=== PATIENT | female | born 1950 | race Caucasian/White ===

== ENCOUNTER 2018-02-11 18:29 | Inpatient (IN) ==
[2018-02-11] MEDS ORDERED: Naloxone 0.4 MG/ML INJ IVP PRN (21:30)
[2018-02-11] MEDS ORDERED: Lacri-Lube 3.5 GM TUBE BOTH EYES PRN (21:31)
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
[2018-02-11 21:54] LABS: ABG Base Excess 7 mEq/L (-2 to 3); ABG HCO3 37 mEq/L (21-27); ABG Oxygen Saturation 91 % (95-98); ABG PCO2 82 mmHg (35-45); ABG PH 7.27 pH Units (7.32-7.45); ABG PO2 74 mmHg (85-104); ABG TCO2 40 mEq/L (20-26); Blood Gas Modality VC; Blood Gas PEEP 5 cm H2O; Blood Gas Respiration Rate 12; Blood Gas VT 550 cc
[2018-02-11] MEDS ORDERED: Furosemide 40 MG/4 ML VIAL IVP ONE (22:08)
[2018-02-11] MEDS: FentaNYL (PF) 1,000 MCG in 0.9 % Sodium Chloride 80 ML IVC SCH (22:30)
[2018-02-12] MEDS: *HR* Heparin 5,000 UNIT/ML VIAL SQ SCH ×3 (00:45→18:03)
[2018-02-12] MEDS: Lacri-Lube 3.5 GM TUBE BOTH EYES SCH ×6 (00:46→21:29)
[2018-02-12] MEDS: Nystatin POWDER 30 GM BOTTLE TP SCH ×4 (00:46→21:28)
[2018-02-12] MEDS: FentaNYL (PF) 1,000 MCG in 0.9 % Sodium Chloride 80 ML IVC SCH ×3 (04:12→18:03)
[2018-02-12 04:25] LABS: Basophils % 0.2 %; Eosinophils # 0.1 K/mcL (0.0-0.6); Eosinophils % 1.6 %; Hematocrit 36.9 % (35.3-44.9); Hemoglobin 10.9 g/dL (11.5-15.4); Immature Granulocytes % 0.4 % (0-4); Lymphocytes # 0.6 K/mcL (0.6-4.6); Lymphocytes % 11.1 %; Mean Corpuscular HGB Conc 29.5 g/dL (31.6-35.5); Mean Corpuscular Hemoglobin 26.2 pg (28.0-33.3); Mean Corpuscular Volume 88.7 fL (83.0-100.0); Mean Platelet Volume 11.1 fL (9.4-12.4); Monocytes # 0.3 K/mcL (0.0-1.3); Monocytes % 4.6 %; Neutrophils # 4.5 K/mcL (1.6-8.9); Platelet Count 154 K/mcL (140-400); Red Blood Count 4.16 M/mcL (3.82-4.97); Red Cell Distribution Width 17.9 % (11.5-14.5); Segmented Neutrophils % 82.1 %
[2018-02-12 04:46] LABS: BUN/Creatinine Ratio 22 (6-26); Blood Urea Nitrogen 20 mg/dL (8-23); Calcium 7.1 mg/dL (8.6-10.3); Carbon Dioxide 33 mEq/L (23-29); Chloride 103 mEq/L (98-107); Glucose 75 mg/dL (70-105); Osmolality,Calculated 291 (280-300); Potassium 3.3 mEq/L (3.5-5.1); Sodium 140 mEq/L (136-145); eGFR For African Americans > 60 (> 60); eGFR For Non-African Americans > 60 (> 60)
[2018-02-12 05:25] LABS: ABG Base Excess 11 mEq/L (-2 to 3); ABG HCO3 38 mEq/L (21-27); ABG Oxygen Saturation 93 % (95-98); ABG PCO2 57 mmHg (35-45); ABG PH 7.43 pH Units (7.32-7.45); ABG PO2 66 mmHg (85-104); ABG TCO2 39 mEq/L (20-26); Blood Gas Modality VC; Blood Gas PEEP 5 cm H2O; Blood Gas VT 450 cc
[2018-02-12] MEDS: Famotidine 20 MG/2 ML VIAL IVP SCH ×2 (06:34→18:03)
[2018-02-12] MEDS: Chlorhexidine Rinse 15 ML MOUTHWASH MM SCH ×2 (07:56→21:26)
[2018-02-12] MEDS ORDERED: Perflutren Lipid Microsphere 1.3 ML in 0.9 % Sodium Chloride 8.7 ML IVP ONE (08:03)
--- NOTE | 2018-02-12 08:17 | Pulmonology Consult Note ---
<Garret Mcmahan - Last Filed: 02/12/18 11:30> Date of Encounter: 02/12/18 Time of Encounter: 08:00 Assessment and Plan (1) Acute on chronic respiratory failure Current Visit: No Status: Acute Chest x-ray shows interstitial and alveolar edema secondary to heart failure. Echocardiogram ordered and shows an EF of 60% with grossly dilated right ventricle. Patient currently on mechanical ventilation. ABGs show respiratory acidosis with anabolic compensation which seems to be improving. Her respiratory failure is most likely multifactorial relating to her cardiogenic and COPD status. Pneumonia unlikely but cannot be ruled out. Patient was started on Levaquin currently day 2. Was put on Versed for sedation later switched to Precedex however patient would wake and become agitated. - Continue Levaquin. - Continue mechanical ventilation. - Switched from Precedex to propofol. - Consult to nutrition put in. Ordered low-dose sliding scale insulin when patient starts feeding. Chest X-Ray 02/12/18 04:00 IMPRESSION: Appropriate endotracheal tube positioning. Interval placement of esophagogastric tube, distal tip outside the field of view. Persistent interstitial and alveolar edema likely reflecting heart failure. Fluctuating retrocardiac atelectasis. D/ / Fermin Hooper / Fermin Hooper Interpreting Provider: Fermin Hooper Qualifiers: Respiratory failure complication: hypoxia and hypercapnia Qualified Code(s) : J96.21 - Acute and chronic respiratory failure with hypoxia; J96.22 - Acute and chronic respiratory failure with hypercapnia (2) Acute on chronic diastolic CHF (congestive heart failure) Current Visit: Yes Status: Acute Echo shows an EF of 60% with grossly dilated right ventricle. Patient displays fluid overload on exam. Current fluid balance of -1150 with a rate of 0.4 mL/ kg per hour of urine output. - Continue fluid restriction. - Lasix when necessary. Echocardiogram 02/12/18 00:00 Impressions: Technically sub-optimal due to body habitus. LVEF 60%. Normal LV chamber size, wall thickness and function. Mild left ventricular diastolic dysfunction. Right ventricle was not well visualized. Grossly, it appeared dilated with near normal function. No evidence of pulmonary hypertension. RVSP was not well obtained and possibly underestimated. No obvious significant valvular dysfunction. Left Ventricular Wall Motion: Rest Echo Findings All wall segments showed normal motion. Findings: Study Quality * Technically sub-optimal due to body habitus. ECG Findings * Normal sinus rhythm. Left Ventricle * LVEF 60%. * Grossly normal LV chamber size, wall thickness and function. * Mild left ventricular diastolic dysfunction. Right Ventricle * Right ventricle was not well visualized. Grossly, it appeared dilated with near normal function. Left Atrium * Left atrium is not well visualized. Right Atrium * Right atrium is not well visualized. Aortic Valve * Aortic valve not well visualized. * No aortic regurgitation. * No aortic stenosis. Mitral Valve * Normal mitral valve structure and function. * No mitral regurgitation. * No mitral stenosis. Tricuspid Valve * Normal tricuspid valve structure and function. * Trace tricuspid regurgitation. * No evidence of pulmonary hypertension. RVSP was not well obtained and possibly underestimated. Pulmonic Valve * Pulmonic valve is not well visualized. * No pulmonic regurgitation. Aorta * Normally sized aortic root. Pericardium * The pericardium appears normal. Pulmonary Artery * Normal visualized portions of the main pulmonary artery. IVC * The IVC is dilated. (3) Pneumonia Current Visit: No Status: Acute Chest x-ray is more consistent with pulmonary edema secondary to congestive heart failure, although pneumonia cannot be ruled out. Patient on day 2 of Levaquin. White blood cell count within normal limits. Patient has been afebrile. Lactic acid of 0.9. - Continue Levaquin. - Sputum cultures pending. Qualifiers: Pneumonia type: due to unspecified organism Laterality: right Lung location: upper lobe of lung Qualified Code(s): J18.1 - Lobar pneumonia, unspecified organism (4) CKD (chronic kidney disease) stage 3, GFR 30-59 ml/min Current Visit: No Status: Chronic Creatinine currently at 0.91. - Holding IV fluids at this time due to CHF - Trend daily. (5) Cellulitis Current Visit: No Status: Acute Patient displays erythema of lower extremities. There are slightly warm to touch. No signs of active bleeding, pus, or drainage. Given state of fluid overload seems more likely that patient has venous stasis. Patient was given a dose of vancomycin when admitted. - Ordered venous Doppler of lower extremities bilaterally to rule out blood clot. - CT of lower extremities ordered to assess extent cellulitis and rule out possible osteomyelitis. - We will hold on vancomycin for now until results of Doppler and CT come back. - Wound care on board. Qualifiers: Site of cellulitis: trunk Site of cellulitis of trunk: chest wall Qualified Code(s): L03.313 - Cellulitis of chest wall (6) Venous stasis dermatitis of both lower extremities Current Visit: Yes Status: Acute Possible venous stasis of lower extremities bilaterally given state of fluid overload. - Follow up with venous ultrasound results. (7) Candidiasis Current Visit: Yes Status: Acute [place] Breast and umbilicus. On nystatin day #1. - Continue nystatin. (8) DVT prophylaxis Current Visit: Yes Status: Acute Heparin 5000 units subcutaneously twice a day History of Present Illness Consult date: 02/12/18 Requesting physician: Mukesh Castillo Reason for consult: dyspnea Chief complaint: SOB/AMS History of present illness: Patient is a 67-year-old female with a past medical history of CHF, COPD, hypertension, and seizures that presented to [facility] ED for acute respiratory failure and altered mental status on 02/11/18. Based on the nursing notes from [facility] patient developed shortness of breath and was placed on BiPAP as a result. She was given Levaquin and Vanco for possible pneumonia on her chest x-ray. She was then subsequently intubated which was noted to be difficult requiring 4 attempts. Past Med Surg Social Fam HX - Past Medical History Medical history: CHF, COPD, hyperlipidemia, hypertension, seizures Psychiatric history: depression - Past Surgical History Additional surgical history: trach. surgeries from [facility] [place]. bilat foot surgery - Social History Smoking Status: Current every day smoker Smokeless Tobacco Status: No Alcohol use: none Drug use: none - Family History Mother History Unknown: Yes Father History Unknown: Yes Medications and Allergies Atorvastatin [Lipitor] 10 mg PO HS #30 tablet 08/13/16 [Rx] Furosemide [Lasix] 40 mg PO DAILY #30 tablet 08/13/16 [Rx] Buspirone HCl [Buspar] 7.5 mg PO BID 02/11/18 [History] Omeprazole 40 mg PO QAM 02/11/18 [History] amLODIPine [Norvasc] 10 mg PO DAILY 02/11/18 [History] Albuterol Sulfate [Albuterol Inhaler] 2 puff IH Q4HR 02/12/18 [History] Budesonide/Formoterol 160/4.5 [Symbicort 160/4.5] 2 puff IH BIDR 02/12/18 [ History] Duloxetine HCl [Cymbalta] 60 mg PO BID 02/12/18 [History] Gabapentin [Neurontin] 800 mg PO TID 02/12/18 [History] Temazepam [Restoril] 30 mg PO Q48H PRN 02/12/18 [History] Valsartan [Diovan] 40 mg PO DAILY 02/12/18 [History] levETIRAcetam [Levetiracetam] 1,000 mg PO BID 02/12/18 [History] 3 Allergy/AdvReac Type Severity Reaction Status Date / Time acetaminophen Allergy Hives Verified 07/28/15 14:58 [From Darvocet-N] Iodinated Contrast- Oral and Allergy Difficulty Verified 07/28/15 14:58 IV Dye Breathing [Iodinated Contrast Media - IV Dye] propoxyphene Allergy Hives Verified 07/28/15 14:58 [From Darvocet-N] ROS unobtainable: due to endotracheal tube, due to mental status All Systems: The remainder of the systems were reviewed and are negative Physical Examination Vital Signs: Vital Signs, Last 4 Hours Temp Pulse Resp BP Pulse Ox 02/12/18 08:00 75 14 105/67 94 02/12/18 07:36 14 112/60 96 02/12/18 07:00 75 14 105/67 94 02/12/18 06:00 72 14 114/58 94 02/12/18 05:24 98.1 F 02/12/18 05:11 14 118/65 95 02/12/18 05:00 70 14 118/65 92 General appearance: no acute distress, other (Sedated and intubated) Eyes: nonicteric ENT: oropharynx moist Neck: supple Auscultation: bilateral: rhonchi Cardiovascular: regular rate and rhythm Gastrointestinal: hypoactive bowel sounds, non-distended Integumentary: erythema (Under left breast and bilaterally in lower extremities. Erythema of umbilicus. ) Extremities: no cyanosis, no edema (+2 bilateral pedal pitting edema), no clubbing, pulses normal (1 x 2 cm skin lesion noted in the left lower extremity that is dry with no signs of bleeding, pus, or drainage. Erythema noted in lower extremities bilaterally) Musculoskeletal: no deformities unable to assess due to mental status (Also due to patient being intubated) Ventilator Settings Ventilator Settings: Ventilator Settings, Last 8 Hours Ventilator Tidal Volume 450 Setting Ventilator Tidal Volume 450 Setting Ventilator Tidal Volume 450 Setting Ventilator Tidal Volume 450 Setting Ventilator Tidal Volume 450 Setting Ventilator Tidal Volume 450 Setting Ventilator Tidal Volume 450 Setting Ventilator Tidal Volume 450 Setting Ventilator Tidal Volume 450 Setting Ventilator Tidal Volume 450 Setting Ventilator Tidal Volume 450 Setting Ventilator Tidal Volume 450 Setting Ventilator Tidal Volume 450 Setting Ventilator Respiratory Rate 14 Setting Ventilator Respiratory Rate 14 Setting Ventilator Respiratory Rate 14 Setting Ventilator Respiratory Rate 14 Setting Ventilator Respiratory Rate 14 Setting Ventilator Respiratory Rate 14 Setting Ventilator Respiratory Rate 14 Setting Ventilator Respiratory Rate 14 Setting Ventilator Respiratory Rate 14 Setting Ventilator Respiratory Rate 14 Setting Ventilator Respiratory Rate 14 Setting Ventilator Respiratory Rate 14 Setting Ventilator Respiratory Rate 14 Setting Actual Respiratory Rate 14 Actual Respiratory Rate 14 Actual Respiratory Rate 14 Actual Respiratory Rate 14 Actual Respiratory Rate 14 Actual Respiratory Rate 14 Actual Respiratory Rate 14 Actual Respiratory Rate 14 Actual Respiratory Rate 14 Actual Respiratory Rate 14 Actual Respiratory Rate 14 Actual Respiratory Rate 14 Positive End Expiratory 5 Pressure Positive End Expiratory 5 Pressure Positive End Expiratory 5 Pressure Positive End Expiratory 5 Pressure Positive End Expiratory 5 Pressure Positive End Expiratory 5 Pressure Positive End Expiratory 5 Pressure Positive End Expiratory 5 Pressure Positive End Expiratory 5 Pressure Positive End Expiratory 5 Pressure Positive End Expiratory 5 Pressure Positive End Expiratory 5 Pressure Positive End Expiratory 5 Pressure Peak Inspiratory Airway 55 Pressure Peak Inspiratory Airway 52 Pressure Peak Inspiratory Airway 52 Pressure Peak Inspiratory Airway 35 Pressure Peak Inspiratory Airway 44 Pressure Peak Inspiratory Airway 35 Pressure Peak Inspiratory Airway 35 Pressure Peak Inspiratory Airway 40 Pressure Peak Inspiratory Airway 40 Pressure Peak Inspiratory Airway 49 Pressure Peak Inspiratory Airway 41 Pressure Peak Inspiratory Airway 49 Pressure Results - Laboratory Findings CBC and BMP: 02/12/18 04:00 02/12/18 04:10 ABG ABG pH 7.43 pH Units (7.32-7.45) 02/12/18 05:21 ABG pCO2 57 mmHg (35-45) H 02/12/18 05:21 ABG pO2 66 mmHg (85-104) L 02/12/18 05:21 ABG O2 Saturation 93 % (95-98) L 02/12/18 05:21 Abnormal lab findings: Abnormal lab results Hgb 10.9 g/dL (11.5-15.4) L 02/12/18 04:00 MCH 26.2 pg (28.0-33.3) L 02/12/18 04:00 MCHC 29.5 g/dL (31.6-35.5) L 02/12/18 04:00 RDW 17.9 % (11.5-14.5) H 02/12/18 04:00 ABG pCO2 57 mmHg (35-45) H 02/12/18 05:21 ABG pO2 66 mmHg (85-104) L 02/12/18 05:21 ABG HCO3 38 mEq/L (21-27) H 02/12/18 05:21 ABG Total CO2 39 mEq/L (20-26) H 02/12/18 05:21 ABG O2 Saturation 93 % (95-98) L 02/12/18 05:21 ABG Base Excess 11 mEq/L (-2 to 3) H 02/12/18 05:21 Potassium 3.3 mEq/L (3.5-5.1) L 02/12/18 04:10 Carbon Dioxide 33 mEq/L (23-29) H 02/12/18 04:10 Calcium 7.1 mg/dL (8.6-10.3) L 02/12/18 04:10 B-Natriuretic Peptide 513 pg/mL (Less than 100) H 02/11/18 21:31 - Clinical Findings Intake & Output: Intake & Output 02/11/18 02/12/18 02/12/18 23:59 07:59 15:59 Intake Total 300 / 300 Output Total 100 / 100 1350 / 1350 Balance -100 / -100 -1050 / -1050 Weight 149.3 kg 148.4 kg Consult Discharge Plan - Plan Referrals: Brad Minor MD [Primary Care Provider] - <Joelle Melton - Last Filed: 02/12/18 17:18> Date of Encounter: 02/12/18 All Systems: The remainder of the systems were reviewed and are negative Physical Examination Vital Signs: Vital Signs, Last 4 Hours Temp Pulse Resp BP Pulse Ox 02/12/18 17:05 14 94/51 90 02/12/18 17:00 63 14 107/71 99 02/12/18 16:00 60 14 81/55 90 02/12/18 15:55 98.6 F 02/12/18 15:18 14 99/55 92 02/12/18 14:53 60 14 95/55 92 02/12/18 14:52 60 14 95/55 92 02/12/18 14:00 60 14 92/50 92 Ventilator Settings Ventilator Settings: Ventilator Settings, Last 8 Hours Ventilator Tidal Volume 450 Setting Ventilator Tidal Volume 450 Setting Ventilator Tidal Volume 450 Setting Ventilator Tidal Volume 450 Setting Ventilator Tidal Volume 450 Setting Ventilator Tidal Volume 450 Setting Ventilator Tidal Volume 450 Setting Ventilator Tidal Volume 450 Setting Ventilator Tidal Volume 450 Setting Ventilator Tidal Volume 450 Setting Ventilator Tidal Volume 450 Setting Ventilator Tidal Volume 450 Setting Ventilator Tidal Volume 450 Setting Ventilator Respiratory Rate 14 Setting Ventilator Respiratory Rate 14 Setting Ventilator Respiratory Rate 14 Setting Ventilator Respiratory Rate 14 Setting Ventilator Respiratory Rate 14 Setting Ventilator Respiratory Rate 14 Setting Ventilator Respiratory Rate 14 Setting Ventilator Respiratory Rate 14 Setting Ventilator Respiratory Rate 14 Setting Ventilator Respiratory Rate 14 Setting Ventilator Respiratory Rate 14 Setting Ventilator Respiratory Rate 14 Setting Ventilator Respiratory Rate 14 Setting Actual Respiratory Rate 14 Actual Respiratory Rate 14 Actual Respiratory Rate 14 Actual Respiratory Rate 14 Actual Respiratory Rate 14 Actual Respiratory Rate 14 Actual Respiratory Rate 14 Actual Respiratory Rate 14 Actual Respiratory Rate 14 Actual Respiratory Rate 14 Actual Respiratory Rate 14 Actual Respiratory Rate 14 Actual Respiratory Rate 14 Positive End Expiratory 5 Pressure Positive End Expiratory 5 Pressure Positive End Expiratory 5 Pressure Positive End Expiratory 5 Pressure Positive End Expiratory 5 Pressure Positive End Expiratory 5 Pressure Positive End Expiratory 5 Pressure Positive End Expiratory 5 Pressure Positive End Expiratory 5 Pressure Positive End Expiratory 5 Pressure Positive End Expiratory 5 Pressure Positive End Expiratory 5 Pressure Positive End Expiratory 5 Pressure Peak Inspiratory Airway 55 Pressure Peak Inspiratory Airway 29 Pressure Peak Inspiratory Airway 41 Pressure Peak Inspiratory Airway 40 Pressure Peak Inspiratory Airway 41 Pressure Peak Inspiratory Airway 42 Pressure Peak Inspiratory Airway 39 Pressure Peak Inspiratory Airway 39 Pressure Peak Inspiratory Airway 41 Pressure Peak Inspiratory Airway 44 Pressure Peak Inspiratory Airway 39 Pressure Peak Inspiratory Airway 40 Pressure Peak Inspiratory Airway 52 Pressure Results - Laboratory Findings CBC and BMP: 02/12/18 04:00 02/12/18 04:10 ABG ABG pH 7.43 pH Units (7.32-7.45) 02/12/18 05:21 ABG pCO2 57 mmHg (35-45) H 02/12/18 05:21 ABG pO2 66 mmHg (85-104) L 02/12/18 05:21 ABG O2 Saturation 93 % (95-98) L 02/12/18 05:21 Abnormal lab findings: Abnormal lab results Hgb 10.9 g/dL (11.5-15.4) L 02/12/18 04:00 MCH 26.2 pg (28.0-33.3) L 02/12/18 04:00 MCHC 29.5 g/dL (31.6-35.5) L 02/12/18 04:00 RDW 17.9 % (11.5-14.5) H 02/12/18 04:00 ABG pCO2 57 mmHg (35-45) H 02/12/18 05:21 ABG pO2 66 mmHg (85-104) L 02/12/18 05:21 ABG HCO3 38 mEq/L (21-27) H 02/12/18 05:21 ABG Total CO2 39 mEq/L (20-26) H 02/12/18 05:21 ABG O2 Saturation 93 % (95-98) L 02/12/18 05:21 ABG Base Excess 11 mEq/L (-2 to 3) H 02/12/18 05:21 Potassium 3.3 mEq/L (3.5-5.1) L 02/12/18 04:10 Carbon Dioxide 33 mEq/L (23-29) H 02/12/18 04:10 Calcium 7.1 mg/dL (8.6-10.3) L 02/12/18 04:10 B-Natriuretic Peptide 513 pg/mL (Less than 100) H 02/11/18 21:31 - Microbiology Findings Microbiology Findings: Microbiology, Last 48 Hours 02/12/18 10:58 Sputum Culture - Preliminary Sputum - Clinical Findings Intake & Output: Intake & Output 02/12/18 02/12/18 02/12/18 07:59 15:59 23:59 Intake Total 300 / 300 658 / 658 60 / 60 Output Total 1350 / 1350 200 / 200 Balance -1050 / -1050 458 / 458 60 / 60 Weight 148.4 kg - Attending Attestation I examined this patient and my medical decision-making was reviewed with the Resident Physician. I agree with the documented findings, disposition and treatment plan as described except to the extent set forth below. Patient seen and examined. Labs, radiology, chart personally reviewed. 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 Pulmonary: Acceptable oxygenation and ventilation on current vent setting and patient was difficult intubation and also she has evidence of previous tracheostomy which is not clear to me at this time for what reason however I suspect obstructive sleep apnea/obesity hypoventilation syndrome and once patient has her workup completed then we will plan for spontaneous breathing trial. Cardiovascular: stable GI: Nutrition per dietary and GI prophylaxis per routine Heme: DVT prophylaxis per routine ID: Continue antibiotics and plan to de-escalation. Lower extremity images to rule out any osteomyelitis. Renal; urine out put and renal funtion reviewed Endorcine: blood glucose is monitored Lines: all lines checked and no evidence of infections Skin: skin care to prevent pressure ulcers per nursing routine care
[2018-02-12] MEDS: Levofloxacin 750 MG/150 ML 750 MG/150 ML BAG IVPB SCH (09:24)
[2018-02-12] MEDS: Dexmedetomidine HCl 400 MCG/100 ML MLS IVC SCH ×2 (09:27→21:29)
[2018-02-12] MEDS ORDERED: D5% in Water 1,000 ML IVC PRN (10:49)
[2018-02-12] MEDS ORDERED: Dextrose Gel 15 GM/37.5 ML TUBE PO PRN ×2 (10:49)
[2018-02-12] MEDS: Insulin LISPRO 300 UNITS/3 ML VIAL SQ SCH ×3 (12:02→20:34)
[2018-02-12] MEDS: *HR* Dextrose 50 % in Water (Syg) 50 ML SYRINGE IVP PRN ×2 (15:35→19:34)
[2018-02-12] MEDS: Leptospermum Honey Gel 44 ML TUBE TP SCH (20:30)
[2018-02-13] MEDS: FentaNYL (PF) 1,000 MCG in 0.9 % Sodium Chloride 80 ML IVC SCH (00:03)
[2018-02-13] MEDS: Lacri-Lube 3.5 GM TUBE BOTH EYES SCH ×4 (00:05→11:14)
[2018-02-13] MEDS: Insulin LISPRO 300 UNITS/3 ML VIAL SQ SCH ×5 (00:05→23:41)
[2018-02-13 04:07] LABS: Basophils % 0.3 %; Eosinophils # 0.2 K/mcL (0.0-0.6); Eosinophils % 2.5 %; Hemoglobin 10.9 g/dL (11.5-15.4); Immature Granulocytes % 0.5 % (0-4); Immature Platelets 5.9 % (1.1-6.1); Lymphocytes # 0.9 K/mcL (0.6-4.6); Mean Corpuscular HGB Conc 30.3 g/dL (31.6-35.5); Mean Corpuscular Hemoglobin 26.5 pg (28.0-33.3); Mean Corpuscular Volume 87.6 fL (83.0-100.0); Mean Platelet Volume 11.9 fL (9.4-12.4); Monocytes # 0.4 K/mcL (0.0-1.3); Monocytes % 6.1 %; Neutrophils # 4.5 K/mcL (1.6-8.9); Platelet Count 141 K/mcL (140-400); Red Blood Count 4.11 M/mcL (3.82-4.97); Red Cell Distribution Width 18.2 % (11.5-14.5); Segmented Neutrophils % 75.6 %
[2018-02-13] MEDS: Famotidine 20 MG/2 ML VIAL IVP SCH (04:17)
[2018-02-13] MEDS: *HR* Heparin 5,000 UNIT/ML VIAL SQ SCH ×2 (04:17→18:51)
[2018-02-13 04:31] LABS: Potassium 4.8 mEq/L (3.5-5.1)
[2018-02-13 04:35] LABS: ABG Base Excess 9 mEq/L (-2 to 3); ABG HCO3 37 mEq/L (21-27); ABG Oxygen Saturation 91 % (95-98); ABG PCO2 63 mmHg (35-45); ABG PH 7.37 pH Units (7.32-7.45); ABG PO2 65 mmHg (85-104); ABG TCO2 39 mEq/L (20-26); Blood Gas Modality ASSIST CONTROL; Blood Gas PEEP 5 cm H2O; Blood Gas VT 450 cc
[2018-02-13] MEDS: Chlorhexidine Rinse 15 ML MOUTHWASH MM SCH (07:48)
[2018-02-13] MEDS ORDERED: Piperacillin/Tazobactam 3.375 GM in 0.9 % Sodium Chloride Mini Bag 100 ML IVPB SCH ×5 (08:00→19:00)
--- NOTE | 2018-02-13 08:11 | Pulmonology Progress Note ---
<GeronimoKarissasarah M - Last Filed: 02/13/18 08:48> Date of Encounter: 02/13/18 Objective PUL Vital signs: Last Vital Signs Temp 98.7 F 02/13/18 07:59 Pulse 92 02/13/18 08:00 Resp 13 02/13/18 08:00 BP 137/86 02/13/18 08:00 Pulse Ox 93 02/13/18 08:00 Ventilator Settings Ventilator Settings: Ventilator Settings, Last 8 Hours Ventilator Tidal Volume 450 Setting Ventilator Tidal Volume 450 Setting Ventilator Tidal Volume 450 Setting Ventilator Tidal Volume 450 Setting Ventilator Tidal Volume 450 Setting Ventilator Tidal Volume 450 Setting Ventilator Tidal Volume 450 Setting Ventilator Tidal Volume 450 Setting Ventilator Tidal Volume 450 Setting Ventilator Tidal Volume 450 Setting Ventilator Respiratory Rate 14 Setting Ventilator Respiratory Rate 14 Setting Ventilator Respiratory Rate 12 Setting Ventilator Respiratory Rate 14 Setting Ventilator Respiratory Rate 14 Setting Ventilator Respiratory Rate 14 Setting Ventilator Respiratory Rate 14 Setting Ventilator Respiratory Rate 14 Setting Ventilator Respiratory Rate 14 Setting Ventilator Respiratory Rate 14 Setting Actual Respiratory Rate 14 Actual Respiratory Rate 14 Actual Respiratory Rate 14 Actual Respiratory Rate 15 Actual Respiratory Rate 14 Actual Respiratory Rate 15 Actual Respiratory Rate 14 Actual Respiratory Rate 14 Actual Respiratory Rate 14 Positive End Expiratory 5 Pressure Positive End Expiratory 5 Pressure Positive End Expiratory 5 Pressure Positive End Expiratory 5 Pressure Positive End Expiratory 5 Pressure Positive End Expiratory 5 Pressure Positive End Expiratory 5 Pressure Positive End Expiratory 5 Pressure Positive End Expiratory 5 Pressure Positive End Expiratory 5 Pressure Peak Inspiratory Airway 47 Pressure Peak Inspiratory Airway 44 Pressure Peak Inspiratory Airway 37 Pressure Peak Inspiratory Airway 43 Pressure Peak Inspiratory Airway 28 Pressure Peak Inspiratory Airway 50 Pressure Peak Inspiratory Airway 43 Pressure Peak Inspiratory Airway 33 Pressure Peak Inspiratory Airway 45 Pressure Results - Laboratory Findings CBC and BMP: 02/13/18 03:52 02/13/18 03:52 ABG ABG pH 7.37 pH Units (7.32-7.45) 02/13/18 04:30 ABG pCO2 63 mmHg (35-45) H 02/13/18 04:30 ABG pO2 65 mmHg (85-104) L 02/13/18 04:30 ABG O2 Saturation 91 % (95-98) L 02/13/18 04:30 Abnormal lab findings: Abnormal lab results Hgb 10.9 g/dL (11.5-15.4) L 02/13/18 03:52 MCH 26.5 pg (28.0-33.3) L 02/13/18 03:52 MCHC 30.3 g/dL (31.6-35.5) L 02/13/18 03:52 RDW 18.2 % (11.5-14.5) H 02/13/18 03:52 ABG pCO2 63 mmHg (35-45) H 02/13/18 04:30 ABG pO2 65 mmHg (85-104) L 02/13/18 04:30 ABG HCO3 37 mEq/L (21-27) H 02/13/18 04:30 ABG Total CO2 39 mEq/L (20-26) H 02/13/18 04:30 ABG O2 Saturation 91 % (95-98) L 02/13/18 04:30 ABG Base Excess 9 mEq/L (-2 to 3) H 02/13/18 04:30 Sodium 135 mEq/L (136-145) L 02/13/18 03:52 Carbon Dioxide 31 mEq/L (23-29) H 02/13/18 03:52 Est GFR ( Amer) 55 (> 60) L 02/13/18 03:52 Est GFR (Non-Af Amer) 45 (> 60) L 02/13/18 03:52 Calcium 8.0 mg/dL (8.6-10.3) L 02/13/18 03:52 B-Natriuretic Peptide 513 pg/mL (Less than 100) H 02/11/18 21:31 - Microbiology Findings Microbiology Findings: Microbiology, Last 48 Hours 02/12/18 10:58 Sputum Culture - Preliminary Sputum - Clinical Findings Intake & Output: Intake & Output 02/12/18 02/13/18 02/13/18 23:59 07:59 15:59 Intake Total 415 / 415 748.8 / 748.8 89.2 / 89.2 Output Total 100 / 100 225 / 225 Balance 315 / 315 523.8 / 523.8 89.2 / 89.2 Weight 150.5 kg Consult Discharge Plan - Plan Referrals: Bard Minor MD [Primary Care Provider] - - Attending Attestation I examined this patient and my medical decision-making was reviewed with the Resident Physician. I agree with the documented findings, disposition and treatment plan as described except to the extent set forth below. Patient seen and examined. Labs, radiology, chart personally reviewed. 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 CT is concerning for cellulitis and gram-negative on the culture. They suspect she will need long- term antibiotics and infectious disease consultation. Renal; urine out put and renal funtion reviewed Endorcine: blood glucose is monitored Lines: all lines checked and no evidence of infections Skin: skin care to prevent pressure ulcers per nursing routine care If patient remains stable we will consider transferred to the floor. <Garret Mcmahan - Last Filed: 02/13/18 09:08> Date of Encounter: 02/13/18 Time of Encounter: 08:00 Assessment and Plan (1) Acute on chronic respiratory failure Current Visit: No Status: Acute Patient was extubated today. She is currently at 92% oxygen saturation 40% FiO2 on BiPAP. Chest x-ray today shows small reticulonodular infiltrates that appear to be improved on the right side. Qualifiers: Respiratory failure complication: hypoxia and hypercapnia Qualified Code(s) : J96.21 - Acute and chronic respiratory failure with hypoxia; J96.22 - Acute and chronic respiratory failure with hypercapnia (2) Acute on chronic diastolic CHF (congestive heart failure) Current Visit: Yes Status: Acute Echo shows an EF of 60% with grossly dilated right ventricle. Patient displays fluid overload on exam. Current fluid balance of -277 mL with 0.5 mL/kg/h urine production. 148 kg yesterday and 150 kg today. - Continue fluid restriction. - Lasix when necessary. (3) Pneumonia Current Visit: No Status: Acute Patient on day 3 of Levaquin. White blood cell count within normal limits. Patient has been afebrile. Chest x-ray shows improvement on right side. Preliminaries for sputum cultures are negative. - Continue Levaquin. Qualifiers: Pneumonia type: due to unspecified organism Laterality: right Lung location: upper lobe of lung Qualified Code(s): J18.1 - Lobar pneumonia, unspecified organism (4) CKD (chronic kidney disease) stage 3, GFR 30-59 ml/min Current Visit: No Status: Chronic Creatinine increased from 0.91-1.19 today. - Holding IV fluids at this time due to CHF - Trend daily. (5) Cellulitis Current Visit: No Status: Acute Bilateral lower extremity CT shows evidence of cellulitis. Wound culture of right foot from 02/11/18 shows gram-negative allen. Patient currently on Levaquin. - Continue Levaquin. - Consult infectious disease placed. Lower Extremity CT 02/12/18 07:59 IMPRESSION: 1. Diffuse subcutaneous edema and skin thickening of the bilateral lower extremities. Correlate clinically for cellulitis. Edema is slightly more pronounced within the visualized distal soft tissues of the upper right leg. No organized drainable fluid collection identified to suggest abscess. No subcutaneous gas evident. 2. No acute fracture identified. 3. Severe osteopenia. 4. Postsurgical changes of left ankle arthrodesis and right talus ORIF. 5. Tricompartmental osteoarthritis of the bilateral knees with moderate left and small right knee effusions. D/ / Vince Whitley MD / Vince Whitley MD Interpreting Provider: Vince Whitley MD Qualifiers: Site of cellulitis: trunk Site of cellulitis of trunk: chest wall Qualified Code(s): L03.313 - Cellulitis of chest wall (6) Candidiasis Current Visit: Yes Status: Acute (7) Venous stasis dermatitis of both lower extremities Current Visit: Yes Status: Acute - Results of Doppler from bilateral lower extremities still pending. (8) DVT prophylaxis Current Visit: Yes Status: Acute Heparin 5000 units subcutaneously twice a day Subjective Principal diagnosis: Acute on chronic resp failure Interval history: Patient was extubated today. She admits to moderate difficulty breathing. She denies any chest pain. Denies any dizziness or LACEY. Denies any abdominal pain, nausea, or vomiting. She admits to minor pain in both her legs. She admits to a subjective fever with chills. Objective PUL Vital signs: Last Vital Signs Temp 98.7 F 02/13/18 07:59 Pulse 92 02/13/18 07:30 Resp 17 02/13/18 07:28 BP 153/90 02/13/18 07:00 Pulse Ox 95 02/13/18 07:28 General appearance: no acute distress, other (A&Ox1) Eyes: nonicteric ENT: oropharynx moist Neck: supple Effort: normal Auscultation: bilateral: clear Percussion: bilateral: not dull Tactile fremitus: bilateral: normal Cardiovascular: regular rate and rhythm Gastrointestinal: hypoactive bowel sounds, soft, non-tender, non-distended Integumentary: erythema (B/L lower extremities, umbilicus, under L/R breast ), cellulitis (B/L LE, R hand 1x2 cm lesion with erythema but with no active bleeding, pus or drainage.) Extremities: no cyanosis, no clubbing, pulses normal, no ischemia or petechiae, edema (+2 B/L pedal pitting edema) Musculoskeletal: no deformities other (A&Ox1) mood appropriate, affect normal Ventilator Settings Ventilator Settings: Ventilator Settings, Last 8 Hours Ventilator Tidal Volume 450 Setting Ventilator Tidal Volume 450 Setting Ventilator Tidal Volume 450 Setting Ventilator Tidal Volume 450 Setting Ventilator Tidal Volume 450 Setting Ventilator Tidal Volume 450 Setting Ventilator Tidal Volume 450 Setting Ventilator Tidal Volume 450 Setting Ventilator Tidal Volume 450 Setting Ventilator Tidal Volume 450 Setting Ventilator Respiratory Rate 14 Setting Ventilator Respiratory Rate 14 Setting Ventilator Respiratory Rate 12 Setting Ventilator Respiratory Rate 14 Setting Ventilator Respiratory Rate 14 Setting Ventilator Respiratory Rate 14 Setting Ventilator Respiratory Rate 14 Setting Ventilator Respiratory Rate 14 Setting Ventilator Respiratory Rate 14 Setting Ventilator Respiratory Rate 14 Setting Actual Respiratory Rate 14 Actual Respiratory Rate 14 Actual Respiratory Rate 14 Actual Respiratory Rate 15 Actual Respiratory Rate 14 Actual Respiratory Rate 15 Actual Respiratory Rate 14 Actual Respiratory Rate 14 Actual Respiratory Rate 14 Positive End Expiratory 5 Pressure Positive End Expiratory 5 Pressure Positive End Expiratory 5 Pressure Positive End Expiratory 5 Pressure Positive End Expiratory 5 Pressure Positive End Expiratory 5 Pressure Positive End Expiratory 5 Pressure Positive End Expiratory 5 Pressure Positive End Expiratory 5 Pressure Positive End Expiratory 5 Pressure Peak Inspiratory Airway 47 Pressure Peak Inspiratory Airway 44 Pressure Peak Inspiratory Airway 37 Pressure Peak Inspiratory Airway 43 Pressure Peak Inspiratory Airway 28 Pressure Peak Inspiratory Airway 50 Pressure Peak Inspiratory Airway 43 Pressure Peak Inspiratory Airway 33 Pressure Peak Inspiratory Airway 45 Pressure Results - Laboratory Findings CBC and BMP: 02/13/18 03:52 02/13/18 03:52 ABG ABG pH 7.37 pH Units (7.32-7.45) 02/13/18 04:30 ABG pCO2 63 mmHg (35-45) H 02/13/18 04:30 ABG pO2 65 mmHg (85-104) L 02/13/18 04:30 ABG O2 Saturation 91 % (95-98) L 02/13/18 04:30 Abnormal lab findings: Abnormal lab results Hgb 10.9 g/dL (11.5-15.4) L 02/13/18 03:52 MCH 26.5 pg (28.0-33.3) L 02/13/18 03:52 MCHC 30.3 g/dL (31.6-35.5) L 02/13/18 03:52 RDW 18.2 % (11.5-14.5) H 02/13/18 03:52 ABG pCO2 63 mmHg (35-45) H 02/13/18 04:30 ABG pO2 65 mmHg (85-104) L 02/13/18 04:30 ABG HCO3 37 mEq/L (21-27) H 02/13/18 04:30 ABG Total CO2 39 mEq/L (20-26) H 02/13/18 04:30 ABG O2 Saturation 91 % (95-98) L 02/13/18 04:30 ABG Base Excess 9 mEq/L (-2 to 3) H 02/13/18 04:30 Sodium 135 mEq/L (136-145) L 02/13/18 03:52 Carbon Dioxide 31 mEq/L (23-29) H 02/13/18 03:52 Est GFR ( Amer) 55 (> 60) L 02/13/18 03:52 Est GFR (Non-Af Amer) 45 (> 60) L 02/13/18 03:52 Calcium 8.0 mg/dL (8.6-10.3) L 02/13/18 03:52 B-Natriuretic Peptide 513 pg/mL (Less than 100) H 02/11/18 21:31 - Microbiology Findings Microbiology Findings: Microbiology, Last 48 Hours 02/12/18 10:58 Sputum Culture - Preliminary Sputum - Clinical Findings Intake & Output: Intake & Output 02/12/18 02/13/18 02/13/18 23:59 07:59 15:59 Intake Total 415 / 415 748.8 / 748.8 Output Total 100 / 100 225 / 225 Balance 315 / 315 523.8 / 523.8 Weight 150.5 kg
[2018-02-13] MEDS: Levofloxacin 750 MG/150 ML 750 MG/150 ML BAG IVPB SCH (08:27)
[2018-02-13] MEDS: Leptospermum Honey Gel 44 ML TUBE TP SCH (08:31)
[2018-02-13] MEDS: Nystatin POWDER 30 GM BOTTLE TP SCH ×2 (08:32→20:46)
[2018-02-13] MEDS ORDERED: levETIRAcetam 250 MG TABLET PO SCH ×3 (10:00→22:00)
[2018-02-13] MEDS: Dexmedetomidine HCl 400 MCG/100 ML MLS IVC SCH (11:13)
[2018-02-13 11:23] LABS: Estimated Average Glucose 111 mg/dl; Hemoglobin A1C 5.5 %
[2018-02-13] MEDS ORDERED: amLODIPine 5 MG TABLET PO SCH (12:00)
[2018-02-13] MEDS ORDERED: Insulin LISPRO 300 UNITS/3 ML VIAL SQ SCH ×2 (12:00→16:00)
[2018-02-13] MEDS ORDERED: Nystatin POWDER 30 GM BOTTLE TP SCH ×2 (15:00)
[2018-02-13] MEDS ORDERED: Ondansetron 4 MG/2 ML VIAL ONE (15:19)
[2018-02-13] MEDS ORDERED: Ondansetron 4 MG/2 ML VIAL IVP PRN (15:22)
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
[2018-02-13] MEDS ORDERED: Ibuprofen 400 MG TABLET PO PRN ×2 (16:18→18:27)
[2018-02-13] MEDS ORDERED: Famotidine 20 MG/2 ML VIAL IVP SCH ×2 (18:00)
[2018-02-13] MEDS ORDERED: *HR* Heparin 5,000 UNIT/ML VIAL SQ SCH ×2 (18:00)
[2018-02-13 19:59] LABS: Adenovirus Not Detected (Not Detect); Bordetella Pertussis Not Detected (Not Detect); Chlamydophila pneumoniae Not Detected (Not Detect); Coronavirus 229E Not Detected (Not Detect); Coronavirus HKU1 Not Detected (Not Detect); Coronavirus NL63 Not Detected (Not Detect); Coronavirus OC43 Not Detected (Not Detect); Human Metapneumovirus Not Detected (Not Detect); Human Rhinovirus/Enterovirus Not Detected (Not Detect); Influenza A Subtype 2009 H1 Not Detected (Not Detect); Influenza A Untypeable Not Detected (Not Detect); Influenza B Not Detected (Not Detect); Mycoplasma pneumoniae Not Detected (Not Detect); Parainfluenza Virus 1 Not Detected (Not Detect); Parainfluenza Virus 2 Not Detected (Not Detect); Parainfluenza Virus 3 Not Detected (Not Detect); Parainfluenza Virus 4 Not Detected (Not Detect); Respiratory Syncytial Virus Not Detected (Not Detect)
[2018-02-13] MEDS: levETIRAcetam 250 MG TABLET PO SCH (20:45)
[2018-02-13] MEDS: Piperacillin/Tazobactam 3.375 GM in 0.9 % Sodium Chloride Mini Bag 100 ML IVPB SCH (23:45)
[2018-02-14 04:48] LABS: ABG Base Excess 4 mEq/L (-2 to 3); ABG HCO3 40 mEq/L (21-27); ABG Oxygen Saturation 85 % (95-98); ABG PCO2 149 mmHg (35-45); ABG PH 7.04 pH Units (7.32-7.45); ABG PO2 78 mmHg (85-104); ABG TCO2 45 mEq/L (20-26); Blood Gas Modality BiLevel; Blood Gas PEEP 8 cm H2O
[2018-02-14] MEDS: Insulin LISPRO 300 UNITS/3 ML VIAL SQ SCH ×6 (05:08→23:43)
--- NOTE | 2018-02-14 05:08 | Procedure Note ---
Date of procedure: 02/14/18 Pre-op diagnosis: acute on chronic hypercapnic and hypoxic respiratory failure Post-op diagnosis: same Procedure: Intubation Procedure Note Indication: Acute on chronic respiratory failure with hypoxia and hypercapnia, altered mental status, congestive heart failure Size of endotracheal tube: . 7.5 In-line cervical immobilzation: , Not applicable Induction Agent: 20 mg etomidate, 5 mg Versed Paralytic Agent: None Endotracheal intubation was performed under emergent conditions. Proper positioning of the tube was determined by direct visualization of the tube passing through the vocal cords with video laryngoscopy, chest auscultation, end tidal capnography, colorimetry, and confirmatory Chest X-Ray. The tube was secured into position at 22 cm at the lips. Patient was a moderately difficult intubation due to previous tracheostomy scar tissue and mild edema. However, there were no apparent complications. The attending physician, Dr. Gianni Patel was present for direct supervision during the entire procedure Surgeon: Kam Badillo Was there an machine operator assistant present: Yes Financial Services Officer: Gianni Patel Estimated blood loss (cc): 0 Specimen: none Pathology: none sent Condition: critical Disposition: ICU
--- NOTE | 2018-02-14 05:15 | Event Note ---
Date of Encounter: 02/14/18 Time of Encounter: 05:11 Patient was extubated this morning and placed on BiPAP. Throughout the day. She became more combative and eventually this evening started to become somnolent, not following commands. She would open her eyes to verbal stimulation but would not follow commands and seemed very altered. She kept trying to remove her BiPAP. Her respirations were very labored and uneven. She was starting to develop worsening respiratory distress. Stat ABG was ordered, which showed respiratory acidosis with a pH of 7.04 and a PCO2 of 149. Her PaO2 was 78 with an FiO2 of 55%, giving her a p/f ratio of 141. She was intubated for acute on chronic respiratory failure associated with hypoxia and hypercapnia. Please see my separate procedure note for documentation of the procedure. We will place her on low tidal volume vent settings of 6 mL/kg ideal body weight, and titrating down FiO2 to maintain her sats above 90%. We will recheck an ABG and one hour to ensure her PCO2 is coming down and will adjust her vent rate accordingly.
[2018-02-14] MEDS: FentaNYL (PF) 1,000 MCG in 0.9 % Sodium Chloride 80 ML IVC SCH ×4 (05:19→21:19)
[2018-02-14] MEDS: Famotidine 20 MG/2 ML VIAL IVP SCH ×2 (06:07→17:07)
[2018-02-14] MEDS: *HR* Heparin 5,000 UNIT/ML VIAL SQ SCH ×2 (06:08→17:07)
[2018-02-14 06:23] LABS: ABG Base Excess 6 mEq/L (-2 to 3); ABG HCO3 39 mEq/L (21-27); ABG Oxygen Saturation 91 % (95-98); ABG PCO2 104 mmHg (35-45); ABG PH 7.18 pH Units (7.32-7.45); ABG PO2 82 mmHg (85-104); ABG TCO2 42 mEq/L (20-26); Blood Gas Modality PRVC; Blood Gas PEEP 8 cm H2O; Blood Gas Respiration Rate 18; Blood Gas VT 400 cc
[2018-02-14] MEDS ORDERED: Ipratropium/Albuterol Neb 3 ML ONE (07:42)
[2018-02-14] MEDS: Piperacillin/Tazobactam 3.375 GM in 0.9 % Sodium Chloride Mini Bag 100 ML IVPB SCH ×3 (07:46→23:42)
[2018-02-14] MEDS: amLODIPine 5 MG TABLET PO SCH (07:47)
[2018-02-14] MEDS: MethylPREDNISolone 40 MG/ML VIAL IVP SCH ×3 (07:47→23:41)
[2018-02-14] MEDS: Ipratropium/Albuterol Neb 3 ML IH SCH ×5 (07:48→23:21)
[2018-02-14] MEDS: Leptospermum Honey Gel 44 ML TUBE TP SCH (07:48)
[2018-02-14] MEDS: Nystatin POWDER 30 GM BOTTLE TP SCH ×3 (07:49→20:22)
--- NOTE | 2018-02-14 08:10 | Pulmonology Progress Note ---
<GeronimoJoelle M - Last Filed: 02/14/18 08:27> Date of Encounter: 02/14/18 Objective PUL Vital signs: Last Vital Signs Temp 97.8 F 02/14/18 07:30 Pulse 68 02/14/18 08:00 Resp 14 02/14/18 08:00 BP 123/68 02/14/18 08:00 Pulse Ox 90 02/14/18 08:00 Ventilator Settings Ventilator Settings: Ventilator Settings, Last 8 Hours Ventilator Tidal Volume 450 Setting Ventilator Tidal Volume 450 Setting Ventilator Tidal Volume 450 Setting Ventilator Tidal Volume 400 Setting Ventilator Tidal Volume 450 Setting Ventilator Tidal Volume 450 Setting Ventilator Tidal Volume 450 Setting Ventilator Respiratory Rate 14 Setting Ventilator Respiratory Rate 14 Setting Ventilator Respiratory Rate 14 Setting Ventilator Respiratory Rate 18 Setting Ventilator Respiratory Rate 18 Setting Ventilator Respiratory Rate 18 Setting Ventilator Respiratory Rate 18 Setting Actual Respiratory Rate 14 Actual Respiratory Rate 14 Actual Respiratory Rate 18 Actual Respiratory Rate 18 Actual Respiratory Rate 18 Positive End Expiratory 5 Pressure Positive End Expiratory 5 Pressure Positive End Expiratory 5 Pressure Positive End Expiratory 8 Pressure Positive End Expiratory 8 Pressure Positive End Expiratory 8 Pressure Positive End Expiratory 8 Pressure Peak Inspiratory Airway 38 Pressure Peak Inspiratory Airway 47 Pressure Peak Inspiratory Airway 60 Pressure Peak Inspiratory Airway 47 Pressure Peak Inspiratory Airway 49 Pressure Results - Laboratory Findings CBC and BMP: 02/13/18 03:52 02/13/18 03:52 ABG ABG pH 7.31 pH Units (7.32-7.45) L D 02/14/18 08:15 ABG pCO2 68 mmHg (35-45) H D 02/14/18 08:15 ABG pO2 62 mmHg (85-104) L 02/14/18 08:15 ABG O2 Saturation 88 % (95-98) L 02/14/18 08:15 Abnormal lab findings: Abnormal lab results Hgb 10.9 g/dL (11.5-15.4) L 02/13/18 03:52 MCH 26.5 pg (28.0-33.3) L 02/13/18 03:52 MCHC 30.3 g/dL (31.6-35.5) L 02/13/18 03:52 RDW 18.2 % (11.5-14.5) H 02/13/18 03:52 ABG pH 7.31 pH Units (7.32-7.45) L D 02/14/18 08:15 ABG pCO2 68 mmHg (35-45) H D 02/14/18 08:15 ABG pO2 62 mmHg (85-104) L 02/14/18 08:15 ABG HCO3 35 mEq/L (21-27) H 02/14/18 08:15 ABG Total CO2 37 mEq/L (20-26) H 02/14/18 08:15 ABG O2 Saturation 88 % (95-98) L 02/14/18 08:15 ABG Base Excess 6 mEq/L (-2 to 3) H 02/14/18 08:15 Sodium 135 mEq/L (136-145) L 02/13/18 03:52 Carbon Dioxide 31 mEq/L (23-29) H 02/13/18 03:52 Est GFR ( Amer) 55 (> 60) L 02/13/18 03:52 Est GFR (Non-Af Amer) 45 (> 60) L 02/13/18 03:52 POC Glucose 113 mg/dL (70-99) H 02/13/18 23:29 Calcium 8.0 mg/dL (8.6-10.3) L 02/13/18 03:52 B-Natriuretic Peptide 513 pg/mL (Less than 100) H 02/11/18 21:31 - Microbiology Findings Microbiology Findings: Microbiology, Last 48 Hours 02/13/18 17:40 Legionella Antigen - Final Urine,Catheterized Streptococcus pneumoniae Antigen (M - Final 02/12/18 10:58 Sputum Culture - Preliminary Sputum - Clinical Findings Intake & Output: Intake & Output 02/13/18 02/14/18 02/14/18 23:59 07:59 15:59 Intake Total 0 / 0 125 / 125 100 / 100 Output Total 145 / 145 Balance -145 / -145 125 / 125 100 / 100 Weight 149.87 kg Consult Discharge Plan - Plan Referrals: Brad Minor MD [Primary Care Provider] - - Attending Attestation I examined this patient and my medical decision-making was reviewed with the Resident Physician. I agree with the documented findings, disposition and treatment plan as described except to the extent set forth below. Patient seen and examined. Labs, radiology, chart personally reviewed. Agree with resident's history and physical, assessment, plan with following comments: RECORD RETRIEVAL SPECIALIST: Patient does not follows commands, patient is sedated. We will change percent to her previous sedation with propofol. Pulmonary: Acceptable oxygenation and ventilation with mechanical invasive ventilation and I have changed her vent setting to previous tidal volume and respiratory rate to be followed by ABG and adjust accordingly after that. I am concerned this patient might need tracheostomy due to her complicated history as well as the fact she had the previous tracheostomy and she is be reported difficult intubation. Will consider palliative care. He was reported that she has significant amount of mucous plugs and we will arrange bronchoscopy if needed when family available to give consent. Cardiovascular: stable GI: Nutrition per dietary and GI prophylaxis per routine Heme: DVT prophylaxis per routine ID: Continue antibiotics and plan to de-escalation Renal; urine out put and renal funtion reviewed Endorcine: blood glucose is monitored Lines: all lines checked and no evidence of infections Skin: skin care to prevent pressure ulcers per nursing routine care I spent 35 min of Critical Care time with this patient. It involved decision making of high complexity to assess, manipulate, and support vital organ system failure and/or to prevent further life threatening deterioration of the patient' s condition. The time involved in the performance of separately reportable procedures was not counted toward critical care time. <Garret Mcmahan - Last Filed: 02/14/18 17:53> Date of Encounter: 02/14/18 Time of Encounter: 09:10 Assessment and Plan (1) Acute on chronic respiratory failure Current Visit: No Status: Acute Patient was extubated yesterday however overnight developed shortness of breath and became agitated. ABGs revealed respiratory acidosis with a pH of 7.04 and a PCO2 of 149. She was subsequently reintubated. 93% O2 on mechanical ventilation. - Continue mechanical ventilation. - Possible need for tracheostomy. - Palliative care on board. CODE STATUS continues to be full. Qualifiers: Respiratory failure complication: hypoxia and hypercapnia Qualified Code(s) : J96.21 - Acute and chronic respiratory failure with hypoxia; J96.22 - Acute and chronic respiratory failure with hypercapnia (2) Acute on chronic diastolic CHF (congestive heart failure) Current Visit: Yes Status: Acute Echo shows an EF of 60% with grossly dilated right ventricle. Patient displays fluid overload on exam. Current fluid balance of +588 with the 0.1 mL/kg/h urinary output. - Continue fluid restriction for now. - Lasix when necessary. (3) Pneumonia Current Visit: No Status: Acute White blood cell count and normal limits. Chest x-ray reveals worsening his interstitial edema with basilar atelectasis. Patient on day 4 of Levaquin, and day 2 of Zosyn. Sputum culture negative for Legionella and strep pneumonia. - We will adjust antibiotics per recommendations from infectious disease. Chest X-Ray 02/14/18 05:11 IMPRESSION: Appropriate endotracheal tube positioning. No pneumothorax. Worsening interstitial edema. Fluctuating basilar atelectasis without substantial change in small bilateral effusions. D/ / Fermin Hooper / Fermin Hooper Interpreting Provider: Fermin Hooper Qualifiers: Pneumonia type: due to unspecified organism Laterality: right Lung location: upper lobe of lung Qualified Code(s): J18.1 - Lobar pneumonia, unspecified organism (4) CKD (chronic kidney disease) stage 3, GFR 30-59 ml/min Current Visit: No Status: Chronic Creatinine increased from 1.19-1.51. - Continue to hold IV fluids for now due to CHF. - Trend daily. (5) Cellulitis Current Visit: No Status: Acute Bilateral lower extremity CT shows evidence of cellulitis. Wound culture of right foot from 02/11/18 shows gram-negative allen. Vancomycin day 1. - Continue antibiotics. Qualifiers: Site of cellulitis: trunk Site of cellulitis of trunk: chest wall Qualified Code(s): L03.313 - Cellulitis of chest wall (6) Candidiasis Current Visit: Yes Status: Acute Evident in bilateral breasts and umbilicus. On day #4 of nystatin. - Continue nystatin. (7) Venous stasis dermatitis of both lower extremities Current Visit: Yes Status: Inactive Venous Doppler shows bilateral lower extremities to have normal superficial and deep exam on all visualized vessels however multiple vessels were not well visualized. (8) DVT prophylaxis Current Visit: Yes Status: Acute Heparin 5000 units subcutaneously twice a day Subjective Principal diagnosis: Acute on chronic resp failure Interval history: Patient intubated. Unable to obtain history. Objective PUL Vital signs: Last Vital Signs Temp 96.4 F L 02/14/18 04:00 Pulse 64 02/14/18 07:00 Resp 14 02/14/18 07:48 BP 136/78 02/14/18 07:00 Pulse Ox 99 02/14/18 07:48 General appearance: other (Intubated) Eyes: nonicteric ENT: oropharynx moist Neck: supple Auscultation: bilateral: rhonchi (Minor) Cardiovascular: regular rate and rhythm Gastrointestinal: normoactive bowel sounds, hypoactive bowel sounds, soft, non- distended Integumentary: erythema (Under breasts bilaterally. Improving.), cellulitis ( Lower extremities bilaterally. Right hand. No signs of pus, bleeding, or drainage.) Extremities: no cyanosis, no clubbing, pulses normal, no ischemia or petechiae, edema (+2 out of 4 pedal pitting edema bilaterally) Musculoskeletal: no deformities unable to assess due to mental status (Intubated.) mood appropriate, affect normal Ventilator Settings Ventilator Settings: Ventilator Settings, Last 8 Hours Ventilator Tidal Volume 450 Setting Ventilator Tidal Volume 400 Setting Ventilator Tidal Volume 450 Setting Ventilator Tidal Volume 450 Setting Ventilator Tidal Volume 450 Setting Ventilator Respiratory Rate 14 Setting Ventilator Respiratory Rate 18 Setting Ventilator Respiratory Rate 18 Setting Ventilator Respiratory Rate 18 Setting Ventilator Respiratory Rate 18 Setting Actual Respiratory Rate 14 Actual Respiratory Rate 18 Actual Respiratory Rate 18 Actual Respiratory Rate 18 Positive End Expiratory 5 Pressure Positive End Expiratory 8 Pressure Positive End Expiratory 8 Pressure Positive End Expiratory 8 Pressure Positive End Expiratory 8 Pressure Peak Inspiratory Airway 47 Pressure Peak Inspiratory Airway 60 Pressure Peak Inspiratory Airway 47 Pressure Peak Inspiratory Airway 49 Pressure Results - Laboratory Findings CBC and BMP: 02/14/18 08:41 02/14/18 08:41 ABG ABG pH 7.18 pH Units (7.32-7.45) L* D 02/14/18 06:20 ABG pCO2 104 mmHg (35-45) H* D 02/14/18 06:20 ABG pO2 82 mmHg (85-104) L 02/14/18 06:20 ABG O2 Saturation 91 % (95-98) L 02/14/18 06:20 Abnormal lab findings: Abnormal lab results Hgb 10.9 g/dL (11.5-15.4) L 02/13/18 03:52 MCH 26.5 pg (28.0-33.3) L 02/13/18 03:52 MCHC 30.3 g/dL (31.6-35.5) L 02/13/18 03:52 RDW 18.2 % (11.5-14.5) H 02/13/18 03:52 ABG pH 7.18 pH Units (7.32-7.45) L* D 02/14/18 06:20 ABG pCO2 104 mmHg (35-45) H* D 02/14/18 06:20 ABG pO2 82 mmHg (85-104) L 02/14/18 06:20 ABG HCO3 39 mEq/L (21-27) H 02/14/18 06:20 ABG Total CO2 42 mEq/L (20-26) H 02/14/18 06:20 ABG O2 Saturation 91 % (95-98) L 02/14/18 06:20 ABG Base Excess 6 mEq/L (-2 to 3) H 02/14/18 06:20 Sodium 135 mEq/L (136-145) L 02/13/18 03:52 Carbon Dioxide 31 mEq/L (23-29) H 02/13/18 03:52 Est GFR ( Amer) 55 (> 60) L 02/13/18 03:52 Est GFR (Non-Af Amer) 45 (> 60) L 02/13/18 03:52 POC Glucose 113 mg/dL (70-99) H 02/13/18 23:29 Calcium 8.0 mg/dL (8.6-10.3) L 02/13/18 03:52 B-Natriuretic Peptide 513 pg/mL (Less than 100) H 02/11/18 21:31 - Microbiology Findings Microbiology Findings: Microbiology, Last 48 Hours 02/13/18 17:40 Legionella Antigen - Final Urine,Catheterized Streptococcus pneumoniae Antigen (M - Final 02/12/18 10:58 Sputum Culture - Preliminary Sputum - Clinical Findings Intake & Output: Intake & Output 02/13/18 02/14/18 02/14/18 23:59 07:59 15:59 Intake Total 0 / 0 125 / 125 100 / 100 Output Total 145 / 145 Balance -145 / -145 125 / 125 100 / 100 Weight 149.87 kg
[2018-02-14] MEDS ORDERED: *HR* Midazolam HCl 5 MG/5 ML VIAL IVP ONE (08:13)
[2018-02-14] MEDS ORDERED: *HR* Etomidate 20 MG/10 ML AMPUL IVP ONE (08:13)
[2018-02-14 08:17] LABS: ABG Base Excess 6 mEq/L (-2 to 3); ABG HCO3 35 mEq/L (21-27); ABG Oxygen Saturation 88 % (95-98); ABG PCO2 68 mmHg (35-45); ABG PH 7.31 pH Units (7.32-7.45); ABG PO2 62 mmHg (85-104); ABG TCO2 37 mEq/L (20-26); Blood Gas Modality VC; Blood Gas PEEP 5 cm H2O; Blood Gas Respiration Rate 14; Blood Gas VT 450 cc
[2018-02-14 08:55] LABS: Basophils % 0.2 %; Lymphocytes % 8.7 %; Platelet Count 127 K/mcL (140-400)
[2018-02-14 08:57] LABS: Eosinophils % 0.4 %; Hematocrit 39.8 % (35.3-44.9); Hemoglobin 11.2 g/dL (11.5-15.4); Immature Granulocytes % 0.6 % (0-4); Lymphocytes # 0.4 K/mcL (0.6-4.6); Mean Corpuscular HGB Conc 28.1 g/dL (31.6-35.5); Mean Corpuscular Hemoglobin 26.1 pg (28.0-33.3); Mean Corpuscular Volume 92.8 fL (83.0-100.0); Mean Platelet Volume 11.3 fL (9.4-12.4); Monocytes # 0.4 K/mcL (0.0-1.3); Monocytes % 7.4 %; Neutrophils # 3.9 K/mcL (1.6-8.9); Red Blood Count 4.29 M/mcL (3.82-4.97); Red Cell Distribution Width 17.6 % (11.5-14.5); Segmented Neutrophils % 82.7 %
[2018-02-14] MEDS ORDERED: levoFLOXacin 500 MG TABLET PO SCH ×2 (09:00)
[2018-02-14] MEDS ORDERED: amLODIPine 5 MG TABLET PO SCH ×2 (09:00)
[2018-02-14] MEDS ORDERED: Leptospermum Honey Gel 44 ML TUBE TP SCH ×2 (09:00)
[2018-02-14 09:11] LABS: Calcium 8.6 mg/dL (8.6-10.3); Potassium 5.1 mEq/L (3.5-5.1)
[2018-02-14 09:22] LABS: Hypochromasia Present (Not Present)
[2018-02-14 09:23] LABS: Platelet Estimate Slight Decrease (Normal)
[2018-02-14] MEDS ORDERED: Lacri-Lube 3.5 GM TUBE BOTH EYES PRN (10:29)
[2018-02-14] MEDS: levETIRAcetam 250 MG TABLET PO SCH ×2 (11:15→20:20)
[2018-02-14] MEDS: Lacri-Lube 3.5 GM TUBE BOTH EYES SCH ×4 (12:14→23:41)
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
[2018-02-14] MEDS ORDERED: *HR* Midazolam HCl 2 MG/2 ML VIAL ONE (16:22)
[2018-02-14] MEDS ORDERED: *HR* Midazolam HCl 2 MG/2 ML VIAL IVP ONE (16:24)
[2018-02-14] MEDS: clonazePAM 1 MG TABLET PO SCH ×2 (16:43→20:22)
--- NOTE | 2018-02-14 18:58 | Infectious Disease Progress No ---
Date of Encounter: 02/14/18 Time of Encounter: 18:55 - Assessment and Plan (1) Pneumonia Current Visit: No Status: Acute CXR not clear if it's pneumonia vs fluid overload no fever, no leukocytosis but bronch with mucus plugs and mucopurulent trachea causative organism not clear; await bal urine legionella and pneumococcal antigen negative check Respiratory infectious panel - negative broadened antibiotics spectrum to vancomycin/zosyn and levofloxacin crcl worse; if continues to get worse, consdier d/c vancomycin check MRSA screen Qualifiers: Pneumonia type: due to unspecified organism Laterality: right Lung location: upper lobe of lung Qualified Code(s): J18.1 - Lobar pneumonia, unspecified organism (2) COPD exacerbation Current Visit: No Status: Acute (3) Cellulitis Current Visit: No Status: Acute resolved physicial exam not suggestive of cellulitis Qualifiers: Site of cellulitis: trunk Site of cellulitis of trunk: chest wall Qualified Code(s): L03.313 - Cellulitis of chest wall (4) Acute on chronic diastolic CHF (congestive heart failure) Current Visit: Yes Status: Acute (5) Candidiasis Current Visit: Yes Status: Acute (6) CKD (chronic kidney disease) stage 3, GFR 30-59 ml/min Current Visit: No Status: Chronic (7) Acute on chronic respiratory failure Current Visit: No Status: Acute Qualifiers: Respiratory failure complication: hypoxia and hypercapnia Qualified Code(s) : J96.21 - Acute and chronic respiratory failure with hypoxia; J96.22 - Acute and chronic respiratory failure with hypercapnia - Subjective Interval history: patient seen and examined. intubated and sedated. no pressors. vitals reviewed afebrile and hemodynamically stable bronch report noted - mucus plugging and mucupurulent drainage cxr reviewed Infect Dis PN-Objective Data - Labs CBC & Chem 7: 02/14/18 08:41 02/14/18 08:41 Labs: Laboratory Results - last 24 hr 02/13/18 02/13/18 02/13/18 03:51 07:31 11:51 WBC RBC Hgb Hct MCV MCH MCHC RDW Plt Count MPV Immature Gran % Seg Neutrophils % Lymphocytes % Monocytes % Eosinophils % Basophils % Neutrophils # Lymphocytes # Monocytes # Eosinophils # Basophils # Platelet Estimate Hypochromasia Sample Site ABG pH ABG pCO2 ABG pO2 ABG HCO3 ABG Total CO2 ABG O2 Saturation ABG Base Excess Eber Test Respiration Rate O2 Delivery Device Blood Gas Modality Inspired O2 Tidal Volume PEEP Sodium Potassium Chloride Carbon Dioxide BUN Creatinine Est GFR ( Amer) Est GFR (Non-Af Amer) BUN/Creatinine Ratio Glucose POC Glucose 78 73 91 Calculated Osmolality Calcium Chlamy pneumoniae PCR Adenovirus (PCR) B. pertussis DNA (PCR) B.parapertussis DNA PCR Coronavirus OC43 (PCR) Coronavirus HKU1 (PCR) Coronavirus 229E (PCR) Coronavirus NL63 (PCR) Human Metapneumovir PCR Influenza A (H1) PCR Influ A (H1N1/) PCR Influenza A (H3) PCR Influenza A Untype (PCR) Influenza Type B (PCR) M.pneumoniae DNA (PCR) Parainfluenza 1 (PCR) Parainfluenza 2 (PCR) Parainfluenza 3 (PCR) Parainfluenza 4 (PCR) RSV (PCR) Entero/Rhino (PCR) 02/13/18 02/13/18 02/13/18 15:44 17:40 19:33 WBC RBC Hgb Hct MCV MCH MCHC RDW Plt Count MPV Immature Gran % Seg Neutrophils % Lymphocytes % Monocytes % Eosinophils % Basophils % Neutrophils # Lymphocytes # Monocytes # Eosinophils # Basophils # Platelet Estimate Hypochromasia Sample Site ABG pH ABG pCO2 ABG pO2 ABG HCO3 ABG Total CO2 ABG O2 Saturation ABG Base Excess Eber Test Respiration Rate O2 Delivery Device Blood Gas Modality Inspired O2 Tidal Volume PEEP Sodium Potassium Chloride Carbon Dioxide BUN Creatinine Est GFR ( Amer) Est GFR (Non-Af Amer) BUN/Creatinine Ratio Glucose POC Glucose 85 98 Calculated Osmolality Calcium Chlamy pneumoniae PCR Not Detected Adenovirus (PCR) Not Detected B. pertussis DNA (PCR) Not Detected B.parapertussis DNA PCR Not Detected Coronavirus OC43 (PCR) Not Detected Coronavirus HKU1 (PCR) Not Detected Coronavirus 229E (PCR) Not Detected Coronavirus NL63 (PCR) Not Detected Human Metapneumovir PCR Not Detected Influenza A (H1) PCR Not Detected Influ A (H1N1/09) PCR Not Detected Influenza A (H3) PCR Not Detected Influenza A Untype (PCR) Not Detected Influenza Type B (PCR) Not Detected M.pneumoniae DNA (PCR) Not Detected Parainfluenza 1 (PCR) Not Detected Parainfluenza 2 (PCR) Not Detected Parainfluenza 3 (PCR) Not Detected Parainfluenza 4 (PCR) Not Detected RSV (PCR) Not Detected Entero/Rhino (PCR) Not Detected 02/13/18 02/14/18 02/14/18 23:29 04:43 06:20 WBC RBC Hgb Hct MCV MCH MCHC RDW Plt Count MPV Immature Gran % Seg Neutrophils % Lymphocytes % Monocytes % Eosinophils % Basophils % Neutrophils # Lymphocytes # Monocytes # Eosinophils # Basophils # Platelet Estimate Hypochromasia Sample Site L Radial L Radial ABG pH 7.04 L* 7.18 L* D ABG pCO2 149 H* 104 H* D ABG pO2 78 L 82 L ABG HCO3 40 H 39 H ABG Total CO2 45 H 42 H ABG O2 Saturation 85 L 91 L ABG Base Excess 4 H 6 H Eber Test N/A N/A Respiration Rate 18 O2 Delivery Device BiPAP Adult Vent Blood Gas Modality BiLevel PRVC Inspired O2 55.0 60.0 Tidal Volume 400 PEEP 8 8 Sodium Potassium Chloride Carbon Dioxide BUN Creatinine Est GFR ( Amer) Est GFR (Non-Af Amer) BUN/Creatinine Ratio Glucose POC Glucose 113 H Calculated Osmolality Calcium Chlamy pneumoniae PCR Adenovirus (PCR) B. pertussis DNA (PCR) B.parapertussis DNA PCR Coronavirus OC43 (PCR) Coronavirus HKU1 (PCR) Coronavirus 229E (PCR) Coronavirus NL63 (PCR) Human Metapneumovir PCR Influenza A (H1) PCR Influ A (H1N1/09) PCR Influenza A (H3) PCR Influenza A Untype (PCR) Influenza Type B (PCR) M.pneumoniae DNA (PCR) Parainfluenza 1 (PCR) Parainfluenza 2 (PCR) Parainfluenza 3 (PCR) Parainfluenza 4 (PCR) RSV (PCR) Entero/Rhino (PCR) 02/14/18 02/14/18 02/14/18 08:15 08:41 08:41 WBC 4.7 RBC 4.29 Hgb 11.2 L Hct 39.8 MCV 92.8 MCH 26.1 L MCHC 28.1 L RDW 17.6 H Plt Count 127 L MPV 11.3 Immature Gran % 0.6 Seg Neutrophils % 82.7 Lymphocytes % 8.7 Monocytes % 7.4 Eosinophils % 0.4 Basophils % 0.2 Neutrophils # 3.9 Lymphocytes # 0.4 L Monocytes # 0.4 Eosinophils # 0.0 Basophils # 0.0 Platelet Estimate Slight Decrease L Hypochromasia Present A Sample Site R Radial ABG pH 7.31 L D ABG pCO2 68 H D ABG pO2 62 L ABG HCO3 35 H ABG Total CO2 37 H ABG O2 Saturation 88 L ABG Base Excess 6 H Eber Test N/A Respiration Rate 14 O2 Delivery Device Adult Vent Blood Gas Modality VC Inspired O2 35.0 Tidal Volume 450 PEEP 5 Sodium 136 Potassium 5.1 Chloride 98 Carbon Dioxide 32 H BUN 22 Creatinine 1.51 H Est GFR ( Amer) 42 L Est GFR (Non-Af Amer) 34 L BUN/Creatinine Ratio 15 Glucose 119 H POC Glucose Calculated Osmolality 286 Calcium 8.6 Chlamy pneumoniae PCR Adenovirus (PCR) B. pertussis DNA (PCR) B.parapertussis DNA PCR Coronavirus OC43 (PCR) Coronavirus HKU1 (PCR) Coronavirus 229E (PCR) Coronavirus NL63 (PCR) Human Metapneumovir PCR Influenza A (H1) PCR Influ A (H1N1/) PCR Influenza A (H3) PCR Influenza A Untype (PCR) Influenza Type B (PCR) M.pneumoniae DNA (PCR) Parainfluenza 1 (PCR) Parainfluenza 2 (PCR) Parainfluenza 3 (PCR) Parainfluenza 4 (PCR) RSV (PCR) Entero/Rhino (PCR) Cultures: Cultures 02/12/18 10:58 Sputum Culture - Final Sputum 02/13/18 17:40 Legionella Antigen - Final Urine,Catheterized Streptococcus pneumoniae Antigen (M - Final Serology 02/13/18 Range/Units 17:40 Chlamy pneumoniae PCR Not Detected (Not Detect) Adenovirus (PCR) Not Detected (Not Detect) B. pertussis DNA (PCR) Not Detected (Not Detect) B.parapertussis DNA PCR Not Detected (Not Detect) Coronavirus OC43 (PCR) Not Detected (Not Detect) Coronavirus HKU1 (PCR) Not Detected (Not Detect) Coronavirus 229E (PCR) Not Detected (Not Detect) Coronavirus NL63 (PCR) Not Detected (Not Detect) Human Metapneumovir PCR Not Detected (Not Detect) Influenza A (H1) PCR Not Detected (Not Detect) Influ A (H1N1/09) PCR Not Detected (Not Detect) Influenza A (H3) PCR Not Detected (Not Detect) Influenza A Untype (PCR) Not Detected (Not Detect) Influenza Type B (PCR) Not Detected (Not Detect) M.pneumoniae DNA (PCR) Not Detected (Not Detect) Parainfluenza 1 (PCR) Not Detected (Not Detect) Parainfluenza 2 (PCR) Not Detected (Not Detect) Parainfluenza 3 (PCR) Not Detected (Not Detect) Parainfluenza 4 (PCR) Not Detected (Not Detect) RSV (PCR) Not Detected (Not Detect) Entero/Rhino (PCR) Not Detected (Not Detect) - Impressions Impressions Chest X-Ray 02/14/18 05:11 IMPRESSION: Appropriate endotracheal tube positioning. No pneumothorax. Worsening interstitial edema. Fluctuating basilar atelectasis without substantial change in small bilateral effusions. D/ / Fermin Hooper / Fermin Hooper Interpreting Provider: Fermin Hooper Exam - Constitutional Vitals: Temp Pulse Resp BP Pulse Ox 98.5 F 67 14 118/68 92 02/14/18 16:00 02/14/18 18:00 02/14/18 18:00 02/14/18 18:00 02/14/18 18:00 General appearance: no febrile Exam: intubated and sedated - Eye Eye exam: Present: EOMI, PERRL - Respiratory Additional comments: decreased breath sounds universally with some diffuse ronchi - Cardiovascular Cardiovascular exam: Present: RRR, +S1, +S2 - GI/Abdominal GI/Abdominal exam: Present: normal bowel sounds, soft. Absent: tenderness - Extremities Exam Additional comments: bilateral venous stasis improved. to ulcerated lesions with no drainage and no surrounding erythema. no signs of cellulitis Consult Discharge Plan - Plan Referrals: Brad Minor MD [Primary Care Provider] -
[2018-02-14] MEDS: Chlorhexidine Rinse 15 ML MOUTHWASH MM SCH (20:20)
[2018-02-14] MEDS: *HR* Midazolam HCl 2 MG/2 ML VIAL IVP PRN (21:31)
[2018-02-15] MEDS ORDERED: 0.9 % Sodium Chloride 500 ML IVC ONE (01:09)
[2018-02-15] MEDS: FentaNYL (PF) 1,000 MCG in 0.9 % Sodium Chloride 80 ML IVC SCH ×4 (02:22→21:55)
[2018-02-15] MEDS: *HR* Midazolam HCl 2 MG/2 ML VIAL IVP PRN ×2 (02:24→11:15)
[2018-02-15] MEDS: Insulin LISPRO 300 UNITS/3 ML VIAL SQ SCH ×5 (03:31→20:50)
[2018-02-15] MEDS: Lacri-Lube 3.5 GM TUBE BOTH EYES SCH ×5 (03:32→20:50)
[2018-02-15] MEDS: Ipratropium/Albuterol Neb 3 ML IH SCH ×6 (03:35→23:24)
[2018-02-15 03:46] LABS: Hematocrit 35.8 % (35.3-44.9); Hemoglobin 10.5 g/dL (11.5-15.4); Immature Granulocytes % 0.4 % (0-4); Lymphocytes # 0.1 K/mcL (0.6-4.6); Lymphocytes % 1.5 %; Mean Corpuscular HGB Conc 29.3 g/dL (31.6-35.5); Mean Corpuscular Hemoglobin 25.9 pg (28.0-33.3); Mean Corpuscular Volume 88.2 fL (83.0-100.0); Mean Platelet Volume 11.4 fL (9.4-12.4); Monocytes # 0.1 K/mcL (0.0-1.3); Monocytes % 1.7 %; Platelet Count 132 K/mcL (140-400); Red Blood Count 4.06 M/mcL (3.82-4.97); Red Cell Distribution Width 17.5 % (11.5-14.5); Segmented Neutrophils % 96.4 %
[2018-02-15 03:51] LABS: Neutrophils # 4.5 K/mcL (1.6-8.9)
[2018-02-15 03:58] LABS: Calcium 8.4 mg/dL (8.6-10.3); Potassium 4.5 mEq/L (3.5-5.1)
[2018-02-15 04:46] LABS: Hypochromasia Present (Not Present)
[2018-02-15 04:47] LABS: Platelet Estimate Slight Decrease (Normal)
[2018-02-15 05:24] LABS: ABG Base Excess 8 mEq/L (-2 to 3); ABG HCO3 38 mEq/L (21-27); ABG Oxygen Saturation 94 % (95-98); ABG PCO2 78 mmHg (35-45); ABG PH 7.29 pH Units (7.32-7.45); ABG PO2 82 mmHg (85-104); ABG TCO2 40 mEq/L (20-26); Blood Gas Modality PRVC; Blood Gas PEEP 5 cm H2O; Blood Gas Respiration Rate 14; Blood Gas VT 450 cc
[2018-02-15] MEDS: *HR* Heparin 5,000 UNIT/ML VIAL SQ SCH ×2 (05:38→16:36)
[2018-02-15] MEDS: Famotidine 20 MG/2 ML VIAL IVP SCH ×2 (05:38→16:36)
[2018-02-15] MEDS: Piperacillin/Tazobactam 3.375 GM in 0.9 % Sodium Chloride Mini Bag 100 ML IVPB SCH ×2 (07:37→15:28)
[2018-02-15] MEDS: MethylPREDNISolone 40 MG/ML VIAL IVP SCH ×2 (07:38→16:42)
[2018-02-15] MEDS: Chlorhexidine Rinse 15 ML MOUTHWASH MM SCH ×2 (07:38→20:50)
[2018-02-15] MEDS: amLODIPine 5 MG TABLET PO SCH (07:39)
[2018-02-15] MEDS: clonazePAM 1 MG TABLET PO SCH ×3 (07:40→20:49)
[2018-02-15] MEDS: Leptospermum Honey Gel 44 ML TUBE TP SCH (07:41)
[2018-02-15] MEDS: Nystatin POWDER 30 GM BOTTLE TP SCH ×3 (07:41→20:55)
--- NOTE | 2018-02-15 08:00 | Palliative Progress Note ---
Date of Encounter: 02/15/18 Time of Encounter: 06:55 - Assessment and plan (1) Acute on chronic diastolic CHF (congestive heart failure) Current Visit: Yes Status: Acute Assessment and plan: Patient's PCO2 was very elevated this morning this is probably more reflection of her COPD then CHF, however land is still per hospitalist team weaning is currently on hold pending decision by family regarding CODE STATUS (2) Goals of care, counseling/discussion Current Visit: Yes Status: Acute Assessment and plan: She is currently a full code. Plan to call family around [phone] this morning her discussion with the nurse I believe that they will probably opt for reintubation and even tracheotomy if it is necessary. Will discuss with family. No family was present this morning. (3) Acute on chronic respiratory failure Current Visit: No Status: Acute Assessment and plan: Still on vent, showing hypercapnic respiratory failure on blood gases this morning Qualifiers: Respiratory failure complication: hypoxia and hypercapnia Qualified Code(s) : J96.21 - Acute and chronic respiratory failure with hypoxia; J96.22 - Acute and chronic respiratory failure with hypercapnia - Time Spent With Patient Total time spent is greater than 50% in coordination of care (as documented) at patient's floor/unit and/or counseling patient: - Subjective Interval history: Events overnight noted per discussion with night nurse and new day nurse today. She was quite agitated last night. Required a great deal of medication to able to calm down. Per the nursing staff family seems to be in favor of a trach. It is also pain of the nursing staff based on previous conversations with this patient and she would not want one. - Constitutional Vitals: Abnormal lab results Hgb 10.5 g/dL (11.5-15.4) L 02/15/18 03:30 MCH 25.9 pg (28.0-33.3) L 02/15/18 03:30 MCHC 29.3 g/dL (31.6-35.5) L 02/15/18 03:30 RDW 17.5 % (11.5-14.5) H 02/15/18 03:30 Plt Count 132 K/mcL (140-400) L 02/15/18 03:30 Lymphocytes # 0.1 K/mcL (0.6-4.6) L 02/15/18 03:30 Platelet Estimate Slight Decrease (Normal) L 02/15/18 03:30 Hypochromasia Present (Not Present) A 02/15/18 03:30 ABG pH 7.29 pH Units (7.32-7.45) L 02/15/18 05:21 ABG pCO2 78 mmHg (35-45) H* 02/15/18 05:21 ABG pO2 82 mmHg (85-104) L 02/15/18 05:21 ABG HCO3 38 mEq/L (21-27) H 02/15/18 05:21 ABG Total CO2 40 mEq/L (20-26) H 02/15/18 05:21 ABG O2 Saturation 94 % (95-98) L 02/15/18 05:21 ABG Base Excess 8 mEq/L (-2 to 3) H 02/15/18 05:21 Sodium 135 mEq/L (136-145) L 02/15/18 03:30 Chloride 96 mEq/L (98-107) L 02/15/18 03:30 Carbon Dioxide 30 mEq/L (23-29) H 02/15/18 03:30 BUN 26 mg/dL (8-23) H 02/15/18 03:30 Creatinine 1.33 mg/dL (0.60-1.20) H 02/15/18 03:30 Est GFR ( Amer) 48 (> 60) L 02/15/18 03:30 Est GFR (Non-Af Amer) 40 (> 60) L 02/15/18 03:30 Glucose 218 mg/dL (70-105) H 02/15/18 03:30 POC Glucose 199 mg/dL (70-99) H 02/14/18 23:40 Calcium 8.4 mg/dL (8.6-10.3) L 02/15/18 03:30 B-Natriuretic Peptide 513 pg/mL (Less than 100) H 02/11/18 21:31 Nasal Screen MRSA (PCR) Positive (Negative) A 02/14/18 20:57 General appearance: Present: no acute distress - Respiratory Respiratory exam: Present: decreased breath sounds (On vent) - Cardiovascular Cardiovascular exam: Present: RRR - GI/Abdominal GI/Abdominal exam: Present: normal bowel sounds, soft. Absent: tenderness - Neurological Exam Neurological exam: Present: altered - Psychiatric Psychiatric exam: Absent: agitated, anxious (At this time although I understand she was quite agitated late last night) - Skin Skin exam: Present: dry, warm Palliative Quality Palliative Quality: Screen for Code Status: Yes, Screen for Goals of Care: Yes, Screen for Pain: Yes, If Pain Regimen Started, Initiate Bowel Regimen: NA, Screen for Nausea/Vomitting: Yes Code Status: 02/11/18 21:30 Resuscitation Status: Active [RES] Routine Comment: Resuscitation Status: Full Code - Labs CBC & Chem 7: 02/15/18 03:30 02/15/18 03:30 Labs: Laboratory Results - last 24 hr 02/14/18 02/14/18 02/14/18 04:23 07:19 08:15 WBC RBC Hgb Hct MCV MCH MCHC RDW Plt Count MPV Immature Gran % Seg Neutrophils % Lymphocytes % Monocytes % Eosinophils % Basophils % Neutrophils # Lymphocytes # Monocytes # Eosinophils # Basophils # Platelet Estimate Hypochromasia Sample Site R Radial ABG pH 7.31 L D ABG pCO2 68 H D ABG pO2 62 L ABG HCO3 35 H ABG Total CO2 37 H ABG O2 Saturation 88 L ABG Base Excess 6 H Eber Test N/A Respiration Rate 14 O2 Delivery Device Adult Vent Blood Gas Modality VC Inspired O2 35.0 Tidal Volume 450 PEEP 5 Sodium Potassium Chloride Carbon Dioxide BUN Creatinine Est GFR ( Amer) Est GFR (Non-Af Amer) BUN/Creatinine Ratio Glucose POC Glucose 121 H 113 H Calculated Osmolality Calcium Nasal Screen MRSA (PCR) 02/14/18 02/14/18 02/14/18 08:41 08:41 11:47 WBC 4.7 RBC 4.29 Hgb 11.2 L Hct 39.8 MCV 92.8 MCH 26.1 L MCHC 28.1 L RDW 17.6 H Plt Count 127 L MPV 11.3 Immature Gran % 0.6 Seg Neutrophils % 82.7 Lymphocytes % 8.7 Monocytes % 7.4 Eosinophils % 0.4 Basophils % 0.2 Neutrophils # 3.9 Lymphocytes # 0.4 L Monocytes # 0.4 Eosinophils # 0.0 Basophils # 0.0 Platelet Estimate Slight Decrease L Hypochromasia Present A Sample Site ABG pH ABG pCO2 ABG pO2 ABG HCO3 ABG Total CO2 ABG O2 Saturation ABG Base Excess Eber Test Respiration Rate O2 Delivery Device Blood Gas Modality Inspired O2 Tidal Volume PEEP Sodium 136 Potassium 5.1 Chloride 98 Carbon Dioxide 32 H BUN 22 Creatinine 1.51 H Est GFR ( Amer) 42 L Est GFR (Non-Af Amer) 34 L BUN/Creatinine Ratio 15 Glucose 119 H POC Glucose 89 Calculated Osmolality 286 Calcium 8.6 Nasal Screen MRSA (PCR) 02/14/18 02/14/18 02/14/18 15:54 19:03 20:57 WBC RBC Hgb Hct MCV MCH MCHC RDW Plt Count MPV Immature Gran % Seg Neutrophils % Lymphocytes % Monocytes % Eosinophils % Basophils % Neutrophils # Lymphocytes # Monocytes # Eosinophils # Basophils # Platelet Estimate Hypochromasia Sample Site ABG pH ABG pCO2 ABG pO2 ABG HCO3 ABG Total CO2 ABG O2 Saturation ABG Base Excess Eber Test Respiration Rate O2 Delivery Device Blood Gas Modality Inspired O2 Tidal Volume PEEP Sodium Potassium Chloride Carbon Dioxide BUN Creatinine Est GFR ( Amer) Est GFR (Non-Af Amer) BUN/Creatinine Ratio Glucose POC Glucose 129 H 154 H Calculated Osmolality Calcium Nasal Screen MRSA (PCR) Positive A 02/14/18 02/15/18 02/15/18 23:40 03:30 03:30 WBC 4.7 RBC 4.06 Hgb 10.5 L Hct 35.8 MCV 88.2 MCH 25.9 L MCHC 29.3 L RDW 17.5 H Plt Count 132 L MPV 11.4 Immature Gran % 0.4 Seg Neutrophils % 96.4 Lymphocytes % 1.5 Monocytes % 1.7 Eosinophils % 0.0 Basophils % 0.0 Neutrophils # 4.5 Lymphocytes # 0.1 L Monocytes # 0.1 Eosinophils # 0.0 Basophils # 0.0 Platelet Estimate Slight Decrease L Hypochromasia Present A Sample Site ABG pH ABG pCO2 ABG pO2 ABG HCO3 ABG Total CO2 ABG O2 Saturation ABG Base Excess Eebr Test Respiration Rate O2 Delivery Device Blood Gas Modality Inspired O2 Tidal Volume PEEP Sodium 135 L Potassium 4.5 Chloride 96 L Carbon Dioxide 30 H BUN 26 H Creatinine 1.33 H Est GFR ( Amer) 48 L Est GFR (Non-Af Amer) 40 L BUN/Creatinine Ratio 20 Glucose 218 H POC Glucose 199 H Calculated Osmolality 291 Calcium 8.4 L Nasal Screen MRSA (PCR) 02/15/18 05:21 WBC RBC Hgb Hct MCV MCH MCHC RDW Plt Count MPV Immature Gran % Seg Neutrophils % Lymphocytes % Monocytes % Eosinophils % Basophils % Neutrophils # Lymphocytes # Monocytes # Eosinophils # Basophils # Platelet Estimate Hypochromasia Sample Site L Radial ABG pH 7.29 L ABG pCO2 78 H* ABG pO2 82 L ABG HCO3 38 H ABG Total CO2 40 H ABG O2 Saturation 94 L ABG Base Excess 8 H Eber Test N/A Respiration Rate 14 O2 Delivery Device Adult Vent Blood Gas Modality PRVC Inspired O2 55.0 Tidal Volume 450 PEEP 5 Sodium Potassium Chloride Carbon Dioxide BUN Creatinine Est GFR ( Amer) Est GFR (Non-Af Amer) BUN/Creatinine Ratio Glucose POC Glucose Calculated Osmolality Calcium Nasal Screen MRSA (PCR) - ABG Interpretation ABG results: ABG ABG pH 7.29 pH Units (7.32-7.45) L 02/15/18 05:21 ABG pCO2 78 mmHg (35-45) H* 02/15/18 05:21 ABG pO2 82 mmHg (85-104) L 02/15/18 05:21 ABG O2 Saturation 94 % (95-98) L 02/15/18 05:21 Consult Discharge Plan - Plan Referrals: Brad Minor MD [Primary Care Provider] -
[2018-02-15] MEDS: levETIRAcetam 250 MG TABLET PO SCH ×2 (09:43→20:49)
--- NOTE | 2018-02-15 09:50 | Pulmonology Progress Note ---
<GeronimoKarissasarah M - Last Filed: 02/15/18 16:09> Date of Encounter: 02/15/18 Objective PUL Vital signs: Last Vital Signs Temp 98.7 F 02/15/18 11:32 Pulse 63 02/15/18 15:00 Resp 14 02/15/18 15:24 BP 100/52 02/15/18 15:00 Pulse Ox 92 02/15/18 15:24 Ventilator Settings Ventilator Settings: Ventilator Settings, Last 8 Hours Ventilator Tidal Volume 500 Setting Ventilator Tidal Volume 500 Setting Ventilator Tidal Volume 500 Setting Ventilator Tidal Volume 500 Setting Ventilator Tidal Volume 500 Setting Ventilator Tidal Volume 500 Setting Ventilator Tidal Volume 500 Setting Ventilator Respiratory Rate 14 Setting Ventilator Respiratory Rate 14 Setting Ventilator Respiratory Rate 14 Setting Ventilator Respiratory Rate 14 Setting Ventilator Respiratory Rate 14 Setting Ventilator Respiratory Rate 14 Setting Ventilator Respiratory Rate 14 Setting Actual Respiratory Rate 14 Actual Respiratory Rate 14 Actual Respiratory Rate 14 Actual Respiratory Rate 14 Actual Respiratory Rate 14 Actual Respiratory Rate 14 Actual Respiratory Rate 14 Positive End Expiratory 5 Pressure Positive End Expiratory 5 Pressure Positive End Expiratory 5 Pressure Positive End Expiratory 5 Pressure Positive End Expiratory 5 Pressure Positive End Expiratory 5 Pressure Positive End Expiratory 5 Pressure Peak Inspiratory Airway 35 Pressure Peak Inspiratory Airway 35 Pressure Peak Inspiratory Airway 33 Pressure Peak Inspiratory Airway 33 Pressure Peak Inspiratory Airway 33 Pressure Peak Inspiratory Airway 31 Pressure Peak Inspiratory Airway 33 Pressure Results - Laboratory Findings CBC and BMP: 02/15/18 03:30 02/15/18 03:30 ABG ABG pH 7.29 pH Units (7.32-7.45) L 02/15/18 05:21 ABG pCO2 78 mmHg (35-45) H* 02/15/18 05:21 ABG pO2 82 mmHg (85-104) L 02/15/18 05:21 ABG O2 Saturation 94 % (95-98) L 02/15/18 05:21 Abnormal lab findings: Abnormal lab results Hgb 10.5 g/dL (11.5-15.4) L 02/15/18 03:30 MCH 25.9 pg (28.0-33.3) L 02/15/18 03:30 MCHC 29.3 g/dL (31.6-35.5) L 02/15/18 03:30 RDW 17.5 % (11.5-14.5) H 02/15/18 03:30 Plt Count 132 K/mcL (140-400) L 02/15/18 03:30 Lymphocytes # 0.1 K/mcL (0.6-4.6) L 02/15/18 03:30 Platelet Estimate Slight Decrease (Normal) L 02/15/18 03:30 Hypochromasia Present (Not Present) A 02/15/18 03:30 ABG pH 7.29 pH Units (7.32-7.45) L 02/15/18 05:21 ABG pCO2 78 mmHg (35-45) H* 02/15/18 05:21 ABG pO2 82 mmHg (85-104) L 02/15/18 05:21 ABG HCO3 38 mEq/L (21-27) H 02/15/18 05:21 ABG Total CO2 40 mEq/L (20-26) H 02/15/18 05:21 ABG O2 Saturation 94 % (95-98) L 02/15/18 05:21 ABG Base Excess 8 mEq/L (-2 to 3) H 02/15/18 05:21 Sodium 135 mEq/L (136-145) L 02/15/18 03:30 Chloride 96 mEq/L (98-107) L 02/15/18 03:30 Carbon Dioxide 30 mEq/L (23-29) H 02/15/18 03:30 BUN 26 mg/dL (8-23) H 02/15/18 03:30 Creatinine 1.33 mg/dL (0.60-1.20) H 02/15/18 03:30 Est GFR ( Amer) 48 (> 60) L 02/15/18 03:30 Est GFR (Non-Af Amer) 40 (> 60) L 02/15/18 03:30 Glucose 218 mg/dL (70-105) H 02/15/18 03:30 POC Glucose 199 mg/dL (70-99) H 02/14/18 23:40 Calcium 8.4 mg/dL (8.6-10.3) L 02/15/18 03:30 B-Natriuretic Peptide 513 pg/mL (Less than 100) H 02/11/18 21:31 Fluid Appearance Cloudy (Clear) A 02/14/18 11:00 Nasal Screen MRSA (PCR) Positive (Negative) A 02/14/18 20:57 - Microbiology Findings Microbiology Findings: Microbiology, Last 48 Hours 02/14/18 11:00 Gram Stain - Final Left Lower Lobe Lung 02/12/18 10:58 Sputum Culture - Final Sputum 02/13/18 17:40 Legionella Antigen - Final Urine,Catheterized Streptococcus pneumoniae Antigen (M - Final - Clinical Findings Intake & Output: Intake & Output 02/15/18 02/15/18 02/15/18 07:59 15:59 23:59 Intake Total 1002 / 1002 942 / 942 Output Total 200 / 200 125 / 125 Balance 802 / 802 817 / 817 Consult Discharge Plan - Plan Referrals: Brad Minor MD [Primary Care Provider] - - Attending Attestation I examined this patient and my medical decision-making was reviewed with the Resident Physician. I agree with the documented findings, disposition and treatment plan as described except to the extent set forth below. Patient seen and examined. Labs, radiology, chart personally reviewed. Agree with resident's history and physical, assessment, plan with following comments: [employer]: Patient does not follows commands, patient is requiring sedation and adding Klonopin has helped her agitation. Pulmonary: Acceptable oxygenation and ventilation and made appropriate change on a vent setting. Since patient's CODE STATUS has changed hopefully in the next few days she would be stable enough for spontaneous breathing trial and hopefully she will tolerate noninvasive ventilation. Cardiovascular: stable GI: Nutrition per dietary and GI prophylaxis per routine Heme: DVT prophylaxis per routine ID: Continue antibiotics and plan to de-escalation. ID follow-up Renal; urine out put and renal funtion reviewed and gentle diuresis Endorcine: blood glucose is monitored Lines: all lines checked and no evidence of infections Skin: skin care to prevent pressure ulcers per nursing routine care Overall prognosis is poor <Garret Mcmahan - Last Filed: 02/15/18 16:58> Date of Encounter: 02/15/18 Time of Encounter: 10:20 Assessment and Plan (1) Acute on chronic respiratory failure Current Visit: No Status: Acute Patient was intubated yesterday due to developing respiratory acidosis. At 96% O2 on mechanical ventilation. - Continue mechanical ventilation. - Patient's son agrees that there will be no reintubation and definitely no tracheostomy for patient. Plan is to wean the patient off the ventilator in a normal fashion without any reintubation. - Palliative care on board. CODE STATUS changed to [id number] Qualifiers: Respiratory failure complication: hypoxia and hypercapnia Qualified Code(s) : J96.21 - Acute and chronic respiratory failure with hypoxia; J96.22 - Acute and chronic respiratory failure with hypercapnia (2) Acute on chronic diastolic CHF (congestive heart failure) Current Visit: Yes Status: Acute Echo shows an EF of 60% with grossly dilated right ventricle. Patient displays fluid overload on exam. Current fluid balance of +2732 with the 0.1 mL/kg/h urinary output. - Continue fluid restriction for now. - Give 1 dose of Lasix 20 IV. (3) Pneumonia Current Visit: No Status: Acute White blood cell count and normal limits. Chest x-ray reveals worsening his interstitial edema with basilar atelectasis. Patient on day 3 of Zosyn and day 2 of vancomycin. Sputum culture negative for Legionella and strep pneumonia. - Continue antibiotics. - Infectious disease on board. Qualifiers: Pneumonia type: due to unspecified organism Laterality: right Lung location: upper lobe of lung Qualified Code(s): J18.1 - Lobar pneumonia, unspecified organism (4) CKD (chronic kidney disease) stage 3, GFR 30-59 ml/min Current Visit: No Status: Chronic Creatinine decreased from 1.51 down to 1.33. - Continue to hold IV fluids for now due to CHF. - Trend daily. (5) Cellulitis Current Visit: No Status: Acute Bilateral lower extremity CT shows evidence of cellulitis. Cellulitis v. venous stasis ulcers. Wound culture of right foot from 02/11/18 shows gram-negative allen. Vancomycin day 2. - Continue antibiotics. Qualifiers: Site of cellulitis: trunk Site of cellulitis of trunk: chest wall Qualified Code(s): L03.313 - Cellulitis of chest wall (6) Candidiasis Current Visit: Yes Status: Acute Evident in bilateral breasts and umbilicus. Continues to improve. On day #5 of nystatin. - Continue nystatin. (7) Hyperglycemia Current Visit: Yes Status: Acute Glucose level elevated from 119-218. Likely contributory to steroids. On low- dose insulin sliding scale. - Continue low-dose insulin sliding scale. - We will taper off IV steroids by reducing Solu-Medrol to 20 mg twice a day with plans to discontinue tomorrow. (8) DVT prophylaxis Current Visit: Yes Status: Acute Heparin 5000 units subcutaneously twice a day Subjective Principal diagnosis: Acute on chronic resp failure Interval history: Patient intubated. Unable to obtain history. Objective PUL Vital signs: Last Vital Signs Temp 97.9 F 02/15/18 07:31 Pulse 64 02/15/18 09:00 Resp 14 02/15/18 09:00 BP 96/42 02/15/18 09:00 Pulse Ox 96 02/15/18 09:00 General appearance: no acute distress, other (Intubated and sedated) Auscultation: bilateral: wheezes Cardiovascular: regular rate and rhythm Gastrointestinal: normoactive bowel sounds, non-distended Integumentary: erythema (Under breasts bilaterally. An umbilicus. Both seem to be improving.), cellulitis (Bilateral lower extremities. Right hand.), other Extremities: no cyanosis, no clubbing, edema (+1 bilateral pitting edema. Improved from yesterday.) Musculoskeletal: no deformities unable to assess due to mental status Ventilator Settings Ventilator Settings: Ventilator Settings, Last 8 Hours Ventilator Tidal Volume 500 Setting Ventilator Tidal Volume 500 Setting Ventilator Tidal Volume 500 Setting Ventilator Tidal Volume 500 Setting Ventilator Tidal Volume 500 Setting Ventilator Tidal Volume 450 Setting Ventilator Tidal Volume 450 Setting Ventilator Tidal Volume 450 Setting Ventilator Tidal Volume 450 Setting Ventilator Tidal Volume 450 Setting Ventilator Tidal Volume 450 Setting Ventilator Respiratory Rate 14 Setting Ventilator Respiratory Rate 14 Setting Ventilator Respiratory Rate 14 Setting Ventilator Respiratory Rate 14 Setting Ventilator Respiratory Rate 14 Setting Ventilator Respiratory Rate 14 Setting Ventilator Respiratory Rate 14 Setting Ventilator Respiratory Rate 14 Setting Ventilator Respiratory Rate 14 Setting Ventilator Respiratory Rate 14 Setting Ventilator Respiratory Rate 14 Setting Actual Respiratory Rate 14 Actual Respiratory Rate 14 Actual Respiratory Rate 14 Actual Respiratory Rate 14 Actual Respiratory Rate 14 Actual Respiratory Rate 14 Actual Respiratory Rate 14 Actual Respiratory Rate 14 Actual Respiratory Rate 14 Actual Respiratory Rate 14 Positive End Expiratory 5 Pressure Positive End Expiratory 5 Pressure Positive End Expiratory 5 Pressure Positive End Expiratory 5 Pressure Positive End Expiratory 5 Pressure Positive End Expiratory 5 Pressure Positive End Expiratory 5 Pressure Positive End Expiratory 5 Pressure Positive End Expiratory 5 Pressure Positive End Expiratory 5 Pressure Positive End Expiratory 5 Pressure Peak Inspiratory Airway 33 Pressure Peak Inspiratory Airway 34 Pressure Peak Inspiratory Airway 33 Pressure Peak Inspiratory Airway 38 Pressure Peak Inspiratory Airway 38 Pressure Peak Inspiratory Airway 34 Pressure Peak Inspiratory Airway 34 Pressure Peak Inspiratory Airway 34 Pressure Peak Inspiratory Airway 32 Pressure Peak Inspiratory Airway 32 Pressure Results - Laboratory Findings CBC and BMP: 02/15/18 03:30 02/15/18 03:30 ABG ABG pH 7.29 pH Units (7.32-7.45) L 02/15/18 05:21 ABG pCO2 78 mmHg (35-45) H* 02/15/18 05:21 ABG pO2 82 mmHg (85-104) L 02/15/18 05:21 ABG O2 Saturation 94 % (95-98) L 02/15/18 05:21 Abnormal lab findings: Abnormal lab results Hgb 10.5 g/dL (11.5-15.4) L 02/15/18 03:30 MCH 25.9 pg (28.0-33.3) L 02/15/18 03:30 MCHC 29.3 g/dL (31.6-35.5) L 02/15/18 03:30 RDW 17.5 % (11.5-14.5) H 02/15/18 03:30 Plt Count 132 K/mcL (140-400) L 02/15/18 03:30 Lymphocytes # 0.1 K/mcL (0.6-4.6) L 02/15/18 03:30 Platelet Estimate Slight Decrease (Normal) L 02/15/18 03:30 Hypochromasia Present (Not Present) A 02/15/18 03:30 ABG pH 7.29 pH Units (7.32-7.45) L 02/15/18 05:21 ABG pCO2 78 mmHg (35-45) H* 02/15/18 05:21 ABG pO2 82 mmHg (85-104) L 02/15/18 05:21 ABG HCO3 38 mEq/L (21-27) H 02/15/18 05:21 ABG Total CO2 40 mEq/L (20-26) H 02/15/18 05:21 ABG O2 Saturation 94 % (95-98) L 02/15/18 05:21 ABG Base Excess 8 mEq/L (-2 to 3) H 02/15/18 05:21 Sodium 135 mEq/L (136-145) L 02/15/18 03:30 Chloride 96 mEq/L (98-107) L 02/15/18 03:30 Carbon Dioxide 30 mEq/L (23-29) H 02/15/18 03:30 BUN 26 mg/dL (8-23) H 02/15/18 03:30 Creatinine 1.33 mg/dL (0.60-1.20) H 02/15/18 03:30 Est GFR ( Amer) 48 (> 60) L 02/15/18 03:30 Est GFR (Non-Af Amer) 40 (> 60) L 02/15/18 03:30 Glucose 218 mg/dL (70-105) H 02/15/18 03:30 POC Glucose 199 mg/dL (70-99) H 02/14/18 23:40 Calcium 8.4 mg/dL (8.6-10.3) L 02/15/18 03:30 B-Natriuretic Peptide 513 pg/mL (Less than 100) H 02/11/18 21:31 Nasal Screen MRSA (PCR) Positive (Negative) A 02/14/18 20:57 - Microbiology Findings Microbiology Findings: Microbiology, Last 48 Hours 02/12/18 10:58 Sputum Culture - Final Sputum 02/13/18 17:40 Legionella Antigen - Final Urine,Catheterized Streptococcus pneumoniae Antigen (M - Final - Clinical Findings Intake & Output: Intake & Output 02/14/18 02/15/18 02/15/18 23:59 07:59 15:59 Intake Total 1397 / 1397 902 / 902 542 / 542 Output Total 400 / 400 200 / 200 Balance 997 / 997 702 / 702 542 / 542 Weight 151 kg
[2018-02-15] MEDS ORDERED: Furosemide 20 MG/2 ML VIAL IVP ONE (10:42)
[2018-02-15 11:36] LABS: Source of Body Fluid LLL BAL
[2018-02-15 12:06] LABS: Appearance of Body Fluid Cloudy (Clear); Volume of Body Fluid 18 mL
--- NOTE | 2018-02-15 13:09 | Event Note ---
Date of Encounter: 02/15/18 Time of Encounter: 13:07 Notified by the patient's ICU nurse, Kun, patient's son had made a decision for no reintubation no tracheotomy. He had briefed him earlier and he was given a discuss with the rest of the family and give us an answer and this was it. Had discussed the case earlier with the patient's and he had told me of her his son said he would agree to. On the basis of that I have changed the order to DNR CCA DNI, as the patient is already intubated this will be in no reintubation and definitely no trach. Plan is still to try to wean the patient off the ventilator in a normal fashion just without any reintubation.
--- NOTE | 2018-02-15 16:53 | Infectious Disease Progress No ---
Date of Encounter: 02/15/18 Time of Encounter: 16:50 - Assessment and Plan (1) Pneumonia Current Visit: No Status: Acute CXR not clear if it's pneumonia vs fluid overload no fever, no leukocytosis but bronch with mucus plugs and mucopurulent trachea causative organism not clear; await bal urine legionella and pneumococcal antigen negative check Respiratory infectious panel - negative broadened antibiotics spectrum to vancomycin/zosyn and levofloxacin crcl stable we will continue with vancomycin for now.; i We will add levofloxacin. Since patient has Serratia and another gram-negative organism on the culture of the wound at the outside facility. 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 Qualifiers: Pneumonia type: due to unspecified organism Laterality: right Lung location: upper lobe of lung Qualified Code(s): J18.1 - Lobar pneumonia, unspecified organism (2) COPD exacerbation Current Visit: No Status: Acute (3) Cellulitis Current Visit: No Status: Acute resolved physicial exam not suggestive of cellulitis Qualifiers: Site of cellulitis: trunk Site of cellulitis of trunk: chest wall Qualified Code(s): L03.313 - Cellulitis of chest wall (4) Acute on chronic diastolic CHF (congestive heart failure) Current Visit: Yes Status: Acute (5) Candidiasis Current Visit: Yes Status: Acute (6) CKD (chronic kidney disease) stage 3, GFR 30-59 ml/min Current Visit: No Status: Chronic (7) Acute on chronic respiratory failure Current Visit: No Status: Acute Qualifiers: Respiratory failure complication: hypoxia and hypercapnia Qualified Code(s) : J96.21 - Acute and chronic respiratory failure with hypoxia; J96.22 - Acute and chronic respiratory failure with hypercapnia - Subjective Interval history: patient seen and examined. intubated and sedated. no pressors. vitals reviewed afebrile and hemodynamically stable bronch report noted - mucus plugging and mucupurulent drainage cxr reviewed Cultures that were obtained at the outside facility were faxed to us and I reviewed them with the nursing staff. Infect Dis PN-Objective Data - Labs CBC & Chem 7: 02/15/18 03:30 02/15/18 03:30 Labs: Laboratory Results - last 24 hr 02/14/18 02/14/18 02/14/18 04:23 07:19 11:00 WBC RBC Hgb Hct MCV MCH MCHC RDW Plt Count MPV Immature Gran % Seg Neutrophils % Lymphocytes % Monocytes % Eosinophils % Basophils % Neutrophils # Lymphocytes # Monocytes # Eosinophils # Basophils # Platelet Estimate Hypochromasia Sample Site ABG pH ABG pCO2 ABG pO2 ABG HCO3 ABG Total CO2 ABG O2 Saturation ABG Base Excess Eber Test Respiration Rate O2 Delivery Device Blood Gas Modality Inspired O2 Tidal Volume PEEP Sodium Potassium Chloride Carbon Dioxide BUN Creatinine Est GFR ( Amer) Est GFR (Non-Af Amer) BUN/Creatinine Ratio Glucose POC Glucose 121 H 113 H Calculated Osmolality Calcium Fluid Source LLL BAL Fluid Volume 18 Fluid Appearance Cloudy A Fluid RBC 0.004 Fld Tot Nucleated Cell 685 Fluid Seg Neutrophil % 56.8 Fld Band Neutrophil % Test Not Performed Fluid Lymphocytes % 2.5 Fluid Monocytes % Test Not Performed Fluid Eosinophils % Test Not Performed Fluid Basophils % Test Not Performed Fluid Other Cells % 40.7 Nasal Screen MRSA (PCR) 02/14/18 02/14/18 02/14/18 11:47 15:54 19:03 WBC RBC Hgb Hct MCV MCH MCHC RDW Plt Count MPV Immature Gran % Seg Neutrophils % Lymphocytes % Monocytes % Eosinophils % Basophils % Neutrophils # Lymphocytes # Monocytes # Eosinophils # Basophils # Platelet Estimate Hypochromasia Sample Site ABG pH ABG pCO2 ABG pO2 ABG HCO3 ABG Total CO2 ABG O2 Saturation ABG Base Excess Eber Test Respiration Rate O2 Delivery Device Blood Gas Modality Inspired O2 Tidal Volume PEEP Sodium Potassium Chloride Carbon Dioxide BUN Creatinine Est GFR ( Amer) Est GFR (Non-Af Amer) BUN/Creatinine Ratio Glucose POC Glucose 89 129 H 154 H Calculated Osmolality Calcium Fluid Source Fluid Volume Fluid Appearance Fluid RBC Fld Tot Nucleated Cell Fluid Seg Neutrophil % Fld Band Neutrophil % Fluid Lymphocytes % Fluid Monocytes % Fluid Eosinophils % Fluid Basophils % Fluid Other Cells % Nasal Screen MRSA (PCR) 02/14/18 02/14/18 02/15/18 20:57 23:40 03:30 WBC 4.7 RBC 4.06 Hgb 10.5 L Hct 35.8 MCV 88.2 MCH 25.9 L MCHC 29.3 L RDW 17.5 H Plt Count 132 L MPV 11.4 Immature Gran % 0.4 Seg Neutrophils % 96.4 Lymphocytes % 1.5 Monocytes % 1.7 Eosinophils % 0.0 Basophils % 0.0 Neutrophils # 4.5 Lymphocytes # 0.1 L Monocytes # 0.1 Eosinophils # 0.0 Basophils # 0.0 Platelet Estimate Slight Decrease L Hypochromasia Present A Sample Site ABG pH ABG pCO2 ABG pO2 ABG HCO3 ABG Total CO2 ABG O2 Saturation ABG Base Excess Eber Test Respiration Rate O2 Delivery Device Blood Gas Modality Inspired O2 Tidal Volume PEEP Sodium Potassium Chloride Carbon Dioxide BUN Creatinine Est GFR ( Amer) Est GFR (Non-Af Amer) BUN/Creatinine Ratio Glucose POC Glucose 199 H Calculated Osmolality Calcium Fluid Source Fluid Volume Fluid Appearance Fluid RBC Fld Tot Nucleated Cell Fluid Seg Neutrophil % Fld Band Neutrophil % Fluid Lymphocytes % Fluid Monocytes % Fluid Eosinophils % Fluid Basophils % Fluid Other Cells % Nasal Screen MRSA (PCR) Positive A 02/15/18 02/15/18 03:30 05:21 WBC RBC Hgb Hct MCV MCH MCHC RDW Plt Count MPV Immature Gran % Seg Neutrophils % Lymphocytes % Monocytes % Eosinophils % Basophils % Neutrophils # Lymphocytes # Monocytes # Eosinophils # Basophils # Platelet Estimate Hypochromasia Sample Site L Radial ABG pH 7.29 L ABG pCO2 78 H* ABG pO2 82 L ABG HCO3 38 H ABG Total CO2 40 H ABG O2 Saturation 94 L ABG Base Excess 8 H Eber Test N/A Respiration Rate 14 O2 Delivery Device Adult Vent Blood Gas Modality PRVC Inspired O2 55.0 Tidal Volume 450 PEEP 5 Sodium 135 L Potassium 4.5 Chloride 96 L Carbon Dioxide 30 H BUN 26 H Creatinine 1.33 H Est GFR ( Amer) 48 L Est GFR (Non-Af Amer) 40 L BUN/Creatinine Ratio 20 Glucose 218 H POC Glucose Calculated Osmolality 291 Calcium 8.4 L Fluid Source Fluid Volume Fluid Appearance Fluid RBC Fld Tot Nucleated Cell Fluid Seg Neutrophil % Fld Band Neutrophil % Fluid Lymphocytes % Fluid Monocytes % Fluid Eosinophils % Fluid Basophils % Fluid Other Cells % Nasal Screen MRSA (PCR) Cultures: Cultures 02/14/18 11:00 Gram Stain - Final Left Lower Lobe Lung 02/12/18 10:58 Sputum Culture - Final Sputum 02/13/18 17:40 Legionella Antigen - Final Urine,Catheterized Streptococcus pneumoniae Antigen (M - Final Serology 02/14/18 02/14/18 02/13/18 Range/Units 20:57 11:00 17:40 Fluid Source LLL BAL Fluid Volume 18 mL Fluid Appearance Cloudy A (Clear) Fluid RBC 0.004 (No Ref Range) M/mcL Fld Tot Nucleated Cell 685 (No Ref Range) TNC/mcL Fluid Seg Neutrophil % 56.8 % Fld Band Neutrophil % Test Not Performed Fluid Lymphocytes % 2.5 % Fluid Monocytes % Test Not Performed Fluid Eosinophils % Test Not Performed Fluid Basophils % Test Not Performed Fluid Other Cells % 40.7 % Nasal Screen MRSA (PCR) Positive A (Negative) Chlamy pneumoniae PCR Not Detected (Not Detect) Adenovirus (PCR) Not Detected (Not Detect) B. pertussis DNA (PCR) Not Detected (Not Detect) B.parapertussis DNA PCR Not Detected (Not Detect) Coronavirus OC43 (PCR) Not Detected (Not Detect) Coronavirus HKU1 (PCR) Not Detected (Not Detect) Coronavirus 229E (PCR) Not Detected (Not Detect) Coronavirus NL63 (PCR) Not Detected (Not Detect) Human Metapneumovir PCR Not Detected (Not Detect) Influenza A (H1) PCR Not Detected (Not Detect) Influ A (H1N1/09) PCR Not Detected (Not Detect) Influenza A (H3) PCR Not Detected (Not Detect) Influenza A Untype (PCR) Not Detected (Not Detect) Influenza Type B (PCR) Not Detected (Not Detect) M.pneumoniae DNA (PCR) Not Detected (Not Detect) Parainfluenza 1 (PCR) Not Detected (Not Detect) Parainfluenza 2 (PCR) Not Detected (Not Detect) Parainfluenza 3 (PCR) Not Detected (Not Detect) Parainfluenza 4 (PCR) Not Detected (Not Detect) RSV (PCR) Not Detected (Not Detect) Entero/Rhino (PCR) Not Detected (Not Detect) Exam - Constitutional Vitals: Temp Pulse Resp BP Pulse Ox 98.1 F 64 14 100/52 92 02/15/18 16:19 02/15/18 16:00 02/15/18 15:24 02/15/18 15:00 02/15/18 15:24 Exam: Intubated and sedated - Respiratory Additional comments: Coarse breath sounds universally. - Cardiovascular Cardiovascular exam: Present: RRR, +S1, +S2 - GI/Abdominal GI/Abdominal exam: Present: normal bowel sounds, soft. Absent: tenderness - Extremities Exam Additional comments: Venous stasis left lower extremity unchanged. Stasis and erythema right lower extremity looks a little bit worse today Consult Discharge Plan - Plan Referrals: Brad Minor MD [Primary Care Provider] -
[2018-02-16] MEDS: Piperacillin/Tazobactam 3.375 GM in 0.9 % Sodium Chloride Mini Bag 100 ML IVPB SCH ×3 (00:08→16:17)
[2018-02-16] MEDS: Lacri-Lube 3.5 GM TUBE BOTH EYES SCH ×6 (00:09→20:38)
[2018-02-16] MEDS: Insulin LISPRO 300 UNITS/3 ML VIAL SQ SCH ×6 (00:09→20:29)
[2018-02-16 03:42] LABS: Hematocrit 35.8 % (35.3-44.9); Hemoglobin 10.7 g/dL (11.5-15.4); Immature Granulocytes % 0.6 % (0-4); Lymphocytes # 0.1 K/mcL (0.6-4.6); Lymphocytes % 1.8 %; Mean Corpuscular HGB Conc 29.9 g/dL (31.6-35.5); Mean Corpuscular Hemoglobin 25.8 pg (28.0-33.3); Mean Corpuscular Volume 86.5 fL (83.0-100.0); Mean Platelet Volume 11.4 fL (9.4-12.4); Monocytes # 0.2 K/mcL (0.0-1.3); Monocytes % 2.9 %; Neutrophils # 7.6 K/mcL (1.6-8.9); Platelet Count 136 K/mcL (140-400); Red Blood Count 4.14 M/mcL (3.82-4.97); Red Cell Distribution Width 18.2 % (11.5-14.5); Segmented Neutrophils % 94.7 %
[2018-02-16] MEDS: Ipratropium/Albuterol Neb 3 ML IH SCH ×6 (03:44→23:26)
[2018-02-16 03:58] LABS: Calcium 8.2 mg/dL (8.6-10.3); Potassium 4.4 mEq/L (3.5-5.1)
[2018-02-16 04:00] LABS: Anisocytosis 1+ (Not Present); Hypochromasia Present (Not Present); Reactive Lymphocytes Present (Not Present)
[2018-02-16 04:01] LABS: Large Platelets Present (Not Present); Platelet Estimate Normal (Normal)
[2018-02-16] MEDS: FentaNYL (PF) 1,000 MCG in 0.9 % Sodium Chloride 80 ML IVC SCH (04:46)
[2018-02-16] MEDS: MethylPREDNISolone 40 MG/ML VIAL IVP SCH (05:17)
[2018-02-16] MEDS: Famotidine 20 MG/2 ML VIAL IVP SCH ×2 (05:17→16:18)
[2018-02-16] MEDS: *HR* Heparin 5,000 UNIT/ML VIAL SQ SCH ×2 (05:18→16:18)
[2018-02-16 05:31] LABS: ABG Base Excess 9 mEq/L (-2 to 3); ABG HCO3 36 mEq/L (21-27); ABG Oxygen Saturation 94 % (95-98); ABG PCO2 58 mmHg (35-45); ABG PO2 74 mmHg (85-104); ABG TCO2 38 mEq/L (20-26); Blood Gas Modality ASSIST CONTROL; Blood Gas PEEP 5 cm H2O; Blood Gas Respiration Rate 14; Blood Gas VT 500 cc
--- NOTE | 2018-02-16 06:55 | Pulmonology Progress Note ---
<DevanteGarret enriquez - Last Filed: 02/16/18 09:57> Date of Encounter: 02/16/18 Assessment and Plan (1) Acute on chronic respiratory failure Current Visit: No Status: Acute Patient continues to be intubated. Respiratory acidosis seems to be resolving. Off sedation. No plans to extubate today due to patient still feeling the residual effects of sedation. - Continue mechanical ventilation. - Patient's son agrees that there will be no reintubation and definitely no tracheostomy for patient. Plan is to wean the patient off the ventilator in a normal fashion without any reintubation. Qualifiers: Respiratory failure complication: hypoxia and hypercapnia Qualified Code(s) : J96.21 - Acute and chronic respiratory failure with hypoxia; J96.22 - Acute and chronic respiratory failure with hypercapnia (2) Acute on chronic diastolic CHF (congestive heart failure) Current Visit: Yes Status: Acute cho shows an EF of 60% with grossly dilated right ventricle. Patient displays fluid overload on exam. Current fluid balance of 2938 with 0.2 mL/kg/h of urinary output. - We will give another dose of Lasix 20 IV. - Continue fluid restriction. (3) Pneumonia Current Visit: No Status: Acute White blood cell count and normal limits. Chest x-ray from yesterday reveals worsening his interstitial edema with basilar atelectasis. Patient on day 4 of Zosyn and day 3 of vancomycin. Sputum culture negative for Legionella and strep pneumonia. - Continue antibiotics. - Infectious disease on board. Qualifiers: Pneumonia type: due to unspecified organism Laterality: right Lung location: upper lobe of lung Qualified Code(s): J18.1 - Lobar pneumonia, unspecified organism (4) CKD (chronic kidney disease) stage 3, GFR 30-59 ml/min Current Visit: No Status: Chronic Creatinine decreased from 1.33-1.24. - Continue to hold IV fluids for now due to CHF. - Trend daily. (5) Cellulitis Current Visit: No Status: Acute Bilateral lower extremity CT shows evidence of cellulitis. Cellulitis v. venous stasis ulcers. Wound culture of right foot from 02/11/18 shows gram-negative allen. Vancomycin day 3. Blood cultures from outside facility show positive Klebsiella and Serratia. Infectious disease added on Levaquin (day 2) for coverage yesterday. - Continue antibiotics. Qualifiers: Site of cellulitis: trunk Site of cellulitis of trunk: chest wall Qualified Code(s): L03.313 - Cellulitis of chest wall (6) Candidiasis Current Visit: Yes Status: Acute Evident in bilateral breasts and umbilicus. Continues to improve. On day #6 of nystatin. - Continue nystatin. (7) Hyperglycemia Current Visit: Yes Status: Acute Glucose level dropped from 218 down to 167. Patient's IV steroids were tapered yesterday. On low-dose insulin sliding scale. - Discontinue IV steroids. - Continue low-dose insulin sliding scale. (8) COPD exacerbation Current Visit: No Status: Acute Patient currently on mechanical ventilation 95% O2 on 50% FiO2. IV steroids were tapered yesterday. Improved respiratory exam although patient does still display bronchia bilaterally. - Discontinue IV steroids. (9) DVT prophylaxis Current Visit: Yes Status: Acute On heparin 5000 units subcutaneously twice a day Subjective Interval history: Patient was not able to wake up. Is off sedation but currently experiencing some residual effects from it. Unable to obtain history. Objective PUL Vital signs: Last Vital Signs Temp 97.8 F 02/16/18 03:00 Pulse 59 02/16/18 06:00 Resp 14 02/16/18 06:15 BP 113/62 02/16/18 06:15 Pulse Ox 96 02/16/18 06:15 General appearance: no acute distress, asleep Eyes: nonicteric ENT: oropharynx moist Neck: supple Effort: normal Auscultation: bilateral: rhonchi Cardiovascular: regular rate and rhythm Gastrointestinal: hypoactive bowel sounds, soft, non-distended Integumentary: erythema (Under breasts bilaterally. Improving. Over umbilicus. Improving.), cellulitis (Bilateral lower extremities. Right hand. No signs of bleeding, pus, or drainage.) Extremities: no cyanosis, no clubbing, pulses normal, no ischemia or petechiae, edema (+1 pedal pitting edema bilaterally) Musculoskeletal: no deformities unable to assess due to mental status Ventilator Settings Ventilator Settings: Ventilator Settings, Last 8 Hours Ventilator Tidal Volume 500 Setting Ventilator Tidal Volume 500 Setting Ventilator Tidal Volume 500 Setting Ventilator Tidal Volume 500 Setting Ventilator Tidal Volume 500 Setting Ventilator Tidal Volume 500 Setting Ventilator Tidal Volume 500 Setting Ventilator Tidal Volume 500 Setting Ventilator Tidal Volume 500 Setting Ventilator Tidal Volume 500 Setting Ventilator Tidal Volume 500 Setting Ventilator Tidal Volume 500 Setting Ventilator Respiratory Rate 14 Setting Ventilator Respiratory Rate 14 Setting Ventilator Respiratory Rate 14 Setting Ventilator Respiratory Rate 14 Setting Ventilator Respiratory Rate 14 Setting Ventilator Respiratory Rate 14 Setting Ventilator Respiratory Rate 14 Setting Ventilator Respiratory Rate 14 Setting Ventilator Respiratory Rate 14 Setting Ventilator Respiratory Rate 14 Setting Ventilator Respiratory Rate 14 Setting Ventilator Respiratory Rate 14 Setting Actual Respiratory Rate 14 Actual Respiratory Rate 14 Actual Respiratory Rate 14 Actual Respiratory Rate 14 Actual Respiratory Rate 14 Actual Respiratory Rate 14 Actual Respiratory Rate 14 Actual Respiratory Rate 14 Actual Respiratory Rate 14 Actual Respiratory Rate 14 Actual Respiratory Rate 14 Positive End Expiratory 5 Pressure Positive End Expiratory 5 Pressure Positive End Expiratory 5 Pressure Positive End Expiratory 5 Pressure Positive End Expiratory 5 Pressure Positive End Expiratory 5 Pressure Positive End Expiratory 5 Pressure Positive End Expiratory 5 Pressure Positive End Expiratory 5 Pressure Positive End Expiratory 5 Pressure Positive End Expiratory 5 Pressure Positive End Expiratory 5 Pressure Peak Inspiratory Airway 38 Pressure Peak Inspiratory Airway 38 Pressure Peak Inspiratory Airway 39 Pressure Peak Inspiratory Airway 39 Pressure Peak Inspiratory Airway 39 Pressure Peak Inspiratory Airway 39 Pressure Peak Inspiratory Airway 39 Pressure Peak Inspiratory Airway 40 Pressure Peak Inspiratory Airway 40 Pressure Peak Inspiratory Airway 38 Pressure Peak Inspiratory Airway 38 Pressure Results - Laboratory Findings CBC and BMP: 02/16/18 03:30 02/16/18 03:30 ABG ABG pH 7.40 pH Units (7.32-7.45) 02/16/18 05:27 ABG pCO2 58 mmHg (35-45) H 02/16/18 05:27 ABG pO2 74 mmHg (85-104) L 02/16/18 05:27 ABG O2 Saturation 94 % (95-98) L 02/16/18 05:27 Abnormal lab findings: Abnormal lab results Hgb 10.7 g/dL (11.5-15.4) L 02/16/18 03:30 MCH 25.8 pg (28.0-33.3) L 02/16/18 03:30 MCHC 29.9 g/dL (31.6-35.5) L 02/16/18 03:30 RDW 18.2 % (11.5-14.5) H 02/16/18 03:30 Plt Count 136 K/mcL (140-400) L 02/16/18 03:30 Lymphocytes # 0.1 K/mcL (0.6-4.6) L 02/16/18 03:30 Reactive Lymphocytes Present (Not Present) A 02/16/18 03:30 Large Platelets Present (Not Present) A 02/16/18 03:30 Hypochromasia Present (Not Present) A 02/16/18 03:30 Anisocytosis 1+ (Not Present) A 02/16/18 03:30 ABG pCO2 58 mmHg (35-45) H 02/16/18 05:27 ABG pO2 74 mmHg (85-104) L 02/16/18 05:27 ABG HCO3 36 mEq/L (21-27) H 02/16/18 05:27 ABG Total CO2 38 mEq/L (20-26) H 02/16/18 05:27 ABG O2 Saturation 94 % (95-98) L 02/16/18 05:27 ABG Base Excess 9 mEq/L (-2 to 3) H 02/16/18 05:27 Sodium 134 mEq/L (136-145) L 02/16/18 03:30 Chloride 97 mEq/L (98-107) L 02/16/18 03:30 Carbon Dioxide 31 mEq/L (23-29) H 02/16/18 03:30 BUN 33 mg/dL (8-23) H 02/16/18 03:30 Creatinine 1.24 mg/dL (0.60-1.20) H 02/16/18 03:30 Est GFR ( Amer) 52 (> 60) L 02/16/18 03:30 Est GFR (Non-Af Amer) 43 (> 60) L 02/16/18 03:30 BUN/Creatinine Ratio 27 (6-26) H 02/16/18 03:30 Glucose 167 mg/dL (70-105) H 02/16/18 03:30 POC Glucose 143 mg/dL (70-99) H 02/15/18 23:24 Calcium 8.2 mg/dL (8.6-10.3) L 02/16/18 03:30 B-Natriuretic Peptide 513 pg/mL (Less than 100) H 02/11/18 21:31 Fluid Appearance Cloudy (Clear) A 02/14/18 11:00 Nasal Screen MRSA (PCR) Positive (Negative) A 02/14/18 20:57 - Microbiology Findings Microbiology Findings: Microbiology, Last 48 Hours 02/14/18 11:00 Gram Stain - Final Left Lower Lobe Lung 02/12/18 10:58 Sputum Culture - Final Sputum - Clinical Findings Intake & Output: Intake & Output 02/15/18 02/15/18 02/16/18 15:59 23:59 07:59 Intake Total 1440 / 1440 1346 / 1346 846 / 846 Output Total 125 / 125 525 / 525 150 / 150 Balance 1315 / 1315 821 / 821 696 / 696 Weight 156.3 kg Consult Discharge Plan - Plan Referrals: Brad Minor MD [Primary Care Provider] - <Peyman Soares - Last Filed: 02/16/18 10:32> Date of Encounter: 02/16/18 Time of Encounter: 06:55 Subjective Principal diagnosis: Acute on chronic resp failure Objective PUL Vital signs: Last Vital Signs Temp 97.8 F 02/16/18 03:00 Pulse 59 02/16/18 06:00 Resp 14 02/16/18 06:15 BP 113/62 02/16/18 06:15 Pulse Ox 96 02/16/18 06:15 Ventilator Settings Ventilator Settings: Ventilator Settings, Last 8 Hours Ventilator Tidal Volume 500 Setting Ventilator Tidal Volume 500 Setting Ventilator Tidal Volume 500 Setting Ventilator Tidal Volume 500 Setting Ventilator Tidal Volume 500 Setting Ventilator Tidal Volume 500 Setting Ventilator Tidal Volume 500 Setting Ventilator Tidal Volume 500 Setting Ventilator Tidal Volume 500 Setting Ventilator Tidal Volume 500 Setting Ventilator Tidal Volume 500 Setting Ventilator Tidal Volume 500 Setting Ventilator Respiratory Rate 14 Setting Ventilator Respiratory Rate 14 Setting Ventilator Respiratory Rate 14 Setting Ventilator Respiratory Rate 14 Setting Ventilator Respiratory Rate 14 Setting Ventilator Respiratory Rate 14 Setting Ventilator Respiratory Rate 14 Setting Ventilator Respiratory Rate 14 Setting Ventilator Respiratory Rate 14 Setting Ventilator Respiratory Rate 14 Setting Ventilator Respiratory Rate 14 Setting Ventilator Respiratory Rate 14 Setting Actual Respiratory Rate 14 Actual Respiratory Rate 14 Actual Respiratory Rate 14 Actual Respiratory Rate 14 Actual Respiratory Rate 14 Actual Respiratory Rate 14 Actual Respiratory Rate 14 Actual Respiratory Rate 14 Actual Respiratory Rate 14 Actual Respiratory Rate 14 Actual Respiratory Rate 14 Positive End Expiratory 5 Pressure Positive End Expiratory 5 Pressure Positive End Expiratory 5 Pressure Positive End Expiratory 5 Pressure Positive End Expiratory 5 Pressure Positive End Expiratory 5 Pressure Positive End Expiratory 5 Pressure Positive End Expiratory 5 Pressure Positive End Expiratory 5 Pressure Positive End Expiratory 5 Pressure Positive End Expiratory 5 Pressure Positive End Expiratory 5 Pressure Peak Inspiratory Airway 38 Pressure Peak Inspiratory Airway 38 Pressure Peak Inspiratory Airway 39 Pressure Peak Inspiratory Airway 39 Pressure Peak Inspiratory Airway 39 Pressure Peak Inspiratory Airway 39 Pressure Peak Inspiratory Airway 39 Pressure Peak Inspiratory Airway 40 Pressure Peak Inspiratory Airway 40 Pressure Peak Inspiratory Airway 38 Pressure Peak Inspiratory Airway 38 Pressure Results - Laboratory Findings CBC and BMP: 02/16/18 03:30 02/16/18 03:30 ABG ABG pH 7.40 pH Units (7.32-7.45) 02/16/18 05:27 ABG pCO2 58 mmHg (35-45) H 02/16/18 05:27 ABG pO2 74 mmHg (85-104) L 02/16/18 05:27 ABG O2 Saturation 94 % (95-98) L 02/16/18 05:27 Abnormal lab findings: Abnormal lab results Hgb 10.7 g/dL (11.5-15.4) L 02/16/18 03:30 MCH 25.8 pg (28.0-33.3) L 02/16/18 03:30 MCHC 29.9 g/dL (31.6-35.5) L 02/16/18 03:30 RDW 18.2 % (11.5-14.5) H 02/16/18 03:30 Plt Count 136 K/mcL (140-400) L 02/16/18 03:30 Lymphocytes # 0.1 K/mcL (0.6-4.6) L 02/16/18 03:30 Reactive Lymphocytes Present (Not Present) A 02/16/18 03:30 Large Platelets Present (Not Present) A 02/16/18 03:30 Hypochromasia Present (Not Present) A 02/16/18 03:30 Anisocytosis 1+ (Not Present) A 02/16/18 03:30 ABG pCO2 58 mmHg (35-45) H 02/16/18 05:27 ABG pO2 74 mmHg (85-104) L 02/16/18 05:27 ABG HCO3 36 mEq/L (21-27) H 02/16/18 05:27 ABG Total CO2 38 mEq/L (20-26) H 02/16/18 05:27 ABG O2 Saturation 94 % (95-98) L 02/16/18 05:27 ABG Base Excess 9 mEq/L (-2 to 3) H 02/16/18 05:27 Sodium 134 mEq/L (136-145) L 02/16/18 03:30 Chloride 97 mEq/L (98-107) L 02/16/18 03:30 Carbon Dioxide 31 mEq/L (23-29) H 02/16/18 03:30 BUN 33 mg/dL (8-23) H 02/16/18 03:30 Creatinine 1.24 mg/dL (0.60-1.20) H 02/16/18 03:30 Est GFR ( Amer) 52 (> 60) L 02/16/18 03:30 Est GFR (Non-Af Amer) 43 (> 60) L 02/16/18 03:30 BUN/Creatinine Ratio 27 (6-26) H 02/16/18 03:30 Glucose 167 mg/dL (70-105) H 02/16/18 03:30 POC Glucose 143 mg/dL (70-99) H 02/15/18 23:24 Calcium 8.2 mg/dL (8.6-10.3) L 02/16/18 03:30 B-Natriuretic Peptide 513 pg/mL (Less than 100) H 02/11/18 21:31 Fluid Appearance Cloudy (Clear) A 02/14/18 11:00 Nasal Screen MRSA (PCR) Positive (Negative) A 02/14/18 20:57 - Microbiology Findings Microbiology Findings: Microbiology, Last 48 Hours 02/14/18 11:00 Gram Stain - Final Left Lower Lobe Lung 02/12/18 10:58 Sputum Culture - Final Sputum - Clinical Findings Intake & Output: Intake & Output 02/15/18 02/15/18 02/16/18 15:59 23:59 07:59 Intake Total 1440 / 1440 1346 / 1346 846 / 846 Output Total 125 / 125 525 / 525 150 / 150 Balance 1315 / 1315 821 / 821 696 / 696 Weight 156.3 kg - Attending Attestation I examined this patient and my medical decision-making was reviewed with the Resident Physician. I agree with the documented findings, disposition and treatment plan as described except to the extent set forth below. We independently had [id number] contact with the patient Patient seen and examined at bedside Labs, radiology, chart personally reviewed. Management was reviewed during multidisciplinary critical care rounds. 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 Head noted been delirious with agitation on this admission I suspect this is a medication effect if no improvement over the course of that we need to send for head CT Pulm: Acute on chronic Hypoxic hypercapnic respiratory failure secondary to COPD likely pneumonia complicated by hydrostatic pulmonary edema acceptable gas exchange on the vent today she is not a candidate for spontaneous breathing trial because of encephalopathy Cards: Blood pressure monitored and stable FEN-GI: Continue enteral nutrition per dietary recommendations Renal: Urine output monitored continue daily monitoring of serum creatinine and electrolytes ID: Continue antibiotics per ID recommendations for pneumonia with plan to de- escalate Heme/Onc: DVT prophylaxis given Endo: Glucose Monitored Integ/MSK: Skin Care per routine ICU Nursing Protocol to prevent ulcers. Lines: All lines examined without evidence of infection : Dispo: Remain in ICU for vent need CODE: DNAR/DNI (No Trach)
[2018-02-16] MEDS: levETIRAcetam 250 MG TABLET PO SCH ×2 (10:01→22:03)
[2018-02-16] MEDS ORDERED: Furosemide 20 MG/2 ML VIAL IVP ONE (10:03)
[2018-02-16] MEDS: amLODIPine 5 MG TABLET PO SCH (10:04)
[2018-02-16] MEDS: Chlorhexidine Rinse 15 ML MOUTHWASH MM SCH ×2 (10:04→20:42)
[2018-02-16] MEDS: Leptospermum Honey Gel 44 ML TUBE TP SCH (10:04)
[2018-02-16] MEDS: clonazePAM 1 MG TABLET PO SCH ×3 (10:04→20:29)
[2018-02-16] MEDS: Nystatin POWDER 30 GM BOTTLE TP SCH ×3 (10:05→20:43)
[2018-02-16] MEDS: Sennosides 8.6 MG TABLET PO SCH ×2 (11:30→20:43)
--- NOTE | 2018-02-16 13:37 | Event Note ---
Date of Encounter: 02/16/18 Time of Encounter: 13:00 Patient continues to be non-responsive after stopping sedation at 0500. Plan continues to be to extubate once patient will tolerate. Palliative care will follow up with patient tomorrow. Spoke with Emery HUGHES, no needs at this time. No family present at beside.
[2018-02-17] MEDS: Insulin LISPRO 300 UNITS/3 ML VIAL SQ SCH ×6 (00:02→19:37)
[2018-02-17] MEDS: Piperacillin/Tazobactam 3.375 GM in 0.9 % Sodium Chloride Mini Bag 100 ML IVPB SCH ×4 (00:05→23:06)
[2018-02-17] MEDS: Lacri-Lube 3.5 GM TUBE BOTH EYES SCH ×7 (00:06→23:07)
[2018-02-17] MEDS: Ipratropium/Albuterol Neb 3 ML IH SCH ×6 (03:30→23:28)
[2018-02-17 04:04] LABS: Basophils % 0.2 %; Eosinophils # 0.1 K/mcL (0.0-0.6); Eosinophils % 1.1 %; Hematocrit 34.5 % (35.3-44.9); Hemoglobin 10.4 g/dL (11.5-15.4); Immature Granulocytes % 0.3 % (0-4); Immature Platelets 6.2 % (1.1-6.1); Lymphocytes # 0.6 K/mcL (0.6-4.6); Lymphocytes % 10.1 %; Mean Corpuscular HGB Conc 30.1 g/dL (31.6-35.5); Mean Corpuscular Hemoglobin 25.6 pg (28.0-33.3); Mean Corpuscular Volume 84.8 fL (83.0-100.0); Mean Platelet Volume 11.2 fL (9.4-12.4); Monocytes # 0.4 K/mcL (0.0-1.3); Monocytes % 6.7 %; Platelet Count 144 K/mcL (140-400); Red Blood Count 4.07 M/mcL (3.82-4.97); Red Cell Distribution Width 18.6 % (11.5-14.5); Segmented Neutrophils % 81.6 %
[2018-02-17 04:29] LABS: Anisocytosis 2+ (Not Present); Platelet Estimate Normal (Normal); Poikilocytosis 2+ (Not Present); Stomatocytes 1+ (Not Present)
[2018-02-17 04:40] LABS: ABG Base Excess 11 mEq/L (-2 to 3); ABG HCO3 38 mEq/L (21-27); ABG Oxygen Saturation 95 % (95-98); ABG PCO2 61 mmHg (35-45); ABG PO2 77 mmHg (85-104); ABG TCO2 40 mEq/L (20-26); Blood Gas Modality ASSIST CONTROL; Blood Gas PEEP 5 cm H2O; Blood Gas Respiration Rate 14; Blood Gas VT 500 cc
[2018-02-17 04:51] LABS: Calcium 7.9 mg/dL (8.6-10.3); Potassium 4.2 mEq/L (3.5-5.1)
[2018-02-17] MEDS: *HR* Heparin 5,000 UNIT/ML VIAL SQ SCH ×2 (06:25→18:18)
[2018-02-17] MEDS: Famotidine 20 MG/2 ML VIAL IVP SCH ×2 (06:25→18:18)
[2018-02-17] MEDS ORDERED: Furosemide 40 MG/4 ML VIAL IVP ONE (07:50)
--- NOTE | 2018-02-17 07:53 | Pulmonology Progress Note ---
<Kam Badillo - Last Filed: 02/17/18 09:53> Date of Encounter: 02/17/18 Time of Encounter: 07:53 Assessment and Plan (1) Acute on chronic respiratory failure Current Visit: No Status: Acute 1. Multifactorial with possible pneumonia and CHF 2. We will continue full ventilatory support due to encephalopathy and she will not be a candidate for an SBT today because of her mental status 3. Lasix 40 mg now and reevaluate for an afternoon dose if she has a good response 4. Overall, we will try to lessen her volume overload. She is 7 L, positive over her hospital stay, and we will avoid scheduled diuresis, but will continue to diurese as her hemodynamics will tolerate Systems based plan: - Patient seen and examined. - Labs, radiology, chart personally reviewed. PULLBOAT ENGINEER: Patient not following commands, but is moving all extremities, sedation with fentanyl and Versed titrated to a Hercules score of 3 Pulmonary: Significant underlying lung disease with pulmonary edema and COPD, when necessary breathing treatments and Lasix, sputum/blood cultures ordered; will D/C Vancomycin today Cardiovascular: History of diastolic CHF, repeat echo planned for tomorrow, when necessary Lasix GI: GI prophylaxis per routine, if no BM today, will change Senna to twice a day Heme: DVT prophylaxis per routine ID: Discontinue vancomycin Renal: Trend Endorcine: Monitor blood glucose Lines: all lines checked and no evidence of infections Skin: skin care to prevent pressure ulcers per nursing routine care, wound care consult for existing ulcers, nystatin for yeast Overall prognosis is poor and she remains ventilator dependent and encephalopathic. Both the patient and the family made it clear that she would not want a tracheostomy again. We will continue to try to medically optimize her, but her prognosis remains very poor and guarded. Qualifiers: Respiratory failure complication: hypoxia and hypercapnia Qualified Code(s) : J96.21 - Acute and chronic respiratory failure with hypoxia; J96.22 - Acute and chronic respiratory failure with hypercapnia (2) Acute on chronic diastolic CHF (congestive heart failure) Current Visit: Yes Status: Acute 1. Continue intermittent dosing of Lasix for diuresis as she remaines 7 L positive overall 2. Maintain Burkett catheter while intubated for strict I's and O's (3) Pneumonia Current Visit: No Status: Acute 1. Sputum and blood cultures negative so far 2. Discontinue vancomycin today 3. Continue Zosyn. Qualifiers: Pneumonia type: due to unspecified organism Laterality: right Lung location: upper lobe of lung Qualified Code(s): J18.1 - Lobar pneumonia, unspecified organism (4) CKD (chronic kidney disease) stage 3, GFR 30-59 ml/min Current Visit: No Status: Chronic 1. Stable, continue to trend electrolytes and renal function while we are actively diuresing (5) Cellulitis Current Visit: No Status: Acute 1. Discontinuing the vancomycin today, will continue other antibiotics 2. Continue to trend white blood cell count and monitor temperature curves Qualifiers: Site of cellulitis: trunk Site of cellulitis of trunk: chest wall Qualified Code(s): L03.313 - Cellulitis of chest wall (6) Encephalopathy Current Visit: Yes Status: Acute Is encephalopathic and not following commands, but is moving all of her extremities. 1. Thromboembolic disease was considered. However, she has no focal deficits, so we will hold off on a head CT at this time. 2. Patient does have a history of seizures and is on Keppra and we will keep status epilepticus in our differential but the patient does open her eyes and responds somewhat appropriately at times, but just does not follow commands. 3. We are holding her sedation today and also holding her other neuro sedatives such as BuSpar, and clonidine to see if this will improve her mental status. 4. If her mental status doesn't improve over the next 24 hours we will likely order an EEG and consult with neurology. 5. This is one of the kemp reasons she is remaining intubated and this is further complicating her prognosis (7) DVT prophylaxis Current Visit: Yes Status: Acute 1. Subcutaneous heparin 2. We will also renew restraints Subjective Principal diagnosis: Acute on chronic resp failure Interval history: No acute changes overnight Objective PUL Vital signs: Last Vital Signs Temp 99.3 F 02/17/18 03:25 Pulse 76 02/17/18 07:00 Resp 14 02/17/18 07:00 BP 113/53 02/17/18 07:00 Pulse Ox 90 02/17/18 07:00 General appearance: no acute distress Eyes: nonicteric ENT: oropharynx moist Effort: normal (vent) Auscultation: bilateral: diminished breath sounds Cardiovascular: regular rate and rhythm Gastrointestinal: normoactive bowel sounds, non-distended Integumentary: cellulitis (RLE ) Extremities: pulses normal, cool, edema unable to assess due to mental status Ventilator Settings Ventilator Settings: Ventilator Settings, Last 8 Hours Ventilator Tidal Volume 500 Setting Ventilator Tidal Volume 500 Setting Ventilator Tidal Volume 500 Setting Ventilator Tidal Volume 500 Setting Ventilator Tidal Volume 500 Setting Ventilator Tidal Volume 500 Setting Ventilator Tidal Volume 500 Setting Ventilator Tidal Volume 500 Setting Ventilator Tidal Volume 500 Setting Ventilator Tidal Volume 500 Setting Ventilator Tidal Volume 500 Setting Ventilator Tidal Volume 500 Setting Ventilator Respiratory Rate 14 Setting Ventilator Respiratory Rate 14 Setting Ventilator Respiratory Rate 14 Setting Ventilator Respiratory Rate 14 Setting Ventilator Respiratory Rate 14 Setting Ventilator Respiratory Rate 14 Setting Ventilator Respiratory Rate 14 Setting Ventilator Respiratory Rate 14 Setting Ventilator Respiratory Rate 14 Setting Ventilator Respiratory Rate 14 Setting Ventilator Respiratory Rate 14 Setting Ventilator Respiratory Rate 14 Setting Actual Respiratory Rate 14 Actual Respiratory Rate 14 Actual Respiratory Rate 14 Actual Respiratory Rate 14 Positive End Expiratory 5 Pressure Positive End Expiratory 5 Pressure Positive End Expiratory 5 Pressure Positive End Expiratory 5 Pressure Positive End Expiratory 5 Pressure Positive End Expiratory 5 Pressure Positive End Expiratory 5 Pressure Positive End Expiratory 5 Pressure Positive End Expiratory 5 Pressure Positive End Expiratory 5 Pressure Positive End Expiratory 5 Pressure Positive End Expiratory 5 Pressure Peak Inspiratory Airway 41 Pressure Peak Inspiratory Airway 40 Pressure Peak Inspiratory Airway 38 Pressure Peak Inspiratory Airway 38 Pressure Peak Inspiratory Airway 43 Pressure Peak Inspiratory Airway 59 Pressure Peak Inspiratory Airway 41 Pressure Peak Inspiratory Airway 44 Pressure Peak Inspiratory Airway 37 Pressure Peak Inspiratory Airway 38 Pressure Peak Inspiratory Airway 34 Pressure Results - Laboratory Findings CBC and BMP: 02/17/18 04:00 02/17/18 03:43 ABG ABG pH 7.40 pH Units (7.32-7.45) 02/17/18 04:37 ABG pCO2 61 mmHg (35-45) H 02/17/18 04:37 ABG pO2 77 mmHg (85-104) L 02/17/18 04:37 ABG O2 Saturation 95 % (95-98) 02/17/18 04:37 Abnormal lab findings: Abnormal lab results Hgb 10.4 g/dL (11.5-15.4) L 02/17/18 04:00 Hct 34.5 % (35.3-44.9) L 02/17/18 04:00 MCH 25.6 pg (28.0-33.3) L 02/17/18 04:00 MCHC 30.1 g/dL (31.6-35.5) L 02/17/18 04:00 RDW 18.6 % (11.5-14.5) H 02/17/18 04:00 Reactive Lymphocytes Present (Not Present) A 02/16/18 03:30 Large Platelets Present (Not Present) A 02/16/18 03:30 Immature Plt Fraction 6.2 % (1.1-6.1) H 02/17/18 04:00 Hypochromasia Present (Not Present) A 02/16/18 03:30 Poikilocytosis 2+ (Not Present) A 02/17/18 04:00 Anisocytosis 2+ (Not Present) A 02/17/18 04:00 Stomatocytes 1+ (Not Present) A 02/17/18 04:00 ABG pCO2 61 mmHg (35-45) H 02/17/18 04:37 ABG pO2 77 mmHg (85-104) L 02/17/18 04:37 ABG HCO3 38 mEq/L (21-27) H 02/17/18 04:37 ABG Total CO2 40 mEq/L (20-26) H 02/17/18 04:37 ABG Base Excess 11 mEq/L (-2 to 3) H 02/17/18 04:37 Chloride 97 mEq/L (98-107) L 02/17/18 03:43 Carbon Dioxide 32 mEq/L (23-29) H 02/17/18 03:43 BUN 35 mg/dL (8-23) H 02/17/18 03:43 Est GFR ( Amer) 56 (> 60) L 02/17/18 03:43 Est GFR (Non-Af Amer) 46 (> 60) L 02/17/18 03:43 BUN/Creatinine Ratio 30 (6-26) H 02/17/18 03:43 Glucose 122 mg/dL (70-105) H 02/17/18 03:43 POC Glucose 143 mg/dL (70-99) H 02/15/18 23:24 Calcium 7.9 mg/dL (8.6-10.3) L 02/17/18 03:43 B-Natriuretic Peptide 513 pg/mL (Less than 100) H 02/11/18 21:31 Fluid Appearance Cloudy (Clear) A 02/14/18 11:00 Nasal Screen MRSA (PCR) Positive (Negative) A 02/14/18 20:57 Vancomycin Trough 20 mcg/mL (5-10) H 02/16/18 20:30 - Microbiology Findings Microbiology Findings: Microbiology, Last 48 Hours 02/14/18 11:00 Acid Fast Stain - Final Left Lower Lobe Lung 02/14/18 11:00 Gram Stain - Final Left Lower Lobe Lung - Clinical Findings Intake & Output: Intake & Output 02/16/18 02/16/18 02/17/18 15:59 23:59 07:59 Intake Total 693 / 693 451 / 451 706 / 706 Output Total 700 / 700 250 / 250 175 / 175 Balance -7 / -7 201 / 201 531 / 531 Weight 156.1 kg Consult Discharge Plan - Plan Referrals: Brad Minor MD [Primary Care Provider] - <Peyman Soares W - Last Filed: 02/17/18 10:14> Date of Encounter: 02/17/18 Objective PUL Vital signs: Last Vital Signs Temp 99.3 F 02/17/18 03:25 Pulse 70 02/17/18 07:49 Resp 14 02/17/18 07:49 BP 113/53 02/17/18 07:49 Pulse Ox 90 02/17/18 07:49 Ventilator Settings Ventilator Settings: Ventilator Settings, Last 8 Hours Ventilator Tidal Volume 500 Setting Ventilator Tidal Volume 500 Setting Ventilator Tidal Volume 500 Setting Ventilator Tidal Volume 500 Setting Ventilator Tidal Volume 500 Setting Ventilator Tidal Volume 500 Setting Ventilator Tidal Volume 500 Setting Ventilator Tidal Volume 500 Setting Ventilator Tidal Volume 500 Setting Ventilator Tidal Volume 500 Setting Ventilator Tidal Volume 500 Setting Ventilator Tidal Volume 500 Setting Ventilator Respiratory Rate 14 Setting Ventilator Respiratory Rate 14 Setting Ventilator Respiratory Rate 14 Setting Ventilator Respiratory Rate 14 Setting Ventilator Respiratory Rate 14 Setting Ventilator Respiratory Rate 14 Setting Ventilator Respiratory Rate 14 Setting Ventilator Respiratory Rate 14 Setting Ventilator Respiratory Rate 14 Setting Ventilator Respiratory Rate 14 Setting Ventilator Respiratory Rate 14 Setting Ventilator Respiratory Rate 14 Setting Actual Respiratory Rate 14 Actual Respiratory Rate 14 Actual Respiratory Rate 14 Actual Respiratory Rate 14 Actual Respiratory Rate 14 Positive End Expiratory 5 Pressure Positive End Expiratory 5 Pressure Positive End Expiratory 5 Pressure Positive End Expiratory 5 Pressure Positive End Expiratory 5 Pressure Positive End Expiratory 5 Pressure Positive End Expiratory 5 Pressure Positive End Expiratory 5 Pressure Positive End Expiratory 5 Pressure Positive End Expiratory 5 Pressure Positive End Expiratory 5 Pressure Positive End Expiratory 5 Pressure Peak Inspiratory Airway 41 Pressure Peak Inspiratory Airway 41 Pressure Peak Inspiratory Airway 40 Pressure Peak Inspiratory Airway 38 Pressure Peak Inspiratory Airway 38 Pressure Peak Inspiratory Airway 43 Pressure Peak Inspiratory Airway 59 Pressure Peak Inspiratory Airway 41 Pressure Peak Inspiratory Airway 44 Pressure Peak Inspiratory Airway 37 Pressure Peak Inspiratory Airway 38 Pressure Results - Laboratory Findings CBC and BMP: 02/17/18 04:00 02/17/18 03:43 ABG ABG pH 7.40 pH Units (7.32-7.45) 02/17/18 04:37 ABG pCO2 61 mmHg (35-45) H 02/17/18 04:37 ABG pO2 77 mmHg (85-104) L 02/17/18 04:37 ABG O2 Saturation 95 % (95-98) 02/17/18 04:37 Abnormal lab findings: Abnormal lab results Hgb 10.4 g/dL (11.5-15.4) L 02/17/18 04:00 Hct 34.5 % (35.3-44.9) L 02/17/18 04:00 MCH 25.6 pg (28.0-33.3) L 02/17/18 04:00 MCHC 30.1 g/dL (31.6-35.5) L 02/17/18 04:00 RDW 18.6 % (11.5-14.5) H 02/17/18 04:00 Reactive Lymphocytes Present (Not Present) A 02/16/18 03:30 Large Platelets Present (Not Present) A 02/16/18 03:30 Immature Plt Fraction 6.2 % (1.1-6.1) H 02/17/18 04:00 Hypochromasia Present (Not Present) A 02/16/18 03:30 Poikilocytosis 2+ (Not Present) A 02/17/18 04:00 Anisocytosis 2+ (Not Present) A 02/17/18 04:00 Stomatocytes 1+ (Not Present) A 02/17/18 04:00 ABG pCO2 61 mmHg (35-45) H 02/17/18 04:37 ABG pO2 77 mmHg (85-104) L 02/17/18 04:37 ABG HCO3 38 mEq/L (21-27) H 02/17/18 04:37 ABG Total CO2 40 mEq/L (20-26) H 02/17/18 04:37 ABG Base Excess 11 mEq/L (-2 to 3) H 02/17/18 04:37 Chloride 97 mEq/L (98-107) L 02/17/18 03:43 Carbon Dioxide 32 mEq/L (23-29) H 02/17/18 03:43 BUN 35 mg/dL (8-23) H 02/17/18 03:43 Est GFR ( Amer) 56 (> 60) L 02/17/18 03:43 Est GFR (Non-Af Amer) 46 (> 60) L 02/17/18 03:43 BUN/Creatinine Ratio 30 (6-26) H 02/17/18 03:43 Glucose 122 mg/dL (70-105) H 02/17/18 03:43 POC Glucose 143 mg/dL (70-99) H 02/15/18 23:24 Calcium 7.9 mg/dL (8.6-10.3) L 02/17/18 03:43 B-Natriuretic Peptide 513 pg/mL (Less than 100) H 02/11/18 21:31 Fluid Appearance Cloudy (Clear) A 02/14/18 11:00 Nasal Screen MRSA (PCR) Positive (Negative) A 02/14/18 20:57 Vancomycin Trough 20 mcg/mL (5-10) H 02/16/18 20:30 - Microbiology Findings Microbiology Findings: Microbiology, Last 48 Hours 02/14/18 11:00 Acid Fast Stain - Final Left Lower Lobe Lung 02/14/18 11:00 Gram Stain - Final Left Lower Lobe Lung - Clinical Findings Intake & Output: Intake & Output 02/16/18 02/17/18 02/17/18 23:59 07:59 15:59 Intake Total 451 / 451 706 / 706 Output Total 250 / 250 175 / 175 Balance 201 / 201 531 / 531 Weight 156.1 kg - Attending Attestation I examined this patient and my medical decision-making was reviewed with the Resident Physician. I agree with the documented findings, disposition and treatment plan as described except to the extent set forth below. We independently had [id number] contact with the patient Patient seen and examined at bedside Labs, radiology, chart personally reviewed. Management was reviewed during multidisciplinary critical care rounds. PULLBOAT ENGINEER: Encephalopathy slight improvement in last 24 hours continue to hold PULLBOAT ENGINEER medications Pulm: Acute on chronic hypoxic hypercapnic respiratory failure secondary to pneumonia complicated by underlying COPD and hydrostatic pulmonary edema acceptable gas exchange today she is not a candidate for spontaneous breathing trial because of encephalopathy we will reassess again tomorrow Cards: Hydrostatic pulmonary edema continue diuretic we will double dose today. Blood pressure stable GI: GI prophylaxis given; advance bowel regimen Nutrition: Continue enteral nutrition per dietary recommendations Renal: UOP Monitored, Cont to Trend sCr and monitor Electrolytes. ID: Continue treatment for pneumonia de-escalate antibiotics today is no evidence of MRSA infection we will continue Zosyn Heme/Onc: Endo: Glucose Monitored Integ/MSK: Skin Care per routine ICU Nursing Protocol to prevent ulcers. Lines: All lines examined without evidence of infection : Dispo: Remain in ICU for vent management CODE: DNAR family updated
[2018-02-17] MEDS: Chlorhexidine Rinse 15 ML MOUTHWASH MM SCH ×2 (09:04→19:36)
[2018-02-17] MEDS: Nystatin POWDER 30 GM BOTTLE TP SCH ×3 (09:05→19:39)
[2018-02-17] MEDS: Leptospermum Honey Gel 44 ML TUBE TP SCH (09:05)
[2018-02-17] MEDS: Sennosides 8.6 MG TABLET PO SCH ×2 (09:05→19:38)
[2018-02-17] MEDS: amLODIPine 5 MG TABLET PO SCH (09:05)
[2018-02-17] MEDS: clonazePAM 1 MG TABLET PO SCH ×3 (09:05→19:39)
[2018-02-17] MEDS: levETIRAcetam 250 MG TABLET PO SCH ×2 (09:06→23:05)
--- NOTE | 2018-02-17 13:00 | Palliative Progress Note ---
Date of Encounter: 02/17/18 Time of Encounter: 12:30 - Assessment and plan (1) Pneumonia Current Visit: No Status: Acute Assessment and plan: WBC WNL. Vancomycin discontinue and Zosyn continued per ICU team. T 99.3 F, Heart rate WNL. Qualifiers: Pneumonia type: due to unspecified organism Laterality: right Lung location: upper lobe of lung Qualified Code(s): J18.1 - Lobar pneumonia, unspecified organism (2) COPD exacerbation Current Visit: No Status: Acute Assessment and plan: Patient's CO2 increased to 61 from yesterday. Remains Ventilator dependent at this time, continue oxygen therapy and Nebulizer treatments. (3) Acute on chronic respiratory failure Current Visit: No Status: Acute Assessment and plan: Still remains on vent. ICU team managing. Qualifiers: Respiratory failure complication: hypoxia and hypercapnia Qualified Code(s) : J96.21 - Acute and chronic respiratory failure with hypoxia; J96.22 - Acute and chronic respiratory failure with hypercapnia (4) Acute on chronic diastolic CHF (congestive heart failure) Current Visit: Yes Status: Acute (5) Goals of care, counseling/discussion Current Visit: Yes Status: Acute Assessment and plan: Conducted small family meeting. Family desires to continue current treatment plan and have neurology evaluate prior to making further goals of care decision. Dr. Humphrey made aware. Palliative care will continue to follow. (6) Encephalopathy Current Visit: Yes Status: Acute Assessment and plan: Patient remains non-responsive. Opens eyes and bites tube, but no purposeful movements with no sedation >48 hours. Plan for Neurology to be consulted tomorrow, per ICU team. - Time Spent With Patient Total time spent is greater than 50% in coordination of care (as documented) at patient's floor/unit and/or counseling patient: - Subjective Interval history: Patient resting in bed quietly with eyes closed upon arrival for assessment. Patient did open eyes periodically; however, no purposeful movements, nor would she follow commands. Patient's son, , and sister present at bedside. Patient has been off sedation greater than 48 hours. Conducted family meeting regarding goals of care with family present. Family has agreed to continue current treatment plan; desires neurology consult with evaluation and possible EEG prior to making goals of care decision. Explained hospice philosophy; verbalized understanding. Updated Dr. Badillo of treatment plan. - Constitutional Vitals: Abnormal lab results Hgb 10.4 g/dL (11.5-15.4) L 02/17/18 04:00 Hct 34.5 % (35.3-44.9) L 02/17/18 04:00 MCH 25.6 pg (28.0-33.3) L 02/17/18 04:00 MCHC 30.1 g/dL (31.6-35.5) L 02/17/18 04:00 RDW 18.6 % (11.5-14.5) H 02/17/18 04:00 Reactive Lymphocytes Present (Not Present) A 02/16/18 03:30 Large Platelets Present (Not Present) A 02/16/18 03:30 Immature Plt Fraction 6.2 % (1.1-6.1) H 02/17/18 04:00 Hypochromasia Present (Not Present) A 02/16/18 03:30 Poikilocytosis 2+ (Not Present) A 02/17/18 04:00 Anisocytosis 2+ (Not Present) A 02/17/18 04:00 Stomatocytes 1+ (Not Present) A 02/17/18 04:00 ABG pCO2 61 mmHg (35-45) H 02/17/18 04:37 ABG pO2 77 mmHg (85-104) L 02/17/18 04:37 ABG HCO3 38 mEq/L (21-27) H 02/17/18 04:37 ABG Total CO2 40 mEq/L (20-26) H 02/17/18 04:37 ABG Base Excess 11 mEq/L (-2 to 3) H 02/17/18 04:37 Chloride 97 mEq/L (98-107) L 02/17/18 03:43 Carbon Dioxide 32 mEq/L (23-29) H 02/17/18 03:43 BUN 35 mg/dL (8-23) H 02/17/18 03:43 Est GFR ( Amer) 56 (> 60) L 02/17/18 03:43 Est GFR (Non-Af Amer) 46 (> 60) L 02/17/18 03:43 BUN/Creatinine Ratio 30 (6-26) H 02/17/18 03:43 Glucose 122 mg/dL (70-105) H 02/17/18 03:43 POC Glucose 116 mg/dL (70-99) H 02/17/18 03:23 Calcium 7.9 mg/dL (8.6-10.3) L 02/17/18 03:43 B-Natriuretic Peptide 513 pg/mL (Less than 100) H 02/11/18 21:31 Fluid Appearance Cloudy (Clear) A 02/14/18 11:00 Nasal Screen MRSA (PCR) Positive (Negative) A 02/14/18 20:57 Vancomycin Trough 20 mcg/mL (5-10) H 02/16/18 20:30 General appearance: Present: morbidly obese, no acute distress - Head Head exam: Present: atraumatic, normal inspection - Eye Eye exam: Present: normal appearance. Absent: periorbital swelling, periorbital tenderness - ENT ENT exam: Present: mucous membranes moist (increased oral secretions, suctioned patient; tolerated well.) - Neck Neck exam: Present: full ROM, normal inspection - Respiratory Respiratory exam: Present: decreased breath sounds, wheezes. Absent: accessory muscle use, respiratory distress - Cardiovascular Cardiovascular exam: Present: +S1, +S2 - GI/Abdominal GI/Abdominal exam: Present: distended, hypoactive bowel sounds, soft. Absent: tenderness - Rectal Rectal exam: Present: deferred - Extremities Exam Extremities exam: Present: pedal edema (BLE and BUE edema noted, 2-3+.) - Neurological Exam Neurological exam: Present: altered. Absent: alert, oriented X3 - Psychiatric Psychiatric exam: Present: flat affect - Skin Skin exam: Absent: intact, normal color (reddened with wounds to BLE.) Palliative Quality Palliative Quality: Screen for Code Status: Yes, Screen for Goals of Care: Yes, Screen for Pain: Yes, If Pain Regimen Started, Initiate Bowel Regimen: NA, Screen for Nausea/Vomitting: Yes Code Status: 02/11/18 21:30 Resuscitation Status: Active [RES] Routine Comment: Resuscitation Status: DNR-Comfort Care-Arrest Resuscitation Status: Active [RES] Routine Comment: Resuscitation Status: Full Code Resuscitation Status: Active [RES] Routine Comment: no reintubation Resuscitation Status: [id number] - Labs CBC & Chem 7: 02/17/18 04:00 02/17/18 03:43 Labs: Laboratory Results - last 24 hr 02/16/18 02/16/18 02/16/18 07:25 12:58 15:59 WBC RBC Hgb Hct MCV MCH MCHC RDW Plt Count MPV Immature Gran % Seg Neutrophils % Lymphocytes % Monocytes % Eosinophils % Basophils % Neutrophils # Lymphocytes # Monocytes # Eosinophils # Basophils # Platelet Estimate Immature Plt Fraction Poikilocytosis Anisocytosis Stomatocytes ABG pH ABG pCO2 ABG pO2 ABG HCO3 ABG Total CO2 ABG O2 Saturation ABG Base Excess Respiration Rate O2 Delivery Device Blood Gas Modality Inspired O2 Tidal Volume PEEP Sodium Potassium Chloride Carbon Dioxide BUN Creatinine Est GFR ( Amer) Est GFR (Non-Af Amer) BUN/Creatinine Ratio Glucose POC Glucose 125 H 165 H 125 H Calculated Osmolality Calcium Vancomycin Trough 02/16/18 02/16/18 02/16/18 19:29 20:30 23:25 WBC RBC Hgb Hct MCV MCH MCHC RDW Plt Count MPV Immature Gran % Seg Neutrophils % Lymphocytes % Monocytes % Eosinophils % Basophils % Neutrophils # Lymphocytes # Monocytes # Eosinophils # Basophils # Platelet Estimate Immature Plt Fraction Poikilocytosis Anisocytosis Stomatocytes ABG pH ABG pCO2 ABG pO2 ABG HCO3 ABG Total CO2 ABG O2 Saturation ABG Base Excess Respiration Rate O2 Delivery Device Blood Gas Modality Inspired O2 Tidal Volume PEEP Sodium Potassium Chloride Carbon Dioxide BUN Creatinine Est GFR ( Amer) Est GFR (Non-Af Amer) BUN/Creatinine Ratio Glucose POC Glucose 89 103 H Calculated Osmolality Calcium Vancomycin Trough 20 H 02/17/18 02/17/18 02/17/18 03:23 03:43 04:00 WBC 6.1 RBC 4.07 Hgb 10.4 L Hct 34.5 L MCV 84.8 MCH 25.6 L MCHC 30.1 L RDW 18.6 H Plt Count 144 MPV 11.2 Immature Gran % 0.3 Seg Neutrophils % 81.6 Lymphocytes % 10.1 Monocytes % 6.7 Eosinophils % 1.1 Basophils % 0.2 Neutrophils # 5.0 Lymphocytes # 0.6 Monocytes # 0.4 Eosinophils # 0.1 Basophils # 0.0 Platelet Estimate Normal Immature Plt Fraction 6.2 H Poikilocytosis 2+ A Anisocytosis 2+ A Stomatocytes 1+ A ABG pH ABG pCO2 ABG pO2 ABG HCO3 ABG Total CO2 ABG O2 Saturation ABG Base Excess Respiration Rate O2 Delivery Device Blood Gas Modality Inspired O2 Tidal Volume PEEP Sodium 136 Potassium 4.2 Chloride 97 L Carbon Dioxide 32 H BUN 35 H Creatinine 1.17 Est GFR ( Amer) 56 L Est GFR (Non-Af Amer) 46 L BUN/Creatinine Ratio 30 H Glucose 122 H POC Glucose 116 H Calculated Osmolality 291 Calcium 7.9 L Vancomycin Trough 02/17/18 04:37 WBC RBC Hgb Hct MCV MCH MCHC RDW Plt Count MPV Immature Gran % Seg Neutrophils % Lymphocytes % Monocytes % Eosinophils % Basophils % Neutrophils # Lymphocytes # Monocytes # Eosinophils # Basophils # Platelet Estimate Immature Plt Fraction Poikilocytosis Anisocytosis Stomatocytes ABG pH 7.40 ABG pCO2 61 H ABG pO2 77 L ABG HCO3 38 H ABG Total CO2 40 H ABG O2 Saturation 95 ABG Base Excess 11 H Respiration Rate 14 O2 Delivery Device Adult Vent Blood Gas Modality ASSIST CONTROL Inspired O2 50.0 Tidal Volume 500 PEEP 5 Sodium Potassium Chloride Carbon Dioxide BUN Creatinine Est GFR ( Amer) Est GFR (Non-Af Amer) BUN/Creatinine Ratio Glucose POC Glucose Calculated Osmolality Calcium Vancomycin Trough - ABG Interpretation ABG results: ABG ABG pH 7.40 pH Units (7.32-7.45) 02/17/18 04:37 ABG pCO2 61 mmHg (35-45) H 02/17/18 04:37 ABG pO2 77 mmHg (85-104) L 02/17/18 04:37 ABG O2 Saturation 95 % (95-98) 02/17/18 04:37 Consult Discharge Plan - Plan Referrals: Brad Minor MD [Primary Care Provider] -
[2018-02-18] MEDS: Ipratropium/Albuterol Neb 3 ML IH SCH ×5 (03:34→19:53)
[2018-02-18 04:16] LABS: Basophils % 0.2 %; Eosinophils # 0.1 K/mcL (0.0-0.6); Eosinophils % 2.3 %; Hematocrit 35.2 % (35.3-44.9); Hemoglobin 10.6 g/dL (11.5-15.4); Immature Granulocytes % 0.3 % (0-4); Lymphocytes # 0.7 K/mcL (0.6-4.6); Mean Corpuscular HGB Conc 30.1 g/dL (31.6-35.5); Mean Corpuscular Hemoglobin 25.5 pg (28.0-33.3); Mean Corpuscular Volume 84.6 fL (83.0-100.0); Mean Platelet Volume 11.3 fL (9.4-12.4); Monocytes # 0.4 K/mcL (0.0-1.3); Monocytes % 6.6 %; Neutrophils # 4.9 K/mcL (1.6-8.9); Platelet Count 129 K/mcL (140-400); Red Blood Count 4.16 M/mcL (3.82-4.97); Red Cell Distribution Width 18.8 % (11.5-14.5); Segmented Neutrophils % 79.6 %
[2018-02-18 04:40] LABS: Calcium 8.1 mg/dL (8.6-10.3); Magnesium 1.6 mg/dL (1.6-2.6); Potassium 3.9 mEq/L (3.5-5.1)
[2018-02-18] MEDS: Insulin LISPRO 300 UNITS/3 ML VIAL SQ SCH ×5 (05:07→17:57)
[2018-02-18] MEDS: Lacri-Lube 3.5 GM TUBE BOTH EYES SCH ×4 (05:07→17:57)
[2018-02-18] MEDS: *HR* Heparin 5,000 UNIT/ML VIAL SQ SCH ×2 (05:19→17:56)
[2018-02-18] MEDS: Famotidine 20 MG/2 ML VIAL IVP SCH ×2 (05:19→17:56)
[2018-02-18 05:35] LABS: ABG Base Excess 13 mEq/L (-2 to 3); ABG HCO3 40 mEq/L (21-27); ABG Oxygen Saturation 97 % (95-98); ABG PCO2 57 mmHg (35-45); ABG PH 7.45 pH Units (7.32-7.45); ABG PO2 86 mmHg (85-104); ABG TCO2 42 mEq/L (20-26); Blood Gas Modality ASSIST CONTROL; Blood Gas PEEP 5 cm H2O; Blood Gas Respiration Rate 14; Blood Gas VT 500 cc
[2018-02-18] MEDS ORDERED: Furosemide 40 MG/4 ML VIAL IVP ONE (08:19)
[2018-02-18] MEDS: Chlorhexidine Rinse 15 ML MOUTHWASH MM SCH ×2 (08:25→21:14)
[2018-02-18] MEDS: amLODIPine 5 MG TABLET PO SCH (08:25)
[2018-02-18] MEDS: Piperacillin/Tazobactam 3.375 GM in 0.9 % Sodium Chloride Mini Bag 100 ML IVPB SCH ×2 (08:25→17:56)
[2018-02-18] MEDS: Nystatin POWDER 30 GM BOTTLE TP SCH ×3 (08:26→23:20)
[2018-02-18] MEDS: Sennosides 8.6 MG TABLET PO SCH (08:26)
[2018-02-18] MEDS: clonazePAM 1 MG TABLET PO SCH (08:26)
[2018-02-18] MEDS: Leptospermum Honey Gel 44 ML TUBE TP SCH (08:26)
--- NOTE | 2018-02-18 08:45 | Pulmonology Progress Note ---
<Garret Mcmahan - Last Filed: 02/18/18 15:15> Date of Encounter: 02/18/18 Time of Encounter: 10:30 Assessment and Plan (1) Acute on chronic respiratory failure Current Visit: No Status: Acute Patient continues to be intubated. Patient seems to have a component of respiratory alkalosis along with metabolic alkalosis. - Continue mechanical ventilation. - Tidal volume was decreased. - One-time dose of Diamox 500 mg even. - Plan to wean FiO2 to 35. - Qualifiers: Respiratory failure complication: hypoxia and hypercapnia Qualified Code(s) : J96.21 - Acute and chronic respiratory failure with hypoxia; J96.22 - Acute and chronic respiratory failure with hypercapnia (2) Acute on chronic diastolic CHF (congestive heart failure) Current Visit: Yes Status: Acute Echo shows an EF of 60% with grossly dilated right ventricle. Patient continues displayed fluid overload on exam however her pedal edema seems to be improving. She displays 8 good urine output at 0.8 mL/kg/h. Creatinine is at 1.1. - We will increase her Lasix to 40 IV and reevaluate renal function in the a.m. - Continue fluid restriction. (3) Pneumonia Current Visit: No Status: Acute White blood cell count and normal limits. White blood cell count within normal limits. Patient on day 6 of Zosyn and day 5 of vancomycin. Sputum cultures positive for MRSA. Patient afebrile. - Continue antibiotics. Qualifiers: Pneumonia type: due to unspecified organism Laterality: right Lung location: upper lobe of lung Qualified Code(s): J18.1 - Lobar pneumonia, unspecified organism (4) CKD (chronic kidney disease) stage 3, GFR 30-59 ml/min Current Visit: No Status: Chronic Creatinine continues to improve from 1.17 yesterday down to 1.11. - Continue to monitor. - On fluid restriction secondary to CHF exacerbation. (5) Cellulitis Current Visit: No Status: Acute Bilateral lower extremity CT shows evidence of cellulitis. Cellulitis v. venous stasis ulcers. Wound culture of right foot from 02/11/18 shows gram-negative allen. Vancomycin day 5 and day 6 of Zosyn. Blood cultures from outside facility show positive Klebsiella and Serratia. - Continue antibiotics. Qualifiers: Site of cellulitis: trunk Site of cellulitis of trunk: chest wall Qualified Code(s): L03.313 - Cellulitis of chest wall (6) Candidiasis Current Visit: Yes Status: Acute Evident in bilateral breasts and umbilicus. Continues to improve. On day #6 of nystatin. - Continue nystatin. (7) Hyperglycemia Current Visit: Yes Status: Acute Glucose level controlled at 109. - Continue low dose insulin sliding scale. (8) COPD exacerbation Current Visit: No Status: Acute Patient currently on mechanical ventilation 92% O2 on 50% FiO2. Currently off IV steroids. - Continue scheduled duo nebs. - Continue albuterol when necessary. (9) DVT prophylaxis Current Visit: Yes Status: Acute On heparin 5000 units subcutaneously twice a day Subjective Principal diagnosis: Acute on chronic resp failure Interval history: Patient is intubated but is alert and able to follow commands. She denies any chest pain, shortness of breath, nausea, vomiting, abdominal pain, or fever. Objective PUL Vital signs: Last Vital Signs Temp 99.3 F 02/18/18 07:32 Pulse 77 02/18/18 06:00 Resp 18 02/18/18 07:10 BP 130/58 02/18/18 06:17 Pulse Ox 92 02/18/18 07:10 General appearance: no acute distress, other (Intubated. ) Eyes: nonicteric ENT: oropharynx moist Neck: supple Auscultation: bilateral: rhonchi Cardiovascular: regular rate and rhythm Gastrointestinal: normoactive bowel sounds, soft, non-distended Integumentary: cellulitis (B/L lower extremeties ) Extremities: no cyanosis, no edema (+1 pedal pitting edema b/l ), no clubbing, pulses normal, no ischemia or petechiae Musculoskeletal: no deformities other (Alert and following commands. ) mood appropriate, affect normal Ventilator Settings Ventilator Settings: Ventilator Settings, Last 8 Hours Ventilator Tidal Volume 500 Setting Ventilator Tidal Volume 500 Setting Ventilator Tidal Volume 500 Setting Ventilator Tidal Volume 500 Setting Ventilator Tidal Volume 500 Setting Ventilator Tidal Volume 500 Setting Ventilator Tidal Volume 500 Setting Ventilator Tidal Volume 500 Setting Ventilator Tidal Volume 500 Setting Ventilator Tidal Volume 500 Setting Ventilator Respiratory Rate 14 Setting Ventilator Respiratory Rate 14 Setting Ventilator Respiratory Rate 14 Setting Ventilator Respiratory Rate 14 Setting Ventilator Respiratory Rate 14 Setting Ventilator Respiratory Rate 14 Setting Ventilator Respiratory Rate 14 Setting Ventilator Respiratory Rate 14 Setting Ventilator Respiratory Rate 14 Setting Ventilator Respiratory Rate 14 Setting Actual Respiratory Rate 15 Actual Respiratory Rate 15 Actual Respiratory Rate 15 Actual Respiratory Rate 15 Actual Respiratory Rate 15 Actual Respiratory Rate 14 Actual Respiratory Rate 14 Actual Respiratory Rate 14 Actual Respiratory Rate 14 Positive End Expiratory 5 Pressure Positive End Expiratory 5 Pressure Positive End Expiratory 5 Pressure Positive End Expiratory 5 Pressure Positive End Expiratory 5 Pressure Positive End Expiratory 5 Pressure Positive End Expiratory 5 Pressure Positive End Expiratory 5 Pressure Positive End Expiratory 5 Pressure Positive End Expiratory 5 Pressure Peak Inspiratory Airway 41 Pressure Peak Inspiratory Airway 36 Pressure Peak Inspiratory Airway 36 Pressure Peak Inspiratory Airway 40 Pressure Peak Inspiratory Airway 40 Pressure Peak Inspiratory Airway 40 Pressure Peak Inspiratory Airway 36 Pressure Peak Inspiratory Airway 36 Pressure Peak Inspiratory Airway 36 Pressure Results - Laboratory Findings CBC and BMP: 02/18/18 04:00 02/18/18 04:00 ABG ABG pH 7.45 pH Units (7.32-7.45) 02/18/18 05:32 ABG pCO2 57 mmHg (35-45) H 02/18/18 05:32 ABG pO2 86 mmHg (85-104) 02/18/18 05:32 ABG O2 Saturation 97 % (95-98) 02/18/18 05:32 Abnormal lab findings: Abnormal lab results Hgb 10.6 g/dL (11.5-15.4) L 02/18/18 04:00 Hct 35.2 % (35.3-44.9) L 02/18/18 04:00 MCH 25.5 pg (28.0-33.3) L 02/18/18 04:00 MCHC 30.1 g/dL (31.6-35.5) L 02/18/18 04:00 RDW 18.8 % (11.5-14.5) H 02/18/18 04:00 Plt Count 129 K/mcL (140-400) L 02/18/18 04:00 Reactive Lymphocytes Present (Not Present) A 02/16/18 03:30 Large Platelets Present (Not Present) A 02/16/18 03:30 Immature Plt Fraction 6.2 % (1.1-6.1) H 02/17/18 04:00 Hypochromasia Present (Not Present) A 02/16/18 03:30 Poikilocytosis 2+ (Not Present) A 02/17/18 04:00 Anisocytosis 2+ (Not Present) A 02/17/18 04:00 Stomatocytes 1+ (Not Present) A 02/17/18 04:00 ABG pCO2 57 mmHg (35-45) H 02/18/18 05:32 ABG HCO3 40 mEq/L (21-27) H 02/18/18 05:32 ABG Total CO2 42 mEq/L (20-26) H 02/18/18 05:32 ABG Base Excess 13 mEq/L (-2 to 3) H 02/18/18 05:32 Chloride 97 mEq/L (98-107) L 02/18/18 04:00 Carbon Dioxide 36 mEq/L (23-29) H 02/18/18 04:00 BUN 30 mg/dL (8-23) H 02/18/18 04:00 Est GFR ( Amer) 59 (> 60) L 02/18/18 04:00 Est GFR (Non-Af Amer) 49 (> 60) L 02/18/18 04:00 BUN/Creatinine Ratio 27 (6-26) H 02/18/18 04:00 Glucose 109 mg/dL (70-105) H 02/18/18 04:00 POC Glucose 117 mg/dL (70-99) H 02/17/18 08:03 Calcium 8.1 mg/dL (8.6-10.3) L 02/18/18 04:00 B-Natriuretic Peptide 513 pg/mL (Less than 100) H 02/11/18 21:31 Fluid Appearance Cloudy (Clear) A 02/14/18 11:00 Nasal Screen MRSA (PCR) Positive (Negative) A 02/14/18 20:57 Vancomycin Trough 20 mcg/mL (5-10) H 02/16/18 20:30 - Microbiology Findings Microbiology Findings: Microbiology, Last 48 Hours 02/14/18 11:00 Gram Stain - Final Left Lower Lobe Lung Respiratory Culture - Final Methicillin Resistant S.aureus 02/14/18 11:00 Acid Fast Stain - Final Left Lower Lobe Lung - Clinical Findings Intake & Output: Intake & Output 02/17/18 02/18/18 02/18/18 23:59 07:59 15:59 Intake Total 877 / 877 818 / 818 Output Total 1500 / 1500 550 / 550 Balance -623 / -623 268 / 268 Weight 154.2 kg Consult Discharge Plan - Plan Referrals: Brad Minor MD [Primary Care Provider] - <JesudoMargarita caseyethan S - Last Filed: 02/18/18 22:49> Date of Encounter: 02/18/18 Objective PUL Vital signs: Last Vital Signs Temp 98.9 F 02/18/18 20:31 Pulse 72 02/18/18 20:00 Resp 22 02/18/18 21:20 BP 135/65 02/18/18 21:20 Pulse Ox 96 02/18/18 21:20 Ventilator Settings Ventilator Settings: Ventilator Settings, Last 8 Hours Ventilator Tidal Volume 450 Setting Ventilator Tidal Volume 450 Setting Ventilator Tidal Volume 470 Setting Ventilator Tidal Volume 470 Setting Ventilator Tidal Volume 470 Setting Ventilator Respiratory Rate 14 Setting Ventilator Respiratory Rate 14 Setting Ventilator Respiratory Rate 14 Setting Ventilator Respiratory Rate 14 Setting Ventilator Respiratory Rate 14 Setting Actual Respiratory Rate 22 Actual Respiratory Rate 14 Actual Respiratory Rate 14 Actual Respiratory Rate 17 Actual Respiratory Rate 20 Actual Respiratory Rate 18 Actual Respiratory Rate 17 Actual Respiratory Rate 17 Positive End Expiratory 5 Pressure Positive End Expiratory 5 Pressure Positive End Expiratory 5 Pressure Positive End Expiratory 5 Pressure Positive End Expiratory 5 Pressure Positive End Expiratory 5 Pressure Positive End Expiratory 5 Pressure Positive End Expiratory 5 Pressure Peak Inspiratory Airway 34 Pressure Peak Inspiratory Airway 35 Pressure Peak Inspiratory Airway 39 Pressure Peak Inspiratory Airway 39 Pressure Peak Inspiratory Airway 40 Pressure Results - Laboratory Findings CBC and BMP: 02/18/18 04:00 02/18/18 04:00 ABG ABG pH 7.45 pH Units (7.32-7.45) 02/18/18 05:32 ABG pCO2 57 mmHg (35-45) H 02/18/18 05:32 ABG pO2 86 mmHg (85-104) 02/18/18 05:32 ABG O2 Saturation 97 % (95-98) 02/18/18 05:32 Abnormal lab findings: Abnormal lab results Hgb 10.6 g/dL (11.5-15.4) L 02/18/18 04:00 Hct 35.2 % (35.3-44.9) L 02/18/18 04:00 MCH 25.5 pg (28.0-33.3) L 02/18/18 04:00 MCHC 30.1 g/dL (31.6-35.5) L 02/18/18 04:00 RDW 18.8 % (11.5-14.5) H 02/18/18 04:00 Plt Count 129 K/mcL (140-400) L 02/18/18 04:00 Reactive Lymphocytes Present (Not Present) A 02/16/18 03:30 Large Platelets Present (Not Present) A 02/16/18 03:30 Immature Plt Fraction 6.2 % (1.1-6.1) H 02/17/18 04:00 Hypochromasia Present (Not Present) A 02/16/18 03:30 Poikilocytosis 2+ (Not Present) A 02/17/18 04:00 Anisocytosis 2+ (Not Present) A 02/17/18 04:00 Stomatocytes 1+ (Not Present) A 02/17/18 04:00 ABG pCO2 57 mmHg (35-45) H 02/18/18 05:32 ABG HCO3 40 mEq/L (21-27) H 02/18/18 05:32 ABG Total CO2 42 mEq/L (20-26) H 02/18/18 05:32 ABG Base Excess 13 mEq/L (-2 to 3) H 02/18/18 05:32 Chloride 97 mEq/L (98-107) L 02/18/18 04:00 Carbon Dioxide 36 mEq/L (23-29) H 02/18/18 04:00 BUN 30 mg/dL (8-23) H 02/18/18 04:00 Est GFR ( Amer) 59 (> 60) L 02/18/18 04:00 Est GFR (Non-Af Amer) 49 (> 60) L 02/18/18 04:00 BUN/Creatinine Ratio 27 (6-26) H 02/18/18 04:00 Glucose 109 mg/dL (70-105) H 02/18/18 04:00 POC Glucose 124 mg/dL (70-99) H 02/18/18 19:16 Calcium 8.1 mg/dL (8.6-10.3) L 02/18/18 04:00 B-Natriuretic Peptide 513 pg/mL (Less than 100) H 02/11/18 21:31 Fluid Appearance Cloudy (Clear) A 02/14/18 11:00 Nasal Screen MRSA (PCR) Positive (Negative) A 02/14/18 20:57 Vancomycin Trough 20 mcg/mL (5-10) H 02/16/18 20:30 - Microbiology Findings Microbiology Findings: Microbiology, Last 48 Hours 02/14/18 11:00 Gram Stain - Final Left Lower Lobe Lung Respiratory Culture - Final Methicillin Resistant S.aureus 02/14/18 11:00 Acid Fast Stain - Final Left Lower Lobe Lung - Clinical Findings Intake & Output: Intake & Output 02/18/18 02/18/18 02/18/18 07:59 15:59 23:59 Intake Total 818 / 818 100 / 100 Output Total 550 / 550 2850 / 2850 750 / 750 Balance 268 / 268 -2750 / -2750 -750 / -750 - Attending Attestation I saw and evaluated this patient and my medical decision-making was reviewed with the Resident Physician. I agree with the documented findings, disposition and treatment plan as described except to the extent set forth below. We independently had [id number] contact with the patient I spent 40 minutes of Critical Care time with this patient. It involved decision making of high complexity to assess, manipulate, and support vital organ system failure and/or to prevent further life threatening deterioration of the patient's condition. The time involved in the performance of separately reportable procedures was not counted toward critical care time. Patient seen and examined at bedside Labs, radiology, chart personally reviewed. Management was reviewed during multidisciplinary critical care rounds. ELECTROLYSIS NEEDLE OPERATOR:Patient is awake and following commands patient is not encephalopathic will hold of EEG and neurology consult as patient mental status drastically improved Pulm: Patient Tidal volume was reduced as patient has some post hypercapnic metabolic alkalosis will try to wean down FIO2 patient failed SBT today after 6 minutes Cards: Patient is hemodynamically stable has CHF with hydrostatic pulmonary edema will continue diuresis .. FEN-GI: Nutrition according to dietary Renal: Acute on Chronic Kidney disease stable creatinine will continue gentle diuresis ID: To continue broad spectrum antibiotics with MRSA pneumonia and cellulitis ID following Heme/Onc: To continue Thromboprophylaxis Endo: Glucose Monitored Integ/MSK: Skin Care per routine ICU Nursing Protocol to prevent ulcers. Lines: All lines examined without evidence of infection : Dispo: Critically ill Will attempt extubation when she is ready to be NIV as patient doesnt want to be reintubated CODE: [id number] -DNI when extubated . Spoke with , Patient agree not with reintubation
--- NOTE | 2018-02-18 09:08 | Palliative Progress Note ---
Date of Encounter: 02/18/18 Time of Encounter: 07:20 - Assessment and plan (1) Acute on chronic diastolic CHF (congestive heart failure) Current Visit: Yes Status: Acute Assessment and plan: Patient's PCO2 was very elevated this morning this is probably more reflection of her COPD then CHF, however plan is still per hospitalist team (2) Goals of care, counseling/discussion Current Visit: Yes Status: Acute Assessment and plan: She is currently a DNR CCA do not reintubate. As per discussion of last week on Sunday with the patient's son. He did have a long discussion with the patient's who is the primary decision maker he has deferred all decisions to his son Mohan although they do continue to discuss he the patient' s feels that Mohan understands the situation better than he does told me that he would back any decisions that Mohan made and please discuss with Mohan. I have discussed this with Mohan Mohan tells me that during the last hospitalization he was made medical power of commercial litigation attorney but does not have paperwork for this. The patient's has for everything to Mohan I think this is 5 is the need to know who to discuss with.. (3) Acute on chronic respiratory failure Current Visit: No Status: Acute Assessment and plan: Still on vent, failed weaning trial this morning after 6 minutes unable to Qualifiers: Respiratory failure complication: hypoxia and hypercapnia Qualified Code(s) : J96.21 - Acute and chronic respiratory failure with hypoxia; J96.22 - Acute and chronic respiratory failure with hypercapnia - Time Spent With Patient Total time spent is greater than 50% in coordination of care (as documented) at patient's floor/unit and/or counseling patient: - Subjective Interval history: Events overnight noted per discussion with night nurse and new day nurse today. After massive changes in mental status over the weekend the mental status appears to be much better per the nursing staff. Patient is responsive us morning and does follow commands. She did however flunk CPAP after only 6 minutes not able to draw adequate volumes. - Constitutional Vitals: Abnormal lab results Hgb 10.6 g/dL (11.5-15.4) L 02/18/18 04:00 Hct 35.2 % (35.3-44.9) L 02/18/18 04:00 MCH 25.5 pg (28.0-33.3) L 02/18/18 04:00 MCHC 30.1 g/dL (31.6-35.5) L 02/18/18 04:00 RDW 18.8 % (11.5-14.5) H 02/18/18 04:00 Plt Count 129 K/mcL (140-400) L 02/18/18 04:00 Reactive Lymphocytes Present (Not Present) A 02/16/18 03:30 Large Platelets Present (Not Present) A 02/16/18 03:30 Immature Plt Fraction 6.2 % (1.1-6.1) H 02/17/18 04:00 Hypochromasia Present (Not Present) A 02/16/18 03:30 Poikilocytosis 2+ (Not Present) A 02/17/18 04:00 Anisocytosis 2+ (Not Present) A 02/17/18 04:00 Stomatocytes 1+ (Not Present) A 02/17/18 04:00 ABG pCO2 57 mmHg (35-45) H 02/18/18 05:32 ABG HCO3 40 mEq/L (21-27) H 02/18/18 05:32 ABG Total CO2 42 mEq/L (20-26) H 02/18/18 05:32 ABG Base Excess 13 mEq/L (-2 to 3) H 02/18/18 05:32 Chloride 97 mEq/L (98-107) L 02/18/18 04:00 Carbon Dioxide 36 mEq/L (23-29) H 02/18/18 04:00 BUN 30 mg/dL (8-23) H 02/18/18 04:00 Est GFR ( Amer) 59 (> 60) L 02/18/18 04:00 Est GFR (Non-Af Amer) 49 (> 60) L 02/18/18 04:00 BUN/Creatinine Ratio 27 (6-26) H 02/18/18 04:00 Glucose 109 mg/dL (70-105) H 02/18/18 04:00 POC Glucose 117 mg/dL (70-99) H 02/17/18 08:03 Calcium 8.1 mg/dL (8.6-10.3) L 02/18/18 04:00 B-Natriuretic Peptide 513 pg/mL (Less than 100) H 02/11/18 21:31 Fluid Appearance Cloudy (Clear) A 02/14/18 11:00 Nasal Screen MRSA (PCR) Positive (Negative) A 02/14/18 20:57 Vancomycin Trough 20 mcg/mL (5-10) H 02/16/18 20:30 General appearance: Present: no acute distress - Respiratory Respiratory exam: Present: decreased breath sounds - Cardiovascular Cardiovascular exam: Present: RRR - GI/Abdominal GI/Abdominal exam: Present: normal bowel sounds, soft. Absent: tenderness - Extremities Exam Extremities exam: Present: pedal edema. Absent: tenderness - Neurological Exam Neurological exam: Present: altered (On vent currently sedated CPAP trial earlier lasting only 6 minutes) - Psychiatric Psychiatric exam: Absent: agitated, anxious - Skin Skin exam: Present: dry, warm Palliative Quality Palliative Quality: Screen for Code Status: Yes, Screen for Goals of Care: Yes, Screen for Pain: Yes, If Pain Regimen Started, Initiate Bowel Regimen: NA, Screen for Nausea/Vomitting: Yes Code Status: 02/11/18 21:30 Resuscitation Status: Active [RES] Routine Comment: Resuscitation Status: DNR-Comfort Care-Arrest Resuscitation Status: Active [RES] Routine Comment: Resuscitation Status: Full Code Resuscitation Status: Active [RES] Routine Comment: no reintubation Resuscitation Status: [id number] - Labs CBC & Chem 7: 02/18/18 04:00 02/18/18 04:00 Labs: Laboratory Results - last 24 hr 02/17/18 02/18/18 02/18/18 08:03 04:00 04:00 WBC 6.2 RBC 4.16 Hgb 10.6 L Hct 35.2 L MCV 84.6 MCH 25.5 L MCHC 30.1 L RDW 18.8 H Plt Count 129 L MPV 11.3 Immature Gran % 0.3 Seg Neutrophils % 79.6 Lymphocytes % 11.0 Monocytes % 6.6 Eosinophils % 2.3 Basophils % 0.2 Neutrophils # 4.9 Lymphocytes # 0.7 Monocytes # 0.4 Eosinophils # 0.1 Basophils # 0.0 ABG pH ABG pCO2 ABG pO2 ABG HCO3 ABG Total CO2 ABG O2 Saturation ABG Base Excess Respiration Rate O2 Delivery Device Blood Gas Modality Inspired O2 Tidal Volume PEEP Sodium 138 Potassium 3.9 Chloride 97 L Carbon Dioxide 36 H BUN 30 H Creatinine 1.11 Est GFR ( Amer) 59 L Est GFR (Non-Af Amer) 49 L BUN/Creatinine Ratio 27 H Glucose 109 H POC Glucose 117 H Calculated Osmolality 293 Calcium 8.1 L Magnesium 1.6 02/18/18 05:32 WBC RBC Hgb Hct MCV MCH MCHC RDW Plt Count MPV Immature Gran % Seg Neutrophils % Lymphocytes % Monocytes % Eosinophils % Basophils % Neutrophils # Lymphocytes # Monocytes # Eosinophils # Basophils # ABG pH 7.45 ABG pCO2 57 H ABG pO2 86 ABG HCO3 40 H ABG Total CO2 42 H ABG O2 Saturation 97 ABG Base Excess 13 H Respiration Rate 14 O2 Delivery Device Adult Vent Blood Gas Modality ASSIST CONTROL Inspired O2 50.0 Tidal Volume 500 PEEP 5 Sodium Potassium Chloride Carbon Dioxide BUN Creatinine Est GFR ( Amer) Est GFR (Non-Af Amer) BUN/Creatinine Ratio Glucose POC Glucose Calculated Osmolality Calcium Magnesium - ABG Interpretation ABG results: ABG ABG pH 7.45 pH Units (7.32-7.45) 02/18/18 05:32 ABG pCO2 57 mmHg (35-45) H 02/18/18 05:32 ABG pO2 86 mmHg (85-104) 02/18/18 05:32 ABG O2 Saturation 97 % (95-98) 02/18/18 05:32 Consult Discharge Plan - Plan Referrals: Brad Minor MD [Primary Care Provider] -
[2018-02-18] MEDS: levETIRAcetam 250 MG TABLET PO SCH ×2 (09:53→20:00)
[2018-02-18] MEDS ORDERED: Ondansetron 4 MG/2 ML VIAL ONE (16:18)
[2018-02-18] MEDS: Ondansetron 4 MG/2 ML VIAL IVP PRN (17:56)
--- NOTE | 2018-02-18 18:10 | Infectious Disease Progress No ---
Date of Encounter: 02/18/18 Time of Encounter: 18:08 - Assessment and Plan (1) Pneumonia Current Visit: No Status: Acute CXR not clear if it's pneumonia vs fluid overload no fever, no leukocytosis but bronch with mucus plugs and mucopurulent trachea causative organism MRSA urine legionella and pneumococcal antigen negative check Respiratory infectious panel - negative broadened antibiotics spectrum to vancomycin/zosyn and levofloxacin crcl stable we will continue with vancomycin for now.; i Continue vancomycin, Zosyn and consider the seeing levofloxacin. Goal vancomycin trough 10-15. Monitor kidney function closely. We will ask pharmacy to help with the dosing. Family does not appear to want a tracheostomy tube. Qualifiers: Pneumonia type: due to unspecified organism Laterality: right Lung location: upper lobe of lung Qualified Code(s): J18.1 - Lobar pneumonia, unspecified organism (2) COPD exacerbation Current Visit: No Status: Acute (3) Cellulitis Current Visit: No Status: Acute resolved physicial exam not suggestive of cellulitis Cultures obtained at outside facility before patient came and were positive for Serratia and Klebsiella Qualifiers: Site of cellulitis: trunk Site of cellulitis of trunk: chest wall Qualified Code(s): L03.313 - Cellulitis of chest wall (4) Acute on chronic diastolic CHF (congestive heart failure) Current Visit: Yes Status: Acute (5) Candidiasis Current Visit: Yes Status: Acute (6) CKD (chronic kidney disease) stage 3, GFR 30-59 ml/min Current Visit: No Status: Chronic (7) Acute on chronic respiratory failure Current Visit: No Status: Acute Qualifiers: Respiratory failure complication: hypoxia and hypercapnia Qualified Code(s) : J96.21 - Acute and chronic respiratory failure with hypoxia; J96.22 - Acute and chronic respiratory failure with hypercapnia - Subjective Interval history: Patient seen and examined. Continues to be intubated and sedated. Did not do very well on his CPAP today. Only lasted 6 minutes as per nursing staff. Continues to be on tube feeding with not much residual. Patient had large bowel movement today and a rectal tube has been placed. Patient continues to have good urine output. Not on any pressors. No decubitus ulcer on her coccyx. Vital signs: Afebrile, hemodynamically stable Labs: WBC 6.2 with normal differential; creatinine 1.12 Cultures from BAL positive for MRSA S: Bactrim; R: doxycycline, clindamycin Infect Dis PN-Objective Data - Labs CBC & Chem 7: 02/18/18 04:00 02/18/18 04:00 Labs: Laboratory Results - last 24 hr 02/17/18 02/17/18 02/17/18 08:03 11:26 16:39 WBC RBC Hgb Hct MCV MCH MCHC RDW Plt Count MPV Immature Gran % Seg Neutrophils % Lymphocytes % Monocytes % Eosinophils % Basophils % Neutrophils # Lymphocytes # Monocytes # Eosinophils # Basophils # ABG pH ABG pCO2 ABG pO2 ABG HCO3 ABG Total CO2 ABG O2 Saturation ABG Base Excess Respiration Rate O2 Delivery Device Blood Gas Modality Inspired O2 Tidal Volume PEEP Sodium Potassium Chloride Carbon Dioxide BUN Creatinine Est GFR ( Amer) Est GFR (Non-Af Amer) BUN/Creatinine Ratio Glucose POC Glucose 117 H 130 H 123 H Calculated Osmolality Calcium Magnesium 02/17/18 02/17/18 02/18/18 19:35 23:20 04:00 WBC RBC Hgb Hct MCV MCH MCHC RDW Plt Count MPV Immature Gran % Seg Neutrophils % Lymphocytes % Monocytes % Eosinophils % Basophils % Neutrophils # Lymphocytes # Monocytes # Eosinophils # Basophils # ABG pH ABG pCO2 ABG pO2 ABG HCO3 ABG Total CO2 ABG O2 Saturation ABG Base Excess Respiration Rate O2 Delivery Device Blood Gas Modality Inspired O2 Tidal Volume PEEP Sodium 138 Potassium 3.9 Chloride 97 L Carbon Dioxide 36 H BUN 30 H Creatinine 1.11 Est GFR ( Amer) 59 L Est GFR (Non-Af Amer) 49 L BUN/Creatinine Ratio 27 H Glucose 109 H POC Glucose 130 H 119 H Calculated Osmolality 293 Calcium 8.1 L Magnesium 1.6 02/18/18 02/18/18 02/18/18 04:00 05:32 07:19 WBC 6.2 RBC 4.16 Hgb 10.6 L Hct 35.2 L MCV 84.6 MCH 25.5 L MCHC 30.1 L RDW 18.8 H Plt Count 129 L MPV 11.3 Immature Gran % 0.3 Seg Neutrophils % 79.6 Lymphocytes % 11.0 Monocytes % 6.6 Eosinophils % 2.3 Basophils % 0.2 Neutrophils # 4.9 Lymphocytes # 0.7 Monocytes # 0.4 Eosinophils # 0.1 Basophils # 0.0 ABG pH 7.45 ABG pCO2 57 H ABG pO2 86 ABG HCO3 40 H ABG Total CO2 42 H ABG O2 Saturation 97 ABG Base Excess 13 H Respiration Rate 14 O2 Delivery Device Adult Vent Blood Gas Modality ASSIST CONTROL Inspired O2 50.0 Tidal Volume 500 PEEP 5 Sodium Potassium Chloride Carbon Dioxide BUN Creatinine Est GFR ( Amer) Est GFR (Non-Af Amer) BUN/Creatinine Ratio Glucose POC Glucose 95 Calculated Osmolality Calcium Magnesium 02/18/18 02/18/18 11:19 15:43 WBC RBC Hgb Hct MCV MCH MCHC RDW Plt Count MPV Immature Gran % Seg Neutrophils % Lymphocytes % Monocytes % Eosinophils % Basophils % Neutrophils # Lymphocytes # Monocytes # Eosinophils # Basophils # ABG pH ABG pCO2 ABG pO2 ABG HCO3 ABG Total CO2 ABG O2 Saturation ABG Base Excess Respiration Rate O2 Delivery Device Blood Gas Modality Inspired O2 Tidal Volume PEEP Sodium Potassium Chloride Carbon Dioxide BUN Creatinine Est GFR ( Amer) Est GFR (Non-Af Amer) BUN/Creatinine Ratio Glucose POC Glucose 108 H 108 H Calculated Osmolality Calcium Magnesium Cultures: Cultures 02/14/18 11:00 Gram Stain - Final Left Lower Lobe Lung Respiratory Culture - Final Methicillin Resistant S.aureus 02/14/18 11:00 Acid Fast Stain - Final Left Lower Lobe Lung 02/12/18 10:58 Sputum Culture - Final Sputum 02/13/18 17:40 Legionella Antigen - Final Urine,Catheterized Streptococcus pneumoniae Antigen (M - Final Serology 02/14/18 02/14/18 02/13/18 Range/Units 20:57 11:00 17:40 Fluid Source LLL BAL Fluid Volume 18 mL Fluid Appearance Cloudy A (Clear) Fluid RBC 0.004 (No Ref Range) M/mcL Fld Tot Nucleated Cell 685 (No Ref Range) TNC/mcL Fluid Seg Neutrophil % 56.8 % Fld Band Neutrophil % Test Not Performed Fluid Lymphocytes % 2.5 % Fluid Monocytes % Test Not Performed Fluid Eosinophils % Test Not Performed Fluid Basophils % Test Not Performed Fluid Other Cells % 40.7 % Nasal Screen MRSA (PCR) Positive A (Negative) Chlamy pneumoniae PCR Not Detected (Not Detect) Adenovirus (PCR) Not Detected (Not Detect) B. pertussis DNA (PCR) Not Detected (Not Detect) B.parapertussis DNA PCR Not Detected (Not Detect) Coronavirus OC43 (PCR) Not Detected (Not Detect) Coronavirus HKU1 (PCR) Not Detected (Not Detect) Coronavirus 229E (PCR) Not Detected (Not Detect) Coronavirus NL63 (PCR) Not Detected (Not Detect) Human Metapneumovir PCR Not Detected (Not Detect) Influenza A (H1) PCR Not Detected (Not Detect) Influ A (H1N1/09) PCR Not Detected (Not Detect) Influenza A (H3) PCR Not Detected (Not Detect) Influenza A Untype (PCR) Not Detected (Not Detect) Influenza Type B (PCR) Not Detected (Not Detect) M.pneumoniae DNA (PCR) Not Detected (Not Detect) Parainfluenza 1 (PCR) Not Detected (Not Detect) Parainfluenza 2 (PCR) Not Detected (Not Detect) Parainfluenza 3 (PCR) Not Detected (Not Detect) Parainfluenza 4 (PCR) Not Detected (Not Detect) RSV (PCR) Not Detected (Not Detect) Entero/Rhino (PCR) Not Detected (Not Detect) Exam - Constitutional Vitals: Temp Pulse Resp BP Pulse Ox 99.3 F 86 17 140/70 90 02/18/18 15:59 02/18/18 14:00 02/18/18 15:44 02/18/18 14:00 02/18/18 15:44 General appearance: no febrile Exam: Intubated: Sedated. Opens eyes spontaneously. Nodding yes and no - Head Head exam: Present: atraumatic, normocephalic - Eye Eye exam: Present: EOMI, PERRL, sclera anicteric - Respiratory Additional comments: Chest expanding symmetrically. Breath sounds heard bilaterally lung verma. I did not appreciate much wheezing. - Cardiovascular Cardiovascular exam: Present: RRR, +S1, +S2 - GI/Abdominal GI/Abdominal exam: Present: soft. Absent: tenderness Consult Discharge Plan - Plan Referrals: Brad Minor MD [Primary Care Provider] -
[2018-02-18] MEDS: Pantoprazole 40 MG in 0.9 % Sodium Chloride Mini Bag 100 ML IVC SCH (21:14)
[2018-02-18 23:42] LABS: Hematocrit 36.2 % (35.3-44.9)
[2018-02-19] MEDS: Ipratropium/Albuterol Neb 3 ML IH SCH ×6 (00:05→19:50)
[2018-02-19] MEDS: Sennosides 8.6 MG TABLET PO SCH ×3 (00:57→23:41)
[2018-02-19] MEDS: Insulin LISPRO 300 UNITS/3 ML VIAL SQ SCH ×4 (00:59→17:37)
[2018-02-19] MEDS: Piperacillin/Tazobactam 3.375 GM in 0.9 % Sodium Chloride Mini Bag 100 ML IVPB SCH ×3 (01:06→17:21)
[2018-02-19] MEDS: Pantoprazole 40 MG in 0.9 % Sodium Chloride Mini Bag 100 ML IVC SCH ×2 (01:27→06:35)
[2018-02-19] MEDS: Lacri-Lube 3.5 GM TUBE BOTH EYES SCH ×7 (03:05→19:25)
[2018-02-19] MEDS: FentaNYL (PF) 1,000 MCG in 0.9 % Sodium Chloride 80 ML IVC SCH (04:29)
[2018-02-19 04:40] LABS: Eosinophils # 0.1 K/mcL (0.0-0.6); Eosinophils % 1.8 %; Immature Granulocytes % 0.3 % (0-4); Lymphocytes # 0.5 K/mcL (0.6-4.6); Lymphocytes % 7.9 %; Mean Corpuscular HGB Conc 30.6 g/dL (31.6-35.5); Mean Corpuscular Hemoglobin 25.9 pg (28.0-33.3); Mean Corpuscular Volume 84.7 fL (83.0-100.0); Mean Platelet Volume 11.8 fL (9.4-12.4); Monocytes # 0.4 K/mcL (0.0-1.3); Monocytes % 5.7 %; Neutrophils # 5.2 K/mcL (1.6-8.9); Platelet Count 124 K/mcL (140-400); Red Blood Count 4.25 M/mcL (3.82-4.97); Red Cell Distribution Width 18.6 % (11.5-14.5); Segmented Neutrophils % 84.3 %
[2018-02-19 04:51] LABS: BUN/Creatinine Ratio 21 (6-26); Blood Urea Nitrogen 22 mg/dL (8-23); Calcium 8.6 mg/dL (8.6-10.3); Carbon Dioxide 36 mEq/L (23-29); Chloride 98 mEq/L (98-107); Glucose 102 mg/dL (70-105); Magnesium 1.6 mg/dL (1.6-2.6); Osmolality,Calculated 298 (280-300); Potassium 3.3 mEq/L (3.5-5.1); Sodium 142 mEq/L (136-145); eGFR For African Americans > 60 (> 60); eGFR For Non-African Americans 52 (> 60)
[2018-02-19 05:01] LABS: ABG Base Excess 12 mEq/L (-2 to 3); ABG HCO3 39 mEq/L (21-27); ABG Oxygen Saturation 96 % (95-98); ABG PCO2 59 mmHg (35-45); ABG PH 7.42 pH Units (7.32-7.45); ABG PO2 82 mmHg (85-104); ABG TCO2 41 mEq/L (20-26); Blood Gas Modality VC; Blood Gas PEEP 5 cm H2O; Blood Gas Respiration Rate 14; Blood Gas VT 470 cc
[2018-02-19] MEDS: Famotidine 20 MG/2 ML VIAL IVP SCH (05:57)
[2018-02-19] MEDS ORDERED: Pantoprazole 40 MG VIAL IVP SCH (06:00)
[2018-02-19] MEDS: amLODIPine 5 MG TABLET PO SCH (08:29)
[2018-02-19] MEDS: Chlorhexidine Rinse 15 ML MOUTHWASH MM SCH ×2 (08:29→19:25)
[2018-02-19] MEDS: Nystatin POWDER 30 GM BOTTLE TP SCH ×2 (08:29→17:20)
--- NOTE | 2018-02-19 09:17 | Pulmonology Progress Note ---
<Kam Badillo - Last Filed: 02/19/18 11:24> Date of Encounter: 02/19/18 Time of Encounter: 09:16 Assessment and Plan (1) Acute on chronic respiratory failure Current Visit: No Status: Acute 1. Multifactorial with possible pneumonia and CHF 2. Has passed SBT today but will give her prolonged trial since she is now DNI and this would be her last chance to be liberated from vent, will extubate to BiPAP 3. Lasix 40 mg BID to keep 1-3L negative per day Systems based plan: - Patient seen and examined. - Labs, radiology, chart personally reviewed. YOUTH SUPPORT WORKER: Patient now following commands, sedation is off in plan for extubation Pulmonary: Significant underlying lung disease with pulmonary edema and COPD, when necessary breathing treatments and Lasix, sputum/blood cultures ordered; Cardiovascular: History of diastolic CHF, 40mg lasix BID GI: GI prophylaxis per routine Heme: DVT prophylaxis per routine ID: Continue ABX Renal: Trend Endorcine: Monitor blood glucose Lines: all lines checked and no evidence of infections Skin: skin care to prevent pressure ulcers per nursing routine care, wound care consult for existing ulcers, nystatin for yeast Overall prognosis is poor and if extubated today will need close monitoring and will continue to be DNI/CCA Qualifiers: Respiratory failure complication: hypoxia and hypercapnia Qualified Code(s) : J96.21 - Acute and chronic respiratory failure with hypoxia; J96.22 - Acute and chronic respiratory failure with hypercapnia (2) Acute on chronic diastolic CHF (congestive heart failure) Current Visit: Yes Status: Acute 1. Continue 40mg BID Lasix for diuresis especially pending her soon extubation 2. Maintain Burkett catheter while intubated for strict I's and O's (3) Pneumonia Current Visit: No Status: Acute 1. Continue ABX (vanc and Zosyn) for MRSA PNA from BAL Qualifiers: Pneumonia type: due to unspecified organism Laterality: right Lung location: upper lobe of lung Qualified Code(s): J18.1 - Lobar pneumonia, unspecified organism (4) CKD (chronic kidney disease) stage 3, GFR 30-59 ml/min Current Visit: No Status: Chronic 1. Stable, continue to trend electrolytes and renal function while we are actively diuresing (5) Cellulitis Current Visit: No Status: Acute 1. improving but continuing abx for MRSA PNA 2. Continue to trend white blood cell count and monitor temperature curves Qualifiers: Site of cellulitis: trunk Site of cellulitis of trunk: chest wall Qualified Code(s): L03.313 - Cellulitis of chest wall (6) Encephalopathy Current Visit: Yes Status: Acute 1. Resolved (7) DVT prophylaxis Current Visit: Yes Status: Acute 1. Subcutaneous heparin 2. We will also discontinue restraints today Subjective Principal diagnosis: Acute on chronic resp failure Interval history: No acute changes overnight, doing very well this AM on CPAP, may plan extubation later today Objective PUL Vital signs: Last Vital Signs Temp 98.8 F 02/19/18 08:00 Pulse 86 02/19/18 08:00 Resp 24 02/19/18 08:00 BP 124/56 02/19/18 08:00 Pulse Ox 95 02/19/18 08:00 General appearance: no acute distress Eyes: nonicteric ENT: oropharynx moist Neck: supple Effort: normal Auscultation: bilateral: diminished breath sounds Cardiovascular: regular rate and rhythm Gastrointestinal: normoactive bowel sounds, non-distended Integumentary: normal, cellulitis (RLE, resolving ) Extremities: no cyanosis normal mental status Ventilator Settings Ventilator Settings: Ventilator Settings, Last 8 Hours Ventilator Tidal Volume 470 Setting Ventilator Tidal Volume 470 Setting Ventilator Tidal Volume 470 Setting Ventilator Tidal Volume 470 Setting Ventilator Respiratory Rate 14 Setting Ventilator Respiratory Rate 14 Setting Ventilator Respiratory Rate 14 Setting Ventilator Respiratory Rate 14 Setting Actual Respiratory Rate 24 Actual Respiratory Rate 20 Actual Respiratory Rate 23 Actual Respiratory Rate 23 Actual Respiratory Rate 15 Actual Respiratory Rate 15 Actual Respiratory Rate 14 Positive End Expiratory 5 Pressure Positive End Expiratory 5 Pressure Positive End Expiratory 5 Pressure Positive End Expiratory 5 Pressure Positive End Expiratory 5 Pressure Positive End Expiratory 5 Pressure Positive End Expiratory 5 Pressure Peak Inspiratory Airway 15 Pressure Peak Inspiratory Airway 15 Pressure Peak Inspiratory Airway 33 Pressure Peak Inspiratory Airway 33 Pressure Peak Inspiratory Airway 39 Pressure Results - Laboratory Findings CBC and BMP: 02/19/18 04:00 02/19/18 04:00 ABG ABG pH 7.42 pH Units (7.32-7.45) 02/19/18 04:57 ABG pCO2 59 mmHg (35-45) H 02/19/18 04:57 ABG pO2 82 mmHg (85-104) L 02/19/18 04:57 ABG O2 Saturation 96 % (95-98) 02/19/18 04:57 Abnormal lab findings: Abnormal lab results Hgb 11.0 g/dL (11.5-15.4) L 02/19/18 04:00 MCH 25.9 pg (28.0-33.3) L 02/19/18 04:00 MCHC 30.6 g/dL (31.6-35.5) L 02/19/18 04:00 RDW 18.6 % (11.5-14.5) H 02/19/18 04:00 Plt Count 124 K/mcL (140-400) L 02/19/18 04:00 Lymphocytes # 0.5 K/mcL (0.6-4.6) L 02/19/18 04:00 Reactive Lymphocytes Present (Not Present) A 02/16/18 03:30 Large Platelets Present (Not Present) A 02/16/18 03:30 Immature Plt Fraction 6.2 % (1.1-6.1) H 02/17/18 04:00 Hypochromasia Present (Not Present) A 02/16/18 03:30 Poikilocytosis 2+ (Not Present) A 02/17/18 04:00 Anisocytosis 2+ (Not Present) A 02/17/18 04:00 Stomatocytes 1+ (Not Present) A 02/17/18 04:00 ABG pCO2 59 mmHg (35-45) H 02/19/18 04:57 ABG pO2 82 mmHg (85-104) L 02/19/18 04:57 ABG HCO3 39 mEq/L (21-27) H 02/19/18 04:57 ABG Total CO2 41 mEq/L (20-26) H 02/19/18 04:57 ABG Base Excess 12 mEq/L (-2 to 3) H 02/19/18 04:57 Potassium 3.3 mEq/L (3.5-5.1) L 02/19/18 04:00 Carbon Dioxide 36 mEq/L (23-29) H 02/19/18 04:00 Est GFR (Non-Af Amer) 52 (> 60) L 02/19/18 04:00 POC Glucose 120 mg/dL (70-99) H 02/18/18 23:32 B-Natriuretic Peptide 513 pg/mL (Less than 100) H 02/11/18 21:31 Fluid Appearance Cloudy (Clear) A 02/14/18 11:00 Nasal Screen MRSA (PCR) Positive (Negative) A 02/14/18 20:57 Vancomycin Trough 20 mcg/mL (5-10) H 02/16/18 20:30 - Microbiology Findings Microbiology Findings: Microbiology, Last 48 Hours 02/14/18 11:00 Gram Stain - Final Left Lower Lobe Lung Respiratory Culture - Final Methicillin Resistant S.aureus 02/14/18 11:00 Acid Fast Stain - Final Left Lower Lobe Lung - Clinical Findings Intake & Output: Intake & Output 02/18/18 02/19/18 02/19/18 23:59 07:59 15:59 Intake Total 100 / 100 550 / 550 Output Total 750 / 750 1250 / 1250 Balance -650 / -650 -700 / -700 Weight 146.5 kg Consult Discharge Plan - Plan Referrals: Brad Minor MD [Primary Care Provider] - <Layton Dinh S - Last Filed: 02/20/18 00:15> Date of Encounter: 02/20/18 Objective PUL Vital signs: Last Vital Signs Temp 99.5 F 02/20/18 00:00 Pulse 75 02/19/18 23:00 Resp 26 02/19/18 23:00 BP 117/41 02/19/18 23:00 Pulse Ox 94 02/19/18 23:00 Results - Laboratory Findings CBC and BMP: 02/19/18 04:00 02/19/18 04:00 ABG ABG pH 7.42 pH Units (7.32-7.45) 02/19/18 04:57 ABG pCO2 59 mmHg (35-45) H 02/19/18 04:57 ABG pO2 82 mmHg (85-104) L 02/19/18 04:57 ABG O2 Saturation 96 % (95-98) 02/19/18 04:57 Abnormal lab findings: Abnormal lab results Hgb 11.0 g/dL (11.5-15.4) L 02/19/18 04:00 MCH 25.9 pg (28.0-33.3) L 02/19/18 04:00 MCHC 30.6 g/dL (31.6-35.5) L 02/19/18 04:00 RDW 18.6 % (11.5-14.5) H 02/19/18 04:00 Plt Count 124 K/mcL (140-400) L 02/19/18 04:00 Lymphocytes # 0.5 K/mcL (0.6-4.6) L 02/19/18 04:00 Reactive Lymphocytes Present (Not Present) A 02/16/18 03:30 Large Platelets Present (Not Present) A 02/16/18 03:30 Immature Plt Fraction 6.2 % (1.1-6.1) H 02/17/18 04:00 Hypochromasia Present (Not Present) A 02/16/18 03:30 Poikilocytosis 2+ (Not Present) A 02/17/18 04:00 Anisocytosis 2+ (Not Present) A 02/17/18 04:00 Stomatocytes 1+ (Not Present) A 02/17/18 04:00 ABG pCO2 59 mmHg (35-45) H 02/19/18 04:57 ABG pO2 82 mmHg (85-104) L 02/19/18 04:57 ABG HCO3 39 mEq/L (21-27) H 02/19/18 04:57 ABG Total CO2 41 mEq/L (20-26) H 02/19/18 04:57 ABG Base Excess 12 mEq/L (-2 to 3) H 02/19/18 04:57 Potassium 3.3 mEq/L (3.5-5.1) L 02/19/18 04:00 Carbon Dioxide 36 mEq/L (23-29) H 02/19/18 04:00 Est GFR (Non-Af Amer) 52 (> 60) L 02/19/18 04:00 POC Glucose 120 mg/dL (70-99) H 02/18/18 23:32 B-Natriuretic Peptide 513 pg/mL (Less than 100) H 02/11/18 21:31 Fluid Appearance Cloudy (Clear) A 02/14/18 11:00 Nasal Screen MRSA (PCR) Positive (Negative) A 02/14/18 20:57 Vancomycin Trough 17 mcg/mL (5-10) H 02/19/18 22:00 - Microbiology Findings Microbiology Findings: Microbiology, Last 48 Hours 02/14/18 11:00 Gram Stain - Final Left Lower Lobe Lung Respiratory Culture - Final Methicillin Resistant S.aureus - Clinical Findings Intake & Output: Intake & Output 02/19/18 02/19/18 02/20/18 15:59 23:59 07:59 Intake Total 100 / 100 100 / 100 Output Total 2220 / 2220 1200 / 1200 525 / 525 Balance -2120 / -2120 -1100 / -1100 -525 / -525 Weight 146.5 kg - Attending Attestation - Attending Attestation I saw and evaluated this patient and my medical decision-making was reviewed with the Resident Physician. I agree with the documented findings, disposition and treatment plan as described except to the extent set forth below. We independently had [id number] contact with the patient I spent 35 minutes of Critical Care time with this patient. It involved decision making of high complexity to assess, manipulate, and support vital organ system failure and/or to prevent further life threatening deterioration of the patient's condition. The time involved in the performance of separately reportable procedures was not counted toward critical care time. Patient seen and examined at bedside Labs, radiology, chart personally reviewed. Management was reviewed during multidisciplinary critical care rounds. YOUTH SUPPORT WORKER:Patient is awake and following commands, metabolic encephalopathy resolved Pulm: Patient did well on SBT then switched to Smart care PS patient did well on that with ETCO2 hovering around her baseline . Patient had a adequate leak patient was extubated to BIPAP 08/03 . Patient is tolerating BIPAP well no reintubation Cards: Patient is hemodynamically stable has CHF with hydrostatic pulmonary edema will continue diuresis .. FEN-GI: NPO now for BIPAP Renal: Acute on Chronic Kidney disease stable creatinine will continue gentle diuresis ID: To continue broad spectrum antibiotics with MRSA pneumonia and cellulitis ID following Heme/Onc: To continue Thromboprophylaxis Endo: Glucose Monitored Integ/MSK: Skin Care per routine ICU Nursing Protocol to prevent ulcers. Lines: All lines examined without evidence of infection : Dispo: Critically ill extubated today CODE: [id number] -DNI . Spoke with , Patient agree not for reintubation
[2018-02-19] MEDS: levETIRAcetam 250 MG TABLET PO SCH ×3 (09:56→23:29)
--- NOTE | 2018-02-19 10:31 | Palliative Progress Note ---
<Hayde Wells - Last Filed: 02/19/18 10:25> Date of Encounter: 02/19/18 Time of Encounter: 10:25 - Assessment and plan (1) Goals of care, counseling/discussion Current Visit: Yes Status: Acute Assessment and plan: Code status: [id number] Per discussions her is the primary decision maker, but has deferred to her son Mohan. Mohan was made medical power of assistant district attorney during his mother's last hospitalization, but not have the paperwork. (2) Acute on chronic respiratory failure Current Visit: No Status: Acute Assessment and plan: management per critical care team doing well on CPAP trial this morning bilateral rhonchi and coughing on exam this morning current antibiotics: Zosyn (day 6) and Vancomycin (day 6) duonebs scheduled and albuterol prn plan for eventual extubation - timing per critical care team Qualifiers: Respiratory failure complication: hypoxia and hypercapnia Qualified Code(s) : J96.21 - Acute and chronic respiratory failure with hypoxia; J96.22 - Acute and chronic respiratory failure with hypercapnia (3) Acute on chronic diastolic CHF (congestive heart failure) Current Visit: Yes Status: Acute Assessment and plan: management per critical care team EF 60% with mild LV diastolic dysfunction weight shows decrease of 7.7 kg from 02/17 - Time Spent With Patient Total time spent is greater than 50% in coordination of care (as documented) at patient's floor/unit and/or counseling patient: - Subjective Interval history: Vomiting overnight and early this AM. Tube feedings were stopped. Patient awake and alert, currently on CPAP. She is actively trying to speak. - Constitutional Vitals: Abnormal lab results Hgb 11.0 g/dL (11.5-15.4) L 02/19/18 04:00 MCH 25.9 pg (28.0-33.3) L 02/19/18 04:00 MCHC 30.6 g/dL (31.6-35.5) L 02/19/18 04:00 RDW 18.6 % (11.5-14.5) H 02/19/18 04:00 Plt Count 124 K/mcL (140-400) L 02/19/18 04:00 Lymphocytes # 0.5 K/mcL (0.6-4.6) L 02/19/18 04:00 Reactive Lymphocytes Present (Not Present) A 02/16/18 03:30 Large Platelets Present (Not Present) A 02/16/18 03:30 Immature Plt Fraction 6.2 % (1.1-6.1) H 02/17/18 04:00 Hypochromasia Present (Not Present) A 02/16/18 03:30 Poikilocytosis 2+ (Not Present) A 02/17/18 04:00 Anisocytosis 2+ (Not Present) A 02/17/18 04:00 Stomatocytes 1+ (Not Present) A 02/17/18 04:00 ABG pCO2 59 mmHg (35-45) H 02/19/18 04:57 ABG pO2 82 mmHg (85-104) L 02/19/18 04:57 ABG HCO3 39 mEq/L (21-27) H 02/19/18 04:57 ABG Total CO2 41 mEq/L (20-26) H 02/19/18 04:57 ABG Base Excess 12 mEq/L (-2 to 3) H 02/19/18 04:57 Potassium 3.3 mEq/L (3.5-5.1) L 02/19/18 04:00 Carbon Dioxide 36 mEq/L (23-29) H 02/19/18 04:00 Est GFR (Non-Af Amer) 52 (> 60) L 02/19/18 04:00 POC Glucose 120 mg/dL (70-99) H 02/18/18 23:32 B-Natriuretic Peptide 513 pg/mL (Less than 100) H 02/11/18 21:31 Fluid Appearance Cloudy (Clear) A 02/14/18 11:00 Nasal Screen MRSA (PCR) Positive (Negative) A 02/14/18 20:57 Vancomycin Trough 20 mcg/mL (5-10) H 02/16/18 20:30 - Head Head exam: Present: atraumatic, normocephalic - Eye Eye exam: Present: EOMI, normal appearance - ENT ENT exam: Present: mucous membranes moist - Respiratory Respiratory exam: Present: rhonchi (bilateral) - Cardiovascular Cardiovascular exam: Present: RRR - GI/Abdominal GI/Abdominal exam: Present: normal bowel sounds, soft - Extremities Exam Extremities exam: Present: pedal edema Additional comments: bilateral LE wrapped - Neurological Exam Neurological exam: Present: alert Palliative Quality Palliative Quality: Screen for Code Status: Yes, Screen for Goals of Care: Yes, Screen for Pain: Yes, If Pain Regimen Started, Initiate Bowel Regimen: NA, Screen for Nausea/Vomitting: Yes Code Status: 02/11/18 21:30 Resuscitation Status: Active [RES] Routine Comment: Resuscitation Status: DNR-Comfort Care-Arrest Resuscitation Status: Active [RES] Routine Comment: Resuscitation Status: Full Code Resuscitation Status: Active [RES] Routine Comment: no reintubation Resuscitation Status: [id number] - Labs CBC & Chem 7: 02/19/18 04:00 02/19/18 04:00 Labs: Laboratory Results - last 24 hr 02/17/18 02/17/18 02/17/18 11:26 16:39 19:35 WBC RBC Hgb Hct MCV MCH MCHC RDW Plt Count MPV Immature Gran % Seg Neutrophils % Lymphocytes % Monocytes % Eosinophils % Basophils % Neutrophils # Lymphocytes # Monocytes # Eosinophils # Basophils # Sample Site ABG pH ABG pCO2 ABG pO2 ABG HCO3 ABG Total CO2 ABG O2 Saturation ABG Base Excess Eber Test Respiration Rate O2 Delivery Device Blood Gas Modality Inspired O2 Tidal Volume PEEP Sodium Potassium Chloride Carbon Dioxide BUN Creatinine Est GFR ( Amer) Est GFR (Non-Af Amer) BUN/Creatinine Ratio Glucose POC Glucose 130 H 123 H 130 H Calculated Osmolality Calcium Magnesium 02/17/18 02/18/18 02/18/18 23:20 07:19 11:19 WBC RBC Hgb Hct MCV MCH MCHC RDW Plt Count MPV Immature Gran % Seg Neutrophils % Lymphocytes % Monocytes % Eosinophils % Basophils % Neutrophils # Lymphocytes # Monocytes # Eosinophils # Basophils # Sample Site ABG pH ABG pCO2 ABG pO2 ABG HCO3 ABG Total CO2 ABG O2 Saturation ABG Base Excess Eber Test Respiration Rate O2 Delivery Device Blood Gas Modality Inspired O2 Tidal Volume PEEP Sodium Potassium Chloride Carbon Dioxide BUN Creatinine Est GFR ( Amer) Est GFR (Non-Af Amer) BUN/Creatinine Ratio Glucose POC Glucose 119 H 95 108 H Calculated Osmolality Calcium Magnesium 02/18/18 02/18/18 02/18/18 15:43 19:16 23:30 WBC RBC Hgb 11.0 L Hct 36.2 MCV MCH MCHC RDW Plt Count MPV Immature Gran % Seg Neutrophils % Lymphocytes % Monocytes % Eosinophils % Basophils % Neutrophils # Lymphocytes # Monocytes # Eosinophils # Basophils # Sample Site ABG pH ABG pCO2 ABG pO2 ABG HCO3 ABG Total CO2 ABG O2 Saturation ABG Base Excess Eber Test Respiration Rate O2 Delivery Device Blood Gas Modality Inspired O2 Tidal Volume PEEP Sodium Potassium Chloride Carbon Dioxide BUN Creatinine Est GFR ( Amer) Est GFR (Non-Af Amer) BUN/Creatinine Ratio Glucose POC Glucose 108 H 124 H Calculated Osmolality Calcium Magnesium 02/18/18 02/19/18 02/19/18 23:32 04:00 04:00 WBC 6.2 RBC 4.25 Hgb 11.0 L Hct 36.0 MCV 84.7 MCH 25.9 L MCHC 30.6 L RDW 18.6 H Plt Count 124 L MPV 11.8 Immature Gran % 0.3 Seg Neutrophils % 84.3 Lymphocytes % 7.9 Monocytes % 5.7 Eosinophils % 1.8 Basophils % 0.0 Neutrophils # 5.2 Lymphocytes # 0.5 L Monocytes # 0.4 Eosinophils # 0.1 Basophils # 0.0 Sample Site ABG pH ABG pCO2 ABG pO2 ABG HCO3 ABG Total CO2 ABG O2 Saturation ABG Base Excess Eber Test Respiration Rate O2 Delivery Device Blood Gas Modality Inspired O2 Tidal Volume PEEP Sodium 142 Potassium 3.3 L Chloride 98 Carbon Dioxide 36 H BUN 22 Creatinine 1.06 Est GFR ( Amer) > 60 Est GFR (Non-Af Amer) 52 L BUN/Creatinine Ratio 21 Glucose 102 POC Glucose 120 H Calculated Osmolality 298 Calcium 8.6 Magnesium 1.6 02/19/18 04:57 WBC RBC Hgb Hct MCV MCH MCHC RDW Plt Count MPV Immature Gran % Seg Neutrophils % Lymphocytes % Monocytes % Eosinophils % Basophils % Neutrophils # Lymphocytes # Monocytes # Eosinophils # Basophils # Sample Site L Radial ABG pH 7.42 ABG pCO2 59 H ABG pO2 82 L ABG HCO3 39 H ABG Total CO2 41 H ABG O2 Saturation 96 ABG Base Excess 12 H Eber Test Positive Respiration Rate 14 O2 Delivery Device Adult Vent Blood Gas Modality VC Inspired O2 35.0 Tidal Volume 470 PEEP 5 Sodium Potassium Chloride Carbon Dioxide BUN Creatinine Est GFR ( Amer) Est GFR (Non-Af Amer) BUN/Creatinine Ratio Glucose POC Glucose Calculated Osmolality Calcium Magnesium - Impressions Impressions KUB X-Ray 02/18/18 23:00 IMPRESSION: NG tube in satisfactory position. D/ / Bam Rinaldi MD / Bam Rinaldi MD Interpreting Provider: Bam Rinaldi MD - ABG Interpretation ABG results: ABG ABG pH 7.42 pH Units (7.32-7.45) 02/19/18 04:57 ABG pCO2 59 mmHg (35-45) H 02/19/18 04:57 ABG pO2 82 mmHg (85-104) L 02/19/18 04:57 ABG O2 Saturation 96 % (95-98) 02/19/18 04:57 Consult Discharge Plan - Plan Referrals: Brad Minor MD [Primary Care Provider] - <Cresencio Mcguire - Last Filed: 02/19/18 15:08> Date of Encounter: 02/19/18 - Assessment and plan (1) Acute on chronic diastolic CHF (congestive heart failure) Current Visit: Yes Status: Acute (2) Goals of care, counseling/discussion Current Visit: Yes Status: Acute (3) Acute on chronic respiratory failure Current Visit: No Status: Acute Qualifiers: Respiratory failure complication: hypoxia and hypercapnia Qualified Code(s) : J96.21 - Acute and chronic respiratory failure with hypoxia; J96.22 - Acute and chronic respiratory failure with hypercapnia - Time Spent With Patient Total time spent is greater than 50% in coordination of care (as documented) at patient's floor/unit and/or counseling patient: - Constitutional Vitals: Abnormal lab results Hgb 11.0 g/dL (11.5-15.4) L 02/19/18 04:00 MCH 25.9 pg (28.0-33.3) L 02/19/18 04:00 MCHC 30.6 g/dL (31.6-35.5) L 02/19/18 04:00 RDW 18.6 % (11.5-14.5) H 02/19/18 04:00 Plt Count 124 K/mcL (140-400) L 02/19/18 04:00 Lymphocytes # 0.5 K/mcL (0.6-4.6) L 02/19/18 04:00 Reactive Lymphocytes Present (Not Present) A 02/16/18 03:30 Large Platelets Present (Not Present) A 02/16/18 03:30 Immature Plt Fraction 6.2 % (1.1-6.1) H 02/17/18 04:00 Hypochromasia Present (Not Present) A 02/16/18 03:30 Poikilocytosis 2+ (Not Present) A 02/17/18 04:00 Anisocytosis 2+ (Not Present) A 02/17/18 04:00 Stomatocytes 1+ (Not Present) A 02/17/18 04:00 ABG pCO2 59 mmHg (35-45) H 02/19/18 04:57 ABG pO2 82 mmHg (85-104) L 02/19/18 04:57 ABG HCO3 39 mEq/L (21-27) H 02/19/18 04:57 ABG Total CO2 41 mEq/L (20-26) H 02/19/18 04:57 ABG Base Excess 12 mEq/L (-2 to 3) H 02/19/18 04:57 Potassium 3.3 mEq/L (3.5-5.1) L 02/19/18 04:00 Carbon Dioxide 36 mEq/L (23-29) H 02/19/18 04:00 Est GFR (Non-Af Amer) 52 (> 60) L 02/19/18 04:00 POC Glucose 120 mg/dL (70-99) H 02/18/18 23:32 B-Natriuretic Peptide 513 pg/mL (Less than 100) H 02/11/18 21:31 Fluid Appearance Cloudy (Clear) A 02/14/18 11:00 Nasal Screen MRSA (PCR) Positive (Negative) A 02/14/18 20:57 Vancomycin Trough 20 mcg/mL (5-10) H 02/16/18 20:30 - Attending Attestation I examined this patient and my medical decision-making was reviewed with the Resident Physician. I agree with the documented findings, disposition and treatment plan as described except to the extent set forth below. Palliative Quality Code Status: 02/11/18 21:30 Resuscitation Status: Active [RES] Routine Comment: Resuscitation Status: DNR-Comfort Care-Arrest Resuscitation Status: Active [RES] Routine Comment: Resuscitation Status: Full Code Resuscitation Status: Active [RES] Routine Comment: no reintubation Resuscitation Status: [id number] - Labs CBC & Chem 7: 02/19/18 04:00 02/19/18 04:00 Labs: Laboratory Results - last 24 hr 02/18/18 02/18/18 02/18/18 15:43 19:16 23:30 WBC RBC Hgb 11.0 L Hct 36.2 MCV MCH MCHC RDW Plt Count MPV Immature Gran % Seg Neutrophils % Lymphocytes % Monocytes % Eosinophils % Basophils % Neutrophils # Lymphocytes # Monocytes # Eosinophils # Basophils # Sample Site ABG pH ABG pCO2 ABG pO2 ABG HCO3 ABG Total CO2 ABG O2 Saturation ABG Base Excess Eber Test Respiration Rate O2 Delivery Device Blood Gas Modality Inspired O2 Tidal Volume PEEP Sodium Potassium Chloride Carbon Dioxide BUN Creatinine Est GFR ( Amer) Est GFR (Non-Af Amer) BUN/Creatinine Ratio Glucose POC Glucose 108 H 124 H Calculated Osmolality Calcium Magnesium 02/18/18 02/19/18 02/19/18 23:32 04:00 04:00 WBC 6.2 RBC 4.25 Hgb 11.0 L Hct 36.0 MCV 84.7 MCH 25.9 L MCHC 30.6 L RDW 18.6 H Plt Count 124 L MPV 11.8 Immature Gran % 0.3 Seg Neutrophils % 84.3 Lymphocytes % 7.9 Monocytes % 5.7 Eosinophils % 1.8 Basophils % 0.0 Neutrophils # 5.2 Lymphocytes # 0.5 L Monocytes # 0.4 Eosinophils # 0.1 Basophils # 0.0 Sample Site ABG pH ABG pCO2 ABG pO2 ABG HCO3 ABG Total CO2 ABG O2 Saturation ABG Base Excess Eber Test Respiration Rate O2 Delivery Device Blood Gas Modality Inspired O2 Tidal Volume PEEP Sodium 142 Potassium 3.3 L Chloride 98 Carbon Dioxide 36 H BUN 22 Creatinine 1.06 Est GFR ( Amer) > 60 Est GFR (Non-Af Amer) 52 L BUN/Creatinine Ratio 21 Glucose 102 POC Glucose 120 H Calculated Osmolality 298 Calcium 8.6 Magnesium 1.6 02/19/18 04:57 WBC RBC Hgb Hct MCV MCH MCHC RDW Plt Count MPV Immature Gran % Seg Neutrophils % Lymphocytes % Monocytes % Eosinophils % Basophils % Neutrophils # Lymphocytes # Monocytes # Eosinophils # Basophils # Sample Site L Radial ABG pH 7.42 ABG pCO2 59 H ABG pO2 82 L ABG HCO3 39 H ABG Total CO2 41 H ABG O2 Saturation 96 ABG Base Excess 12 H Eber Test Positive Respiration Rate 14 O2 Delivery Device Adult Vent Blood Gas Modality VC Inspired O2 35.0 Tidal Volume 470 PEEP 5 Sodium Potassium Chloride Carbon Dioxide BUN Creatinine Est GFR ( Amer) Est GFR (Non-Af Amer) BUN/Creatinine Ratio Glucose POC Glucose Calculated Osmolality Calcium Magnesium - Impressions Impressions KUB X-Ray 02/18/18 23:00
[2018-02-19] MEDS: Furosemide 40 MG/4 ML VIAL IVP SCH ×2 (11:14→17:21)
--- NOTE | 2018-02-19 14:12 | Infectious Disease Progress No ---
Date of Encounter: 02/19/18 Time of Encounter: 14:10 - Assessment and Plan (1) Pneumonia Current Visit: No Status: Suspected CXR not clear if it's pneumonia vs fluid overload. No fever, no leukocytosis, but bronch with mucus plugs and mucopurulent trachea. Causative organism MRSA Urine legionella and pneumococcal antigen negative RIP negative. CrCl stable. We will continue with vancomycin for now. Continue vancomycin, Zosyn. Discontinue Levaquin. Goal vancomycin trough 10-15. Monitor kidney function closely. We will ask pharmacy to help with the dosing. Extubation planned for later today. Qualifiers: Pneumonia type: due to unspecified organism Laterality: right Lung location: upper lobe of lung Qualified Code(s): J18.1 - Lobar pneumonia, unspecified organism (2) Cellulitis Current Visit: No Status: Acute Resolved. Physicial exam not suggestive of cellulitis. Cultures obtained at outside facility before patient came and were positive for Serratia and Klebsiella. Continue Zosyn for now. Qualifiers: Site of cellulitis: trunk Site of cellulitis of trunk: chest wall Qualified Code(s): L03.313 - Cellulitis of chest wall (3) COPD exacerbation Current Visit: No Status: Acute (4) Acute on chronic respiratory failure Current Visit: No Status: Acute Likely secondary to PNA and COPD exacerbation. Currently on CPAP. Further management per the pulmonology team. Qualifiers: Respiratory failure complication: hypoxia and hypercapnia Qualified Code(s) : J96.21 - Acute and chronic respiratory failure with hypoxia; J96.22 - Acute and chronic respiratory failure with hypercapnia (5) CKD (chronic kidney disease) stage 3, GFR 30-59 ml/min Current Visit: No Status: Chronic Monitor renal function and for drug toxicity and dose-adjust antibiotics. (6) Acute on chronic diastolic CHF (congestive heart failure) Current Visit: Yes Status: Acute (7) Candidiasis Current Visit: Yes Status: Acute - Subjective Interval history: Patient seen and examined with family at the bedside. Patient awake, alert, able to follow commands. Currently on CPAP with plans to extubate later today per the pulmonology team. Patient denies pain or other complaints. Infect Dis PN-Objective Data - Labs CBC & Chem 7: 02/19/18 04:00 02/19/18 04:00 Labs: Laboratory Results - last 24 hr 0602/18/18 02/18/18 15:43 19:16 23:30 WBC RBC Hgb 11.0 L Hct 36.2 MCV MCH MCHC RDW Plt Count MPV Immature Gran % Seg Neutrophils % Lymphocytes % Monocytes % Eosinophils % Basophils % Neutrophils # Lymphocytes # Monocytes # Eosinophils # Basophils # Sample Site ABG pH ABG pCO2 ABG pO2 ABG HCO3 ABG Total CO2 ABG O2 Saturation ABG Base Excess Eber Test Respiration Rate O2 Delivery Device Blood Gas Modality Inspired O2 Tidal Volume PEEP Sodium Potassium Chloride Carbon Dioxide BUN Creatinine Est GFR ( Amer) Est GFR (Non-Af Amer) BUN/Creatinine Ratio Glucose POC Glucose 108 H 124 H Calculated Osmolality Calcium Magnesium 02/18/18 02/19/18 02/19/18 23:32 04:00 04:00 WBC 6.2 RBC 4.25 Hgb 11.0 L Hct 36.0 MCV 84.7 MCH 25.9 L MCHC 30.6 L RDW 18.6 H Plt Count 124 L MPV 11.8 Immature Gran % 0.3 Seg Neutrophils % 84.3 Lymphocytes % 7.9 Monocytes % 5.7 Eosinophils % 1.8 Basophils % 0.0 Neutrophils # 5.2 Lymphocytes # 0.5 L Monocytes # 0.4 Eosinophils # 0.1 Basophils # 0.0 Sample Site ABG pH ABG pCO2 ABG pO2 ABG HCO3 ABG Total CO2 ABG O2 Saturation ABG Base Excess Eber Test Respiration Rate O2 Delivery Device Blood Gas Modality Inspired O2 Tidal Volume PEEP Sodium 142 Potassium 3.3 L Chloride 98 Carbon Dioxide 36 H BUN 22 Creatinine 1.06 Est GFR ( Amer) > 60 Est GFR (Non-Af Amer) 52 L BUN/Creatinine Ratio 21 Glucose 102 POC Glucose 120 H Calculated Osmolality 298 Calcium 8.6 Magnesium 1.6 02/19/18 04:57 WBC RBC Hgb Hct MCV MCH MCHC RDW Plt Count MPV Immature Gran % Seg Neutrophils % Lymphocytes % Monocytes % Eosinophils % Basophils % Neutrophils # Lymphocytes # Monocytes # Eosinophils # Basophils # Sample Site L Radial ABG pH 7.42 ABG pCO2 59 H ABG pO2 82 L ABG HCO3 39 H ABG Total CO2 41 H ABG O2 Saturation 96 ABG Base Excess 12 H Eber Test Positive Respiration Rate 14 O2 Delivery Device Adult Vent Blood Gas Modality VC Inspired O2 35.0 Tidal Volume 470 PEEP 5 Sodium Potassium Chloride Carbon Dioxide BUN Creatinine Est GFR ( Amer) Est GFR (Non-Af Amer) BUN/Creatinine Ratio Glucose POC Glucose Calculated Osmolality Calcium Magnesium Cultures: Cultures 02/14/18 11:00 Gram Stain - Final Left Lower Lobe Lung Respiratory Culture - Final Methicillin Resistant S.aureus 02/14/18 11:00 Acid Fast Stain - Final Left Lower Lobe Lung 02/12/18 10:58 Sputum Culture - Final Sputum 02/13/18 17:40 Legionella Antigen - Final Urine,Catheterized Streptococcus pneumoniae Antigen (M - Final Serology 02/14/18 02/14/18 02/13/18 Range/Units 20:57 11:00 17:40 Fluid Source LLL BAL Fluid Volume 18 mL Fluid Appearance Cloudy A (Clear) Fluid RBC 0.004 (No Ref Range) M/mcL Fld Tot Nucleated Cell 685 (No Ref Range) TNC/mcL Fluid Seg Neutrophil % 56.8 % Fld Band Neutrophil % Test Not Performed Fluid Lymphocytes % 2.5 % Fluid Monocytes % Test Not Performed Fluid Eosinophils % Test Not Performed Fluid Basophils % Test Not Performed Fluid Other Cells % 40.7 % Nasal Screen MRSA (PCR) Positive A (Negative) Chlamy pneumoniae PCR Not Detected (Not Detect) Adenovirus (PCR) Not Detected (Not Detect) B. pertussis DNA (PCR) Not Detected (Not Detect) B.parapertussis DNA PCR Not Detected (Not Detect) Coronavirus OC43 (PCR) Not Detected (Not Detect) Coronavirus HKU1 (PCR) Not Detected (Not Detect) Coronavirus 229E (PCR) Not Detected (Not Detect) Coronavirus NL63 (PCR) Not Detected (Not Detect) Human Metapneumovir PCR Not Detected (Not Detect) Influenza A (H1) PCR Not Detected (Not Detect) Influ A (H1N1/09) PCR Not Detected (Not Detect) Influenza A (H3) PCR Not Detected (Not Detect) Influenza A Untype (PCR) Not Detected (Not Detect) Influenza Type B (PCR) Not Detected (Not Detect) M.pneumoniae DNA (PCR) Not Detected (Not Detect) Parainfluenza 1 (PCR) Not Detected (Not Detect) Parainfluenza 2 (PCR) Not Detected (Not Detect) Parainfluenza 3 (PCR) Not Detected (Not Detect) Parainfluenza 4 (PCR) Not Detected (Not Detect) RSV (PCR) Not Detected (Not Detect) Entero/Rhino (PCR) Not Detected (Not Detect) - Impressions Impressions KUB X-Ray 02/18/18 23:00 IMPRESSION: NG tube in satisfactory position. D/ / Bam Rinaldi MD / Bam Rinaldi MD Interpreting Provider: Bam Rinaldi MD Exam - Constitutional Vitals: Temp Pulse Resp BP Pulse Ox 99.5 F 81 15 131/57 93 02/19/18 12:00 02/19/18 13:00 02/19/18 13:00 02/19/18 13:00 02/19/18 13:00 General appearance: cooperative, morbidly obese, no acute distress - Head Head exam: Present: atraumatic, normal inspection, normocephalic - Eye Eye exam: Present: EOMI, normal appearance, PERRL Pupils: Present: normal accommodation - ENT ENT exam: Present: mucous membranes moist - Neck Neck exam: Present: normal inspection - Respiratory Respiratory exam: Present: CTAB. Absent: rales, respiratory distress, rhonchi, wheezes - Cardiovascular Cardiovascular exam: Present: irregular rhythm. Absent: tachycardia - GI/Abdominal GI/Abdominal exam: Present: distended (obese), normal bowel sounds, soft. Absent: tenderness Additional comments: OGT currently clamped. Burkett catheter noted to be draining clear yellow urine. - Extremities Exam Extremities exam: Present: pedal edema (1+ BLE). Absent: joint swelling, tenderness Additional comments: Bilateral LE/foot dressings C/D/I. Venous stasis dermatitis noted to the BLE. - Neurological Exam Neurological exam: Present: alert, oriented X3, no focal deficits - Psychiatric Psychiatric exam: Present: normal affect, normal mood - Skin Skin exam: Present: dry, intact, normal color, warm Consult Discharge Plan - Plan Referrals: Brad Minor MD [Primary Care Provider] - - Attending Attestation I examined this patient and my medical decision-making was reviewed with the Resident Physician. I agree with the documented findings, disposition and treatment plan as described except to the extent set forth below.
[2018-02-19] MEDS: Pantoprazole 40 MG VIAL IVP SCH (17:21)
[2018-02-19] MEDS: Dexamethasone 10 MG/ML VIAL IVP SCH (17:21)
[2018-02-20] MEDS: Ipratropium/Albuterol Neb 3 ML IH SCH ×7 (00:17→23:44)
[2018-02-20] MEDS: levETIRAcetam 1,000 MG in 0.9 % Sodium Chloride 100 ML IVPB SCH ×3 (00:24→21:18)
[2018-02-20] MEDS: Dexamethasone 10 MG/ML VIAL IVP SCH ×4 (00:24→23:52)
[2018-02-20] MEDS: Piperacillin/Tazobactam 3.375 GM in 0.9 % Sodium Chloride Mini Bag 100 ML IVPB SCH ×3 (00:25→15:30)
[2018-02-20 04:16] LABS: BUN/Creatinine Ratio 18 (6-26); Blood Urea Nitrogen 19 mg/dL (8-23); Calcium 8.5 mg/dL (8.6-10.3); Carbon Dioxide 34 mEq/L (23-29); Chloride 97 mEq/L (98-107); Glucose 120 mg/dL (70-105); Magnesium 1.6 mg/dL (1.6-2.6); Osmolality,Calculated 295 (280-300); Potassium 3.4 mEq/L (3.5-5.1); Sodium 141 mEq/L (136-145); eGFR For African Americans > 60 (> 60); eGFR For Non-African Americans 53 (> 60)
[2018-02-20] MEDS: Nystatin POWDER 30 GM BOTTLE TP SCH ×4 (07:50→21:21)
[2018-02-20] MEDS: Insulin LISPRO 300 UNITS/3 ML VIAL SQ SCH ×5 (07:50→23:55)
[2018-02-20] MEDS: Lacri-Lube 3.5 GM TUBE BOTH EYES SCH ×3 (07:50→09:22)
[2018-02-20] MEDS: FentaNYL (PF) 1,000 MCG in 0.9 % Sodium Chloride 80 ML IVC SCH (07:51)
--- NOTE | 2018-02-20 08:06 | Palliative Progress Note ---
Date of Encounter: 02/20/18 Time of Encounter: 07:10 - Assessment and plan (1) Acute on chronic diastolic CHF (congestive heart failure) Current Visit: Yes Status: Acute Assessment and plan: Plan is per hospitalist team (2) Goals of care, counseling/discussion Current Visit: Yes Status: Acute Assessment and plan: She is currently a DNR CCA do not reintubate. As per discussion of last week on Sunday with the patient's son. He did have a long discussion with the patient's who is the primary decision maker he has deferred all decisions to his son Mohan although they do continue to discuss he the patient' s feels that Mohan understands the situation better than he does told me that he would back any decisions that Mohan made and please discuss with Mohan. I have discussed this with Mohan Preston tells me that during the last hospitalization he was made medical power of assistant city attorney but does not have paperwork for this. The patient's has for everything to Mohan I think this is 5 is the need to know who to discuss with.. Patient was able to reinforce for me that she does not wish to be reintubated. Rating the BiPAP mask well at this time feels much better with the endotracheal tube out. Overall goals only continued to be to get her home. (3) Acute on chronic respiratory failure Current Visit: No Status: Acute Assessment and plan: Now off then proceed how she tolerates IPAP, at this time she is tolerating it well. Qualifiers: Respiratory failure complication: hypoxia and hypercapnia Qualified Code(s) : J96.21 - Acute and chronic respiratory failure with hypoxia; J96.22 - Acute and chronic respiratory failure with hypercapnia - Time Spent With Patient Total time spent is greater than 50% in coordination of care (as documented) at patient's floor/unit and/or counseling patient: - Subjective Interval history: Events overnight noted patient has been successfully extubated since approximately 3:00 yesterday afternoon. She has been largely BiPAP dependent. It is able to tell me that she feels better with the tube out, and she is tolerating the BiPAP well. Otherwise it is difficult discuss as the BiPAP is in place. Eyes any pain at this time and states that she is comfortable. She did reinforce the idea that she did not wish to be reintubated or trach. - Constitutional Vitals: Abnormal lab results Hgb 11.0 g/dL (11.5-15.4) L 02/19/18 04:00 MCH 25.9 pg (28.0-33.3) L 02/19/18 04:00 MCHC 30.6 g/dL (31.6-35.5) L 02/19/18 04:00 RDW 18.6 % (11.5-14.5) H 02/19/18 04:00 Plt Count 124 K/mcL (140-400) L 02/19/18 04:00 Lymphocytes # 0.5 K/mcL (0.6-4.6) L 02/19/18 04:00 Reactive Lymphocytes Present (Not Present) A 02/16/18 03:30 Large Platelets Present (Not Present) A 02/16/18 03:30 Immature Plt Fraction 6.2 % (1.1-6.1) H 02/17/18 04:00 Hypochromasia Present (Not Present) A 02/16/18 03:30 Poikilocytosis 2+ (Not Present) A 02/17/18 04:00 Anisocytosis 2+ (Not Present) A 02/17/18 04:00 Stomatocytes 1+ (Not Present) A 02/17/18 04:00 ABG pCO2 59 mmHg (35-45) H 02/19/18 04:57 ABG pO2 82 mmHg (85-104) L 02/19/18 04:57 ABG HCO3 39 mEq/L (21-27) H 02/19/18 04:57 ABG Total CO2 41 mEq/L (20-26) H 02/19/18 04:57 ABG Base Excess 12 mEq/L (-2 to 3) H 02/19/18 04:57 Potassium 3.4 mEq/L (3.5-5.1) L 02/20/18 03:50 Chloride 97 mEq/L (98-107) L 02/20/18 03:50 Carbon Dioxide 34 mEq/L (23-29) H 02/20/18 03:50 Est GFR (Non-Af Amer) 53 (> 60) L 02/20/18 03:50 Glucose 120 mg/dL (70-105) H 02/20/18 03:50 POC Glucose 120 mg/dL (70-99) H 02/19/18 23:24 Calcium 8.5 mg/dL (8.6-10.3) L 02/20/18 03:50 B-Natriuretic Peptide 513 pg/mL (Less than 100) H 02/11/18 21:31 Fluid Appearance Cloudy (Clear) A 02/14/18 11:00 Nasal Screen MRSA (PCR) Positive (Negative) A 02/14/18 20:57 Vancomycin Trough 17 mcg/mL (5-10) H 02/19/18 22:00 General appearance: Present: no acute distress - Respiratory Respiratory exam: Present: decreased breath sounds (On BiPAP) - Cardiovascular Cardiovascular exam: Present: irregular rhythm (Little irregular this morning) - GI/Abdominal GI/Abdominal exam: Present: normal bowel sounds, soft. Absent: tenderness - Extremities Exam Extremities exam: Present: pedal edema - Neurological Exam Neurological exam: Present: alert - Psychiatric Psychiatric exam: Absent: agitated, anxious - Skin Skin exam: Present: dry, warm Palliative Quality Palliative Quality: Screen for Code Status: Yes, Screen for Goals of Care: Yes, Screen for Pain: Yes, If Pain Regimen Started, Initiate Bowel Regimen: NA, Screen for Nausea/Vomitting: Yes Code Status: 02/11/18 21:30 Resuscitation Status: Active [RES] Routine Comment: Resuscitation Status: DNR-Comfort Care-Arrest Resuscitation Status: Active [RES] Routine Comment: Resuscitation Status: Full Code Resuscitation Status: Active [RES] Routine Comment: no reintubation Resuscitation Status: [id number] - Labs CBC & Chem 7: 02/19/18 04:00 02/20/18 03:50 Labs: Laboratory Results - last 24 hr 02/19/18 02/19/18 02/19/18 04:15 07:14 11:26 Sodium Potassium Chloride Carbon Dioxide BUN Creatinine Est GFR ( Amer) Est GFR (Non-Af Amer) BUN/Creatinine Ratio Glucose POC Glucose 86 88 92 Calculated Osmolality Calcium Magnesium Vancomycin Trough 02/19/18 02/19/18 02/19/18 17:35 19:53 22:00 Sodium Potassium Chloride Carbon Dioxide BUN Creatinine Est GFR ( Amer) Est GFR (Non-Af Amer) BUN/Creatinine Ratio Glucose POC Glucose 84 115 H Calculated Osmolality Calcium Magnesium Vancomycin Trough 17 H 02/19/18 02/20/18 23:24 03:50 Sodium 141 Potassium 3.4 L Chloride 97 L Carbon Dioxide 34 H BUN 19 Creatinine 1.03 Est GFR ( Amer) > 60 Est GFR (Non-Af Amer) 53 L BUN/Creatinine Ratio 18 Glucose 120 H POC Glucose 120 H Calculated Osmolality 295 Calcium 8.5 L Magnesium 1.6 Vancomycin Trough - ABG Interpretation ABG results: ABG ABG pH 7.42 pH Units (7.32-7.45) 02/19/18 04:57 ABG pCO2 59 mmHg (35-45) H 02/19/18 04:57 ABG pO2 82 mmHg (85-104) L 02/19/18 04:57 ABG O2 Saturation 96 % (95-98) 02/19/18 04:57 Consult Discharge Plan - Plan Referrals: Brad Minor MD [Primary Care Provider] -
--- NOTE | 2018-02-20 08:08 | Pulmonology Progress Note ---
<Kam Badillo - Last Filed: 02/20/18 09:15> Date of Encounter: 02/20/18 Time of Encounter: 08:07 Assessment and Plan (1) Acute on chronic respiratory failure Current Visit: No Status: Acute 1. Multifactorial but is growing MRSA from BAL in her LLL, also CHF is contributing 2. Extubated yesterday to BiPAP and has been doing well, but is certainly still critical, and in need of intensive monitoring 3. Lasix 40 mg BID 4. STAT ABG if mental status worsens Systems based plan: - Patient seen and examined. - Labs, radiology, chart personally reviewed. [employer]: Patient now following commands, intermittently sleeping Pulmonary: Significant underlying lung disease with pulmonary edema and COPD, when necessary breathing treatments and Lasix, sputum/blood cultures ordered; Cardiovascular: History of diastolic CHF, 40mg lasix BID GI: GI prophylaxis per routine Heme: DVT prophylaxis per routine ID: Continue ABX Renal: Trend Endorcine: Monitor blood glucose Lines: all lines checked and no evidence of infections Skin: skin care to prevent pressure ulcers per nursing routine care, wound care consult for existing ulcers, nystatin for yeast Overall prognosis is poor Qualifiers: Respiratory failure complication: hypoxia and hypercapnia Qualified Code(s) : J96.21 - Acute and chronic respiratory failure with hypoxia; J96.22 - Acute and chronic respiratory failure with hypercapnia (2) Acute on chronic diastolic CHF (congestive heart failure) Current Visit: Yes Status: Acute 1. Continue 40mg BID Lasix for diuresis 2. Maintain Burkett catheter for strict I's and O's (3) Pneumonia Current Visit: No Status: Suspected 1. Continue ABX (vanc and Zosyn) for MRSA PNA from BAL Qualifiers: Pneumonia type: due to unspecified organism Laterality: right Lung location: upper lobe of lung Qualified Code(s): J18.1 - Lobar pneumonia, unspecified organism (4) CKD (chronic kidney disease) stage 3, GFR 30-59 ml/min Current Visit: No Status: Chronic 1. Stable, continue to trend electrolytes and renal function while we are actively diuresing (5) Cellulitis Current Visit: No Status: Acute 1. improving but continuing abx for MRSA PNA 2. Continue to trend white blood cell count and monitor temperature curves Qualifiers: Site of cellulitis: trunk Site of cellulitis of trunk: chest wall Qualified Code(s): L03.313 - Cellulitis of chest wall (6) Encephalopathy Current Visit: Yes Status: Acute 1. Intermittent with an unclear etiology, patient does not appear unstable or hypercapnic. We will continue to monitor closely (7) DVT prophylaxis Current Visit: Yes Status: Acute 1. Subcutaneous heparin 2. NO restraints needed Subjective Principal diagnosis: Acute on chronic resp failure Interval history: extubated yesterday and doing quite well. Mental status is about the same, remains on BiPAP. Objective PUL Vital signs: Last Vital Signs Temp 99.0 F 02/20/18 07:31 Pulse 87 02/20/18 06:00 Resp 29 02/20/18 07:10 BP 124/67 02/20/18 07:10 Pulse Ox 93 02/20/18 07:10 General appearance: no acute distress, lethargic (Intermittently, but really just seems more sleepy than anything) Eyes: nonicteric ENT: oropharynx moist Neck: supple Effort: mildly labored Auscultation: bilateral: diminished breath sounds, rales Cardiovascular: regular rate and rhythm Gastrointestinal: normoactive bowel sounds, non-distended Integumentary: erythema (RLE, improving ) Extremities: edema Musculoskeletal: no deformities Results - Laboratory Findings CBC and BMP: 02/19/18 04:00 02/20/18 03:50 ABG ABG pH 7.42 pH Units (7.32-7.45) 02/19/18 04:57 ABG pCO2 59 mmHg (35-45) H 02/19/18 04:57 ABG pO2 82 mmHg (85-104) L 02/19/18 04:57 ABG O2 Saturation 96 % (95-98) 02/19/18 04:57 Abnormal lab findings: Abnormal lab results Hgb 11.0 g/dL (11.5-15.4) L 02/19/18 04:00 MCH 25.9 pg (28.0-33.3) L 02/19/18 04:00 MCHC 30.6 g/dL (31.6-35.5) L 02/19/18 04:00 RDW 18.6 % (11.5-14.5) H 02/19/18 04:00 Plt Count 124 K/mcL (140-400) L 02/19/18 04:00 Lymphocytes # 0.5 K/mcL (0.6-4.6) L 02/19/18 04:00 Reactive Lymphocytes Present (Not Present) A 02/16/18 03:30 Large Platelets Present (Not Present) A 02/16/18 03:30 Immature Plt Fraction 6.2 % (1.1-6.1) H 02/17/18 04:00 Hypochromasia Present (Not Present) A 02/16/18 03:30 Poikilocytosis 2+ (Not Present) A 02/17/18 04:00 Anisocytosis 2+ (Not Present) A 02/17/18 04:00 Stomatocytes 1+ (Not Present) A 02/17/18 04:00 ABG pCO2 59 mmHg (35-45) H 02/19/18 04:57 ABG pO2 82 mmHg (85-104) L 02/19/18 04:57 ABG HCO3 39 mEq/L (21-27) H 02/19/18 04:57 ABG Total CO2 41 mEq/L (20-26) H 02/19/18 04:57 ABG Base Excess 12 mEq/L (-2 to 3) H 02/19/18 04:57 Potassium 3.4 mEq/L (3.5-5.1) L 02/20/18 03:50 Chloride 97 mEq/L (98-107) L 02/20/18 03:50 Carbon Dioxide 34 mEq/L (23-29) H 02/20/18 03:50 Est GFR (Non-Af Amer) 53 (> 60) L 02/20/18 03:50 Glucose 120 mg/dL (70-105) H 02/20/18 03:50 POC Glucose 120 mg/dL (70-99) H 02/19/18 23:24 Calcium 8.5 mg/dL (8.6-10.3) L 02/20/18 03:50 B-Natriuretic Peptide 513 pg/mL (Less than 100) H 02/11/18 21:31 Fluid Appearance Cloudy (Clear) A 02/14/18 11:00 Nasal Screen MRSA (PCR) Positive (Negative) A 02/14/18 20:57 Vancomycin Trough 17 mcg/mL (5-10) H 02/19/18 22:00 - Microbiology Findings Microbiology Findings: Microbiology, Last 48 Hours 02/14/18 11:00 Gram Stain - Final Left Lower Lobe Lung Respiratory Culture - Final Methicillin Resistant S.aureus - Clinical Findings Intake & Output: Intake & Output 02/19/18 02/20/18 02/20/18 23:59 07:59 15:59 Intake Total 100 / 100 460 / 460 Output Total 1200 / 1200 850 / 850 Balance -1100 / -1100 -390 / -390 Weight 146.5 kg Consult Discharge Plan - Plan Referrals: Brad Minor MD [Primary Care Provider] - <Layton Dinh - Last Filed: 02/20/18 20:55> Date of Encounter: 02/20/18 Objective PUL Vital signs: Last Vital Signs Temp 99.3 F 02/20/18 16:01 Pulse 77 02/20/18 18:00 Resp 28 02/20/18 19:45 BP 122/58 02/20/18 19:45 Pulse Ox 94 02/20/18 19:45 Results - Laboratory Findings CBC and BMP: 02/19/18 04:00 02/20/18 03:50 ABG ABG pH 7.43 pH Units (7.32-7.45) 02/20/18 08:07 ABG pCO2 53 mmHg (35-45) H 02/20/18 08:07 ABG pO2 77 mmHg (85-104) L 02/20/18 08:07 ABG O2 Saturation 95 % (95-98) 02/20/18 08:07 Abnormal lab findings: Abnormal lab results Hgb 11.0 g/dL (11.5-15.4) L 02/19/18 04:00 MCH 25.9 pg (28.0-33.3) L 02/19/18 04:00 MCHC 30.6 g/dL (31.6-35.5) L 02/19/18 04:00 RDW 18.6 % (11.5-14.5) H 02/19/18 04:00 Plt Count 124 K/mcL (140-400) L 02/19/18 04:00 Lymphocytes # 0.5 K/mcL (0.6-4.6) L 02/19/18 04:00 Reactive Lymphocytes Present (Not Present) A 02/16/18 03:30 Large Platelets Present (Not Present) A 02/16/18 03:30 Immature Plt Fraction 6.2 % (1.1-6.1) H 02/17/18 04:00 Hypochromasia Present (Not Present) A 02/16/18 03:30 Poikilocytosis 2+ (Not Present) A 02/17/18 04:00 Anisocytosis 2+ (Not Present) A 02/17/18 04:00 Stomatocytes 1+ (Not Present) A 02/17/18 04:00 ABG pCO2 53 mmHg (35-45) H 02/20/18 08:07 ABG pO2 77 mmHg (85-104) L 02/20/18 08:07 ABG HCO3 36 mEq/L (21-27) H 02/20/18 08:07 ABG Total CO2 37 mEq/L (20-26) H 02/20/18 08:07 ABG Base Excess 10 mEq/L (-2 to 3) H 02/20/18 08:07 Potassium 3.4 mEq/L (3.5-5.1) L 02/20/18 03:50 Chloride 97 mEq/L (98-107) L 02/20/18 03:50 Carbon Dioxide 34 mEq/L (23-29) H 02/20/18 03:50 Est GFR (Non-Af Amer) 53 (> 60) L 02/20/18 03:50 Glucose 120 mg/dL (70-105) H 02/20/18 03:50 POC Glucose 120 mg/dL (70-99) H 02/19/18 23:24 Calcium 8.5 mg/dL (8.6-10.3) L 02/20/18 03:50 B-Natriuretic Peptide 513 pg/mL (Less than 100) H 02/11/18 21:31 Fluid Appearance Cloudy (Clear) A 02/14/18 11:00 Nasal Screen MRSA (PCR) Positive (Negative) A 02/14/18 20:57 Vancomycin Trough 17 mcg/mL (5-10) H 02/19/18 22:00 - Clinical Findings Intake & Output: Intake & Output 02/20/18 02/20/18 02/20/18 07:59 15:59 23:59 Intake Total 460 / 460 260 / 260 154 / 154 Output Total 850 / 850 900 / 900 400 / 400 Balance -390 / -390 -640 / -640 -246 / -246 Weight 146.5 kg - Attending Attestation - Attending Attestation I saw and evaluated this patient and my medical decision-making was reviewed with the Resident Physician. I agree with the documented findings, disposition and treatment plan as described except to the extent set forth below. We independently had [id number] contact with the patient Patient seen and examined at bedside Labs, radiology, chart personally reviewed. Management was reviewed during multidisciplinary critical care rounds. [employer]:Patient is awake and following commands, metabolic encephalopathy resolved Pulm: Patient did well on BIPAP the whole afternoon and night will give a break give some clear liquid diet then BIPAP in the afternoon and night . Patient has acceptable oxygenation and ventilation Cards: Patient is hemodynamically stable has CHF with hydrostatic pulmonary edema will continue diuresis .. FEN-GI: Will start on Clear liquid diet Renal: Acute on Chronic Kidney disease stable creatinine will continue gentle diuresis ID: To continue broad spectrum antibiotics with MRSA pneumonia and cellulitis ID following to Stop Zosyn today . Heme/Onc: To continue Thromboprophylaxis Endo: Glucose Monitored Integ/MSK: Skin Care per routine ICU Nursing Protocol to prevent ulcers. Lines: All lines examined without evidence of infection : Dispo: Critically ill extubated yesterday CODE: [id number] -DNI . Spoke with Son,Patient agree not for reintubation
[2018-02-20 08:10] LABS: ABG Base Excess 10 mEq/L (-2 to 3); ABG HCO3 36 mEq/L (21-27); ABG Oxygen Saturation 95 % (95-98); ABG PCO2 53 mmHg (35-45); ABG PH 7.43 pH Units (7.32-7.45); ABG PO2 77 mmHg (85-104); ABG TCO2 37 mEq/L (20-26)
[2018-02-20] MEDS: Pantoprazole 40 MG VIAL IVP SCH ×2 (09:04→17:51)
[2018-02-20] MEDS: Furosemide 40 MG/4 ML VIAL IVP SCH ×2 (09:05→15:31)
[2018-02-20] MEDS: Chlorhexidine Rinse 15 ML MOUTHWASH MM SCH (09:05)
[2018-02-20] MEDS: Sennosides 8.6 MG TABLET PO SCH ×2 (09:06→20:57)
[2018-02-20] MEDS: *HR* OxyCODONE Immed Rel 5 MG TABLET PO PRN (13:31)
--- NOTE | 2018-02-20 14:07 | Infectious Disease Progress No ---
Date of Encounter: 02/20/18 Time of Encounter: 14:03 - Assessment and Plan (1) Pneumonia Current Visit: No Status: Suspected Causative organism: MRSA. CXR negative, but bronch showed mucous plugs and mucupurulent secretions. Urine legionella and S. pneumo UAT negative. RIP negative. Extubated 02/19/18. Currently on O2 via NC. Continue Vancomycin IV. Pharmacy to dose. Goal trough ~15. Discontinue Zosyn. Duration of treatment depends on the clinical picture, but likely 14-21 days. Monitor renal function and for drug toxicity and dose-adjust antibiotics. Qualifiers: Pneumonia type: due to unspecified organism Laterality: right Lung location: upper lobe of lung Qualified Code(s): J18.1 - Lobar pneumonia, unspecified organism (2) Cellulitis Current Visit: No Status: Acute Resolved. Physicial exam not suggestive of cellulitis. Cultures obtained at outside facility before patient came and were positive for Serratia and Klebsiella. Has completed 7 days of Zosyn. Discontinue and observe. Qualifiers: Site of cellulitis: trunk Site of cellulitis of trunk: chest wall Qualified Code(s): L03.313 - Cellulitis of chest wall (3) COPD exacerbation Current Visit: No Status: Acute (4) Acute on chronic respiratory failure Current Visit: No Status: Acute Likely secondary to PNA and COPD exacerbation. Extubated 02/19/18. Further management per the pulmonology team. Qualifiers: Respiratory failure complication: hypoxia and hypercapnia Qualified Code(s) : J96.21 - Acute and chronic respiratory failure with hypoxia; J96.22 - Acute and chronic respiratory failure with hypercapnia (5) CKD (chronic kidney disease) stage 3, GFR 30-59 ml/min Current Visit: No Status: Chronic Monitor renal function and for drug toxicity and dose-adjust antibiotics. (6) Acute on chronic diastolic CHF (congestive heart failure) Current Visit: Yes Status: Acute (7) Candidiasis Current Visit: Yes Status: Acute Continue topical antifungals. - Subjective Interval history: Patient seen and examined with family at the bedside. Extubated 02/19/18. Required BIPAP overnight, currently on O2 via NC. Patient awake, alert, follows commands. Denies pain, shortness of breath, or cough. Reports feeling nauseated this morning. Minimal output from rectal tube per nursing. NPO pending speech evaluation. Infect Dis PN-Objective Data - Labs CBC & Chem 7: 02/19/18 04:00 02/20/18 03:50 Labs: Laboratory Results - last 24 hr 02/19/18 02/19/18 02/19/18 04:15 07:14 11:26 Sample Site ABG pH ABG pCO2 ABG pO2 ABG HCO3 ABG Total CO2 ABG O2 Saturation ABG Base Excess Eber Test O2 Delivery Device Inspired O2 Sodium Potassium Chloride Carbon Dioxide BUN Creatinine Est GFR ( Amer) Est GFR (Non-Af Amer) BUN/Creatinine Ratio Glucose POC Glucose 86 88 92 Calculated Osmolality Calcium Magnesium Vancomycin Trough 02/19/18 02/19/18 02/19/18 17:35 19:53 22:00 Sample Site ABG pH ABG pCO2 ABG pO2 ABG HCO3 ABG Total CO2 ABG O2 Saturation ABG Base Excess Eber Test O2 Delivery Device Inspired O2 Sodium Potassium Chloride Carbon Dioxide BUN Creatinine Est GFR ( Amer) Est GFR (Non-Af Amer) BUN/Creatinine Ratio Glucose POC Glucose 84 115 H Calculated Osmolality Calcium Magnesium Vancomycin Trough 17 H 02/19/18 02/20/18 02/20/18 23:24 03:50 08:07 Sample Site L Radial ABG pH 7.43 ABG pCO2 53 H ABG pO2 77 L ABG HCO3 36 H ABG Total CO2 37 H ABG O2 Saturation 95 ABG Base Excess 10 H Eber Test Positive O2 Delivery Device BiPAP Inspired O2 35.0 Sodium 141 Potassium 3.4 L Chloride 97 L Carbon Dioxide 34 H BUN 19 Creatinine 1.03 Est GFR ( Amer) > 60 Est GFR (Non-Af Amer) 53 L BUN/Creatinine Ratio 18 Glucose 120 H POC Glucose 120 H Calculated Osmolality 295 Calcium 8.5 L Magnesium 1.6 Vancomycin Trough Cultures: Cultures 02/14/18 11:00 Gram Stain - Final Left Lower Lobe Lung Respiratory Culture - Final Methicillin Resistant S.aureus 02/14/18 11:00 Acid Fast Stain - Final Left Lower Lobe Lung 02/12/18 10:58 Sputum Culture - Final Sputum 02/13/18 17:40 Legionella Antigen - Final Urine,Catheterized Streptococcus pneumoniae Antigen (M - Final Serology 02/14/18 02/14/18 02/13/18 Range/Units 20:57 11:00 17:40 Fluid Source LLL BAL Fluid Volume 18 mL Fluid Appearance Cloudy A (Clear) Fluid RBC 0.004 (No Ref Range) M/mcL Fld Tot Nucleated Cell 685 (No Ref Range) TNC/mcL Fluid Seg Neutrophil % 56.8 % Fld Band Neutrophil % Test Not Performed Fluid Lymphocytes % 2.5 % Fluid Monocytes % Test Not Performed Fluid Eosinophils % Test Not Performed Fluid Basophils % Test Not Performed Fluid Other Cells % 40.7 % Nasal Screen MRSA (PCR) Positive A (Negative) Chlamy pneumoniae PCR Not Detected (Not Detect) Adenovirus (PCR) Not Detected (Not Detect) B. pertussis DNA (PCR) Not Detected (Not Detect) B.parapertussis DNA PCR Not Detected (Not Detect) Coronavirus OC43 (PCR) Not Detected (Not Detect) Coronavirus HKU1 (PCR) Not Detected (Not Detect) Coronavirus 229E (PCR) Not Detected (Not Detect) Coronavirus NL63 (PCR) Not Detected (Not Detect) Human Metapneumovir PCR Not Detected (Not Detect) Influenza A (H1) PCR Not Detected (Not Detect) Influ A (H1N1/09) PCR Not Detected (Not Detect) Influenza A (H3) PCR Not Detected (Not Detect) Influenza A Untype (PCR) Not Detected (Not Detect) Influenza Type B (PCR) Not Detected (Not Detect) M.pneumoniae DNA (PCR) Not Detected (Not Detect) Parainfluenza 1 (PCR) Not Detected (Not Detect) Parainfluenza 2 (PCR) Not Detected (Not Detect) Parainfluenza 3 (PCR) Not Detected (Not Detect) Parainfluenza 4 (PCR) Not Detected (Not Detect) RSV (PCR) Not Detected (Not Detect) Entero/Rhino (PCR) Not Detected (Not Detect) Exam - Constitutional Vitals: Temp Pulse Resp BP Pulse Ox 98.2 F 79 28 137/72 95 02/20/18 12:44 02/20/18 13:00 02/20/18 13:00 02/20/18 13:00 02/20/18 13:00 General appearance: cooperative, morbidly obese, no acute distress - Head Head exam: Present: normal inspection - Eye Eye exam: Present: EOMI, normal appearance, PERRL Pupils: Present: normal accommodation - ENT ENT exam: Present: mucous membranes dry - Neck Neck exam: Present: normal inspection - Respiratory Respiratory exam: Present: decreased breath sounds, tachypnea. Absent: rales, rhonchi, wheezes - Cardiovascular Cardiovascular exam: Present: irregular rhythm. Absent: tachycardia - GI/Abdominal GI/Abdominal exam: Present: distended (obese), normal bowel sounds, soft. Absent: tenderness Additional comments: Burkett catheter noted to be draining clear yellow urine. Rectal tube draining small amount of dark liquid stool. - Extremities Exam Extremities exam: Absent: joint swelling, pedal edema, tenderness Additional comments: Bilateral foot dressings C/D/I. - Neurological Exam Neurological exam: Present: alert, no focal deficits. Absent: oriented X3 ( Oriented to person and place.) - Psychiatric Psychiatric exam: Present: normal affect, normal mood - Skin Skin exam: Present: dry, intact, normal color, warm Consult Discharge Plan - Plan Referrals: Brad Minor MD [Primary Care Provider] - - Attending Attestation I examined this patient and my medical decision-making was reviewed with the Resident Physician. I agree with the documented findings, disposition and treatment plan as described except to the extent set forth below.
[2018-02-20] MEDS ORDERED: Magnesium Sulfate 2 GM/100 ML PIGGYBACK IVPB PRN (15:10)
[2018-02-20] MEDS ORDERED: Potassium Phosphate 44 MEQ in 0.9 % Sodium Chloride 250 ML IVPB PRN (15:10)
[2018-02-20] MEDS: amLODIPine 5 MG TABLET PO SCH (15:32)
[2018-02-20] MEDS: Magnesium Sulfate 2 GM in D5% in Water 100 ML IVPB PRN (16:35)
[2018-02-20] MEDS: *HR* Heparin 5,000 UNIT/ML VIAL SQ SCH (17:51)
[2018-02-21] MEDS: Magnesium Sulfate 2 GM in D5% in Water 100 ML IVPB PRN (03:00)
[2018-02-21] MEDS: Ipratropium/Albuterol Neb 3 ML IH SCH ×5 (03:56→19:59)
[2018-02-21] MEDS: Insulin LISPRO 300 UNITS/3 ML VIAL SQ SCH ×4 (05:05→23:00)
[2018-02-21] MEDS: Pantoprazole 40 MG VIAL IVP SCH ×2 (05:08→17:56)
[2018-02-21] MEDS: *HR* Heparin 5,000 UNIT/ML VIAL SQ SCH ×2 (05:09→17:56)
[2018-02-21] MEDS: Furosemide 40 MG/4 ML VIAL IVP SCH ×2 (07:35→16:05)
[2018-02-21] MEDS: Dexamethasone 10 MG/ML VIAL IVP SCH ×3 (07:36→22:59)
--- NOTE | 2018-02-21 07:38 | Pulmonology Progress Note ---
<Kam Badillo - Last Filed: 02/21/18 12:09> Date of Encounter: 02/21/18 Time of Encounter: 07:37 Assessment and Plan (1) Acute on chronic respiratory failure Current Visit: No Status: Acute 1. Multifactorial but is growing MRSA from BAL in her LLL, also CHF is contributing 2. Extubated 02/19 to BiPAP and has been doing well, has tolerated being off BiPAP at times, which is a great improvement for her 3. Lasix 40 mg BID today, she is now finally net negative during her hospital stay. After today, we will resume her home dose 4. STAT ABG if mental status worsens Systems based plan: - Patient seen and examined. - Labs, radiology, chart personally reviewed. DOCK WORKER: Awake, alert and oriented, adding back, her home BuSpar, and benzodiazepine today Pulmonary: Significant underlying lung disease with pulmonary edema and COPD, when necessary breathing treatments and Lasix, Cardiovascular: History of diastolic CHF, 40mg lasix BID which will and today and then we will resume her home dose of 20 mg by mouth tomorrow. Patient is overall fluid negative now and I do think this is significantly contributed to her respiratory improvement GI: GI prophylaxis per routine Heme: DVT prophylaxis per routine ID: Continue ABX, Zosyn was discontinued. The patient is only on vancomycin for her MRSA pneumonia Renal: Trend Endorcine: Monitor blood glucose Lines: all lines checked and no evidence of infections Skin: skin care to prevent pressure ulcers per nursing routine care, wound care consult for existing ulcers, nystatin for yeast Overall prognosis is poor Qualifiers: Respiratory failure complication: hypoxia and hypercapnia Qualified Code(s) : J96.21 - Acute and chronic respiratory failure with hypoxia; J96.22 - Acute and chronic respiratory failure with hypercapnia (2) Acute on chronic diastolic CHF (congestive heart failure) Current Visit: Yes Status: Acute 1. Continue 40mg BID Lasix for diuresis and will switch to home dose tomorrow 2. Maintain Burkett catheter for strict I's and O's (3) Pneumonia Current Visit: No Status: Suspected 1. Continue vancomycin for MRSA pneumonia, Zosyn, discontinued Qualifiers: Pneumonia type: due to unspecified organism Laterality: right Lung location: upper lobe of lung Qualified Code(s): J18.1 - Lobar pneumonia, unspecified organism (4) CKD (chronic kidney disease) stage 3, GFR 30-59 ml/min Current Visit: No Status: Chronic 1. Stable, continue to trend electrolytes and renal function while we are actively diuresing (5) Cellulitis Current Visit: No Status: Acute 1. improving but continuing abx for MRSA PNA 2. Continue to trend white blood cell count and monitor temperature curves Qualifiers: Site of cellulitis: trunk Site of cellulitis of trunk: chest wall Qualified Code(s): L03.313 - Cellulitis of chest wall (6) DVT prophylaxis Current Visit: Yes Status: Acute 1. Subcutaneous heparin 2. NO restraints needed Subjective Principal diagnosis: Acute on chronic resp failure Interval history: Doing very well and has been on and off BiPAP, is awake, alert and mentating normally Objective PUL Vital signs: Last Vital Signs Temp 98.5 F 02/21/18 04:00 Pulse 76 02/21/18 07:00 Resp 18 02/21/18 07:00 BP 97/53 02/21/18 07:00 Pulse Ox 90 02/21/18 07:00 General appearance: no acute distress Eyes: nonicteric ENT: oropharynx moist Neck: supple Effort: normal Auscultation: bilateral: diminished breath sounds Cardiovascular: regular rate and rhythm Gastrointestinal: normoactive bowel sounds, non-distended Integumentary: normal, erythema (Erythema to the right lower extremity that is improving) Extremities: no cyanosis, edema Results - Laboratory Findings CBC and BMP: 02/21/18 07:45 02/21/18 07:45 ABG ABG pH 7.43 pH Units (7.32-7.45) 02/20/18 08:07 ABG pCO2 53 mmHg (35-45) H 02/20/18 08:07 ABG pO2 77 mmHg (85-104) L 02/20/18 08:07 ABG O2 Saturation 95 % (95-98) 02/20/18 08:07 Abnormal lab findings: Abnormal lab results Hgb 11.0 g/dL (11.5-15.4) L 02/19/18 04:00 MCH 25.9 pg (28.0-33.3) L 02/19/18 04:00 MCHC 30.6 g/dL (31.6-35.5) L 02/19/18 04:00 RDW 18.6 % (11.5-14.5) H 02/19/18 04:00 Plt Count 124 K/mcL (140-400) L 02/19/18 04:00 Lymphocytes # 0.5 K/mcL (0.6-4.6) L 02/19/18 04:00 Reactive Lymphocytes Present (Not Present) A 02/16/18 03:30 Large Platelets Present (Not Present) A 02/16/18 03:30 Immature Plt Fraction 6.2 % (1.1-6.1) H 02/17/18 04:00 Hypochromasia Present (Not Present) A 02/16/18 03:30 Poikilocytosis 2+ (Not Present) A 02/17/18 04:00 Anisocytosis 2+ (Not Present) A 02/17/18 04:00 Stomatocytes 1+ (Not Present) A 02/17/18 04:00 ABG pCO2 53 mmHg (35-45) H 02/20/18 08:07 ABG pO2 77 mmHg (85-104) L 02/20/18 08:07 ABG HCO3 36 mEq/L (21-27) H 02/20/18 08:07 ABG Total CO2 37 mEq/L (20-26) H 02/20/18 08:07 ABG Base Excess 10 mEq/L (-2 to 3) H 02/20/18 08:07 Potassium 3.4 mEq/L (3.5-5.1) L 02/20/18 21:25 Chloride 97 mEq/L (98-107) L 02/20/18 03:50 Carbon Dioxide 34 mEq/L (23-29) H 02/20/18 03:50 Est GFR (Non-Af Amer) 53 (> 60) L 02/20/18 03:50 Glucose 120 mg/dL (70-105) H 02/20/18 03:50 POC Glucose 135 mg/dL (70-99) H 02/21/18 03:44 Calcium 8.5 mg/dL (8.6-10.3) L 02/20/18 03:50 B-Natriuretic Peptide 513 pg/mL (Less than 100) H 02/11/18 21:31 Fluid Appearance Cloudy (Clear) A 02/14/18 11:00 Nasal Screen MRSA (PCR) Positive (Negative) A 02/14/18 20:57 Vancomycin Trough 17 mcg/mL (5-10) H 02/19/18 22:00 - Clinical Findings Intake & Output: Intake & Output 02/20/18 02/20/18 02/21/18 15:59 23:59 07:59 Intake Total 260 / 260 264 / 264 354 / 354 Output Total 900 / 900 1025 / 1025 100 / 100 Balance -640 / -640 -761 / -761 254 / 254 Weight 144.2 kg Consult Discharge Plan - Plan Referrals: Brad Minor MD [Primary Care Provider] - <Layton Dinh - Last Filed: 02/21/18 15:07> Date of Encounter: 02/21/18 Objective PUL Vital signs: Last Vital Signs Temp 98.8 F 02/21/18 11:48 Pulse 86 02/21/18 13:00 Resp 24 02/21/18 13:00 BP 147/90 02/21/18 13:00 Pulse Ox 92 02/21/18 13:00 Results - Laboratory Findings CBC and BMP: 02/21/18 07:45 02/21/18 07:45 ABG ABG pH 7.43 pH Units (7.32-7.45) 02/20/18 08:07 ABG pCO2 53 mmHg (35-45) H 02/20/18 08:07 ABG pO2 77 mmHg (85-104) L 02/20/18 08:07 ABG O2 Saturation 95 % (95-98) 02/20/18 08:07 Abnormal lab findings: Abnormal lab results Hgb 11.2 g/dL (11.5-15.4) L 02/21/18 07:45 MCH 25.8 pg (28.0-33.3) L 02/21/18 07:45 MCHC 29.1 g/dL (31.6-35.5) L 02/21/18 07:45 RDW 18.1 % (11.5-14.5) H 02/21/18 07:45 Plt Count 115 K/mcL (140-400) L 02/21/18 07:45 Lymphocytes # 0.3 K/mcL (0.6-4.6) L 02/21/18 07:45 Reactive Lymphocytes Present (Not Present) A 02/16/18 03:30 Large Platelets Present (Not Present) A 02/16/18 03:30 Immature Plt Fraction 6.2 % (1.1-6.1) H 02/17/18 04:00 Hypochromasia Present (Not Present) A 02/16/18 03:30 Poikilocytosis 2+ (Not Present) A 02/17/18 04:00 Anisocytosis 2+ (Not Present) A 02/17/18 04:00 Stomatocytes 1+ (Not Present) A 02/17/18 04:00 ABG pCO2 53 mmHg (35-45) H 02/20/18 08:07 ABG pO2 77 mmHg (85-104) L 02/20/18 08:07 ABG HCO3 36 mEq/L (21-27) H 02/20/18 08:07 ABG Total CO2 37 mEq/L (20-26) H 02/20/18 08:07 ABG Base Excess 10 mEq/L (-2 to 3) H 02/20/18 08:07 Carbon Dioxide 37 mEq/L (23-29) H 02/21/18 07:45 Est GFR (Non-Af Amer) 52 (> 60) L 02/21/18 07:45 Glucose 130 mg/dL (70-105) H 02/21/18 07:45 Calcium 8.4 mg/dL (8.6-10.3) L 02/21/18 07:45 Venous Ioniz Calcium 1.03 mmol/L (1.15-1.35) L 02/21/18 07:53 B-Natriuretic Peptide 513 pg/mL (Less than 100) H 02/11/18 21:31 Fluid Appearance Cloudy (Clear) A 02/14/18 11:00 Nasal Screen MRSA (PCR) Positive (Negative) A 02/14/18 20:57 Vancomycin Trough 17 mcg/mL (5-10) H 02/19/18 22:00 - Clinical Findings Intake & Output: Intake & Output 02/20/18 02/21/18 02/21/18 23:59 07:59 15:59 Intake Total 264 / 264 354 / 354 350 / 350 Output Total 1025 / 1025 100 / 100 1100 / 1100 Balance -761 / -761 254 / 254 -750 / -750 Weight 144.2 kg - Attending Attestation - Attending Attestation I saw and evaluated this patient and my medical decision-making was reviewed with the Resident Physician. I agree with the documented findings, disposition and treatment plan as described except to the extent set forth below. We independently had [id number] contact with the patient Patient seen and examined at bedside Labs, radiology, chart personally reviewed. Management was reviewed during multidisciplinary critical care rounds. DOCK WORKER:Patient is awake and following commands, metabolic encephalopathy resolved Pulm: Patient did well on BIPAP over night will to advance diet then BIPAP in the afternoon and night . Patient has acceptable oxygenation and ventilation . MRSA pneumonia which was found in the BAL . Antibiotic duration according to ID. Cards: Patient is hemodynamically stable has CHF with hydrostatic pulmonary edema will continue diuresis ..Patient had some runs of SVT will start on IV beta blockers. FEN-GI:Advance diet as tolerated Renal: Acute on Chronic Kidney disease stable creatinine will continue gentle diuresis ID: To continue broad spectrum antibiotics with MRSA pneumonia and cellulitis ID following. Heme/Onc: To continue Thromboprophylaxis Endo: Glucose Monitored Integ/MSK: Skin Care per routine ICU Nursing Protocol to prevent ulcers. Lines: All lines examined without evidence of infection : Dispo: Will watch her today she can be shifted to tomorrow CODE: DNRA -DNI . Spoke with Son,Patient agree not for reintubation
[2018-02-21 07:54] LABS: Eosinophils % 0.2 %; Hematocrit 38.5 % (35.3-44.9); Hemoglobin 11.2 g/dL (11.5-15.4); Immature Granulocytes % 0.3 % (0-4); Lymphocytes # 0.3 K/mcL (0.6-4.6); Lymphocytes % 4.7 %; Mean Corpuscular HGB Conc 29.1 g/dL (31.6-35.5); Mean Corpuscular Hemoglobin 25.8 pg (28.0-33.3); Mean Corpuscular Volume 88.7 fL (83.0-100.0); Mean Platelet Volume 11.3 fL (9.4-12.4); Monocytes # 0.3 K/mcL (0.0-1.3); Monocytes % 4.6 %; Neutrophils # 5.4 K/mcL (1.6-8.9); Platelet Count 115 K/mcL (140-400); Red Blood Count 4.34 M/mcL (3.82-4.97); Red Cell Distribution Width 18.1 % (11.5-14.5); Segmented Neutrophils % 90.2 %
[2018-02-21 07:55] LABS: VBG Ionized Calcium 1.03 mmol/L (1.15-1.35)
[2018-02-21] MEDS: levETIRAcetam 1,000 MG in 0.9 % Sodium Chloride 100 ML IVPB SCH (07:57)
[2018-02-21] MEDS: Nystatin POWDER 30 GM BOTTLE TP SCH ×3 (07:58→20:38)
[2018-02-21 08:11] LABS: BUN/Creatinine Ratio 21 (6-26); Blood Urea Nitrogen 22 mg/dL (8-23); Calcium 8.4 mg/dL (8.6-10.3); Carbon Dioxide 37 mEq/L (23-29); Chloride 98 mEq/L (98-107); Glucose 130 mg/dL (70-105); Magnesium 2.2 mg/dL (1.6-2.6); Osmolality,Calculated 297 (280-300); Phosphorous 4.4 mg/dL (2.7-4.5); Potassium 3.8 mEq/L (3.5-5.1); Sodium 141 mEq/L (136-145); eGFR For African Americans > 60 (> 60); eGFR For Non-African Americans 52 (> 60)
[2018-02-21] MEDS: Sennosides 8.6 MG TABLET PO SCH (09:02)
[2018-02-21] MEDS: amLODIPine 5 MG TABLET PO SCH (09:02)
--- NOTE | 2018-02-21 10:53 | Infectious Disease Progress No ---
Date of Encounter: 02/21/18 Time of Encounter: 10:51 - Assessment and Plan (1) Pneumonia Current Visit: No Status: Suspected Causative organism: MRSA. CXR negative, but bronch showed mucous plugs and mucupurulent secretions. Urine legionella and S. pneumo UAT negative. RIP negative. Extubated 02/19/18. Currently on BIPAP. Continue Vancomycin IV. Pharmacy to dose. Goal trough ~15. Duration of treatment depends on the clinical picture, but likely 14-21 days. Will likely be able to switch to PO antibiotics when ready for discharge. Monitor renal function and for drug toxicity and dose-adjust antibiotics. Qualifiers: Pneumonia type: due to unspecified organism Laterality: right Lung location: upper lobe of lung Qualified Code(s): J18.1 - Lobar pneumonia, unspecified organism (2) Cellulitis Current Visit: No Status: Acute Resolved. Physicial exam not suggestive of cellulitis. Cultures obtained at outside facility before patient came and were positive for Serratia and Klebsiella. Has completed 7 days of Zosyn. Vancomycin continues for MRSA PNA. Qualifiers: Site of cellulitis: extremity Site of cellulitis of extremity: lower extremity Laterality: right Qualified Code(s): L03.115 - Cellulitis of right lower limb (3) COPD exacerbation Current Visit: No Status: Acute (4) Acute on chronic respiratory failure Current Visit: No Status: Acute Likely secondary to PNA and COPD exacerbation. Extubated 02/19/18. Further management per the pulmonology team. Qualifiers: Respiratory failure complication: hypoxia and hypercapnia Qualified Code(s) : J96.21 - Acute and chronic respiratory failure with hypoxia; J96.22 - Acute and chronic respiratory failure with hypercapnia (5) CKD (chronic kidney disease) stage 3, GFR 30-59 ml/min Current Visit: No Status: Chronic Monitor renal function and for drug toxicity and dose-adjust antibiotics. (6) Acute on chronic diastolic CHF (congestive heart failure) Current Visit: Yes Status: Acute (7) Candidiasis Current Visit: Yes Status: Acute Continue topical antifungals. - Subjective Interval history: Patient seen and examined. Requested per nursing to not wake the patient since she was up all night and didn't fall asleep until 0400. No new issues per nursing. Patient more alert and oriented today. Rectal tube and ayala remain in place. Requires BIPAP when sleeping. Infect Dis PN-Objective Data - Labs CBC & Chem 7: 02/21/18 07:45 02/22/18 14:42 Labs: Laboratory Results - last 24 hr 02/20/18 02/20/18 02/20/18 04:02 07:08 11:33 WBC RBC Hgb Hct MCV MCH MCHC RDW Plt Count MPV Immature Gran % Seg Neutrophils % Lymphocytes % Monocytes % Eosinophils % Basophils % Neutrophils # Lymphocytes # Monocytes # Eosinophils # Basophils # Sodium Potassium Chloride Carbon Dioxide BUN Creatinine Est GFR ( Amer) Est GFR (Non-Af Amer) BUN/Creatinine Ratio Glucose POC Glucose 118 H 106 H 101 H Calculated Osmolality Calcium Venous Ioniz Calcium Phosphorus Magnesium 02/20/18 02/20/18 02/20/18 15:48 21:25 21:25 WBC RBC Hgb Hct MCV MCH MCHC RDW Plt Count MPV Immature Gran % Seg Neutrophils % Lymphocytes % Monocytes % Eosinophils % Basophils % Neutrophils # Lymphocytes # Monocytes # Eosinophils # Basophils # Sodium Potassium 3.4 L Chloride Carbon Dioxide BUN Creatinine Est GFR ( Amer) Est GFR (Non-Af Amer) BUN/Creatinine Ratio Glucose POC Glucose 126 H Calculated Osmolality Calcium Venous Ioniz Calcium Phosphorus Magnesium 1.8 02/20/18 02/21/18 02/21/18 23:13 03:44 07:45 WBC 5.9 RBC 4.34 Hgb 11.2 L Hct 38.5 MCV 88.7 MCH 25.8 L MCHC 29.1 L RDW 18.1 H Plt Count 115 L MPV 11.3 Immature Gran % 0.3 Seg Neutrophils % 90.2 Lymphocytes % 4.7 Monocytes % 4.6 Eosinophils % 0.2 Basophils % 0.0 Neutrophils # 5.4 Lymphocytes # 0.3 L Monocytes # 0.3 Eosinophils # 0.0 Basophils # 0.0 Sodium Potassium Chloride Carbon Dioxide BUN Creatinine Est GFR ( Amer) Est GFR (Non-Af Amer) BUN/Creatinine Ratio Glucose POC Glucose 125 H 135 H Calculated Osmolality Calcium Venous Ioniz Calcium Phosphorus Magnesium 02/21/18 02/21/18 07:45 07:53 WBC RBC Hgb Hct MCV MCH MCHC RDW Plt Count MPV Immature Gran % Seg Neutrophils % Lymphocytes % Monocytes % Eosinophils % Basophils % Neutrophils # Lymphocytes # Monocytes # Eosinophils # Basophils # Sodium 141 Potassium 3.8 Chloride 98 Carbon Dioxide 37 H BUN 22 Creatinine 1.06 Est GFR ( Amer) > 60 Est GFR (Non-Af Amer) 52 L BUN/Creatinine Ratio 21 Glucose 130 H POC Glucose Calculated Osmolality 297 Calcium 8.4 L Venous Ioniz Calcium 1.03 L Phosphorus 4.4 Magnesium 2.2 Cultures: Cultures 02/14/18 11:00 Gram Stain - Final Left Lower Lobe Lung Respiratory Culture - Final Methicillin Resistant S.aureus 02/14/18 11:00 Acid Fast Stain - Final Left Lower Lobe Lung 02/12/18 10:58 Sputum Culture - Final Sputum 02/13/18 17:40 Legionella Antigen - Final Urine,Catheterized Streptococcus pneumoniae Antigen (M - Final Serology 02/14/18 02/14/18 02/13/18 Range/Units 20:57 11:00 17:40 Fluid Source LLL BAL Fluid Volume 18 mL Fluid Appearance Cloudy A (Clear) Fluid RBC 0.004 (No Ref Range) M/mcL Fld Tot Nucleated Cell 685 (No Ref Range) TNC/mcL Fluid Seg Neutrophil % 56.8 % Fld Band Neutrophil % Test Not Performed Fluid Lymphocytes % 2.5 % Fluid Monocytes % Test Not Performed Fluid Eosinophils % Test Not Performed Fluid Basophils % Test Not Performed Fluid Other Cells % 40.7 % Nasal Screen MRSA (PCR) Positive A (Negative) Chlamy pneumoniae PCR Not Detected (Not Detect) Adenovirus (PCR) Not Detected (Not Detect) B. pertussis DNA (PCR) Not Detected (Not Detect) B.parapertussis DNA PCR Not Detected (Not Detect) Coronavirus OC43 (PCR) Not Detected (Not Detect) Coronavirus HKU1 (PCR) Not Detected (Not Detect) Coronavirus 229E (PCR) Not Detected (Not Detect) Coronavirus NL63 (PCR) Not Detected (Not Detect) Human Metapneumovir PCR Not Detected (Not Detect) Influenza A (H1) PCR Not Detected (Not Detect) Influ A (H1N1/09) PCR Not Detected (Not Detect) Influenza A (H3) PCR Not Detected (Not Detect) Influenza A Untype (PCR) Not Detected (Not Detect) Influenza Type B (PCR) Not Detected (Not Detect) M.pneumoniae DNA (PCR) Not Detected (Not Detect) Parainfluenza 1 (PCR) Not Detected (Not Detect) Parainfluenza 2 (PCR) Not Detected (Not Detect) Parainfluenza 3 (PCR) Not Detected (Not Detect) Parainfluenza 4 (PCR) Not Detected (Not Detect) RSV (PCR) Not Detected (Not Detect) Entero/Rhino (PCR) Not Detected (Not Detect) Exam - Constitutional Vitals: Temp Pulse Resp BP Pulse Ox 98.3 F 70 20 116/61 87 02/21/18 08:00 02/21/18 10:00 02/21/18 10:00 02/21/18 10:00 02/21/18 10:00 General appearance: cooperative, no acute distress, obese - Head Head exam: Present: atraumatic, normal inspection, normocephalic - Eye Eye exam: Present: normal appearance - Neck Neck exam: Present: normal inspection - Respiratory Respiratory exam: Present: CTAB. Absent: rales, respiratory distress, rhonchi, wheezes - Cardiovascular Cardiovascular exam: Present: irregular rhythm. Absent: tachycardia - GI/Abdominal GI/Abdominal exam: Present: normal bowel sounds, soft Additional comments: Ayala catheter noted to be draining clear yellow urine. Rectal tube with small amount of dark brown liquid stool noted. - Extremities Exam Extremities exam: Absent: joint swelling, pedal edema, tenderness Additional comments: Bilateral foot/LE dressings C/D/I. - Skin Skin exam: Present: dry, intact, normal color, warm Consult Discharge Plan - Plan Referrals: Brad Minor MD [Primary Care Provider] - - Attending Attestation I examined this patient and my medical decision-making was reviewed with the Resident Physician. I agree with the documented findings, disposition and treatment plan as described except to the extent set forth below.
--- NOTE | 2018-02-21 11:03 | Palliative Progress Note ---
<Hayde Wellsty - Last Filed: 02/21/18 11:01> Date of Encounter: 02/21/18 Time of Encounter: 11:01 - Assessment and plan (1) Goals of care, counseling/discussion Current Visit: Yes Status: Acute (2) Acute on chronic respiratory failure Current Visit: No Status: Acute Qualifiers: Respiratory failure complication: hypoxia and hypercapnia Qualified Code(s) : J96.21 - Acute and chronic respiratory failure with hypoxia; J96.22 - Acute and chronic respiratory failure with hypercapnia (3) Acute on chronic diastolic CHF (congestive heart failure) Current Visit: Yes Status: Acute - Time Spent With Patient Total time spent is greater than 50% in coordination of care (as documented) at patient's floor/unit and/or counseling patient: - Subjective Interval history: Patient sleeping comfortably on BiPAP. - Constitutional Vitals: Abnormal lab results Hgb 11.2 g/dL (11.5-15.4) L 02/21/18 07:45 MCH 25.8 pg (28.0-33.3) L 02/21/18 07:45 MCHC 29.1 g/dL (31.6-35.5) L 02/21/18 07:45 RDW 18.1 % (11.5-14.5) H 02/21/18 07:45 Plt Count 115 K/mcL (140-400) L 02/21/18 07:45 Lymphocytes # 0.3 K/mcL (0.6-4.6) L 02/21/18 07:45 Reactive Lymphocytes Present (Not Present) A 02/16/18 03:30 Large Platelets Present (Not Present) A 02/16/18 03:30 Immature Plt Fraction 6.2 % (1.1-6.1) H 02/17/18 04:00 Hypochromasia Present (Not Present) A 02/16/18 03:30 Poikilocytosis 2+ (Not Present) A 02/17/18 04:00 Anisocytosis 2+ (Not Present) A 02/17/18 04:00 Stomatocytes 1+ (Not Present) A 02/17/18 04:00 ABG pCO2 53 mmHg (35-45) H 02/20/18 08:07 ABG pO2 77 mmHg (85-104) L 02/20/18 08:07 ABG HCO3 36 mEq/L (21-27) H 02/20/18 08:07 ABG Total CO2 37 mEq/L (20-26) H 02/20/18 08:07 ABG Base Excess 10 mEq/L (-2 to 3) H 02/20/18 08:07 Carbon Dioxide 37 mEq/L (23-29) H 02/21/18 07:45 Est GFR (Non-Af Amer) 52 (> 60) L 02/21/18 07:45 Glucose 130 mg/dL (70-105) H 02/21/18 07:45 POC Glucose 135 mg/dL (70-99) H 02/21/18 03:44 Calcium 8.4 mg/dL (8.6-10.3) L 02/21/18 07:45 Venous Ioniz Calcium 1.03 mmol/L (1.15-1.35) L 02/21/18 07:53 B-Natriuretic Peptide 513 pg/mL (Less than 100) H 02/11/18 21:31 Fluid Appearance Cloudy (Clear) A 02/14/18 11:00 Nasal Screen MRSA (PCR) Positive (Negative) A 02/14/18 20:57 Vancomycin Trough 17 mcg/mL (5-10) H 02/19/18 22:00 - Head Head exam: Present: atraumatic, normocephalic - Respiratory Respiratory exam: Present: decreased breath sounds - Cardiovascular Cardiovascular exam: Present: RRR - GI/Abdominal GI/Abdominal exam: Present: soft - Extremities Exam Additional comments: bilateral LE wrapped Palliative Quality Palliative Quality: Screen for Code Status: Yes, Screen for Goals of Care: Yes, Screen for Pain: Yes, If Pain Regimen Started, Initiate Bowel Regimen: NA, Screen for Nausea/Vomitting: Yes Code Status: 02/11/18 21:30 Resuscitation Status: Active [RES] Routine Comment: Resuscitation Status: DNR-Comfort Care-Arrest Resuscitation Status: Active [RES] Routine Comment: Resuscitation Status: Full Code Resuscitation Status: Active [RES] Routine Comment: no reintubation Resuscitation Status: [id number] - Labs CBC & Chem 7: 02/21/18 07:45 02/21/18 07:45 Labs: Laboratory Results - last 24 hr 02/20/18 02/20/18 02/20/18 04:02 07:08 11:33 WBC RBC Hgb Hct MCV MCH MCHC RDW Plt Count MPV Immature Gran % Seg Neutrophils % Lymphocytes % Monocytes % Eosinophils % Basophils % Neutrophils # Lymphocytes # Monocytes # Eosinophils # Basophils # Sodium Potassium Chloride Carbon Dioxide BUN Creatinine Est GFR ( Amer) Est GFR (Non-Af Amer) BUN/Creatinine Ratio Glucose POC Glucose 118 H 106 H 101 H Calculated Osmolality Calcium Venous Ioniz Calcium Phosphorus Magnesium 02/20/18 02/20/18 02/20/18 15:48 21:25 21:25 WBC RBC Hgb Hct MCV MCH MCHC RDW Plt Count MPV Immature Gran % Seg Neutrophils % Lymphocytes % Monocytes % Eosinophils % Basophils % Neutrophils # Lymphocytes # Monocytes # Eosinophils # Basophils # Sodium Potassium 3.4 L Chloride Carbon Dioxide BUN Creatinine Est GFR ( Amer) Est GFR (Non-Af Amer) BUN/Creatinine Ratio Glucose POC Glucose 126 H Calculated Osmolality Calcium Venous Ioniz Calcium Phosphorus Magnesium 1.8 02/20/18 02/21/18 02/21/18 23:13 03:44 07:45 WBC 5.9 RBC 4.34 Hgb 11.2 L Hct 38.5 MCV 88.7 MCH 25.8 L MCHC 29.1 L RDW 18.1 H Plt Count 115 L MPV 11.3 Immature Gran % 0.3 Seg Neutrophils % 90.2 Lymphocytes % 4.7 Monocytes % 4.6 Eosinophils % 0.2 Basophils % 0.0 Neutrophils # 5.4 Lymphocytes # 0.3 L Monocytes # 0.3 Eosinophils # 0.0 Basophils # 0.0 Sodium Potassium Chloride Carbon Dioxide BUN Creatinine Est GFR ( Amer) Est GFR (Non-Af Amer) BUN/Creatinine Ratio Glucose POC Glucose 125 H 135 H Calculated Osmolality Calcium Venous Ioniz Calcium Phosphorus Magnesium 02/21/18 02/21/18 07:45 07:53 WBC RBC Hgb Hct MCV MCH MCHC RDW Plt Count MPV Immature Gran % Seg Neutrophils % Lymphocytes % Monocytes % Eosinophils % Basophils % Neutrophils # Lymphocytes # Monocytes # Eosinophils # Basophils # Sodium 141 Potassium 3.8 Chloride 98 Carbon Dioxide 37 H BUN 22 Creatinine 1.06 Est GFR ( Amer) > 60 Est GFR (Non-Af Amer) 52 L BUN/Creatinine Ratio 21 Glucose 130 H POC Glucose Calculated Osmolality 297 Calcium 8.4 L Venous Ioniz Calcium 1.03 L Phosphorus 4.4 Magnesium 2.2 - ABG Interpretation ABG results: ABG ABG pH 7.43 pH Units (7.32-7.45) 02/20/18 08:07 ABG pCO2 53 mmHg (35-45) H 02/20/18 08:07 ABG pO2 77 mmHg (85-104) L 02/20/18 08:07 ABG O2 Saturation 95 % (95-98) 02/20/18 08:07 Consult Discharge Plan - Plan Referrals: Brad Minor MD [Primary Care Provider] - <Cresencio Mcgurie - Last Filed: 02/21/18 14:34> Date of Encounter: 02/21/18 - Assessment and plan (1) Acute on chronic diastolic CHF (congestive heart failure) Current Visit: Yes Status: Acute (2) Goals of care, counseling/discussion Current Visit: Yes Status: Acute (3) Acute on chronic respiratory failure Current Visit: No Status: Acute Qualifiers: Respiratory failure complication: hypoxia and hypercapnia Qualified Code(s) : J96.21 - Acute and chronic respiratory failure with hypoxia; J96.22 - Acute and chronic respiratory failure with hypercapnia - Time Spent With Patient Total time spent is greater than 50% in coordination of care (as documented) at patient's floor/unit and/or counseling patient: - Constitutional Vitals: Abnormal lab results Hgb 11.2 g/dL (11.5-15.4) L 02/21/18 07:45 MCH 25.8 pg (28.0-33.3) L 02/21/18 07:45 MCHC 29.1 g/dL (31.6-35.5) L 02/21/18 07:45 RDW 18.1 % (11.5-14.5) H 02/21/18 07:45 Plt Count 115 K/mcL (140-400) L 02/21/18 07:45 Lymphocytes # 0.3 K/mcL (0.6-4.6) L 02/21/18 07:45 Reactive Lymphocytes Present (Not Present) A 02/16/18 03:30 Large Platelets Present (Not Present) A 02/16/18 03:30 Immature Plt Fraction 6.2 % (1.1-6.1) H 02/17/18 04:00 Hypochromasia Present (Not Present) A 02/16/18 03:30 Poikilocytosis 2+ (Not Present) A 02/17/18 04:00 Anisocytosis 2+ (Not Present) A 02/17/18 04:00 Stomatocytes 1+ (Not Present) A 02/17/18 04:00 ABG pCO2 53 mmHg (35-45) H 02/20/18 08:07 ABG pO2 77 mmHg (85-104) L 02/20/18 08:07 ABG HCO3 36 mEq/L (21-27) H 02/20/18 08:07 ABG Total CO2 37 mEq/L (20-26) H 02/20/18 08:07 ABG Base Excess 10 mEq/L (-2 to 3) H 02/20/18 08:07 Carbon Dioxide 37 mEq/L (23-29) H 02/21/18 07:45 Est GFR (Non-Af Amer) 52 (> 60) L 02/21/18 07:45 Glucose 130 mg/dL (70-105) H 02/21/18 07:45 Calcium 8.4 mg/dL (8.6-10.3) L 02/21/18 07:45 Venous Ioniz Calcium 1.03 mmol/L (1.15-1.35) L 02/21/18 07:53 B-Natriuretic Peptide 513 pg/mL (Less than 100) H 02/11/18 21:31 Fluid Appearance Cloudy (Clear) A 02/14/18 11:00 Nasal Screen MRSA (PCR) Positive (Negative) A 02/14/18 20:57 Vancomycin Trough 17 mcg/mL (5-10) H 02/19/18 22:00 - Attending Attestation I examined this patient and my medical decision-making was reviewed with the Resident Physician. I agree with the documented findings, disposition and treatment plan as described except to the extent set forth below. Patient is overall slowly improving. Palliative was brought on board for discussion of CODE STATUS and this is well established at DNR CCA DNI. We are not managing any symptoms therefore at this time we will follow at a distance. Palliative Quality Code Status: 02/11/18 21:30 Resuscitation Status: Active [RES] Routine Comment: Resuscitation Status: DNR-Comfort Care-Arrest Resuscitation Status: Active [RES] Routine Comment: Resuscitation Status: Full Code Resuscitation Status: Active [RES] Routine Comment: no reintubation Resuscitation Status: [id number] - Labs CBC & Chem 7: 02/21/18 07:45 02/21/18 07:45 Labs: Laboratory Results - last 24 hr 02/20/18 02/20/18 02/20/18 04:02 07:08 11:33 WBC RBC Hgb Hct MCV MCH MCHC RDW Plt Count MPV Immature Gran % Seg Neutrophils % Lymphocytes % Monocytes % Eosinophils % Basophils % Neutrophils # Lymphocytes # Monocytes # Eosinophils # Basophils # Sodium Potassium Chloride Carbon Dioxide BUN Creatinine Est GFR ( Amer) Est GFR (Non-Af Amer) BUN/Creatinine Ratio Glucose POC Glucose 118 H 106 H 101 H Calculated Osmolality Calcium Venous Ioniz Calcium Phosphorus Magnesium 02/20/18 02/20/18 02/20/18 15:48 21:25 21:25 WBC RBC Hgb Hct MCV MCH MCHC RDW Plt Count MPV Immature Gran % Seg Neutrophils % Lymphocytes % Monocytes % Eosinophils % Basophils % Neutrophils # Lymphocytes # Monocytes # Eosinophils # Basophils # Sodium Potassium 3.4 L Chloride Carbon Dioxide BUN Creatinine Est GFR ( Amer) Est GFR (Non-Af Amer) BUN/Creatinine Ratio Glucose POC Glucose 126 H Calculated Osmolality Calcium Venous Ioniz Calcium Phosphorus Magnesium 1.8 02/20/18 02/21/18 02/21/18 23:13 03:44 07:45 WBC 5.9 RBC 4.34 Hgb 11.2 L Hct 38.5 MCV 88.7 MCH 25.8 L MCHC 29.1 L RDW 18.1 H Plt Count 115 L MPV 11.3 Immature Gran % 0.3 Seg Neutrophils % 90.2 Lymphocytes % 4.7 Monocytes % 4.6 Eosinophils % 0.2 Basophils % 0.0 Neutrophils # 5.4 Lymphocytes # 0.3 L Monocytes # 0.3 Eosinophils # 0.0 Basophils # 0.0 Sodium Potassium Chloride Carbon Dioxide BUN Creatinine Est GFR ( Amer) Est GFR (Non-Af Amer) BUN/Creatinine Ratio Glucose POC Glucose 125 H 135 H Calculated Osmolality Calcium Venous Ioniz Calcium Phosphorus Magnesium 02/21/18 02/21/18 02/21/18 07:45 07:53 11:05 WBC RBC Hgb Hct MCV MCH MCHC RDW Plt Count MPV Immature Gran % Seg Neutrophils % Lymphocytes % Monocytes % Eosinophils % Basophils % Neutrophils # Lymphocytes # Monocytes # Eosinophils # Basophils # Sodium 141 Potassium 3.8 Chloride 98 Carbon Dioxide 37 H BUN 22 Creatinine 1.06 Est GFR ( Amer) > 60 Est GFR (Non-Af Amer) 52 L BUN/Creatinine Ratio 21 Glucose 130 H POC Glucose 98 Calculated Osmolality 297 Calcium 8.4 L Venous Ioniz Calcium 1.03 L Phosphorus 4.4 Magnesium 2.2 - ABG Interpretation ABG results: ABG ABG pH 7.43 pH Units (7.32-7.45) 02/20/18 08:07 ABG pCO2 53 mmHg (35-45) H 02/20/18 08:07 ABG pO2 77 mmHg (85-104) L 02/20/18 08:07 ABG O2 Saturation 95 % (95-98) 02/20/18 08:07
[2018-02-21] MEDS ORDERED: *HR* Metoprolol 5 MG/5 ML VIAL IVP ONE (13:39)
[2018-02-21] MEDS: *HR* Metoprolol 5 MG/5 ML VIAL IVP SCH ×2 (14:36→22:59)
[2018-02-21 16:10] LABS: VBG Ionized Calcium 1.01 mmol/L (1.15-1.35)
[2018-02-21 16:29] LABS: BUN/Creatinine Ratio 21 (6-26); Blood Urea Nitrogen 23 mg/dL (8-23); Calcium 8.6 mg/dL (8.6-10.3); Carbon Dioxide 38 mEq/L (23-29); Chloride 99 mEq/L (98-107); Glucose 128 mg/dL (70-105); Osmolality,Calculated 299 (280-300); Potassium 3.8 mEq/L (3.5-5.1); Sodium 142 mEq/L (136-145); eGFR For African Americans > 60 (> 60); eGFR For Non-African Americans 51 (> 60)
[2018-02-21] MEDS: Ondansetron 4 MG/2 ML VIAL IVP PRN (19:53)
[2018-02-21] MEDS: levETIRAcetam 250 MG TABLET PO SCH (20:33)
[2018-02-21] MEDS: Pantoprazole 40 MG in 0.9 % Sodium Chloride Mini Bag 100 ML IVC SCH (21:12)
[2018-02-21 23:24] LABS: VBG Ionized Calcium 1.05 mmol/L (1.15-1.35)
[2018-02-22] MEDS: Ipratropium/Albuterol Neb 3 ML IH SCH ×7 (00:02→23:54)
[2018-02-22] MEDS: Insulin LISPRO 300 UNITS/3 ML VIAL SQ SCH (05:51)
[2018-02-22] MEDS: *HR* Heparin 5,000 UNIT/ML VIAL SQ SCH ×2 (05:51→17:58)
[2018-02-22] MEDS: *HR* Metoprolol 5 MG/5 ML VIAL IVP SCH ×3 (05:51→23:36)
[2018-02-22] MEDS: Pantoprazole 40 MG VIAL IVP SCH (05:51)
--- NOTE | 2018-02-22 07:37 | Palliative Progress Note ---
Date of Encounter: 02/22/18 Time of Encounter: 06:55 - Assessment and plan (1) Acute on chronic diastolic CHF (congestive heart failure) Current Visit: Yes Status: Acute Assessment and plan: Appears to be improving, plan per hospitalist/intensive care team (2) Goals of care, counseling/discussion Current Visit: Yes Status: Acute Assessment and plan: She is currently a DNR CCA do not reintubate. As per discussion of last week on Sunday with the patient's son. The patient is now awake and alert and is very clear that this is exactly what she wants. DNR CCA do not reintubate. Her overall goal continues to be to go home, however she may require placement for rehabilitation. Palliative care was brought on board due to the fact that the patient was having a difficult time getting off the ventilator. Patient is off the ventilator doing quite well and able to voice her own wishes for DNR CCA DNI. Palliative we will follow from suitable distance and consider signing off on Sunday. There will be no palliative care coverage over the weekend again palliative we will follow up on Sunday at a distance. (3) Acute on chronic respiratory failure Current Visit: No Status: Acute Assessment and plan: Improving on nasal cannula oxygen and utilizing BiPAP as needed Qualifiers: Respiratory failure complication: hypoxia and hypercapnia Qualified Code(s) : J96.21 - Acute and chronic respiratory failure with hypoxia; J96.22 - Acute and chronic respiratory failure with hypercapnia - Time Spent With Patient Total time spent is greater than 50% in coordination of care (as documented) at patient's floor/unit and/or counseling patient: - Subjective Interval history: Patient is awake and alert well on nasal cannula oxygen. He has no complaints except as below and states she feels much better than he did when she was on both the BiPAP and at and intubated. Does complain of some mild leg pain but says it is not too bad does not wish to have any medications for it. She was able to tell me clearly she does not wish to be reintubated she is happy with her current CODE STATUS. - Constitutional Vitals: Abnormal lab results Hgb 11.2 g/dL (11.5-15.4) L 02/21/18 07:45 MCH 25.8 pg (28.0-33.3) L 02/21/18 07:45 MCHC 29.1 g/dL (31.6-35.5) L 02/21/18 07:45 RDW 18.1 % (11.5-14.5) H 02/21/18 07:45 Plt Count 115 K/mcL (140-400) L 02/21/18 07:45 Lymphocytes # 0.3 K/mcL (0.6-4.6) L 02/21/18 07:45 Reactive Lymphocytes Present (Not Present) A 02/16/18 03:30 Large Platelets Present (Not Present) A 02/16/18 03:30 Immature Plt Fraction 6.2 % (1.1-6.1) H 02/17/18 04:00 Hypochromasia Present (Not Present) A 02/16/18 03:30 Poikilocytosis 2+ (Not Present) A 02/17/18 04:00 Anisocytosis 2+ (Not Present) A 02/17/18 04:00 Stomatocytes 1+ (Not Present) A 02/17/18 04:00 ABG pCO2 53 mmHg (35-45) H 02/20/18 08:07 ABG pO2 77 mmHg (85-104) L 02/20/18 08:07 ABG HCO3 36 mEq/L (21-27) H 02/20/18 08:07 ABG Total CO2 37 mEq/L (20-26) H 02/20/18 08:07 ABG Base Excess 10 mEq/L (-2 to 3) H 02/20/18 08:07 Carbon Dioxide 38 mEq/L (23-29) H 02/21/18 15:50 Est GFR (Non-Af Amer) 51 (> 60) L 02/21/18 15:50 Glucose 128 mg/dL (70-105) H 02/21/18 15:50 POC Glucose 130 mg/dL (70-99) H 02/21/18 23:17 Venous Ioniz Calcium 1.05 mmol/L (1.15-1.35) L 02/21/18 23:21 B-Natriuretic Peptide 513 pg/mL (Less than 100) H 02/11/18 21:31 Fluid Appearance Cloudy (Clear) A 02/14/18 11:00 Nasal Screen MRSA (PCR) Positive (Negative) A 02/14/18 20:57 Vancomycin Trough 17 mcg/mL (5-10) H 02/19/18 22:00 General appearance: Present: no acute distress - Respiratory Respiratory exam: Present: decreased breath sounds - Cardiovascular Cardiovascular exam: Present: RRR - GI/Abdominal GI/Abdominal exam: Present: normal bowel sounds, soft. Absent: tenderness - Extremities Exam Extremities exam: Present: pedal edema. Absent: tenderness - Neurological Exam Neurological exam: Present: alert - Psychiatric Psychiatric exam: Absent: agitated, anxious - Skin Skin exam: Present: dry, warm Palliative Quality Palliative Quality: Screen for Code Status: Yes, Screen for Goals of Care: Yes, Screen for Pain: Yes, If Pain Regimen Started, Initiate Bowel Regimen: NA, Screen for Nausea/Vomitting: Yes Code Status: 02/11/18 21:30 Resuscitation Status: Active [RES] Routine Comment: Resuscitation Status: DNR-Comfort Care-Arrest Resuscitation Status: Active [RES] Routine Comment: Resuscitation Status: Full Code Resuscitation Status: Active [RES] Routine Comment: no reintubation Resuscitation Status: [id number] - Labs CBC & Chem 7: 02/21/18 07:45 02/21/18 23:10 Labs: Laboratory Results - last 24 hr 02/21/18 02/21/18 02/21/18 07:45 07:45 07:53 WBC 5.9 RBC 4.34 Hgb 11.2 L Hct 38.5 MCV 88.7 MCH 25.8 L MCHC 29.1 L RDW 18.1 H Plt Count 115 L MPV 11.3 Immature Gran % 0.3 Seg Neutrophils % 90.2 Lymphocytes % 4.7 Monocytes % 4.6 Eosinophils % 0.2 Basophils % 0.0 Neutrophils # 5.4 Lymphocytes # 0.3 L Monocytes # 0.3 Eosinophils # 0.0 Basophils # 0.0 Sodium 141 Potassium 3.8 Chloride 98 Carbon Dioxide 37 H BUN 22 Creatinine 1.06 Est GFR ( Amer) > 60 Est GFR (Non-Af Amer) 52 L BUN/Creatinine Ratio 21 Glucose 130 H POC Glucose Calculated Osmolality 297 Calcium 8.4 L Venous Ioniz Calcium 1.03 L Phosphorus 4.4 Magnesium 2.2 02/21/18 02/21/18 02/21/18 11:05 15:50 16:07 WBC RBC Hgb Hct MCV MCH MCHC RDW Plt Count MPV Immature Gran % Seg Neutrophils % Lymphocytes % Monocytes % Eosinophils % Basophils % Neutrophils # Lymphocytes # Monocytes # Eosinophils # Basophils # Sodium 142 Potassium 3.8 Chloride 99 Carbon Dioxide 38 H BUN 23 Creatinine 1.07 Est GFR ( Amer) > 60 Est GFR (Non-Af Amer) 51 L BUN/Creatinine Ratio 21 Glucose 128 H POC Glucose 98 Calculated Osmolality 299 Calcium 8.6 Venous Ioniz Calcium 1.01 L Phosphorus Magnesium 02/21/18 02/21/18 02/21/18 17:53 23:10 23:17 WBC RBC Hgb Hct MCV MCH MCHC RDW Plt Count MPV Immature Gran % Seg Neutrophils % Lymphocytes % Monocytes % Eosinophils % Basophils % Neutrophils # Lymphocytes # Monocytes # Eosinophils # Basophils # Sodium Potassium 4.0 Chloride Carbon Dioxide BUN Creatinine Est GFR ( Amer) Est GFR (Non-Af Amer) BUN/Creatinine Ratio Glucose POC Glucose 123 H 130 H Calculated Osmolality Calcium Venous Ioniz Calcium Phosphorus Magnesium 02/21/18 23:21 WBC RBC Hgb Hct MCV MCH MCHC RDW Plt Count MPV Immature Gran % Seg Neutrophils % Lymphocytes % Monocytes % Eosinophils % Basophils % Neutrophils # Lymphocytes # Monocytes # Eosinophils # Basophils # Sodium Potassium Chloride Carbon Dioxide BUN Creatinine Est GFR ( Amer) Est GFR (Non-Af Amer) BUN/Creatinine Ratio Glucose POC Glucose Calculated Osmolality Calcium Venous Ioniz Calcium 1.05 L Phosphorus Magnesium - ABG Interpretation ABG results: ABG ABG pH 7.43 pH Units (7.32-7.45) 02/20/18 08:07 ABG pCO2 53 mmHg (35-45) H 02/20/18 08:07 ABG pO2 77 mmHg (85-104) L 02/20/18 08:07 ABG O2 Saturation 95 % (95-98) 02/20/18 08:07 Consult Discharge Plan - Plan Referrals: Brad Minor MD [Primary Care Provider] -
[2018-02-22] MEDS: Dexamethasone 10 MG/ML VIAL IVP SCH (08:20)
[2018-02-22] MEDS: Furosemide 40 MG/4 ML VIAL IVP SCH (08:20)
[2018-02-22] MEDS: levETIRAcetam 250 MG TABLET PO SCH ×2 (08:22→23:36)
[2018-02-22] MEDS: amLODIPine 5 MG TABLET PO SCH (08:22)
[2018-02-22] MEDS: *HR* OxyCODONE Immed Rel 5 MG TABLET PO PRN (08:23)
[2018-02-22 10:10] LABS: VBG Ionized Calcium 1.01 mmol/L (1.15-1.35)
--- NOTE | 2018-02-22 11:01 | Pulmonology Progress Note ---
<Kam Badillo - Last Filed: 02/22/18 10:50> Date of Encounter: 02/22/18 Time of Encounter: 07:01 Assessment and Plan (1) Acute on chronic respiratory failure Current Visit: No Status: Acute 1. Multifactorial (CHF/COPD) but is growing MRSA from LLL-BAL, on Vanc 2. Extubated 02/19 to BiPAP and has been doing well, has tolerated being off BiPAP mostly during the day, which is a great improvement for her 3. STAT ABG if mental status worsens Systems based plan: - Patient seen and examined. - Labs, radiology, chart personally reviewed. COMPENSATION AGENT: Awake, alert and oriented Pulmonary: Significant underlying lung disease with pulmonary edema and COPD, when necessary breathing treatments and home Lasix. Stopped decadron today, no need to continue or taper steroids. patient MUST be on BiPAP at night, otherwise , she will become hypercapnic again and go back into resp failure. Cardiovascular: History of diastolic CHF, continue home dose lasix. Patient is overall fluid negative now and I do think this is significantly contributed to her respiratory improvement GI: GI prophylaxis per routine Heme: DVT prophylaxis per routine ID: Vancomycin for her MRSA pneumonia Renal: Trend Endorcine: Monitor blood glucose Lines: all lines checked and no evidence of infections Skin: skin care to prevent pressure ulcers per nursing routine care, wound care consult for existing ulcers, nystatin for yeast Overall prognosis is poor, will txf to floor today Qualifiers: Respiratory failure complication: hypoxia and hypercapnia Qualified Code(s) : J96.21 - Acute and chronic respiratory failure with hypoxia; J96.22 - Acute and chronic respiratory failure with hypercapnia (2) Acute on chronic diastolic CHF (congestive heart failure) Current Visit: Yes Status: Acute 1. Stopping IV lasix, changing to home PO dose, continue 2. Maintain Burkett catheter for strict I's and O's (3) Pneumonia Current Visit: No Status: Suspected 1. Continue vancomycin for MRSA pneumonia Qualifiers: Pneumonia type: due to unspecified organism Laterality: right Lung location: upper lobe of lung Qualified Code(s): J18.1 - Lobar pneumonia, unspecified organism (4) CKD (chronic kidney disease) stage 3, GFR 30-59 ml/min Current Visit: No Status: Chronic 1. Stable, continue to trend electrolytes and renal function while on lasix (5) Cellulitis Current Visit: No Status: Acute 1. improving but continuing abx for MRSA PNA 2. Continue to trend white blood cell count and monitor temperature curves Qualifiers: Site of cellulitis: extremity Site of cellulitis of extremity: lower extremity Laterality: right Qualified Code(s): L03.115 - Cellulitis of right lower limb (6) DVT prophylaxis Current Visit: Yes Status: Acute 1. Subcutaneous heparin 2. NO restraints needed Subjective Principal diagnosis: Acute on chronic resp failure Interval history: Doing very well and has been on BiPAP at night and only 30min-1hour during the day. Otherwise, is awake, alert and mentating normally Objective PUL Vital signs: Last Vital Signs Temp 97.6 F 02/22/18 08:06 Pulse 65 02/22/18 09:00 Resp 16 02/22/18 07:40 BP 132/86 02/22/18 06:00 Pulse Ox 94 02/22/18 09:00 General appearance: no acute distress Eyes: nonicteric ENT: oropharynx moist Neck: supple Effort: normal Auscultation: bilateral: diminished breath sounds, rales Cardiovascular: regular rate and rhythm Gastrointestinal: normoactive bowel sounds, non-distended Integumentary: normal, erythema Extremities: no cyanosis, no clubbing, edema Musculoskeletal: no deformities normal mental status, non-focal exam Results - Laboratory Findings CBC and BMP: 02/21/18 07:45 02/21/18 23:10 ABG ABG pH 7.43 pH Units (7.32-7.45) 02/20/18 08:07 ABG pCO2 53 mmHg (35-45) H 02/20/18 08:07 ABG pO2 77 mmHg (85-104) L 02/20/18 08:07 ABG O2 Saturation 95 % (95-98) 02/20/18 08:07 Abnormal lab findings: Abnormal lab results Hgb 11.2 g/dL (11.5-15.4) L 02/21/18 07:45 MCH 25.8 pg (28.0-33.3) L 02/21/18 07:45 MCHC 29.1 g/dL (31.6-35.5) L 02/21/18 07:45 RDW 18.1 % (11.5-14.5) H 02/21/18 07:45 Plt Count 115 K/mcL (140-400) L 02/21/18 07:45 Lymphocytes # 0.3 K/mcL (0.6-4.6) L 02/21/18 07:45 Reactive Lymphocytes Present (Not Present) A 02/16/18 03:30 Large Platelets Present (Not Present) A 02/16/18 03:30 Immature Plt Fraction 6.2 % (1.1-6.1) H 02/17/18 04:00 Hypochromasia Present (Not Present) A 02/16/18 03:30 Poikilocytosis 2+ (Not Present) A 02/17/18 04:00 Anisocytosis 2+ (Not Present) A 02/17/18 04:00 Stomatocytes 1+ (Not Present) A 02/17/18 04:00 ABG pCO2 53 mmHg (35-45) H 02/20/18 08:07 ABG pO2 77 mmHg (85-104) L 02/20/18 08:07 ABG HCO3 36 mEq/L (21-27) H 02/20/18 08:07 ABG Total CO2 37 mEq/L (20-26) H 02/20/18 08:07 ABG Base Excess 10 mEq/L (-2 to 3) H 02/20/18 08:07 Carbon Dioxide 38 mEq/L (23-29) H 02/21/18 15:50 Est GFR (Non-Af Amer) 51 (> 60) L 02/21/18 15:50 Glucose 128 mg/dL (70-105) H 02/21/18 15:50 POC Glucose 130 mg/dL (70-99) H 02/21/18 23:17 Venous Ioniz Calcium 1.01 mmol/L (1.15-1.35) L 02/22/18 10:07 B-Natriuretic Peptide 513 pg/mL (Less than 100) H 02/11/18 21:31 Fluid Appearance Cloudy (Clear) A 02/14/18 11:00 Nasal Screen MRSA (PCR) Positive (Negative) A 02/14/18 20:57 Vancomycin Trough 17 mcg/mL (5-10) H 02/19/18 22:00 - Clinical Findings Intake & Output: Intake & Output 02/21/18 02/22/18 02/22/18 23:59 07:59 15:59 Intake Total 350 / 350 360 / 360 Output Total 1100 / 1100 250 / 250 100 / 100 Balance -750 / -750 110 / 110 -100 / -100 Consult Discharge Plan - Plan Referrals: Brad Minor MD [Primary Care Provider] - <RickyLayton fuentes S - Last Filed: 02/22/18 21:17> Date of Encounter: 02/22/18 Objective PUL Vital signs: Last Vital Signs Temp 98.3 F 02/22/18 14:37 Pulse 76 02/22/18 16:21 Resp 18 02/22/18 20:19 BP 138/80 02/22/18 16:21 Pulse Ox 95 02/22/18 20:19 Results - Laboratory Findings CBC and BMP: 02/21/18 07:45 02/22/18 14:42 ABG ABG pH 7.43 pH Units (7.32-7.45) 02/20/18 08:07 ABG pCO2 53 mmHg (35-45) H 02/20/18 08:07 ABG pO2 77 mmHg (85-104) L 02/20/18 08:07 ABG O2 Saturation 95 % (95-98) 02/20/18 08:07 Abnormal lab findings: Abnormal lab results Hgb 11.2 g/dL (11.5-15.4) L 02/21/18 07:45 MCH 25.8 pg (28.0-33.3) L 02/21/18 07:45 MCHC 29.1 g/dL (31.6-35.5) L 02/21/18 07:45 RDW 18.1 % (11.5-14.5) H 02/21/18 07:45 Plt Count 115 K/mcL (140-400) L 02/21/18 07:45 Lymphocytes # 0.3 K/mcL (0.6-4.6) L 02/21/18 07:45 Reactive Lymphocytes Present (Not Present) A 02/16/18 03:30 Large Platelets Present (Not Present) A 02/16/18 03:30 Immature Plt Fraction 6.2 % (1.1-6.1) H 02/17/18 04:00 Hypochromasia Present (Not Present) A 02/16/18 03:30 Poikilocytosis 2+ (Not Present) A 02/17/18 04:00 Anisocytosis 2+ (Not Present) A 02/17/18 04:00 Stomatocytes 1+ (Not Present) A 02/17/18 04:00 ABG pCO2 53 mmHg (35-45) H 02/20/18 08:07 ABG pO2 77 mmHg (85-104) L 02/20/18 08:07 ABG HCO3 36 mEq/L (21-27) H 02/20/18 08:07 ABG Total CO2 37 mEq/L (20-26) H 02/20/18 08:07 ABG Base Excess 10 mEq/L (-2 to 3) H 02/20/18 08:07 Chloride 95 mEq/L (98-107) L 02/22/18 14:42 Carbon Dioxide 39 mEq/L (23-29) H 02/22/18 14:42 BUN 27 mg/dL (8-23) H 02/22/18 14:42 Est GFR (Non-Af Amer) 50 (> 60) L 02/22/18 14:42 Glucose 158 mg/dL (70-105) H 02/22/18 14:42 POC Glucose 130 mg/dL (70-99) H 02/21/18 23:17 Calcium 8.5 mg/dL (8.6-10.3) L 02/22/18 14:42 Venous Ioniz Calcium 1.01 mmol/L (1.15-1.35) L 02/22/18 10:07 B-Natriuretic Peptide 513 pg/mL (Less than 100) H 02/11/18 21:31 Fluid Appearance Cloudy (Clear) A 02/14/18 11:00 Nasal Screen MRSA (PCR) Positive (Negative) A 02/14/18 20:57 Vancomycin Trough 17 mcg/mL (5-10) H 02/19/18 22:00 - Clinical Findings Intake & Output: Intake & Output 02/22/18 02/22/18 02/22/18 07:59 15:59 23:59 Intake Total 360 / 360 120 / 120 Output Total 250 / 250 500 / 500 Balance 110 / 110 -380 / -380 - Attending Attestation - Attending Attestation I saw and evaluated this patient and my medical decision-making was reviewed with the Resident Physician. I agree with the documented findings, disposition and treatment plan as described except to the extent set forth below. We independently had [id number] contact with the patient Patient seen and examined at bedside Labs, radiology, chart personally reviewed. Management was reviewed during multidisciplinary critical care rounds. COMPENSATION AGENT:Patient is awake and following commands, metabolic encephalopathy resolved Pulm: Patient did well on BIPAP over night will to advance diet then BIPAP in the afternoon and night . Patient has acceptable oxygenation and ventilation . MRSA pneumonia which was found in the BAL . Antibiotic duration according to ID. 02/22 : Patient did well without BIPAP during the day . Patient will need BIPAP at night and whenever she sleeps .. Cards: Patient is hemodynamically stable has CHF with hydrostatic pulmonary edema will continue diuresis ..Patient is tolerating diuresis FEN-GI:Advance diet as tolerated Renal: Acute on Chronic Kidney disease stable creatinine will continue gentle diuresis ID: To continue broad spectrum antibiotics with MRSA pneumonia ID following Heme/Onc: To continue Thromboprophylaxis Endo: Glucose Monitored Integ/MSK: Skin Care per routine ICU Nursing Protocol to prevent ulcers. Lines: All lines examined without evidence of infection : Dispo: Patient can be shifted medical telemetry. CODE: [id number] -[id number] .
[2018-02-22] MEDS ORDERED: Ondansetron 4 MG/2 ML VIAL IVP PRN (13:11)
[2018-02-22 15:19] LABS: BUN/Creatinine Ratio 25 (6-26); Blood Urea Nitrogen 27 mg/dL (8-23); Calcium 8.5 mg/dL (8.6-10.3); Carbon Dioxide 39 mEq/L (23-29); Glucose 158 mg/dL (70-105); eGFR For African Americans > 60 (> 60); eGFR For Non-African Americans 50 (> 60)
[2018-02-22 15:23] LABS: Chloride 95 mEq/L (98-107); Osmolality,Calculated 298 (280-300); Potassium 4.1 mEq/L (3.5-5.1); Sodium 140 mEq/L (136-145)
[2018-02-22] MEDS: Furosemide 40 MG TABLET PO SCH (16:02)
[2018-02-22] MEDS: Nystatin POWDER 30 GM BOTTLE TP SCH ×2 (16:02→23:36)
[2018-02-23] MEDS: Ipratropium/Albuterol Neb 3 ML IH SCH ×5 (03:53→20:01)
[2018-02-23] MEDS: *HR* Metoprolol 5 MG/5 ML VIAL IVP SCH ×3 (06:14→17:49)
[2018-02-23] MEDS: *HR* Heparin 5,000 UNIT/ML VIAL SQ SCH ×2 (06:15→17:49)
[2018-02-23 06:58] LABS: BUN/Creatinine Ratio 29 (6-26); Blood Urea Nitrogen 27 mg/dL (8-23); Calcium 8.5 mg/dL (8.6-10.3); Carbon Dioxide 38 mEq/L (23-29); Chloride 97 mEq/L (98-107); Glucose 92 mg/dL (70-105); Magnesium 1.7 mg/dL (1.6-2.6); Osmolality,Calculated 297 (280-300); Phosphorous 2.7 mg/dL (2.7-4.5); Potassium 3.5 mEq/L (3.5-5.1); Sodium 141 mEq/L (136-145); eGFR For African Americans > 60 (> 60); eGFR For Non-African Americans 59 (> 60)
[2018-02-23] MEDS: amLODIPine 5 MG TABLET PO SCH (08:56)
[2018-02-23] MEDS: levETIRAcetam 250 MG TABLET PO SCH ×2 (08:57→20:37)
[2018-02-23] MEDS: Furosemide 40 MG TABLET PO SCH (08:58)
--- NOTE | 2018-02-23 11:04 | Infectious Disease Progress No ---
Date of Encounter: 02/23/18 Time of Encounter: 11:01 - Assessment and Plan (1) Pneumonia Current Visit: No Status: Suspected Causative organism: MRSA. CXR negative, but bronch showed mucous plugs and mucupurulent secretions. Urine legionella and S. pneumo UAT negative. RIP negative. Extubated 02/19/18. Currently on NC, BIPAP QHS. Continue Vancomycin IV. Pharmacy to dose. Goal trough ~15. Duration of treatment depends on the clinical picture, but likely 14-21 days. Will likely be able to switch to PO antibiotics when ready for discharge. Monitor renal function and for drug toxicity and dose-adjust antibiotics. Qualifiers: Pneumonia type: due to unspecified organism Laterality: right Lung location: upper lobe of lung Qualified Code(s): J18.1 - Lobar pneumonia, unspecified organism (2) Cellulitis Current Visit: No Status: Acute Resolved. Physicial exam not suggestive of cellulitis. Cultures obtained at outside facility before patient came and were positive for Serratia and Klebsiella. Has completed 7 days of Zosyn. Vancomycin continues for MRSA PNA. Qualifiers: Site of cellulitis: extremity Site of cellulitis of extremity: lower extremity Laterality: right Qualified Code(s): L03.115 - Cellulitis of right lower limb (3) COPD exacerbation Current Visit: No Status: Acute (4) Acute on chronic respiratory failure Current Visit: No Status: Acute Likely secondary to PNA and COPD exacerbation. Extubated 02/19/18. Further management per the pulmonology team. Qualifiers: Respiratory failure complication: hypoxia and hypercapnia Qualified Code(s) : J96.21 - Acute and chronic respiratory failure with hypoxia; J96.22 - Acute and chronic respiratory failure with hypercapnia (5) CKD (chronic kidney disease) stage 3, GFR 30-59 ml/min Current Visit: No Status: Chronic Monitor renal function and for drug toxicity and dose-adjust antibiotics. (6) Acute on chronic diastolic CHF (congestive heart failure) Current Visit: Yes Status: Acute (7) Candidiasis Current Visit: Yes Status: Acute Continue topical antifungals. - Subjective Interval history: Patient seen and examined. Patient sitting up in bed, requesting to go home. Denies fevers, chills, or rigors. Denies chest pain. Reports some mild shortness of breath and non-productive cough. Denies nausea, vomiting, or diarrhea. States rectal tube was removed earlier this morning. Denies abdominal pain. Burkett catheter remains patent. States she didn't eat breakfast, but she is not a breakfast person. Denies pain. Denies oral thrush. Infect Dis PN-Objective Data - Labs CBC & Chem 7: 02/21/18 07:45 02/23/18 06:25 Labs: Laboratory Results - last 24 hr 02/14/18 02/22/18 02/22/18 11:01 05:46 11:14 Sodium Potassium Chloride Carbon Dioxide BUN Creatinine Est GFR ( Amer) Est GFR (Non-Af Amer) BUN/Creatinine Ratio Glucose POC Glucose 124 H 101 H Calculated Osmolality Calcium Phosphorus Magnesium Fluid Flow Cytometry SEE EMR DOCUMENT Vancomycin Trough 02/22/18 02/22/18 02/23/18 14:42 22:05 06:25 Sodium 140 141 Potassium 4.1 3.5 Chloride 95 L 97 L Carbon Dioxide 39 H 38 H BUN 27 H 27 H Creatinine 1.09 0.94 Est GFR ( Amer) > 60 > 60 Est GFR (Non-Af Amer) 50 L 59 L BUN/Creatinine Ratio 25 29 H Glucose 158 H 92 POC Glucose Calculated Osmolality 298 297 Calcium 8.5 L 8.5 L Phosphorus 2.7 Magnesium 1.7 Fluid Flow Cytometry Vancomycin Trough 17 H Cultures: Cultures 02/14/18 11:00 Gram Stain - Final Left Lower Lobe Lung Respiratory Culture - Final Methicillin Resistant S.aureus 02/14/18 11:00 Acid Fast Stain - Final Left Lower Lobe Lung 02/12/18 10:58 Sputum Culture - Final Sputum 02/13/18 17:40 Legionella Antigen - Final Urine,Catheterized Streptococcus pneumoniae Antigen (M - Final Serology 02/14/18 02/14/18 02/14/18 Range/Units 20:57 11:01 11:00 Fluid Source LLL BAL Fluid Volume 18 mL Fluid Appearance Cloudy A (Clear) Fluid RBC 0.004 (No Ref Range) M/mcL Fld Tot Nucleated Cell 685 (No Ref Range) TNC/mcL Fluid Seg Neutrophil % 56.8 % Fld Band Neutrophil % Test Not Performed Fluid Lymphocytes % 2.5 % Fluid Monocytes % Test Not Performed Fluid Eosinophils % Test Not Performed Fluid Basophils % Test Not Performed Fluid Other Cells % 40.7 % Fluid Flow Cytometry SEE EMR DOCUMENT Nasal Screen MRSA (PCR) Positive A (Negative) Chlamy pneumoniae PCR (Not Detect) Adenovirus (PCR) (Not Detect) B. pertussis DNA (PCR) (Not Detect) B.parapertussis DNA PCR (Not Detect) Coronavirus OC43 (PCR) (Not Detect) Coronavirus HKU1 (PCR) (Not Detect) Coronavirus 229E (PCR) (Not Detect) Coronavirus NL63 (PCR) (Not Detect) Human Metapneumovir PCR (Not Detect) Influenza A (H1) PCR (Not Detect) Influ A (H1N1/09) PCR (Not Detect) Influenza A (H3) PCR (Not Detect) Influenza A Untype (PCR) (Not Detect) Influenza Type B (PCR) (Not Detect) M.pneumoniae DNA (PCR) (Not Detect) Parainfluenza 1 (PCR) (Not Detect) Parainfluenza 2 (PCR) (Not Detect) Parainfluenza 3 (PCR) (Not Detect) Parainfluenza 4 (PCR) (Not Detect) RSV (PCR) (Not Detect) Entero/Rhino (PCR) (Not Detect) 02/13/18 Range/Units 17:40 Fluid Source Fluid Volume mL Fluid Appearance (Clear) Fluid RBC (No Ref Range) M/mcL Fld Tot Nucleated Cell (No Ref Range) TNC/mcL Fluid Seg Neutrophil % % Fld Band Neutrophil % Fluid Lymphocytes % % Fluid Monocytes % Fluid Eosinophils % Fluid Basophils % Fluid Other Cells % % Fluid Flow Cytometry Nasal Screen MRSA (PCR) (Negative) Chlamy pneumoniae PCR Not Detected (Not Detect) Adenovirus (PCR) Not Detected (Not Detect) B. pertussis DNA (PCR) Not Detected (Not Detect) B.parapertussis DNA PCR Not Detected (Not Detect) Coronavirus OC43 (PCR) Not Detected (Not Detect) Coronavirus HKU1 (PCR) Not Detected (Not Detect) Coronavirus 229E (PCR) Not Detected (Not Detect) Coronavirus NL63 (PCR) Not Detected (Not Detect) Human Metapneumovir PCR Not Detected (Not Detect) Influenza A (H1) PCR Not Detected (Not Detect) Influ A (H1N1/09) PCR Not Detected (Not Detect) Influenza A (H3) PCR Not Detected (Not Detect) Influenza A Untype (PCR) Not Detected (Not Detect) Influenza Type B (PCR) Not Detected (Not Detect) M.pneumoniae DNA (PCR) Not Detected (Not Detect) Parainfluenza 1 (PCR) Not Detected (Not Detect) Parainfluenza 2 (PCR) Not Detected (Not Detect) Parainfluenza 3 (PCR) Not Detected (Not Detect) Parainfluenza 4 (PCR) Not Detected (Not Detect) RSV (PCR) Not Detected (Not Detect) Entero/Rhino (PCR) Not Detected (Not Detect) Exam - Constitutional Vitals: Temp Pulse Resp BP Pulse Ox 97.0 F L 65 18 150/92 91 02/23/18 07:59 02/23/18 07:59 02/23/18 08:04 02/23/18 07:59 02/23/18 08:04 General appearance: cooperative, morbidly obese, no acute distress - Head Head exam: Present: atraumatic, normal inspection, normocephalic - Eye Eye exam: Present: EOMI, normal appearance, PERRL Pupils: Present: normal accommodation - ENT ENT exam: Present: mucous membranes moist - Neck Neck exam: Present: normal inspection - Respiratory Respiratory exam: Present: decreased breath sounds (throughout). Absent: rales , respiratory distress, rhonchi, wheezes - Cardiovascular Cardiovascular exam: Present: irregular rhythm. Absent: tachycardia - GI/Abdominal GI/Abdominal exam: Present: distended (obese), normal bowel sounds, soft. Absent: tenderness Additional comments: Burkett catheter noted to be draining clear yellow urine. - Extremities Exam Extremities exam: Absent: joint swelling, pedal edema, tenderness Additional comments: Venous stasis dermatitis noted to the BLE. Right foot with stage II ulcer noted to the dorsal aspect overlying the 1st metatarsal. No erythema, warmth, drainage , or purulence noted. Left foot dressing C/D/I. - Neurological Exam Neurological exam: Present: alert, oriented X3, no focal deficits - Psychiatric Psychiatric exam: Present: normal affect, normal mood - Skin Skin exam: Present: dry, intact, normal color, warm Consult Discharge Plan - Plan Referrals: Brad Minor MD [Primary Care Provider] -
--- NOTE | 2018-02-23 11:34 | Internal Med Progress Note ---
<Juan Lester - Last Filed: 02/23/18 11:39> Date of Encounter: 02/23/18 Time of Encounter: 10:35 - Assessment and plan (1) Acute on chronic diastolic CHF (congestive heart failure) Current Visit: Yes Status: Acute Assessment and plan: Currently saturating well on 4L nasal cannula; uses bipap at night without desaturating Alert and oriented, good creatinine Plan: Continue nightly bipap Continue diuresis with Lasix at 40mg po daily (2) Acute on chronic respiratory failure Current Visit: No Status: Acute Assessment and plan: Diuresis and NC/Bipap as above MRSA PNA treated with Vanc; plan for 14-21 days depending on clinical picture per ID Qualifiers: Respiratory failure complication: hypoxia and hypercapnia Qualified Code(s) : J96.21 - Acute and chronic respiratory failure with hypoxia; J96.22 - Acute and chronic respiratory failure with hypercapnia (3) Cellulitis Current Visit: No Status: Acute Assessment and plan: Bilateral lower extremities over anterior tibialis, no fever or wt ct Continue abx therapy primarily for MRSA pna to cover for poss soft tissue infection Qualifiers: Site of cellulitis: extremity Site of cellulitis of extremity: lower extremity Laterality: right Qualified Code(s): L03.115 - Cellulitis of right lower limb (4) CKD (chronic kidney disease) stage 3, GFR 30-59 ml/min Current Visit: No Status: Chronic Assessment and plan: 0.94 creatinine, good urine output monitoring while on vanc/lasix (5) Pneumonia Current Visit: No Status: Suspected Assessment and plan: diminished breath sounds bilaterally without rhonchi, saturating 90-93 on 4L NC continuing vancomycin (MRSA growth per bronchoscopy culture) total vanc duration 14-21 days Qualifiers: Pneumonia type: due to unspecified organism Laterality: right Lung location: upper lobe of lung Qualified Code(s): J18.1 - Lobar pneumonia, unspecified organism (6) DVT prophylaxis Current Visit: Yes Status: Acute Assessment and plan: on epcds - Time Spent With Patient Total time spent is greater than 50% in coordination of care (as documented) at patient's floor/unit and/or counseling patient: - Subjective Interval history: PMHx: 67F CHF, COPD, HTN/HLD, seizures on Keppra Interval History: 02/11 Admitted in setting of AMS and dyspnea for acute on chronic resp failure secondary to heart failure with fluid overload CXR showing interstitial and alveolar edema, echo shows grossly dilated r ventrile, preserved EF of 60. Placed on mechanical ventilation, levaquin prophylaxis, versed sedation, spot diuresis, UOP monitoring 02/13 Extubated to BiPap 40% Fio2 satuating at 92% ID consult for source determination and management 02/14 Re-intubated due to worsening performance on Bipap with agitation Bronchoscopy performed 02/15 Continued mechanical ventilation Discussion with palliative regarding goals of care, decision made by son for DNA CCA DNI (patient affirms this later in hospital course) 02/16-02/20 MRSA identified on vanc; extubated on 02/19, continued diuresis 02/21 Net negative fluid status 02/22 Tolerates being off bipap most of day Continues to use bipap at night Transitioned to home dose of Lasix (40mg po daily) Transitioned to 2NE - Constitutional Vitals: Temp Pulse Resp BP Pulse Ox 97.0 F L 65 16 150/92 89 02/23/18 07:59 02/23/18 07:59 02/23/18 11:05 02/23/18 07:59 02/23/18 11:05 General appearance: Present: A&O X 0 - Head Head exam: Present: atraumatic, normal inspection - Eye Eye exam: Present: EOMI, normal appearance - Neck Neck exam general surgery: Present: full ROM. Absent: lymphadenopathy Additional comments: tracheostomy scar - Respiratory Respiratory exam: Present: decreased breath sounds. Absent: accessory muscle use, rales, rhonchi, wheezes Additional comments: bilaterally - Cardiovascular Cardiovascular exam: Present: RRR, +S1, +S2. Absent: diastolic murmur, gallop, JVD, rubs, systolic murmur - GI/Abdominal GI/Abdominal exam: Present: normal bowel sounds, soft, no peritoneal signs. Absent: distended, tenderness - Extremities Exam Extremities exam: Present: warm. Absent: calf tenderness, cyanotic, pedal edema Additional comments: lower extremity erythema - Neurological Exam Neurological exam: Present: CN II-XII intact, oriented X3, no focal deficits. Absent: pronater drift, facial droop, speech deficit Internal Medicine: Result - Labs CBC & Chem 7: 02/21/18 07:45 02/23/18 06:25 Labs: BMP 02/22/18 02/23/18 14:42 06:25 Sodium 140 141 Potassium 4.1 3.5 Chloride 95 L 97 L Carbon Dioxide 39 H 38 H BUN 27 H 27 H Creatinine 1.09 0.94 Glucose 158 H 92 Calcium 8.5 L 8.5 L - ABG Interpretation ABG results: ABG ABG pH 7.43 pH Units (7.32-7.45) 02/20/18 08:07 ABG pCO2 53 mmHg (35-45) H 02/20/18 08:07 ABG pO2 77 mmHg (85-104) L 02/20/18 08:07 ABG O2 Saturation 95 % (95-98) 02/20/18 08:07 Consult Discharge Plan - Plan Referrals: Brad Minor MD [Primary Care Provider] - <Mohan Coronado - Last Filed: 02/23/18 14:30> Date of Encounter: 02/23/18 - Assessment and plan (1) Pneumonia Current Visit: No Status: Suspected Qualifiers: Pneumonia type: due to unspecified organism Laterality: right Lung location: upper lobe of lung Qualified Code(s): J18.1 - Lobar pneumonia, unspecified organism (2) CKD (chronic kidney disease) stage 3, GFR 30-59 ml/min Current Visit: No Status: Chronic (3) Acute on chronic respiratory failure Current Visit: No Status: Acute Qualifiers: Respiratory failure complication: hypoxia and hypercapnia Qualified Code(s) : J96.21 - Acute and chronic respiratory failure with hypoxia; J96.22 - Acute and chronic respiratory failure with hypercapnia (4) Cellulitis Current Visit: No Status: Acute Qualifiers: Site of cellulitis: extremity Site of cellulitis of extremity: lower extremity Laterality: right Qualified Code(s): L03.115 - Cellulitis of right lower limb (5) Acute on chronic diastolic CHF (congestive heart failure) Current Visit: Yes Status: Acute (6) DVT prophylaxis Current Visit: Yes Status: Acute - Time Spent With Patient Total time spent is greater than 50% in coordination of care (as documented) at patient's floor/unit and/or counseling patient: - Constitutional Vitals: Temp Pulse Resp BP Pulse Ox 97.2 F L 78 18 147/73 93 02/23/18 12:03 02/23/18 12:03 02/23/18 12:03 02/23/18 12:03 02/23/18 12:03 Internal Medicine: Result - Labs CBC & Chem 7: 02/21/18 07:45 02/23/18 06:25 Labs: BMP 02/22/18 02/23/18 14:42 06:25 Sodium 140 141 Potassium 4.1 3.5 Chloride 95 L 97 L Carbon Dioxide 39 H 38 H BUN 27 H 27 H Creatinine 1.09 0.94 Glucose 158 H 92 Calcium 8.5 L 8.5 L - ABG Interpretation ABG results: ABG ABG pH 7.43 pH Units (7.32-7.45) 02/20/18 08:07 ABG pCO2 53 mmHg (35-45) H 02/20/18 08:07 ABG pO2 77 mmHg (85-104) L 02/20/18 08:07 ABG O2 Saturation 95 % (95-98) 02/20/18 08:07 - Attending Attestation I performed an independent interview and exam of this patient. I agree with the findings, assessment, and plan of Dr. Lester, internal medicine resident. Critical care records reviewed. Patient has improved significantly. She is currently on IV vancomycin for MRSA pneumonia. Also completed 7 days of Zosyn. She also was on this for cellulitis of her lower extremities. His appears to be significantly improved and on repeat examination today there is no obvious cellulitis. She does have bilateral lower extremity wounds which do not appear infected. Patient has been adequately diuresed and is now on oral Lasix 40 mg by mouth daily. She continues on 4 L of oxygen per nasal cannula. Exam: Gen: AAOx3, but very fatigued, ill appearing. Obese, generalized weakness. Skin: Warm and dry Neck: Supple, no JVD Lungs: Faint basilar crackles Ht: RRR Abd: Soft + BS, NT Ext: trace edema. Bilat LE wounds as previously described, do not appear infected. Neuro: Nonfocal I discussed the case with the pt's .
[2018-02-23] MEDS: Nystatin POWDER 30 GM BOTTLE TP SCH ×3 (13:06→20:48)
[2018-02-23] MEDS: Mag Hydrox/Al Hydrox/Simeth 30 ML UDC PO PRN (20:36)
[2018-02-24] MEDS: Ipratropium/Albuterol Neb 3 ML IH SCH ×7 (00:03→23:05)
[2018-02-24] MEDS: *HR* Metoprolol 5 MG/5 ML VIAL IVP SCH ×5 (00:47→23:54)
[2018-02-24] MEDS: *HR* Heparin 5,000 UNIT/ML VIAL SQ SCH ×2 (05:22→17:45)
[2018-02-24 07:46] LABS: Hematocrit 39.3 % (35.3-44.9); Hemoglobin 11.6 g/dL (11.5-15.4); Mean Corpuscular HGB Conc 29.5 g/dL (31.6-35.5); Mean Corpuscular Hemoglobin 26.3 pg (28.0-33.3); Mean Corpuscular Volume 89.1 fL (83.0-100.0); Mean Platelet Volume 12.3 fL (9.4-12.4); Platelet Count 118 K/mcL (140-400); Red Blood Count 4.41 M/mcL (3.82-4.97)
[2018-02-24 08:04] LABS: BUN/Creatinine Ratio 28 (6-26); Blood Urea Nitrogen 22 mg/dL (8-23); Calcium 8.2 mg/dL (8.6-10.3); Carbon Dioxide 36 mEq/L (23-29); Chloride 98 mEq/L (98-107); Glucose 105 mg/dL (70-105); Magnesium 1.7 mg/dL (1.6-2.6); Osmolality,Calculated 294 (280-300); Phosphorous 2.6 mg/dL (2.7-4.5); Potassium 3.7 mEq/L (3.5-5.1); Sodium 140 mEq/L (136-145); eGFR For African Americans > 60 (> 60); eGFR For Non-African Americans > 60 (> 60)
[2018-02-24] MEDS: levETIRAcetam 250 MG TABLET PO SCH ×2 (09:30→20:17)
[2018-02-24] MEDS: amLODIPine 5 MG TABLET PO SCH (09:30)
[2018-02-24] MEDS: Furosemide 40 MG TABLET PO SCH (09:30)
[2018-02-24] MEDS: Simethicone 80 MG TAB.CHEW PO PRN ×2 (09:31→17:50)
[2018-02-24] MEDS: Nystatin POWDER 30 GM BOTTLE TP SCH ×3 (09:38→20:18)
[2018-02-24] MEDS: Mag Hydrox/Al Hydrox/Simeth 30 ML UDC PO PRN ×2 (12:46→20:16)
--- NOTE | 2018-02-24 15:24 | Internal Med Progress Note ---
<Juan Lester - Last Filed: 02/24/18 15:29> Date of Encounter: 02/24/18 Time of Encounter: 08:10 - Assessment and plan (1) Acute on chronic diastolic CHF (congestive heart failure) Current Visit: Yes Status: Acute Assessment and plan: Currently saturating well on 4L nasal cannula; uses bipap at night without desaturating Alert and oriented, good creatinine Plan: Continue nightly bipap Continue diuresis with Lasix at 40mg po daily (2) Acute on chronic respiratory failure Current Visit: No Status: Acute Assessment and plan: Diuresis and NC/Bipap as above MRSA PNA treated with Vanc Consider covering MRSA with Doxycycline 100mg BID Sunday versus continuing Vanc for a total of 14-21 days Qualifiers: Respiratory failure complication: hypoxia and hypercapnia Qualified Code(s) : J96.21 - Acute and chronic respiratory failure with hypoxia; J96.22 - Acute and chronic respiratory failure with hypercapnia (3) Cellulitis Current Visit: No Status: Acute Assessment and plan: Bilateral lower extremities over anterior tibialis, no fever or wt ct Continue abx therapy primarily for MRSA pna to cover for poss soft tissue infection Qualifiers: Site of cellulitis: extremity Site of cellulitis of extremity: lower extremity Laterality: right Qualified Code(s): L03.115 - Cellulitis of right lower limb (4) CKD (chronic kidney disease) stage 3, GFR 30-59 ml/min Current Visit: No Status: Chronic Assessment and plan: 0.78 (0.94) creatinine, good urine output monitoring while on vanc/lasix (5) Pneumonia Current Visit: No Status: Suspected Assessment and plan: diminished breath sounds bilaterally without rhonchi, saturating 90-93 on 4L NC continuing vancomycin (MRSA growth per bronchoscopy culture) total vanc duration 14-21 days; consider doxy Sunday as MDM above Qualifiers: Pneumonia type: due to unspecified organism Laterality: right Lung location: upper lobe of lung Qualified Code(s): J18.1 - Lobar pneumonia, unspecified organism (6) DVT prophylaxis Current Visit: Yes Status: Acute Assessment and plan: on epcds - Time Spent With Patient Total time spent is greater than 50% in coordination of care (as documented) at patient's floor/unit and/or counseling patient: - Subjective Interval history: Patient doing well on with nasal cannula, slept well, no events overnight, denies fever, chest discomfort, abdominal pain, or leg pain. - Constitutional Vitals: Temp Pulse Resp BP Pulse Ox 98.1 F 65 15 157/92 94 02/24/18 06:42 02/24/18 06:42 02/24/18 06:42 02/24/18 06:42 02/24/18 06:42 General appearance: Present: A&O X 0 - Head Head exam: Present: atraumatic, normocephalic - Eye Eye exam: Present: PERRL, conjuntiva pink, sclera anicteric Pupils: Present: PERRL - Neck Neck exam general surgery: Present: supple, trachea midline. Absent: lymphadenopathy - Respiratory Respiratory exam: Present: decreased breath sounds. Absent: accessory muscle use, rales, rhonchi, wheezes Additional comments: normal chest wall excursion - Cardiovascular Cardiovascular exam: Present: RRR, +S1, +S2. Absent: diastolic murmur, gallop, rubs, systolic murmur - GI/Abdominal GI/Abdominal exam: Present: normal bowel sounds, soft, no peritoneal signs. Absent: distended, tenderness - Extremities Exam Extremities exam: Present: warm, radial pulses palpable and symmetrical. Absent : calf tenderness, cyanotic, pedal edema Additional comments: surgical scars over lateral epicondial - Neurological Exam Neurological exam: Present: CN II-XII intact, oriented X3, no focal deficits. Absent: pronater drift, facial droop, speech deficit - Skin Skin exam: Present: dry, intact Internal Medicine: Result - Labs CBC & Chem 7: 02/24/18 07:20 02/24/18 07:20 Labs: Short CBC 02/24/18 Range/Units 07:20 WBC 5.0 (4.3-11.1) K/mcL Hgb 11.6 (11.5-15.4) g/dL Hct 39.3 (35.3-44.9) % Plt Count 118 L (140-400) K/mcL BMP 02/24/18 07:20 Sodium 140 Potassium 3.7 Chloride 98 Carbon Dioxide 36 H BUN 22 Creatinine 0.78 Glucose 105 Calcium 8.2 L - ABG Interpretation ABG results: ABG ABG pH 7.43 pH Units (7.32-7.45) 02/20/18 08:07 ABG pCO2 53 mmHg (35-45) H 02/20/18 08:07 ABG pO2 77 mmHg (85-104) L 02/20/18 08:07 ABG O2 Saturation 95 % (95-98) 02/20/18 08:07 Consult Discharge Plan - Plan Referrals: Brad Minor MD [Primary Care Provider] - <Mohan Coronado - Last Filed: 02/24/18 17:31> Date of Encounter: 02/24/18 - Assessment and plan (1) Pneumonia Current Visit: No Status: Suspected Qualifiers: Pneumonia type: due to unspecified organism Laterality: right Lung location: upper lobe of lung Qualified Code(s): J18.1 - Lobar pneumonia, unspecified organism (2) CKD (chronic kidney disease) stage 3, GFR 30-59 ml/min Current Visit: No Status: Chronic (3) Acute on chronic respiratory failure Current Visit: No Status: Acute Qualifiers: Respiratory failure complication: hypoxia and hypercapnia Qualified Code(s) : J96.21 - Acute and chronic respiratory failure with hypoxia; J96.22 - Acute and chronic respiratory failure with hypercapnia (4) Cellulitis Current Visit: No Status: Acute Qualifiers: Site of cellulitis: extremity Site of cellulitis of extremity: lower extremity Laterality: right Qualified Code(s): L03.115 - Cellulitis of right lower limb (5) Acute on chronic diastolic CHF (congestive heart failure) Current Visit: Yes Status: Acute (6) DVT prophylaxis Current Visit: Yes Status: Acute - Time Spent With Patient Total time spent is greater than 50% in coordination of care (as documented) at patient's floor/unit and/or counseling patient: - Constitutional Vitals: Temp Pulse Resp BP Pulse Ox 98.5 F 93 23 142/68 99 02/24/18 15:39 02/24/18 15:39 02/24/18 16:14 02/24/18 16:14 02/24/18 16:14 Internal Medicine: Result - Labs CBC & Chem 7: 02/24/18 07:20 02/24/18 07:20 Labs: Short CBC 02/24/18 Range/Units 07:20 WBC 5.0 (4.3-11.1) K/mcL Hgb 11.6 (11.5-15.4) g/dL Hct 39.3 (35.3-44.9) % Plt Count 118 L (140-400) K/mcL BMP 02/24/18 07:20 Sodium 140 Potassium 3.7 Chloride 98 Carbon Dioxide 36 H BUN 22 Creatinine 0.78 Glucose 105 Calcium 8.2 L - ABG Interpretation ABG results: ABG ABG pH 7.43 pH Units (7.32-7.45) 02/20/18 08:07 ABG pCO2 53 mmHg (35-45) H 02/20/18 08:07 ABG pO2 77 mmHg (85-104) L 02/20/18 08:07 ABG O2 Saturation 95 % (95-98) 02/20/18 08:07 - Attending Attestation I performed an independent interview and exam of this patient. I agree with the findings, assessment, and plan of Dr. Lester, internal medicine resident. We discussed the case in detail. She continues to improve. She will remain on doxycycline for a total of 14-21 days. We will transition from IV vancomycin to oral doxycycline upon discharge. Patient is showing significant improvement today she is more awake, more alert, she is increasing her activity. Lasix is oral. Renal function remains excellent. BiPAP as needed and at night. Presently working on placement. Gen NAD, AAOx3, morbidly obese NEck supple Lung Dimin bs bilat Ht RRR Abd soft +BS, NT Ext + edema I discussed the case with pt and her son at bedside
[2018-02-25] MEDS: Ipratropium/Albuterol Neb 3 ML IH SCH ×5 (04:33→19:47)
[2018-02-25 04:37] LABS: BUN/Creatinine Ratio 26 (6-26); Blood Urea Nitrogen 18 mg/dL (8-23); Calcium 8.5 mg/dL (8.6-10.3); Carbon Dioxide 37 mEq/L (23-29); Chloride 100 mEq/L (98-107); Glucose 105 mg/dL (70-105); Magnesium 1.7 mg/dL (1.6-2.6); Osmolality,Calculated 294 (280-300); Phosphorous 2.3 mg/dL (2.7-4.5); Potassium 3.3 mEq/L (3.5-5.1); Sodium 141 mEq/L (136-145); eGFR For African Americans > 60 (> 60); eGFR For Non-African Americans > 60 (> 60)
[2018-02-25] MEDS: *HR* Heparin 5,000 UNIT/ML VIAL SQ SCH ×2 (05:24→17:59)
[2018-02-25] MEDS: *HR* Metoprolol 5 MG/5 ML VIAL IVP SCH ×2 (05:24→12:30)
--- NOTE | 2018-02-25 09:05 | Event Note ---
Date of Encounter: 02/25/18 Time of Encounter: 09:04 Patient is awake and alert this morning states that she is continuing to do well , in the BiPAP well at night. And she confirms that her ultimate goal would be to return home. At this point social work is working with her with regards to supple therapy after hospitalization. Palliative care is not managing any symptoms at this time and has confirm for me multiple occasions her CODE STATUS at DNR CCA DNI. At this point she is stable enough I believe the palliative has nothing further to offer we will sign off please feel free to reconsult at any time.
--- NOTE | 2018-02-25 09:07 | Internal Med Progress Note ---
Date of Encounter: 02/25/18 Time of Encounter: 09:00 - Assessment and plan (1) Pneumonia Current Visit: No Status: Suspected Assessment and plan: diminished breath sounds bilaterally without rhonchi, saturating 90-93 on 4L NC continuing vancomycin (MRSA growth per bronchoscopy culture) switch to Doxycycline for 10 days Qualifiers: Pneumonia type: due to unspecified organism Laterality: right Lung location: upper lobe of lung Qualified Code(s): J18.1 - Lobar pneumonia, unspecified organism (2) CKD (chronic kidney disease) stage 3, GFR 30-59 ml/min Current Visit: No Status: Chronic Assessment and plan: 0.69 (0.78) creatinine, good urine output monitoring while on vanc/lasix (3) Acute on chronic respiratory failure Current Visit: No Status: Acute Assessment and plan: Diuresis and NC/Bipap as above MRSA PNA treated with Vanc Will be switched to Doxycycline 100mg BID to cover MRSA for a total of 10 days Qualifiers: Respiratory failure complication: hypoxia and hypercapnia Qualified Code(s) : J96.21 - Acute and chronic respiratory failure with hypoxia; J96.22 - Acute and chronic respiratory failure with hypercapnia (4) Cellulitis Current Visit: No Status: Acute Assessment and plan: Bilateral lower extremities over anterior tibialis, no fever or wt ct Continue abx therapy primarily for MRSA pna to cover for poss soft tissue infection Qualifiers: Site of cellulitis: extremity Site of cellulitis of extremity: lower extremity Laterality: right Qualified Code(s): L03.115 - Cellulitis of right lower limb (5) Acute on chronic diastolic CHF (congestive heart failure) Current Visit: Yes Status: Acute Assessment and plan: Currently saturating well on 4L nasal cannula; uses bipap at night without desaturating Alert and oriented, good creatinine Plan: Continue nightly bipap Continue diuresis with Lasix at 40mg po daily (6) DVT prophylaxis Current Visit: Yes Status: Acute - Time Spent With Patient Total time spent is greater than 50% in coordination of care (as documented) at patient's floor/unit and/or counseling patient: - Constitutional Vitals: Temp Pulse Resp BP Pulse Ox 97.8 F 71 22 140/71 93 02/25/18 06:35 02/25/18 06:35 02/25/18 07:36 02/25/18 07:36 02/25/18 07:36 General appearance: Present: A&O X 0 Internal Medicine: Result - Labs CBC & Chem 7: 02/24/18 07:20 02/25/18 03:42 Labs: BMP 02/25/18 03:42 Sodium 141 Potassium 3.3 L Chloride 100 Carbon Dioxide 37 H BUN 18 Creatinine 0.69 Glucose 105 Calcium 8.5 L - ABG Interpretation ABG results: ABG ABG pH 7.43 pH Units (7.32-7.45) 02/20/18 08:07 ABG pCO2 53 mmHg (35-45) H 02/20/18 08:07 ABG pO2 77 mmHg (85-104) L 02/20/18 08:07 ABG O2 Saturation 95 % (95-98) 02/20/18 08:07 Consult Discharge Plan - Plan Referrals: Brad Minor MD [Primary Care Provider] -
[2018-02-25] MEDS: levETIRAcetam 250 MG TABLET PO SCH ×2 (09:28→21:36)
[2018-02-25] MEDS: Furosemide 40 MG TABLET PO SCH (09:29)
[2018-02-25] MEDS: amLODIPine 5 MG TABLET PO SCH (09:29)
[2018-02-25] MEDS: Nystatin POWDER 30 GM BOTTLE TP SCH ×3 (09:30→21:41)
[2018-02-25] MEDS: Simethicone 80 MG TAB.CHEW PO PRN (09:31)
--- NOTE | 2018-02-25 10:31 | Discharge Summary ---
<Jt Dawn - Last Filed: 02/25/18 15:22> - NOTES TO OUTPATIENT PROVIDER Notes to Outpatient Provider: Patient has been on nightly bipap and will need to continue wearing it at night. Her current Bipap setting are; mask - small, bipap set rate 8, bipap inspiratory pressure 12, pipap respiratory pressure 6, bipap inspiratory time 1.00, FIO2 45%. May consider transition from IV Vanc to PO Doxycylcline depending on respiratory status. Orders not resulted at time of discharge: Pending orders 02/14/18 11:00 AFB Culture, Respiratory [TB] Routine AFB Smear [TB] Routine Fungal Culture [MYC] Routine 02/21/18 07:49 Ionized Calcium,venous blood Routine Date of Encounter: 02/25/18 Time of Encounter: 08:40 - Discharge Diagnosis (1) Pneumonia Priority: Primary Status: Suspected Assessment and Plan: diminished breath sounds bilaterally without rhonchi, saturating 90-93 on 4L NC Continue IV Vancomycin for 6 additional days to ensure MRSA coverage for 21 days. (MRSA growth per bronchoscopy culture) Qualifiers: Pneumonia type: due to methicillin-resistant Staphylococcus aureus (MRSA) Laterality: right Lung location: upper lobe of lung Qualified Code(s): J15.212 - Pneumonia due to Methicillin resistant Staphylococcus aureus (2) CKD (chronic kidney disease) stage 3, GFR 30-59 ml/min Priority: Secondary Status: Chronic Assessment and Plan: 0.69 (0.78) creatinine, good urine output (3) Acute on chronic respiratory failure Priority: Secondary Status: Acute Assessment and Plan: Diuresis and NC/Bipap MRSA PNA treated with Vanc Covering MRSA with IV Vancomycin for an additional 6 days to ensure MRSA coverage for 21 days Qualifiers: Respiratory failure complication: hypoxia and hypercapnia Qualified Code(s) : J96.21 - Acute and chronic respiratory failure with hypoxia; J96.22 - Acute and chronic respiratory failure with hypercapnia (4) Cellulitis Priority: Secondary Status: Acute Assessment and Plan: No signs of lower extremity or chest cellulitis. Pt has no fever or wt ct. Qualifiers: Site of cellulitis: extremity Site of cellulitis of extremity: lower extremity Laterality: right Qualified Code(s): L03.115 - Cellulitis of right lower limb (5) Acute on chronic diastolic CHF (congestive heart failure) Priority: Secondary Status: Acute Assessment and Plan: Currently saturating well on 4L nasal cannula; uses bipap at night without desaturating, likely need an outpatient sleep study Alert and oriented, good creatinine Plan: Continue diuresis with Lasix at 40mg po daily (6) Venous stasis dermatitis of both lower extremities Priority: Secondary Status: Chronic Assessment and Plan: Patient has chronic changes bilaterally on her lower legs Hospital course: Ms. Luciano is a 68 year old female that was transferred from [facility] ED on for acute respiratory failure. She had SOB and AMS. Bipap was used but her condition continued to decline, so she was intubated. 02/12 Chest xray showed proper endotracheal positioning and alveolar edema, most likely secondary to heart failure. Echo showed mild left ventricular diastolic dysfunction and an LVEF of 60%. Lower extremity venous duplex was unremarkable. Lower extremity CT showed subcutaneous edema and skin thickening indicative of cellulitis. Skin cultures grew serratia marcescens and Klebsiella oxytoca. Repeat xray was concerning for atypical pneumonia and patient was extubated. Due to continuing difficulty breathing she required intubation again. She was treated with Van/Levoquin for her possible pneumonia and cellulitis. Infectious disease was consulted and culture of sputum showed MRSA on 02/14. Patient was treated with Bipap nightly and continued on 4 lpm of oxygen during the day to treated her CHF and respiratory failure. MRSA antibiotic coverage was continued throughout her hospital stay and she will continue an additional 6 days of coverage to ensure treatment for 21 days. Pallative was consulted during patients stay and her code status was discussed and eventually changed to DNR CCA DNI. Patient was successfully extubated on 02/19 and continued to be treated with Bipap and lasix for her CHF. Discharge discussed with: patient, nurse, social work, case management, wardrobe consultant - Time Spent with Patient Total time spent providing and/or coordinating discharge services: Greater than 30 minutes - Discharge Medications Prescriptions: OxyCODONE Immed Rel [Roxicodone 5 MG] 5 mg PO Q4HR PRN 2 Days #10 tablet PRN Reason: Pain Vancomycin [Vancocin] 1,250 mg IV DAILY 5 Days vial Home Medications: Atorvastatin [Lipitor] 10 mg PO HS #30 tablet 08/13/16 [Rx] Furosemide [Lasix] 40 mg PO DAILY #30 tablet 08/13/16 [Rx] Buspirone HCl [Buspar] 7.5 mg PO BID 02/11/18 [History] Omeprazole 40 mg PO QAM 02/11/18 [History] amLODIPine [Norvasc] 10 mg PO DAILY 02/11/18 [History] Albuterol Sulfate [Albuterol Inhaler] 2 puff IH Q4HR 02/12/18 [History] Budesonide/Formoterol 160/4.5 [Symbicort 160/4.5] 2 puff IH BIDR 02/12/18 [ History] Duloxetine HCl [Cymbalta] 60 mg PO BID 02/12/18 [History] Gabapentin [Neurontin] 800 mg PO TID 02/12/18 [History] Temazepam [Restoril] 30 mg PO Q48H PRN 02/12/18 [History] Valsartan [Diovan] 40 mg PO DAILY 02/12/18 [History] levETIRAcetam [Levetiracetam] 1,000 mg PO BID 02/12/18 [History] Albuterol Sulfate [Albuterol Inhaler] 2 puff IH Q2HR PRN inhaler 02/25/18 [Rx] Heparin 5,000 unit SQ Q12HCO vial 02/25/18 [Rx] Ipratropium/Albuterol Neb [Duoneb] 3 ml IH [id number] inhsol 02/25/18 [Rx] Mag Hydrox/Al Hydrox/Simeth [Maalox] 15 ml PO Q6HR PRN udc 02/25/18 [Rx] Nystatin POWDER [Nystop] 1 appl TP TID bottle 02/25/18 [Rx] OxyCODONE Immed Rel [Roxicodone 5 MG] 5 mg PO Q4HR PRN 2 Days #10 tablet [Rx] Promethazine [Phenergan] 12.5 mg PO Q6HR PRN tablet 02/25/18 [Rx] Simethicone [Gas-X] 80 mg PO TID PRN tab.chew 02/25/18 [Rx] Vancomycin [Vancocin] 1,250 mg IV DAILY 5 Days vial 02/25/18 [Rx] Allergies/Adverse Reactions: 3 Allergy/AdvReac Type Severity Reaction Status Date / Time acetaminophen Allergy Hives Verified 07/28/15 14:58 [From Darvocet-N] Iodinated Contrast- Oral and Allergy Difficulty Verified 07/28/15 14:58 IV Dye Breathing [Iodinated Contrast Media - IV Dye] propoxyphene Allergy Hives Verified 07/28/15 14:58 [From Darvocet-N] Date of admission: 02/11/18 20:56 Primary care physician: Brad Minor MD Consults: 02/11/18 21:30 Consult to Pulmonology [CONS] Routine Consulting Provider: Pulm [facility] [place] Reason for Consult: acute on chronic resp failure, intubated Time Notified: 21:31 Call Completed: Yes 02/11/18 21:37 Consult to Wound Care [CONS] Routine Reason for Consult: BLE wounds Call Completed: No 02/12/18 10:48 Consult to Nutrition [CONS] Routine Comment: Consulting Provider: NUTRITION Reason for Dietary Consult: Tube Feed Start & Manage 02/13/18 07:54 Consult to Infectious Diseases [CONS] Routine Consulting Provider: Infectious Disease [facility] Reason for Consult: B/L LE cellulitis Time Notified: 07:54 Call Completed: Yes 02/20/18 07:26 Consult to Speech Therapy [CONS] Stat Comment: Evaluate, develop and implement POC Reason for Consult: ams, failed bedside Time Notified: 07:26 Call Completed: No 02/22/18 09:33 Consult to Physical Therapy [CONS] Routine Comment: Evaluate, develop and implement POC Reason for Consult: rehab Does patient have active BEDREST order?: No Is patient medically & hemodynamically stable?: Yes Discharging clinician: Jt Dawn Anticipated date of discharge: 02/25/18 - Constitutional Vitals: Temp Pulse Resp BP Pulse Ox 97.8 F 71 22 140/71 93 02/25/18 06:35 02/25/18 06:35 02/25/18 07:36 02/25/18 07:36 02/25/18 07:36 General appearance: Present: A&O X 0 - Head Head exam: Present: atraumatic, normocephalic - Eye Eye exam: Present: EOMI, PERRL, conjuntiva pink, sclera anicteric - Neck Neck exam general surgery: Present: supple, trachea midline - Respiratory Respiratory exam: Absent: accessory muscle use, rales, rhonchi, wheezes - Cardiovascular Cardiovascular exam: Present: RRR, +S1, +S2. Absent: diastolic murmur, gallop, rubs, systolic murmur - GI/Abdominal GI/Abdominal exam: Present: normal bowel sounds, soft, no peritoneal signs. Absent: distended, tenderness - Extremities Exam Extremities exam: Present: warm, radial pulses palpable and symmetrical. Absent : calf tenderness, cyanotic, tenderness - Neurological Exam Neurological exam: Present: oriented X3, no focal deficits - Skin Skin exam: Present: dry, intact - Patient Status Disposition: Transfer SNF Condition: Fair Functional capacity at discharge: uses cane/walker Overall status at discharge: patient is progressing back to baseline - Discharge Instructions Follow Up With: Brad Minor MD [Primary Care Provider] - 02/28/18 1:45 pm Additional Instructions: Patient is transferring to swing bed for further management - Diet and Activity Activity: as per physical therapy, increase activity as tolerated Diet: advance to your usual diet <Mohan Coronado - Last Filed: 02/25/18 17:14> Orders not resulted at time of discharge: Pending orders 02/14/18 11:00 AFB Culture, Respiratory [TB] Routine AFB Smear [TB] Routine Fungal Culture [MYC] Routine 02/21/18 07:49 Ionized Calcium,venous blood Routine Date of Encounter: 02/25/18 - Discharge Diagnosis (1) Pneumonia Status: Suspected Qualifiers: Pneumonia type: due to methicillin-resistant Staphylococcus aureus (MRSA) Laterality: right Lung location: upper lobe of lung Qualified Code(s): J15.212 - Pneumonia due to Methicillin resistant Staphylococcus aureus (2) CKD (chronic kidney disease) stage 3, GFR 30-59 ml/min Status: Chronic (3) Acute on chronic respiratory failure Status: Acute Qualifiers: Respiratory failure complication: hypoxia and hypercapnia Qualified Code(s) : J96.21 - Acute and chronic respiratory failure with hypoxia; J96.22 - Acute and chronic respiratory failure with hypercapnia (4) Cellulitis Status: Acute Qualifiers: Site of cellulitis: extremity Site of cellulitis of extremity: lower extremity Laterality: right Qualified Code(s): L03.115 - Cellulitis of right lower limb (5) Acute on chronic diastolic CHF (congestive heart failure) Status: Acute (6) Venous stasis dermatitis of both lower extremities Status: Chronic Hospital course: Ms. Luciano is a 68 year old female - Time Spent with Patient Total time spent providing and/or coordinating discharge services: Date of admission: 02/11/18 20:56 Primary care physician: Brad Minor MD Consults: 02/11/18 21:30 Consult to Pulmonology [CONS] Routine Consulting Provider: Pulm [facility] [place] Reason for Consult: acute on chronic resp failure, intubated Time Notified: 21:31 Call Completed: Yes 02/11/18 21:37 Consult to Wound Care [CONS] Routine Reason for Consult: BLE wounds Call Completed: No 02/12/18 10:48 Consult to Nutrition [CONS] Routine Comment: Consulting Provider: NUTRITION Reason for Dietary Consult: Tube Feed Start & Manage 02/13/18 07:54 Consult to Infectious Diseases [CONS] Routine Consulting Provider: Infectious Disease [facility] Reason for Consult: B/L LE cellulitis Time Notified: 07:54 Call Completed: Yes 02/20/18 07:26 Consult to Speech Therapy [CONS] Stat Comment: Evaluate, develop and implement POC Reason for Consult: ams, failed bedside Time Notified: 07:26 Call Completed: No 02/22/18 09:33 Consult to Physical Therapy [CONS] Routine Comment: Evaluate, develop and implement POC Reason for Consult: rehab Does patient have active BEDREST order?: No Is patient medically & hemodynamically stable?: Yes 02/25/18 10:13 Consult to Occupational Therapy [CONS] Stat Comment: Evaluate, develop and implement POC Reason for Consult: eval for possible placement Does patient have active BEDREST order?: No Is patient medically & hemodynamically stable?: Yes Consult to Physical Therapy [CONS] Stat Comment: Evaluate, develop and implement POC Reason for Consult: eval for possible placement Does patient have active BEDREST order?: No Is patient medically & hemodynamically stable?: Yes - Constitutional Vitals: Temp Pulse Resp BP Pulse Ox 97.8 F 71 16 140/71 97 02/25/18 06:35 02/25/18 06:35 02/25/18 15:57 02/25/18 07:36 02/25/18 15:57 - Attending Attestation I performed an independent interview and exam of this pt. I agree with the findings, assessment and plan of Dr. Dawn, internal medicine resident. Pt to complete IV Vanco as ordered for MRSA PNA. Pt did agree to SNF. Pt wweaned off supplem O2. Diaastolic CHF compensated. PT stable for discharge. Case was discussed with ID today. All other issues stable. Burkett removed. 39 min spent on dc and coord of care Gen: NAD, AAOx3 Skin warm and dry Neck supple Lung dimin bs bilat Ht rrr Abd soft +BS, NT Ext 2+ edema bilat, cellulitis resolved
--- NOTE | 2018-02-25 11:33 | Infectious Disease Progress No ---
Date of Encounter: 02/25/18 Time of Encounter: 11:30 - Assessment and Plan (1) Pneumonia Current Visit: No Status: Suspected Causative organism: MRSA. CXR negative, but bronch showed mucous plugs and mucupurulent secretions. Urine legionella and S. pneumo UAT negative. RIP negative. Extubated 02/19/18. Currently on NC, BIPAP QHS. Continue Vancomycin IV (day 12). Pharmacy to dose. Goal trough ~15. Duration of treatment depends on the clinical picture, but likely 21 days. Will likely be able to switch to PO antibiotics when ready for discharge. Susceptibilities show intermediate sensitivity to doxycycline, so will have to use Bactrim. The patient does have a history of CKD III, so will need close monitoring. Monitor renal function and for drug toxicity and dose-adjust antibiotics. Qualifiers: Pneumonia type: due to methicillin-resistant Staphylococcus aureus (MRSA) Laterality: right Lung location: upper lobe of lung Qualified Code(s): J15.212 - Pneumonia due to Methicillin resistant Staphylococcus aureus (2) Cellulitis Current Visit: No Status: Acute Resolved. Physicial exam not suggestive of cellulitis. Cultures obtained at outside facility before patient came and were positive for Serratia and Klebsiella. Has completed 7 days of Zosyn. Vancomycin continues for MRSA PNA. Qualifiers: Site of cellulitis: extremity Site of cellulitis of extremity: lower extremity Laterality: right Qualified Code(s): L03.115 - Cellulitis of right lower limb (3) COPD exacerbation Current Visit: No Status: Acute (4) Acute on chronic respiratory failure Current Visit: No Status: Acute Likely secondary to PNA and COPD exacerbation. Extubated 02/19/18. Further management per the pulmonology team. Qualifiers: Respiratory failure complication: hypoxia and hypercapnia Qualified Code(s) : J96.21 - Acute and chronic respiratory failure with hypoxia; J96.22 - Acute and chronic respiratory failure with hypercapnia (5) CKD (chronic kidney disease) stage 3, GFR 30-59 ml/min Current Visit: No Status: Chronic Monitor renal function and for drug toxicity and dose-adjust antibiotics. (6) Acute on chronic diastolic CHF (congestive heart failure) Current Visit: Yes Status: Acute (7) Candidiasis Current Visit: Yes Status: Acute Continue topical antifungals. - Subjective Interval history: Patient seen and examined. Patient sitting up in bed, requesting to go home. Denies fevers, chills, or rigors. Denies chest pain, shortness of breath, or cough. Denies nausea, vomiting, or diarrhea. Reports 3 loose stools yesterday, none today. Denies abdominal pain. Burkett catheter remains patent. States her appetite is pretty poor. Denies pain. Denies oral thrush. Infect Dis PN-Objective Data - Labs CBC & Chem 7: 02/24/18 07:20 02/25/18 03:42 Labs: Laboratory Results - last 24 hr 02/25/18 03:42 Sodium 141 Potassium 3.3 L Chloride 100 Carbon Dioxide 37 H BUN 18 Creatinine 0.69 Est GFR ( Amer) > 60 Est GFR (Non-Af Amer) > 60 BUN/Creatinine Ratio 26 Glucose 105 Calculated Osmolality 294 Calcium 8.5 L Phosphorus 2.3 L Magnesium 1.7 Cultures: Cultures 02/14/18 11:00 Gram Stain - Final Left Lower Lobe Lung Respiratory Culture - Final Methicillin Resistant S.aureus 02/14/18 11:00 Acid Fast Stain - Final Left Lower Lobe Lung 02/12/18 10:58 Sputum Culture - Final Sputum 02/13/18 17:40 Legionella Antigen - Final Urine,Catheterized Streptococcus pneumoniae Antigen (M - Final Serology 02/14/18 02/14/18 02/14/18 Range/Units 20:57 11:01 11:00 Fluid Source LLL BAL Fluid Volume 18 mL Fluid Appearance Cloudy A (Clear) Fluid RBC 0.004 (No Ref Range) M/mcL Fld Tot Nucleated Cell 685 (No Ref Range) TNC/mcL Fluid Seg Neutrophil % 56.8 % Fld Band Neutrophil % Test Not Performed Fluid Lymphocytes % 2.5 % Fluid Monocytes % Test Not Performed Fluid Eosinophils % Test Not Performed Fluid Basophils % Test Not Performed Fluid Other Cells % 40.7 % Fluid Flow Cytometry SEE EMR DOCUMENT Nasal Screen MRSA (PCR) Positive A (Negative) Chlamy pneumoniae PCR (Not Detect) Adenovirus (PCR) (Not Detect) B. pertussis DNA (PCR) (Not Detect) B.parapertussis DNA PCR (Not Detect) Coronavirus OC43 (PCR) (Not Detect) Coronavirus HKU1 (PCR) (Not Detect) Coronavirus 229E (PCR) (Not Detect) Coronavirus NL63 (PCR) (Not Detect) Human Metapneumovir PCR (Not Detect) Influenza A (H1) PCR (Not Detect) Influ A (H1N1/09) PCR (Not Detect) Influenza A (H3) PCR (Not Detect) Influenza A Untype (PCR) (Not Detect) Influenza Type B (PCR) (Not Detect) M.pneumoniae DNA (PCR) (Not Detect) Parainfluenza 1 (PCR) (Not Detect) Parainfluenza 2 (PCR) (Not Detect) Parainfluenza 3 (PCR) (Not Detect) Parainfluenza 4 (PCR) (Not Detect) RSV (PCR) (Not Detect) Entero/Rhino (PCR) (Not Detect) 02/13/18 Range/Units 17:40 Fluid Source Fluid Volume mL Fluid Appearance (Clear) Fluid RBC (No Ref Range) M/mcL Fld Tot Nucleated Cell (No Ref Range) TNC/mcL Fluid Seg Neutrophil % % Fld Band Neutrophil % Fluid Lymphocytes % % Fluid Monocytes % Fluid Eosinophils % Fluid Basophils % Fluid Other Cells % % Fluid Flow Cytometry Nasal Screen MRSA (PCR) (Negative) Chlamy pneumoniae PCR Not Detected (Not Detect) Adenovirus (PCR) Not Detected (Not Detect) B. pertussis DNA (PCR) Not Detected (Not Detect) B.parapertussis DNA PCR Not Detected (Not Detect) Coronavirus OC43 (PCR) Not Detected (Not Detect) Coronavirus HKU1 (PCR) Not Detected (Not Detect) Coronavirus 229E (PCR) Not Detected (Not Detect) Coronavirus NL63 (PCR) Not Detected (Not Detect) Human Metapneumovir PCR Not Detected (Not Detect) Influenza A (H1) PCR Not Detected (Not Detect) Influ A (H1N1/09) PCR Not Detected (Not Detect) Influenza A (H3) PCR Not Detected (Not Detect) Influenza A Untype (PCR) Not Detected (Not Detect) Influenza Type B (PCR) Not Detected (Not Detect) M.pneumoniae DNA (PCR) Not Detected (Not Detect) Parainfluenza 1 (PCR) Not Detected (Not Detect) Parainfluenza 2 (PCR) Not Detected (Not Detect) Parainfluenza 3 (PCR) Not Detected (Not Detect) Parainfluenza 4 (PCR) Not Detected (Not Detect) RSV (PCR) Not Detected (Not Detect) Entero/Rhino (PCR) Not Detected (Not Detect) Exam - Constitutional Vitals: Temp Pulse Resp BP Pulse Ox 97.8 F 71 16 140/71 96 02/25/18 06:35 02/25/18 06:35 02/25/18 11:20 02/25/18 07:36 02/25/18 11:20 General appearance: cooperative, morbidly obese, no acute distress - Head Head exam: Present: atraumatic, normal inspection, normocephalic - Eye Eye exam: Present: EOMI, normal appearance, PERRL Pupils: Present: normal accommodation - ENT ENT exam: Present: mucous membranes moist - Neck Neck exam: Present: normal inspection - Respiratory Respiratory exam: Present: decreased breath sounds (Throughout). Absent: rales , respiratory distress, rhonchi, wheezes - Cardiovascular Cardiovascular exam: Present: RRR, +S1, +S2 - GI/Abdominal GI/Abdominal exam: Present: distended (obese), normal bowel sounds, soft. Absent: tenderness Additional comments: Burkett catheter noted to be draining clear yellow urine. - Extremities Exam Extremities exam: Absent: joint swelling, pedal edema, tenderness Additional comments: Venous stasis dermatitis noted to the BLE. Bilateral foot dressings C/D/I. - Neurological Exam Neurological exam: Present: alert, oriented X3, no focal deficits - Psychiatric Psychiatric exam: Present: normal affect, normal mood - Skin Skin exam: Present: dry, intact, normal color, warm Consult Discharge Plan - Plan Additional Instructions: Patient is transferring to swing bed for further management Referrals: Brad Minor MD [Primary Care Provider] - 02/28/18 1:45 pm Prescriptions: OxyCODONE Immed Rel [Roxicodone 5 MG] 5 mg PO Q4HR PRN 2 Days #10 tablet PRN Reason: Pain Vancomycin [Vancocin] 1,250 mg IV DAILY 5 Days vial - Attending Attestation I examined this patient and my medical decision-making was reviewed with the Resident Physician. I agree with the documented findings, disposition and treatment plan as described except to the extent set forth below.
[2018-02-26] MEDS: Ipratropium/Albuterol Neb 3 ML IH SCH ×7 (00:27→23:51)
[2018-02-26] MEDS: *HR* Heparin 5,000 UNIT/ML VIAL SQ SCH ×2 (06:02→17:43)
--- NOTE | 2018-02-26 09:29 | Internal Med Progress Note ---
<Jt Dawn - Last Filed: 02/26/18 09:26> Date of Encounter: 02/26/18 Time of Encounter: 09:27 - Assessment and plan (1) Pneumonia Current Visit: Yes Status: Suspected Assessment and plan: diminished breath sounds bilaterally without rhonchi, saturating 90-93 on 4L NC Continue IV Vancomycin for 5 additional days to ensure MRSA coverage for 21 days. (MRSA growth per bronchoscopy culture) Qualifiers: Pneumonia type: due to methicillin-resistant Staphylococcus aureus (MRSA) Laterality: right Lung location: upper lobe of lung Qualified Code(s): J15.212 - Pneumonia due to Methicillin resistant Staphylococcus aureus (2) CKD (chronic kidney disease) stage 3, GFR 30-59 ml/min Current Visit: Yes Status: Chronic Assessment and plan: Stable (3) Acute on chronic respiratory failure Current Visit: Yes Status: Acute Assessment and plan: Diuresis and NC/Bipap MRSA PNA treated with Vanc Covering MRSA with IV Vancomycin for an additional 5 days to ensure MRSA coverage for 21 days Qualifiers: Respiratory failure complication: hypoxia and hypercapnia Qualified Code(s) : J96.21 - Acute and chronic respiratory failure with hypoxia; J96.22 - Acute and chronic respiratory failure with hypercapnia (4) Cellulitis Current Visit: No Status: Acute Assessment and plan: No signs of lower extremity or chest cellulitis. Pt has no fever or wt ct. Concern for LUE Cellulitis vs. DVT. Doppler US shows superficial thrombus I don't suspect cellulitis, however the patient is treated with Vancomycin which will cover any potential cellulitis Qualifiers: Site of cellulitis: extremity Site of cellulitis of extremity: lower extremity Laterality: right Qualified Code(s): L03.115 - Cellulitis of right lower limb (5) Acute on chronic diastolic CHF (congestive heart failure) Current Visit: Yes Status: Acute Assessment and plan: Currently saturating well on 4L nasal cannula; uses bipap at night without desaturating, likely need an outpatient sleep study Alert and oriented, good creatinine Plan: Continue diuresis with Lasix at 40mg po daily (6) Venous stasis dermatitis of both lower extremities Current Visit: Yes Status: Chronic Assessment and plan: Patient has chronic changes bilaterally on her lower legs - Time Spent With Patient Total time spent is greater than 50% in coordination of care (as documented) at patient's floor/unit and/or counseling patient: 25 - 35 minutes - Subjective Interval history: The patient is feeling significantly better. She did have some pain and swelling in her left forearm. A doppler US of the LUE was positive only for a superficial thrombus. [facility] and will [facility] today. - Constitutional Vitals: Temp Pulse Resp BP Pulse Ox 97.8 F 83 16 166/93 94 02/26/18 07:33 02/26/18 07:33 02/26/18 07:40 02/26/18 07:33 02/26/18 07:40 General appearance: Present: A&O X 0 Exam: General appearance: Present: A&O X 0 - Head Head exam: Present: atraumatic, normocephalic - Eye Eye exam: Present: EOMI, PERRL, conjuntiva pink, sclera anicteric - Neck Neck exam general surgery: Present: supple, trachea midline - Respiratory Respiratory exam: Mild wheezes noted b/l - Cardiovascular Cardiovascular exam: Present: RRR, +S1, +S2. Absent: diastolic murmur, gallop, rubs, systolic murmur - GI/Abdominal GI/Abdominal exam: Present: normal bowel sounds, soft, no peritoneal signs. Absent: distended, tenderness - Neurological Exam Neurological exam: Present: oriented X3, no focal deficits - Skin Skin exam: Present: dry, intact - Extremities Exam Extremities exam: Present: pedal edema Additional comments: B/L LE: Resolving cellulitis noted LUE Some erythema noted distally and proximally to the level of the antecubetal fossa which is not sharply demarcated. Some tenderness to palpation Internal Medicine: Result - Labs CBC & Chem 7: 02/24/18 07:20 02/25/18 03:42 - ABG Interpretation ABG results: ABG ABG pH 7.43 pH Units (7.32-7.45) 02/20/18 08:07 ABG pCO2 53 mmHg (35-45) H 02/20/18 08:07 ABG pO2 77 mmHg (85-104) L 02/20/18 08:07 ABG O2 Saturation 95 % (95-98) 02/20/18 08:07 Consult Discharge Plan - Plan Instructions: Oxycodone/Acetaminophen (By mouth), Vancomycin (Injection), Heart Failure (DC), Acute Respiratory Distress Syndrome (DC), Chronic Obstructive Pulmonary Disease (DC), Chronic Hypertension (DC) Additional Instructions: Patient is transferring to swing bed for further management Referrals: Brad Minor MD [Primary Care Provider] - 02/28/18 1:45 pm Prescriptions: OxyCODONE Immed Rel [Roxicodone 5 MG] 5 mg PO Q4HR PRN 2 Days #10 tablet PRN Reason: Pain Vancomycin [Vancocin] 1,250 mg IV DAILY 5 Days vial <Ector Domingo Gama - Last Filed: 02/26/18 12:36> Date of Encounter: 02/26/18 - Assessment and plan (1) Pneumonia Current Visit: Yes Status: Suspected Qualifiers: Pneumonia type: due to methicillin-resistant Staphylococcus aureus (MRSA) Laterality: right Lung location: upper lobe of lung Qualified Code(s): J15.212 - Pneumonia due to Methicillin resistant Staphylococcus aureus (2) Acute on chronic respiratory failure Current Visit: Yes Status: Resolved Qualifiers: Respiratory failure complication: hypoxia and hypercapnia Qualified Code(s) : J96.21 - Acute and chronic respiratory failure with hypoxia; J96.22 - Acute and chronic respiratory failure with hypercapnia (3) CKD (chronic kidney disease) stage 3, GFR 30-59 ml/min Current Visit: Yes Status: Chronic (4) Cellulitis Current Visit: No Status: Acute Qualifiers: Site of cellulitis: extremity Site of cellulitis of extremity: lower extremity Laterality: right Qualified Code(s): L03.115 - Cellulitis of right lower limb (5) Acute on chronic diastolic CHF (congestive heart failure) Current Visit: Yes Status: Acute (6) Venous stasis dermatitis of both lower extremities Current Visit: Yes Status: Chronic - Time Spent With Patient Total time spent is greater than 50% in coordination of care (as documented) at patient's floor/unit and/or counseling patient: - Constitutional Vitals: Temp Pulse Resp BP Pulse Ox 98.9 F 87 20 157/85 98 02/26/18 11:46 02/26/18 11:46 02/26/18 11:46 02/26/18 11:46 02/26/18 11:46 Internal Medicine: Result - Labs CBC & Chem 7: 02/24/18 07:20 02/25/18 03:42 - ABG Interpretation ABG results: ABG ABG pH 7.43 pH Units (7.32-7.45) 02/20/18 08:07 ABG pCO2 53 mmHg (35-45) H 02/20/18 08:07 ABG pO2 77 mmHg (85-104) L 02/20/18 08:07 ABG O2 Saturation 95 % (95-98) 02/20/18 08:07 - Attending Attestation I examined this patient and my medical decision-making was reviewed with the Resident Physician on 02/26/18. I agree with the documented findings, disposition and treatment plan as described except to the extent set forth below. Ms Luciano is currently admitted for MRSA pneumonia. She is awaiting transfer to SNF. Ms Luciano is feeling OK. Pain is controlled. No fever or chills. Ready to go to SNF. Exam alert Comfortable Mucus membranes dry Heart reg No wheeze Plan D/C to SNF
[2018-02-26] MEDS: levETIRAcetam 250 MG TABLET PO SCH ×2 (10:06→20:57)
[2018-02-26] MEDS: Furosemide 40 MG TABLET PO SCH (10:07)
[2018-02-26] MEDS: amLODIPine 5 MG TABLET PO SCH (10:07)
--- NOTE | 2018-02-26 12:01 | Infectious Disease Progress No ---
Date of Encounter: 02/26/18 Time of Encounter: 11:59 - Assessment and Plan (1) Pneumonia Current Visit: Yes Status: Suspected Causative organism: MRSA. CXR negative, but bronch showed mucous plugs and mucupurulent secretions. Urine legionella and S. pneumo UAT negative. RIP negative. Extubated 02/19/18. Currently on NC, BIPAP QHS. Continue Vancomycin IV (day 13). Pharmacy to dose. Goal trough ~15. Duration of treatment depends on the clinical picture, but likely 21 days. Will likely be able to switch to PO antibiotics when ready for discharge. Susceptibilities show intermediate sensitivity to doxycycline, so will have to use Bactrim. The patient does have a history of CKD III, so will need close monitoring. Monitor renal function and for drug toxicity and dose-adjust antibiotics. Qualifiers: Pneumonia type: due to methicillin-resistant Staphylococcus aureus (MRSA) Laterality: right Lung location: upper lobe of lung Qualified Code(s): J15.212 - Pneumonia due to Methicillin resistant Staphylococcus aureus (2) Cellulitis Current Visit: No Status: Acute Resolved. Physicial exam not suggestive of cellulitis. Cultures obtained at outside facility before patient came and were positive for Serratia and Klebsiella. Has completed 7 days of Zosyn. Vancomycin continues for MRSA PNA. Qualifiers: Site of cellulitis: extremity Site of cellulitis of extremity: lower extremity Laterality: right Qualified Code(s): L03.115 - Cellulitis of right lower limb (3) COPD exacerbation Current Visit: No Status: Acute (4) Acute on chronic respiratory failure Current Visit: Yes Status: Resolved Likely secondary to PNA and COPD exacerbation. Extubated 02/19/18. Further management per the pulmonology team. Qualifiers: Respiratory failure complication: hypoxia and hypercapnia Qualified Code(s) : J96.21 - Acute and chronic respiratory failure with hypoxia; J96.22 - Acute and chronic respiratory failure with hypercapnia (5) CKD (chronic kidney disease) stage 3, GFR 30-59 ml/min Current Visit: Yes Status: Chronic Monitor renal function and for drug toxicity and dose-adjust antibiotics. (6) Acute on chronic diastolic CHF (congestive heart failure) Current Visit: Yes Status: Acute (7) Candidiasis Current Visit: Yes Status: Acute Continue topical antifungals. (8) Superficial venous thrombosis of left arm Current Visit: Yes Status: Acute Doppler study showed acute superficial partial thrombosis of the left cephalic vein. Supportive care per the primary team. - Subjective Interval history: Patient seen and examined. Patient sitting up in chair, requesting to go home. Denies fevers, chills, or rigors. Denies chest pain, shortness of breath, or cough. Denies nausea, vomiting, or diarrhea. Reports 3 loose stools yesterday, none today. Denies abdominal pain. Burkett catheter removed and patient incontinent of urine. States her appetite is pretty poor. Denies pain. Denies oral thrush. Infect Dis PN-Objective Data - Labs CBC & Chem 7: 02/24/18 07:20 02/25/18 03:42 Cultures: Cultures 02/14/18 11:00 Gram Stain - Final Left Lower Lobe Lung Respiratory Culture - Final Methicillin Resistant S.aureus 02/14/18 11:00 Acid Fast Stain - Final Left Lower Lobe Lung 02/12/18 10:58 Sputum Culture - Final Sputum 02/13/18 17:40 Legionella Antigen - Final Urine,Catheterized Streptococcus pneumoniae Antigen (M - Final Serology 02/14/18 02/14/18 02/14/18 Range/Units 20:57 11:01 11:00 Fluid Source LLL BAL Fluid Volume 18 mL Fluid Appearance Cloudy A (Clear) Fluid RBC 0.004 (No Ref Range) M/mcL Fld Tot Nucleated Cell 685 (No Ref Range) TNC/mcL Fluid Seg Neutrophil % 56.8 % Fld Band Neutrophil % Test Not Performed Fluid Lymphocytes % 2.5 % Fluid Monocytes % Test Not Performed Fluid Eosinophils % Test Not Performed Fluid Basophils % Test Not Performed Fluid Other Cells % 40.7 % Fluid Flow Cytometry SEE EMR DOCUMENT Nasal Screen MRSA (PCR) Positive A (Negative) Chlamy pneumoniae PCR (Not Detect) Adenovirus (PCR) (Not Detect) B. pertussis DNA (PCR) (Not Detect) B.parapertussis DNA PCR (Not Detect) Coronavirus OC43 (PCR) (Not Detect) Coronavirus HKU1 (PCR) (Not Detect) Coronavirus 229E (PCR) (Not Detect) Coronavirus NL63 (PCR) (Not Detect) Human Metapneumovir PCR (Not Detect) Influenza A (H1) PCR (Not Detect) Influ A (H1N1/09) PCR (Not Detect) Influenza A (H3) PCR (Not Detect) Influenza A Untype (PCR) (Not Detect) Influenza Type B (PCR) (Not Detect) M.pneumoniae DNA (PCR) (Not Detect) Parainfluenza 1 (PCR) (Not Detect) Parainfluenza 2 (PCR) (Not Detect) Parainfluenza 3 (PCR) (Not Detect) Parainfluenza 4 (PCR) (Not Detect) RSV (PCR) (Not Detect) Entero/Rhino (PCR) (Not Detect) 02/13/18 Range/Units 17:40 Fluid Source Fluid Volume mL Fluid Appearance (Clear) Fluid RBC (No Ref Range) M/mcL Fld Tot Nucleated Cell (No Ref Range) TNC/mcL Fluid Seg Neutrophil % % Fld Band Neutrophil % Fluid Lymphocytes % % Fluid Monocytes % Fluid Eosinophils % Fluid Basophils % Fluid Other Cells % % Fluid Flow Cytometry Nasal Screen MRSA (PCR) (Negative) Chlamy pneumoniae PCR Not Detected (Not Detect) Adenovirus (PCR) Not Detected (Not Detect) B. pertussis DNA (PCR) Not Detected (Not Detect) B.parapertussis DNA PCR Not Detected (Not Detect) Coronavirus OC43 (PCR) Not Detected (Not Detect) Coronavirus HKU1 (PCR) Not Detected (Not Detect) Coronavirus 229E (PCR) Not Detected (Not Detect) Coronavirus NL63 (PCR) Not Detected (Not Detect) Human Metapneumovir PCR Not Detected (Not Detect) Influenza A (H1) PCR Not Detected (Not Detect) Influ A (H1N1/09) PCR Not Detected (Not Detect) Influenza A (H3) PCR Not Detected (Not Detect) Influenza A Untype (PCR) Not Detected (Not Detect) Influenza Type B (PCR) Not Detected (Not Detect) M.pneumoniae DNA (PCR) Not Detected (Not Detect) Parainfluenza 1 (PCR) Not Detected (Not Detect) Parainfluenza 2 (PCR) Not Detected (Not Detect) Parainfluenza 3 (PCR) Not Detected (Not Detect) Parainfluenza 4 (PCR) Not Detected (Not Detect) RSV (PCR) Not Detected (Not Detect) Entero/Rhino (PCR) Not Detected (Not Detect) Exam - Constitutional Vitals: Temp Pulse Resp BP Pulse Ox 98.9 F 87 20 157/85 98 02/26/18 11:46 02/26/18 11:46 02/26/18 11:46 07/03/18 11:46 02/26/18 11:46 General appearance: cooperative, morbidly obese, no acute distress - Head Head exam: Present: atraumatic, normal inspection, normocephalic - Eye Eye exam: Present: EOMI, normal appearance, PERRL Pupils: Present: normal accommodation - ENT ENT exam: Present: mucous membranes moist - Neck Neck exam: Present: normal inspection - Respiratory Respiratory exam: Present: CTAB. Absent: rales, respiratory distress, rhonchi, wheezes - Cardiovascular Cardiovascular exam: Present: irregular rhythm. Absent: tachycardia - GI/Abdominal GI/Abdominal exam: Present: distended (obese), normal bowel sounds, soft. Absent: tenderness - Extremities Exam Extremities exam: Absent: normal inspection (Venous stasis dermatitis noted to the BLE.) Additional comments: LUE mildly edematous and erythematous. - Neurological Exam Neurological exam: Present: alert, oriented X3, no focal deficits - Psychiatric Psychiatric exam: Present: normal affect, normal mood - Skin Skin exam: Present: dry, intact, normal color, warm Consult Discharge Plan - Plan Instructions: Sulfamethoxazole/Trimethoprim (By mouth), Oxycodone/ Acetaminophen (By mouth), Vancomycin (Injection), Heart Failure (DC), Acute Respiratory Distress Syndrome (DC), Chronic Obstructive Pulmonary Disease (DC), Chronic Hypertension (DC) Additional Instructions: Patient is transferring to swing bed for further management Referrals: Brad Minor MD [Primary Care Provider] - 02/28/18 1:45 pm Prescriptions: OxyCODONE Immed Rel [Roxicodone 5 MG] 5 mg PO Q4HR PRN 2 Days #10 tablet PRN Reason: Pain Sulfamethoxazole/Trimeth DS [Bactrim DS] 1 each PO BID #10 tablet Vancomycin [Vancocin] 1,250 mg IV DAILY 5 Days vial - Attending Attestation I examined this patient and my medical decision-making was reviewed with the Resident Physician. I agree with the documented findings, disposition and treatment plan as described except to the extent set forth below.
[2018-02-26] MEDS: Nystatin POWDER 30 GM BOTTLE TP SCH (14:10)
[2018-02-26] MEDS ORDERED: Aminoglycoside Consult 1 EACH MC ONE (15:14)
[2018-02-26] MEDS: *HR* OxyCODONE Immed Rel 5 MG TABLET PO PRN (17:47)
[2018-02-26] MEDS: Sulfamethoxazole/Trimeth DS 1 EACH TABLET PO SCH (21:00)
[2018-02-27] MEDS: Nystatin POWDER 30 GM BOTTLE TP SCH (00:57)
[2018-02-27] MEDS: Ipratropium/Albuterol Neb 3 ML IH SCH ×3 (04:07→11:25)
[2018-02-27 05:13] LABS: VBG HCO3 34 mEq/L (21-27); VBG PCO2 55 mmHg (41-51); VBG PO2 122 mmHg (25-50)
[2018-02-27 05:29] LABS: BUN/Creatinine Ratio 17 (6-26); Blood Urea Nitrogen 11 mg/dL (8-23); Carbon Dioxide 32 mEq/L (23-29); Chloride 100 mEq/L (98-107); Glucose 110 mg/dL (70-105); Osmolality,Calculated 288 (280-300); Potassium 3.6 mEq/L (3.5-5.1); Sodium 139 mEq/L (136-145); eGFR For African Americans > 60 (> 60); eGFR For Non-African Americans > 60 (> 60)
[2018-02-27] MEDS: *HR* Heparin 5,000 UNIT/ML VIAL SQ SCH (06:21)
[2018-02-27 07:44] VITALS: BP 169/84
[2018-02-27] MEDS: amLODIPine 5 MG TABLET PO SCH (11:06)
[2018-02-27] MEDS: Sulfamethoxazole/Trimeth DS 1 EACH TABLET PO SCH (11:06)
[2018-02-27] MEDS: *HR* OxyCODONE Immed Rel 5 MG TABLET PO PRN (11:06)
[2018-02-27] MEDS: Furosemide 40 MG TABLET PO SCH (11:06)
[2018-02-27] MEDS: levETIRAcetam 250 MG TABLET PO SCH (11:07)
--- NOTE | 2018-02-27 11:52 | Internal Med Progress Note ---
Addendum entered and electronically signed by Jt Dawn DO 02/27/18 14: 45: Patient has failed CPAP and requires BiPAP due to severe respiratory disease. Original Note: <Jt Dawn - Last Filed: 02/27/18 11:54> Date of Encounter: 02/27/18 Time of Encounter: 10:30 - Assessment and plan (1) Acute on chronic respiratory failure Status: Resolved Assessment and plan: Diuresis and NC/Bipap Qualified for BiPAP overnight, may require BiPAP use during the day to supplement Qualifiers: Respiratory failure complication: hypoxia and hypercapnia Qualified Code(s) : J96.21 - Acute and chronic respiratory failure with hypoxia; J96.22 - Acute and chronic respiratory failure with hypercapnia (2) Pneumonia Status: Suspected Assessment and plan: diminished breath sounds bilaterally without rhonchi, saturating 90-93 on 4L NC Continues to have some shortness of breath Will continue on Bactrim DS BID for total duration of 21 antibiotic days Qualifiers: Pneumonia type: due to methicillin-resistant Staphylococcus aureus (MRSA) Laterality: right Lung location: upper lobe of lung Qualified Code(s): J15.212 - Pneumonia due to Methicillin resistant Staphylococcus aureus (3) CKD (chronic kidney disease) stage 3, GFR 30-59 ml/min Status: Chronic Assessment and plan: Stable (4) Cellulitis Status: Acute Assessment and plan: No signs of lower extremity or chest cellulitis. Pt has no fever or wt ct. Concern for LUE Cellulitis vs. DVT. Doppler US shows superficial thrombus I don't suspect cellulitis, however the patient is treated with Bactrim DS which will cover any potential cellulitis Qualifiers: Site of cellulitis: extremity Site of cellulitis of extremity: lower extremity Laterality: right Qualified Code(s): L03.115 - Cellulitis of right lower limb (5) Acute on chronic diastolic CHF (congestive heart failure) Status: Acute Assessment and plan: Currently saturating well on 4L nasal cannula; uses bipap at night without desaturating, likely need an outpatient sleep study Alert and oriented, good creatinine Plan: Continue diuresis with Lasix at 40mg po daily (6) Venous stasis dermatitis of both lower extremities Status: Chronic Assessment and plan: Patient has chronic changes bilaterally on her lower legs - Time Spent With Patient Total time spent is greater than 50% in coordination of care (as documented) at patient's floor/unit and/or counseling patient: - Subjective Interval history: Patient seen and examined at bedside/ She underwent BiPAP qualification overnight which resulted in increased SOB this morning. She otherwise feels about the same as prior - Constitutional Vitals: Temp Pulse Resp BP Pulse Ox 97.9 F 86 18 169/84 92 02/27/18 07:43 02/27/18 07:43 02/27/18 07:43 02/27/18 07:43 02/27/18 07:43 General appearance: Present: mild distress, A&O X 3, obese Exam: - Head Head exam: Present: atraumatic, normocephalic - Eye Eye exam: Present: EOMI, PERRL, conjuntiva pink, sclera anicteric - Neck Neck exam general surgery: Present: supple, trachea midline - Respiratory Respiratory exam: Mild wheezes noted b/l, unchanged - Cardiovascular Cardiovascular exam: Present: RRR, +S1, +S2. Slight 1/6 systolic ejection murmur - GI/Abdominal GI/Abdominal exam: Present: normal bowel sounds, soft, no peritoneal signs. Absent: distended, tenderness - Neurological Exam Neurological exam: Present: oriented X3, no focal deficits - Skin Skin exam: Present: dry, intact - Extremities Exam Extremities exam: Present: pedal edema Additional comments: B/L LE: Resolving cellulitis noted LUE Some erythema noted distally and proximally to the level of the antecubetal fossa which is not sharply demarcated. Some tenderness to palpation Internal Medicine: Result - Labs CBC & Chem 7: 02/24/18 07:20 02/27/18 04:48 Labs: BMP 02/27/18 04:48 Sodium 139 Potassium 3.6 Chloride 100 Carbon Dioxide 32 H BUN 11 Creatinine 0.66 Glucose 110 H Calcium 9.0 - ABG Interpretation ABG results: ABG ABG pH 7.43 pH Units (7.32-7.45) 02/20/18 08:07 ABG pCO2 53 mmHg (35-45) H 02/20/18 08:07 ABG pO2 77 mmHg (85-104) L 02/20/18 08:07 ABG O2 Saturation 95 % (95-98) 02/20/18 08:07 Consult Discharge Plan - Plan Instructions: Sulfamethoxazole/Trimethoprim (By mouth), Oxycodone/ Acetaminophen (By mouth), Vancomycin (Injection), Heart Failure (DC), Acute Respiratory Distress Syndrome (DC), Chronic Obstructive Pulmonary Disease (DC), Chronic Hypertension (DC) Additional Instructions: Patient is transferring to swing bed for further management Referrals: Brad Minor MD [Primary Care Provider] - 02/28/18 1:45 pm Prescriptions: OxyCODONE Immed Rel [Roxicodone 5 MG] 5 mg PO Q4HR PRN 2 Days #10 tablet PRN Reason: Pain Sulfamethoxazole/Trimeth DS [Bactrim DS] 1 each PO BID #10 tablet Vancomycin [Vancocin] 1,250 mg IV DAILY 5 Days vial <Jose LPietroEctor A - Last Filed: 02/27/18 16:32> Date of Encounter: 02/27/18 - Assessment and plan (1) Pneumonia Status: Suspected Qualifiers: Pneumonia type: due to methicillin-resistant Staphylococcus aureus (MRSA) Laterality: right Lung location: upper lobe of lung Qualified Code(s): J15.212 - Pneumonia due to Methicillin resistant Staphylococcus aureus (2) CKD (chronic kidney disease) stage 3, GFR 30-59 ml/min Status: Chronic (3) Acute on chronic respiratory failure Status: Resolved Qualifiers: Respiratory failure complication: hypoxia and hypercapnia Qualified Code(s) : J96.21 - Acute and chronic respiratory failure with hypoxia; J96.22 - Acute and chronic respiratory failure with hypercapnia (4) Cellulitis Status: Acute Qualifiers: Site of cellulitis: extremity Site of cellulitis of extremity: lower extremity Laterality: right Qualified Code(s): L03.115 - Cellulitis of right lower limb (5) Acute on chronic diastolic CHF (congestive heart failure) Status: Acute (6) Venous stasis dermatitis of both lower extremities Status: Chronic - Time Spent With Patient Total time spent is greater than 50% in coordination of care (as documented) at patient's floor/unit and/or counseling patient: - Constitutional Vitals: Temp Pulse Resp BP Pulse Ox 97.9 F 86 25 169/84 94 02/27/18 07:43 02/27/18 07:43 02/27/18 11:25 02/27/18 11:25 02/27/18 13:09 Internal Medicine: Result - Labs CBC & Chem 7: 02/24/18 07:20 02/27/18 04:48 Labs: BMP 02/27/18 04:48 Sodium 139 Potassium 3.6 Chloride 100 Carbon Dioxide 32 H BUN 11 Creatinine 0.66 Glucose 110 H Calcium 9.0 - ABG Interpretation ABG results: ABG ABG pH 7.43 pH Units (7.32-7.45) 02/20/18 08:07 ABG pCO2 53 mmHg (35-45) H 02/20/18 08:07 ABG pO2 77 mmHg (85-104) L 02/20/18 08:07 ABG O2 Saturation 95 % (95-98) 02/20/18 08:07 - Attending Attestation I examined this patient and my medical decision-making was reviewed with the Resident Physician on 02/27/18. I agree with the documented findings, disposition and treatment plan as described except to the extent set forth below. Ms Luciano is currently admitted for MRSA pneumonia. She has qualified for bipap. She is now going to [facility] swing bed. She remains moderate risk. Ms Luciano is feeling OK. She is ready to go to rehab. Exam alert Comfortable Mucus membranes dry Heart reg No wheeze abd soft Plan D/C to SNF Has qualified for bipap - failed CPAP
--- NOTE | 2018-02-27 14:10 | Physician Discharge Referral ---
ExtendedCare Referral Info Transfer To: [facility] Provider in Charge: Ector Domingo DO Provider in Charge after Transfer: PCP Institutional Level of Care: Skilled - Diagnosis (1) Acute on chronic respiratory failure Priority: Primary Status: Resolved (2) Pneumonia Priority: Secondary Status: Suspected (3) CKD (chronic kidney disease) stage 3, GFR 30-59 ml/min Priority: Secondary Status: Chronic (4) Cellulitis Priority: Secondary Status: Acute (5) Acute on chronic diastolic CHF (congestive heart failure) Priority: Secondary Status: Acute (6) Venous stasis dermatitis of both lower extremities Priority: Secondary Status: Chronic Prognosis: Good Aware of Diagnosis: Patient Aware of Prognosis: Patient - Transfer Medications Prescriptions: OxyCODONE Immed Rel [Roxicodone 5 MG] 5 mg PO Q4HR PRN 2 Days #10 tablet PRN Reason: Pain Sulfamethoxazole/Trimeth DS [Bactrim DS] 1 each PO BID #10 tablet Vancomycin [Vancocin] 1,250 mg IV DAILY 5 Days vial Home Medications: Atorvastatin [Lipitor] 10 mg PO HS #30 tablet 08/13/16 [Rx] Furosemide [Lasix] 40 mg PO DAILY #30 tablet 08/13/16 [Rx] Buspirone HCl [Buspar] 7.5 mg PO BID 02/11/18 [History] Omeprazole 40 mg PO QAM 02/11/18 [History] amLODIPine [Norvasc] 10 mg PO DAILY 02/11/18 [History] Albuterol Sulfate [Albuterol Inhaler] 2 puff IH Q4HR 02/12/18 [History] Budesonide/Formoterol 160/4.5 [Symbicort 160/4.5] 2 puff IH BIDR 02/12/18 [ History] Duloxetine HCl [Cymbalta] 60 mg PO BID 02/12/18 [History] Gabapentin [Neurontin] 800 mg PO TID 02/12/18 [History] Temazepam [Restoril] 30 mg PO Q48H PRN 02/12/18 [History] Valsartan [Diovan] 40 mg PO DAILY 02/12/18 [History] levETIRAcetam [Levetiracetam] 1,000 mg PO BID 02/12/18 [History] Albuterol Sulfate [Albuterol Inhaler] 2 puff IH Q2HR PRN inhaler 02/25/18 [Rx] Heparin 5,000 unit SQ Q12HCO vial 02/25/18 [Rx] Ipratropium/Albuterol Neb [Duoneb] 3 ml IH [id number] inhsol 02/25/18 [Rx] Mag Hydrox/Al Hydrox/Simeth [Maalox] 15 ml PO Q6HR PRN udc 02/25/18 [Rx] Nystatin POWDER [Nystop] 1 appl TP TID bottle 02/25/18 [Rx] OxyCODONE Immed Rel [Roxicodone 5 MG] 5 mg PO Q4HR PRN 2 Days #10 tablet [Rx] Promethazine [Phenergan] 12.5 mg PO Q6HR PRN tablet 02/25/18 [Rx] Simethicone [Gas-X] 80 mg PO TID PRN tab.chew 02/25/18 [Rx] Vancomycin [Vancocin] 1,250 mg IV DAILY 5 Days vial 02/25/18 [Rx] Sulfamethoxazole/Trimeth DS [Bactrim DS] 1 each PO BID #10 tablet 02/26/18 [Rx] Allergies/Adverse Reactions: 3 Allergy/AdvReac Type Severity Reaction Status Date / Time acetaminophen Allergy Hives Verified 07/28/15 14:58 [From Darvocet-N] Iodinated Contrast- Oral and Allergy Difficulty Verified 07/28/15 14:58 IV Dye Breathing [Iodinated Contrast Media - IV Dye] propoxyphene Allergy Hives Verified 07/28/15 14:58 [From Darvocet-N] - Respiratory Orders Oxygen / L per min (Titrate to SpO2 88%), Other (BiPAP @ Night and while sleeping) Smoking Cessation: Smoking cessation has been advised. For more information, call the [place] Tobacco Quit Line at 7-057-QDLL-NOW. - Ancillary Orders May use pressure relief devices daily prn - Advance Directives Living Will: Yes Power of Tax Credit Leasing Consultant: Yes Code Status: DNR-Arrest/Don't Intubate - Mobility Orders Chair - Rehabiliation Orders Rehab Potential: Fair Rehab Orders: ROM Exercises, Evaluation for Physical Therapy, Evaluation for Occupational Therapy - Treatments Skin tear care topically daily PRN per policy - Diet Orders No Concentrated Sweets CERTIFICATION: I certify that the transfer of the above named patient to an Extended Care Facility is necessary for the continuing treatment of the diagnosis listed. The above information is true and accurate reflection of patient's current condition. Confidential - Redisclosure prohibited without a patient's written consent.
== END 2018-02-27 15:15 | DRG 264 ==
LOC: SUATTDRO 20:56 → ICNU 20:56 → 2NENU 02-22 12:46
PROVIDERS: ADMIT Family Medicine; ATTEND Internal Medicine

== ENCOUNTER 2018-06-18 14:54 | Inpatient (IN) ==
[2018-06-18] MEDS ORDERED: Naloxone 0.4 MG/ML INJ IVP PRN (16:50)
[2018-06-18] MEDS ORDERED: 0.9 % Sodium Chloride 1,000 ML IVC SCH (17:00)
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
[2018-06-18] MEDS: Piperacillin/Tazobactam 3.375 GM in 0.9 % Sodium Chloride Mini Bag 100 ML IVPB SCH (17:19)
[2018-06-18 17:33] LABS: Eosinophils # 0.1 K/mcL (0.0-0.6); Hematocrit 26.4 % (35.3-44.9); Hemoglobin 8.2 g/dL (11.5-15.4); Immature Granulocytes % 0.9 % (0-4); Lymphocytes # 0.6 K/mcL (0.6-4.6); Lymphocytes % 8.4 %; Mean Corpuscular HGB Conc 31.1 g/dL (31.6-35.5); Mean Corpuscular Volume 96.7 fL (83.0-100.0); Mean Platelet Volume 10.4 fL (9.4-12.4); Monocytes # 0.3 K/mcL (0.0-1.3); Monocytes % 4.7 %; Neutrophils # 5.8 K/mcL (1.6-8.9); Platelet Count 140 K/mcL (140-400); Red Blood Count 2.73 M/mcL (3.82-4.97)
[2018-06-18] MEDS: *HR* Heparin 5,000 UNIT/ML VIAL SQ SCH (17:46)
[2018-06-18 17:56] LABS: Albumin 3.7 g/dL (3.5-5.7); Albumin/Globulin Ratio 1.2 (1.1-2.2); Bilirubin,Total 0.4 mg/dL (0.3-1.0); Calcium 8.4 mg/dL (8.6-10.3); Globulin 3.2 g/dL (2.4-3.5); Magnesium 1.8 mg/dL (1.6-2.6); Phosphorous 5.5 mg/dL (2.7-4.5); Potassium 4.6 mEq/L (3.5-5.1); Total Protein 6.9 g/dL (6.4-8.9)
[2018-06-18 20:22] LABS: ABG Base Excess 5 mEq/L (-2 to 3); ABG HCO3 34 mEq/L (21-27); ABG Oxygen Saturation 84 % (95-98); ABG PCO2 87 mmHg (35-45); ABG PO2 62 mmHg (85-104); ABG TCO2 37 mEq/L (20-26); Blood Gas Modality BiLevel; Blood Gas PEEP 8 cm H2O
[2018-06-18 22:59] LABS: ABG Base Excess 5 mEq/L (-2 to 3); ABG HCO3 34 mEq/L (21-27); ABG Oxygen Saturation 88 % (95-98); ABG PCO2 81 mmHg (35-45); ABG PH 7.24 pH Units (7.32-7.45); ABG PO2 68 mmHg (85-104); ABG TCO2 37 mEq/L (20-26); Blood Gas Modality avaps; Blood Gas PEEP 8 cm H2O; Blood Gas VT 550 cc
[2018-06-19] MEDS: Piperacillin/Tazobactam 3.375 GM in 0.9 % Sodium Chloride Mini Bag 100 ML IVPB SCH ×3 (00:08→17:14)
[2018-06-19 03:48] LABS: Basophils % 0.3 %; Eosinophils # 0.1 K/mcL (0.0-0.6); Eosinophils % 1.5 %; Hematocrit 26.6 % (35.3-44.9); Hemoglobin 8.1 g/dL (11.5-15.4); Lymphocytes # 0.7 K/mcL (0.6-4.6); Mean Corpuscular HGB Conc 30.5 g/dL (31.6-35.5); Mean Corpuscular Hemoglobin 29.3 pg (28.0-33.3); Mean Corpuscular Volume 96.4 fL (83.0-100.0); Mean Platelet Volume 10.5 fL (9.4-12.4); Monocytes # 0.3 K/mcL (0.0-1.3); Monocytes % 4.3 %; Neutrophils # 5.5 K/mcL (1.6-8.9); Platelet Count 140 K/mcL (140-400); Red Blood Count 2.76 M/mcL (3.82-4.97); Red Cell Distribution Width 16.9 % (11.5-14.5); Segmented Neutrophils % 81.9 %
[2018-06-19] MEDS ORDERED: Ipratropium/Albuterol Neb 3 ML IH PRN (03:59)
[2018-06-19 04:08] LABS: Albumin 3.9 g/dL (3.5-5.7); Albumin/Globulin Ratio 1.3 (1.1-2.2); Bilirubin,Total 0.5 mg/dL (0.3-1.0); Calcium 8.4 mg/dL (8.6-10.3); Globulin 3.1 g/dL (2.4-3.5); Magnesium 1.9 mg/dL (1.6-2.6); Phosphorous 5.4 mg/dL (2.7-4.5); Potassium 4.5 mEq/L (3.5-5.1)
[2018-06-19] MEDS: *HR* Heparin 5,000 UNIT/ML VIAL SQ SCH ×2 (05:02→17:14)
[2018-06-19 08:13] LABS: ABG Base Excess 5 mEq/L (-2 to 3); ABG HCO3 34 mEq/L (21-27); ABG Oxygen Saturation 91 % (95-98); ABG PCO2 83 mmHg (35-45); ABG PH 7.22 pH Units (7.32-7.45); ABG PO2 76 mmHg (85-104); ABG TCO2 36 mEq/L (20-26); Blood Gas Modality avaps; Blood Gas PEEP 8 cm H2O; Blood Gas Pressure Support 15 cm H2O; Blood Gas VT 550 cc
--- NOTE | 2018-06-19 08:26 | Pulmonology Progress Note ---
<RickymurieljacintoLayton S - Last Filed: 06/19/18 09:25> Objective PUL Vital signs: Last Vital Signs Temp 97.3 F L 06/19/18 08:10 Pulse 70 06/19/18 09:00 Resp 18 06/19/18 09:00 BP 131/58 06/19/18 09:00 Pulse Ox 90 06/19/18 09:00 Ventilator Settings Ventilator Settings: Ventilator Settings, Last 8 Hours Ventilator Tidal Volume 550 Setting Results - Laboratory Findings CBC and BMP: 06/19/18 03:34 06/19/18 03:34 ABG ABG pH 7.22 pH Units (7.32-7.45) L 06/19/18 08:09 ABG pCO2 83 mmHg (35-45) H* 06/19/18 08:09 ABG pO2 76 mmHg (85-104) L 06/19/18 08:09 ABG O2 Saturation 91 % (95-98) L 06/19/18 08:09 Abnormal lab findings: Abnormal lab results RBC 2.76 M/mcL (3.82-4.97) L 06/19/18 03:34 Hgb 8.1 g/dL (11.5-15.4) L 06/19/18 03:34 Hct 26.6 % (35.3-44.9) L 06/19/18 03:34 MCHC 30.5 g/dL (31.6-35.5) L 06/19/18 03:34 RDW 16.9 % (11.5-14.5) H 06/19/18 03:34 ABG pH 7.22 pH Units (7.32-7.45) L 06/19/18 08:09 ABG pCO2 83 mmHg (35-45) H* 06/19/18 08:09 ABG pO2 76 mmHg (85-104) L 06/19/18 08:09 ABG HCO3 34 mEq/L (21-27) H 06/19/18 08:09 ABG Total CO2 36 mEq/L (20-26) H 06/19/18 08:09 ABG O2 Saturation 91 % (95-98) L 06/19/18 08:09 ABG Base Excess 5 mEq/L (-2 to 3) H 06/19/18 08:09 Sodium 132 mEq/L (136-145) L 06/19/18 03:34 Chloride 95 mEq/L (98-107) L 06/19/18 03:34 BUN 45 mg/dL (8-23) H 06/19/18 03:34 Creatinine 3.04 mg/dL (0.60-1.20) H 06/19/18 03:34 Est GFR ( Amer) 19 (> 60) L 06/19/18 03:34 Est GFR (Non-Af Amer) 15 (> 60) L 06/19/18 03:34 POC Glucose 109 mg/dL (70-99) H 06/18/18 16:53 Calcium 8.4 mg/dL (8.6-10.3) L 06/19/18 03:34 Phosphorus 5.4 mg/dL (2.7-4.5) H 06/19/18 03:34 AST 9 Units/L (13-39) L 06/19/18 03:34 Alkaline Phosphatase 108 Units/L (34-104) H 06/19/18 03:34 - Microbiology Findings Microbiology Findings: Microbiology, Last 48 Hours 06/18/18 17:10 Blood Culture - Preliminary Peripheral Venipuncture Culture is incubating and being continuously monit ored for growth. Final report to follow. 06/18/18 17:19 Blood Culture - Preliminary Peripheral Venipuncture Culture is incubating and being continuously monitored for growth. Final report to follow. - Clinical Findings Intake & Output: Intake & Output 06/18/18 06/19/18 06/19/18 23:59 07:59 15:59 Intake Total 600 / 600 1600 / 1600 Output Total 110 / 110 100 / 100 250 / 250 Balance 490 / 490 1500 / 1500 -250 / -250 Weight 148.1 kg 148.4 kg Consult Discharge Plan - Plan Referrals: NONE,PCP [Primary Care Provider] - - Attending Attestation I saw and evaluated this patient and my medical decision-making was reviewed with the Resident Physician. I agree with the documented findings, disposition and treatment plan as described except to the extent set forth below. We independently had [id number] contact with the patient I spent 35 minutes of Critical Care time with this patient. It involved decision making of high complexity to assess, manipulate, and support vital organ system failure and/or to prevent further life threatening deterioration of the patient's condition. The time involved in the performance of separately reportable procedures was not counted toward critical care time. I saw and evaluated this patient and my medical decision-making was reviewed with the Resident Physician. I agree with the documented findings, disposition and treatment plan as described except to the extent set forth below. We independently had [id number] contact with the patient Patient seen and examined at bedside Labs, radiology, chart personally reviewed. Management was reviewed during multidisciplinary critical care rounds. BARRER AND TACKER: Patient is drowsy but arousable and able to follow commands and answer simple questions likely secondary to metabolic encephalopathy acute on chronic hypercarbia. She is more alert on my exam. Pulm: Patient is acute on chronic hypoxic and hypercapnic respiratory failure complicated by V/Q mismatch bilateral basilar atelectasis complicated by pul monary hypertension with cor pulmonale and acute on chronic diastolic dysfunction inspite of higher right sided pressures clinically she looks volume depleted reduced cardiac output contributing to this hypoxia. We will do volume resuscitation with close monitoring of VQ mismatch will get a blood gas analysis patient has acceptable oxygenation and ventilation pH improving.High threshold to intubate this patient as patient will prognosis if she gets intubated because of her previous complicated ICU course. 06/19 patient has acceptable oxygenation and ventilation has high risk for respiratory decline prior h/o difficult intubation most likely due to previous tracheostomy and subglottic stenosis she will need a backup smaller ET tube if we are preparing to intubate at the moment she stable to continue BiPAP/AVAPS. Cards: Patient with cor pulmonale and pulmonary hypertension class II and class III.Presenting with hypovolemia will do volume resuscitation . Will get ECHO lo ok at LV function and RV function give us an idea about volume status is very difficult to ascertain because of the body habitus and also due to cor pulmonale. FEN-GI: Nil By mouth for now GI prophylaxis Renal: Labs and output reviewed concern for ATN versus cardiorenal syndrome will consult nephrology to answer this question ID: No evidence of pneumonia, no evidence of UTI possible cellulitis cover with broad-spectrum antibiotics.To stop Vancomycin Heme/Onc: no Leukocytosis, thromboprophylaxis. Endo: Glucose Monitored Integ/MSK: Skin Care per routine ICU Nursing Protocol to prevent ulcers. Lines: All lines examined without evidence of infection : Dispo: Critically ill high chance of respiratory and circulatory failure CODE: Full Code <Chai Faulkner - Last Filed: 06/19/18 13:24> Date of Encounter: 06/19/18 Time of Encounter: 09:51 Assessment and Plan (1) Acute on chronic respiratory failure with hypoxia and hypercapnia Current Visit: Yes Status: Acute Pt oxygenating well on BiPAP with FiO2 of 40% SpO2 100% at these settings Repeat ABG showed pH 7.22, pCO2 83, pO2 76, HCO3 34 Likely 2/2 COPD and CHF with Class 2-3 Pulm HTN Continue BiPAP Will obtain echo to look at LV and RV function and volume status (2) Pulmonary hypertension due to COPD Current Visit: Yes Status: Acute Plan as above (3) NADIA (acute kidney injury) Current Visit: Yes Status: Acute Cr from [place] ED elevated at 2.92, repeat yesterday Cr 3.11 Continues to be elevated at 3.04 today Received a total of 3L IV fluids yesterday Oliguric with output 110mL since admission yesterday Question ATN vs cardiorenal syndrome Consult nephro Repeat UA Obtain retroperitoneal ultz for obstructive causes Continue to monitor Renally dose medications and avoid nephrotoxins (4) Cellulitis Current Visit: No Status: Acute Warm and erythematous areas on bilateral LE above the ankles One time dose of Vanc renally dosed yesterday with hx of MRSA PNA Day #2 of Zosyn q8hr MRSA swab - if negative can repeat again tomorrow Qualifiers: Site of cellulitis: extremity Site of cellulitis of extremity: lower extremity Laterality: right Qualified Code(s): L03.115 - Cellulitis of right lower limb (5) Anemia Current Visit: No Status: Acute Hbg 8.2 on admission Stable at 8.1 today H&H from previous visits do not indicate significant chronic anemia Unable to obtain full medical hx from pt due to mentation No obvious signs of bleeding at this time Continue to monitor Qualifiers: Anemia type: unspecified type Qualified Code(s): D64.9 - Anemia, unspecified (6) DVT prophylaxis Current Visit: Yes Status: Acute SQ Heparin Subjective Principal diagnosis: Acute on chronic respiratory failure Interval history: Pt seen and examined at bedside. Resting comfortably on BiPap. She is arousable and able to answer some questions. States her shortness of breath remains unchanged. Denies any fever, chills, or chest pain. States she does not take any NSAIDs at home. Objective PUL Vital signs: Last Vital Signs Temp 97.3 F L 06/19/18 08:10 Pulse 65 06/19/18 08:00 Resp 20 06/19/18 07:57 BP 123/61 06/19/18 07:57 Pulse Ox 97 06/19/18 07:57 General appearance: lethargic Eyes: nonicteric ENT: oropharynx dry Neck: supple Effort: mildly labored Tactile fremitus: bilateral: normal Cardiovascular: regular rate and rhythm Gastrointestinal: soft, non-tender, non-distended Integumentary: cellulitis (bilateral LEs ) Extremities: no cyanosis, pink and warm, pulses normal, edema Musculoskeletal: no deformities unable to assess due to mental status affect normal Results - Laboratory Findings CBC and BMP: 06/19/18 03:34 06/19/18 03:34 ABG ABG pH 7.22 pH Units (7.32-7.45) L 06/19/18 08:09 ABG pCO2 83 mmHg (35-45) H* 06/19/18 08:09 ABG pO2 76 mmHg (85-104) L 06/19/18 08:09 ABG O2 Saturation 91 % (95-98) L 06/19/18 08:09 Abnormal lab findings: Abnormal lab results RBC 2.76 M/mcL (3.82-4.97) L 06/19/18 03:34 Hgb 8.1 g/dL (11.5-15.4) L 06/19/18 03:34 Hct 26.6 % (35.3-44.9) L 06/19/18 03:34 MCHC 30.5 g/dL (31.6-35.5) L 06/19/18 03:34 RDW 16.9 % (11.5-14.5) H 06/19/18 03:34 ABG pH 7.22 pH Units (7.32-7.45) L 06/19/18 08:09 ABG pCO2 83 mmHg (35-45) H* 06/19/18 08:09 ABG pO2 76 mmHg (85-104) L 06/19/18 08:09 ABG HCO3 34 mEq/L (21-27) H 06/19/18 08:09 ABG Total CO2 36 mEq/L (20-26) H 06/19/18 08:09 ABG O2 Saturation 91 % (95-98) L 06/19/18 08:09 ABG Base Excess 5 mEq/L (-2 to 3) H 06/19/18 08:09 Sodium 132 mEq/L (136-145) L 06/19/18 03:34 Chloride 95 mEq/L (98-107) L 06/19/18 03:34 BUN 45 mg/dL (8-23) H 06/19/18 03:34 Creatinine 3.04 mg/dL (0.60-1.20) H 06/19/18 03:34 Est GFR ( Amer) 19 (> 60) L 06/19/18 03:34 Est GFR (Non-Af Amer) 15 (> 60) L 06/19/18 03:34 POC Glucose 109 mg/dL (70-99) H 06/18/18 16:53 Calcium 8.4 mg/dL (8.6-10.3) L 06/19/18 03:34 Phosphorus 5.4 mg/dL (2.7-4.5) H 06/19/18 03:34 AST 9 Units/L (13-39) L 06/19/18 03:34 Alkaline Phosphatase 108 Units/L (34-104) H 06/19/18 03:34 - Microbiology Findings Microbiology Findings: Microbiology, Last 48 Hours 06/18/18 17:10 Blood Culture - Preliminary Peripheral Venipuncture Culture is incubating and being continuously monitored for growth. Final report to follow. 06/18/18 17:19 Blood Culture - Preliminary Peripheral Venipuncture Culture is incubating and being continuously monitored for growth. Final report to follow. - Clinical Findings Intake & Output: Intake & Output 06/18/18 06/19/18 06/19/18 23:59 07:59 15:59 Intake Total 600 / 600 1600 / 1600 Output Total 110 / 110 100 / 100 250 / 250 Balance 490 / 490 1500 / 1500 -250 / -250 Weight 148.1 kg 148.4 kg
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
[2018-06-19 10:37] LABS: Bilirubin,Urine Negative (Negative); Blood,Urine Moderate (Negative); Color,Urine Yellow (Yellow); Glucose,Urine (UA) Normal (Normal); Ketones,Urine Negative (Negative); Leukocyte Esterase,Urine Small (Negative); Nitrite,Urine Negative (Negative); PH,Urine 5.5 pH Units (5.0-8.0); Protein,Urine 100 mg/dL (Neg-Trace); Specific Gravity,Urine 1.022 (1.010-1.025); Urobilinogen,Urine Normal (Normal)
[2018-06-19 10:41] LABS: Bacteria,Urine None Seen per hpf (None-Few); Hyaline Casts,Urine None Seen per lpf (None-Few); RBC,Urine 15-30 per hpf (0-3); Squamous Epithelial Cell,Urine Many per lpf (None-Few); WBC,Urine 0-3 per hpf (0-3)
[2018-06-19 10:47] LABS: Clarity,Urine Hazy (Clear)
[2018-06-19] MEDS ORDERED: Mag Hydrox/Al Hydrox/Simeth 30 ML UDC PO PRN (11:12)
[2018-06-19 11:28] LABS: Amorphous Sediment,Urine Few (Few)
[2018-06-19] MEDS ORDERED: Perflutren Lipid Microsphere 1.3 ML in 0.9 % Sodium Chloride 8.7 ML IVP ONE (13:09)
[2018-06-19] MEDS: Nystatin POWDER 30 GM BOTTLE TP SCH ×2 (17:15→19:16)
[2018-06-19] MEDS: Budesonide/Formoterol 160/4.5 1 PUFF INH IH SCH (21:12)
[2018-06-20] MEDS: Piperacillin/Tazobactam 3.375 GM in 0.9 % Sodium Chloride Mini Bag 100 ML IVPB SCH ×3 (00:50→17:15)
[2018-06-20] MEDS ORDERED: *HR* LORazepam 2 MG/ML VIAL IVP PRN (01:41)
[2018-06-20 04:10] LABS: Basophils % 0.4 %; Eosinophils # 0.1 K/mcL (0.0-0.6); Eosinophils % 1.9 %; Hematocrit 26.8 % (35.3-44.9); Hemoglobin 8.4 g/dL (11.5-15.4); Immature Granulocytes % 0.6 % (0-4); Lymphocytes # 0.6 K/mcL (0.6-4.6); Lymphocytes % 12.1 %; Mean Corpuscular HGB Conc 31.3 g/dL (31.6-35.5); Mean Corpuscular Hemoglobin 29.7 pg (28.0-33.3); Mean Corpuscular Volume 94.7 fL (83.0-100.0); Mean Platelet Volume 10.6 fL (9.4-12.4); Monocytes # 0.3 K/mcL (0.0-1.3); Monocytes % 5.1 %; Neutrophils # 4.1 K/mcL (1.6-8.9); Nucleated Red Blood Cells 0.4 /100 WBC (0); Platelet Count 160 K/mcL (140-400); Red Blood Count 2.83 M/mcL (3.82-4.97); Red Cell Distribution Width 16.7 % (11.5-14.5); Segmented Neutrophils % 79.9 %
[2018-06-20 04:28] LABS: Albumin 3.9 g/dL (3.5-5.7); Albumin/Globulin Ratio 1.2 (1.1-2.2); Bilirubin,Total 0.6 mg/dL (0.3-1.0); Calcium 8.6 mg/dL (8.6-10.3); Globulin 3.3 g/dL (2.4-3.5); Magnesium 1.9 mg/dL (1.6-2.6); Phosphorous 3.8 mg/dL (2.7-4.5); Potassium 4.5 mEq/L (3.5-5.1); Total Protein 7.2 g/dL (6.4-8.9)
[2018-06-20] MEDS: *HR* Heparin 5,000 UNIT/ML VIAL SQ SCH ×2 (05:02→17:16)
[2018-06-20 05:43] LABS: ABG Base Excess 7 mEq/L (-2 to 3); ABG HCO3 37 mEq/L (21-27); ABG Oxygen Saturation 80 % (95-98); ABG PCO2 87 mmHg (35-45); ABG PH 7.23 pH Units (7.32-7.45); ABG PO2 56 mmHg (85-104); ABG TCO2 39 mEq/L (20-26); Blood Gas Modality NIV; Blood Gas PEEP 8 cm H2O; Blood Gas Respiration Rate 16; Blood Gas VT 550 cc
--- NOTE | 2018-06-20 06:52 | Pulmonology Progress Note ---
<Layton Dinh S - Last Filed: 06/20/18 12:55> Objective PUL Vital signs: Last Vital Signs Temp 97.9 F 06/20/18 08:00 Pulse 72 06/20/18 11:00 Resp 20 06/20/18 11:13 BP 111/67 06/20/18 11:00 Pulse Ox 90 06/20/18 11:13 Ventilator Settings Ventilator Settings: Ventilator Settings, Last 8 Hours Ventilator Tidal Volume 550 Setting Ventilator Respiratory Rate 16 Setting Positive End Expiratory 8 Pressure Results - Laboratory Findings CBC and BMP: 06/20/18 03:50 06/20/18 03:50 ABG ABG pH 7.23 pH Units (7.32-7.45) L 06/20/18 05:36 ABG pCO2 87 mmHg (35-45) H* 06/20/18 05:36 ABG pO2 56 mmHg (85-104) L 06/20/18 05:36 ABG O2 Saturation 80 % (95-98) L 06/20/18 05:36 Abnormal lab findings: Abnormal lab results RBC 2.83 M/mcL (3.82-4.97) L 06/20/18 03:50 Hgb 8.4 g/dL (11.5-15.4) L 06/20/18 03:50 Hct 26.8 % (35.3-44.9) L 06/20/18 03:50 MCHC 31.3 g/dL (31.6-35.5) L 06/20/18 03:50 RDW 16.7 % (11.5-14.5) H 06/20/18 03:50 Nucleated RBCs/100 WBC 0.4 /100 WBC (0) H 06/20/18 03:50 ABG pH 7.23 pH Units (7.32-7.45) L 06/20/18 05:36 ABG pCO2 87 mmHg (35-45) H* 06/20/18 05:36 ABG pO2 56 mmHg (85-104) L 06/20/18 05:36 ABG HCO3 37 mEq/L (21-27) H 06/20/18 05:36 ABG Total CO2 39 mEq/L (20-26) H 06/20/18 05:36 ABG O2 Saturation 80 % (95-98) L 06/20/18 05:36 ABG Base Excess 7 mEq/L (-2 to 3) H 06/20/18 05:36 Carbon Dioxide 31 mEq/L (23-29) H 06/20/18 03:50 BUN 36 mg/dL (8-23) H 06/20/18 03:50 Creatinine 1.65 mg/dL (0.60-1.20) H 06/20/18 03:50 Est GFR ( Amer) 37 (> 60) L 06/20/18 03:50 Est GFR (Non-Af Amer) 31 (> 60) L 06/20/18 03:50 POC Glucose 109 mg/dL (70-99) H 06/18/18 16:53 AST 11 Units/L (13-39) L 06/20/18 03:50 B-Natriuretic Peptide 195 pg/mL (Less than 100) H 06/19/18 09:47 Urine Clarity Hazy (Clear) A 06/19/18 10:24 Urine Protein 100 mg/dL (Neg-Trace) H 06/19/18 10:24 Urine Blood Moderate (Negative) H 06/19/18 10:24 Ur Leukocyte Esterase Small (Negative) H 06/19/18 10:24 Urine Microscopic RBC 15-30 per hpf (0-3) H 06/19/18 10:24 Ur Squamous Epith Cells Many per lpf (None-Few) H 06/19/18 10:24 Ur Culture Indicated? NO. (NO) A 06/19/18 10:24 Nasal Screen MRSA (PCR) Positive (Negative) A 06/19/18 12:10 - Microbiology Findings Microbiology Findings: Microbiology, Last 48 Hours 06/18/18 17:10 Blood Culture - Preliminary Peripheral Venipuncture Culture is incubating and being continuously monitored for growth. Final report to follow. 06/18/18 17:19 Blood Culture - Preliminary Peripheral Venipuncture Culture is incubating and being continuously monitored for growth. Final report to follow. - Clinical Findings Intake & Output: Intake & Output 06/19/18 06/20/18 06/20/18 23:59 07:59 15:59 Intake Total 200 / 200 100 / 100 100 / 100 Output Total 800 / 800 300 / 300 450 / 450 Balance -600 / -600 -200 / -200 -350 / -350 Weight 149.2 kg Consult Discharge Plan - Plan Referrals: NONE,PCP [Primary Care Provider] - - Attending Attestation - Attending Attestation I saw and evaluated this patient and my medical decision-making was reviewed with the Resident Physician. I agree with the documented findings, disposition and treatment plan as described except to the extent set forth below. We independently had [id number] contact with the patient I spent 32 minutes of Critical Care time with this patient. It involved decision making of high complexity to assess, manipulate, and support vital organ system failure and/or to prevent further life threatening deterioration of the patient's condition. The time involved in the performance of separately reportable procedures was not counted toward critical care time. Patient seen and examined at bedside Labs, radiology, chart personally reviewed. Management was reviewed during multidisciplinary critical care rounds. [employer]IL[employer]: Patient is drowsy agitated most likely due to metabolic encephalopathy Pulm: Patient is acute on chronic hypoxic and hypercapnic respiratory failure complicated by V/Q mismatch bilateral basilar atelectasis complicated by pulmonary hypertension with cor pulmonale and acute on chronic diastolic dysfunction inspite of higher right sided pressures clinically she looks volume depleted reduced cardiac output contributing to this hypoxia. We will do volume resuscitation with close monitoring of VQ mismatch will get a blood gas analysis patient has acceptable oxygenation and ventilation pH improving.High threshold to intubate this patient as patient will prognosis if she gets intubated because of her previous complicated ICU course. 06/19 patient has acceptable oxygenation and ventilation has high risk for respiratory decline prior h/o difficult intubation most likely due to previous tracheostomy and subglottic stenosis she will need a backup smaller ET tube if we are preparing to intubate at the moment she stable to continue BiPAP/AVAPS. 06/20 patient has acceptable oxygenation and ventilation blood gas looked stable still she has severe VQ mismatch which is having this acute on chronic hypercapnic respiratory failure will start diuresing her with a new chest x-ray showing some right upper lobe infiltrates we will start her on broad-spectrum antibiotics will add vancomycin with Zosyn. We will start giving some gentle diuresis and see how she does Cards: Patient with cor pulmonale and pulmonary hypertension class II and class III.Presenting with hypovolemia will do volume resuscitation . Will get ECHO look at LV function and RV function give us an idea about volume status is very difficult to ascertain because of the body habitus and also due to cor pulmonale. 06/20 echocardiogram showed normal LV function since the limited echo there was no comment on RV function and LA size still suspect diastolic heart failure will do gentle diuresis FEN-GI: Nil By mouth for now GI prophylaxis. Patient has morbid obesity due to excess calories Renal: Labs and output reviewed urine output picked up renal function getting better ID: Patient had this new right-sided infiltrate concerning for developing pneumonia as patient had previous MRSA pneumonia we will add vancomycin to Zosyn. Heme/Onc: no Leukocytosis, thromboprophylaxis. Endo: Glucose Monitored Integ/MSK: Skin Care per routine ICU Nursing Protocol to prevent ulcers. Lines: All lines examined without evidence of infection : Dispo: Critically ill high chance of respiratory and circulatory failure CODE: Full Code <KunPili R - Last Filed: 06/20/18 16:57> Date of Encounter: 06/20/18 Time of Encounter: 06:48 Assessment and Plan (1) Acute on chronic respiratory failure with hypoxia and hypercapnia Current Visit: Yes Status: Acute Likely secondary to COPD exacerbation and fluid overload from CHF with class 2-3 pulm HTN Echo showed LVEF 70-75% CXR shows stable mod-severe pulmonary vascular congestion and cardiomegaly with an increased focal opacity involving the RUL c s s representative of pulmonary edema vs pneumonia Zosyn day #3, vanc restarted (dose 2) Pt increased to FiO2 50% due to desats into the 80s Continued BiPAP with RR16, PEEP 8 ABG 06/20 pH 7.23, pCO2 87, pO2 56, HCO3 37 Duonebs q4H scheduled Solu-medrol 40mg q8H started Will give one time dose Lasix for additional diuresis now that kidney fxn is improving Son who is POA was called to confirm code status. He agrees with her being full code but states that she is adamant about never having a tracheostomy. Pt has had intermittent episodes of desaturation to the 70s, which improves with increased FiO2 over several minutes. A stat ABG was ordered and showed improvement of pO2 to 75 and no change in CO2 or pH. (2) Pulmonary hypertension due to COPD Current Visit: Yes Status: Acute Plan same as #1 (3) NADIA (acute kidney injury) Current Visit: Yes Status: Acute Nephro consulted, fluids held yesterday due to 3L input with oliguria, drugs to be renally dosed, avoid nephrotoxins Total output since yesterday 1750 mL - net fluid balance +740 Cre decreased from 3.04 --> 1.65 Will give one time dose of Lasix for additional diuresis NADIA likely due to prerenal cause vs ATN UA showed high protein, moderate blood and many squamous epi cells w/o bacteria or casts Retroperitoneal US did not demonstrate hydronephrosis or signs of obstruction (4) Pneumonia Current Visit: Yes Status: Suspected CXR demonstrates increased opacification of RUL indicative of edema vs pneumonia Zosyn day #3, vanc has been restarted Lasix given for additional diuresis Qualifiers: Pneumonia type: due to unspecified organism Laterality: right Lung location: upper lobe of lung Qualified Code(s): J18.1 - Lobar pneumonia, unspecified organism (5) Cellulitis Current Visit: Yes Status: Acute Warm and erythematous area on B/L LE above ankles One time dose of Vanc 48 hours ago, renally dosed - will restart today Day #3 Zosyn q8H MRSA swab positive yesterday Pt has been afebrile since admission Qualifiers: Site of cellulitis: extremity Site of cellulitis of extremity: lower extremity Laterality: right Qualified Code(s): L03.115 - Cellulitis of right lower limb (6) Anemia Current Visit: Yes Status: Acute Hgb 8.2 on admission Hgb 8.4 today Previous H&H do not show significant chronic anemia No obvious signs of blood loss Continue to monitor Qualifiers: Anemia type: unspecified type Qualified Code(s): D64.9 - Anemia, unspecified (7) DVT prophylaxis Current Visit: Yes Status: Acute SQ Heparin Subjective Principal diagnosis: Acute on chronic respiratory failure Interval history: Pt has had urine outpt of 1750mL in last 24 hours. She is tolerating BiPAP and has been stable overnight. She has had increased wheezing over the past 24 hours, and her lower extremity cellulitis appears to be worsening. Heart echo showed LVEF 70-75% and retroperitoneal US did not show signs of obstruction or hydronephrosis. Objective PUL Vital signs: Last Vital Signs Temp 98.5 F 06/20/18 04:00 Pulse 86 06/20/18 05:57 Resp 30 06/20/18 05:57 BP 150/72 06/20/18 05:57 Pulse Ox 92 06/20/18 05:57 General appearance: no acute distress, alert Eyes: nonicteric ENT: oropharynx dry Effort: mildly labored Auscultation: bilateral: wheezes Cardiovascular: regular rate and rhythm Gastrointestinal: normoactive bowel sounds, soft, non-tender, non-distended Integumentary: normal Extremities: no cyanosis, pulses normal, other (erythematous and warm B/L LE with L>R) Musculoskeletal: no deformities other (sedated) Ventilator Settings Ventilator Settings: Ventilator Settings, Last 8 Hours Ventilator Tidal Volume 550 Setting Ventilator Respiratory Rate 16 Setting Positive End Expiratory 8 Pressure Results - Laboratory Findings CBC and BMP: 06/20/18 03:50 06/20/18 03:50 ABG ABG pH 7.23 pH Units (7.32-7.45) L 06/20/18 05:36 ABG pCO2 87 mmHg (35-45) H* 06/20/18 05:36 ABG pO2 56 mmHg (85-104) L 06/20/18 05:36 ABG O2 Saturation 80 % (95-98) L 06/20/18 05:36 Abnormal lab findings: Abnormal lab results RBC 2.83 M/mcL (3.82-4.97) L 06/20/18 03:50 Hgb 8.4 g/dL (11.5-15.4) L 06/20/18 03:50 Hct 26.8 % (35.3-44.9) L 06/20/18 03:50 MCHC 31.3 g/dL (31.6-35.5) L 06/20/18 03:50 RDW 16.7 % (11.5-14.5) H 06/20/18 03:50 Nucleated RBCs/100 WBC 0.4 /100 WBC (0) H 06/20/18 03:50 ABG pH 7.23 pH Units (7.32-7.45) L 06/20/18 05:36 ABG pCO2 87 mmHg (35-45) H* 06/20/18 05:36 ABG pO2 56 mmHg (85-104) L 06/20/18 05:36 ABG HCO3 37 mEq/L (21-27) H 06/20/18 05:36 ABG Total CO2 39 mEq/L (20-26) H 06/20/18 05:36 ABG O2 Saturation 80 % (95-98) L 06/20/18 05:36 ABG Base Excess 7 mEq/L (-2 to 3) H 06/20/18 05:36 Carbon Dioxide 31 mEq/L (23-29) H 06/20/18 03:50 BUN 36 mg/dL (8-23) H 06/20/18 03:50 Creatinine 1.65 mg/dL (0.60-1.20) H 06/20/18 03:50 Est GFR ( Amer) 37 (> 60) L 06/20/18 03:50 Est GFR (Non-Af Amer) 31 (> 60) L 06/20/18 03:50 POC Glucose 109 mg/dL (70-99) H 06/18/18 16:53 AST 11 Units/L (13-39) L 06/20/18 03:50 B-Natriuretic Peptide 195 pg/mL (Less than 100) H 06/19/18 09:47 Urine Clarity Hazy (Clear) A 06/19/18 10:24 Urine Protein 100 mg/dL (Neg-Trace) H 06/19/18 10:24 Urine Blood Moderate (Negative) H 06/19/18 10:24 Ur Leukocyte Esterase Small (Negative) H 06/19/18 10:24 Urine Microscopic RBC 15-30 per hpf (0-3) H 06/19/18 10:24 Ur Squamous Epith Cells Many per lpf (None-Few) H 06/19/18 10:24 Ur Culture Indicated? NO. (NO) A 06/19/18 10:24 Nasal Screen MRSA (PCR) Positive (Negative) A 06/19/18 12:10 - Microbiology Findings Microbiology Findings: Microbiology, Last 48 Hours 06/18/18 17:10 Blood Culture - Preliminary Peripheral Venipuncture Culture is incubating and being continuously monitored for growth. Final report to follow. 06/18/18 17:19 Blood Culture - Preliminary Peripheral Venipuncture Culture is incubating and being continuously monitored for growth. Final report to follow. - Clinical Findings Intake & Output: Intake & Output 06/19/18 06/19/18 06/20/18 15:59 23:59 07:59 Intake Total 100 / 100 200 / 200 100 / 100 Output Total 550 / 550 800 / 800 300 / 300 Balance -450 / -450 -600 / -600 -200 / -200 Weight 149.2 kg
[2018-06-20] MEDS: Budesonide/Formoterol 160/4.5 1 PUFF INH IH SCH ×2 (07:23→20:19)
[2018-06-20] MEDS ORDERED: Furosemide 20 MG/2 ML VIAL IVP ONE ×3 (07:23→21:54)
[2018-06-20] MEDS: Dexmedetomidine HCl 400 MCG/100 ML MLS IVC SCH ×5 (07:30→22:28)
[2018-06-20] MEDS ORDERED: Dexmedetomidine HCl 400 MCG/100 ML MLS IVC ONE (07:38)
[2018-06-20] MEDS ORDERED: Ipratropium/Albuterol Neb 3 ML IH SCH (08:30)
[2018-06-20] MEDS: Aspirin Enteric Coated 81 MG Tablet PO SCH (08:36)
[2018-06-20] MEDS: Nystatin POWDER 30 GM BOTTLE TP SCH ×3 (08:38→20:08)
[2018-06-20] MEDS ORDERED: LEVETIRACETAM 1000 MG PO SCH (10:45)
--- NOTE | 2018-06-20 10:54 | Nephrology Progress Note ---
Date of Encounter: 06/20/18 Time of Encounter: 09:45 - Assessment and Plan (1) NADIA (acute kidney injury) Current Visit: Yes Status: Acute Acute kidney injury likely prerenal with dehydration and hypovolemia, also intrinsic with evidence of acute tubular necrosis. The patient has been noted to be oliguria. Unlikely be post renal as there is no hydronephrosis. Patient has received IV fluids 3 L and albumin at admission. Urinalysis from [facility] with proteinuria, blood, leukocyte esterase, few hyaline casts, granular casts creatinine 1.65 (3.11), baseline 0.9 to 1.1 GFR 31 (15) I&O: 1900/1450 retroperitoneal ultrasound demonstrates no hydronephrosis Plan: -the patient's acute kidney injury secondary to prerenal and acute tubular necrosis has shown improvement. Her creatinine and oliguria has significantly improved from the IV fluids and albumin. There is no other interventional need at this time from a nephrology standpoint. Will continue to follow along from a distance. -Renal dose medications -avoid nephrotoxic agents -monitor I&O -monitor serum creatinine (2) Oliguria Current Visit: Yes Status: Acute Resolved. Oliguria in setting of acute kidney injury likely secondary to prerenal and acute tubular necrosis I&O: 1900/1450 -management as above (3) Proteinuria Current Visit: Yes Status: Acute Likely secondary to NADIA. Urinalysis demonstrating proteinuria. Differential includes NADIA, nephrotic syndrome. Urinalysis from [facility] with proteinuria, blood, leukocyte esterase, few hyaline casts, granular casts -will continue to monitor Qualifiers: Proteinuria type: unspecified Qualified Code(s): R80.9 - Proteinuria, unspecified (4) Anemia Current Visit: Yes Status: Acute Likely iron deficiency and anemia of chronic disease in setting of COPD and CHF. Hemoglobin 8.4 (baseline 9-11) MCV normocytic 03/01/2018: iron 49, 15% saturation, transferrin 238, ferritin 88 no obvious active bleeding plan: -continue to monitor H&H -may benefit from iron supplementation Qualifiers: Anemia type: unspecified type Qualified Code(s): D64.9 - Anemia, unspecified (5) Hypertension Current Visit: No Status: Chronic Known hypertension taking valsartan -recommend holding for now Qualifiers: Hypertension type: essential hypertension Qualified Code(s): I10 - Essential (primary) hypertension Subjective Principal diagnosis: Acute on chronic respiratory failure Interval history: Patient seen and examined at bedside. She is currently on BiPAP and has been started on Precedex so she is very sleepy. According to her nurse there have been no events. Objective - Vital Signs Vital signs: Vital Signs Temp Pulse Resp BP Pulse Ox 06/20/18 09:00 68 18 123/54 94 06/20/18 08:00 97.9 F 83 26 164/69 91 06/20/18 07:24 24 93 06/20/18 07:00 88 24 124/90 91 06/20/18 05:57 86 30 150/72 92 06/20/18 05:00 88 22 115/98 90 06/20/18 04:50 24 115/99 94 06/20/18 04:00 98.5 F 81 21 103/73 93 06/20/18 03:00 85 26 103/71 92 06/20/18 01:56 80 22 139/61 95 06/20/18 01:00 23 119/57 93 06/20/18 00:57 76 20 119/54 94 06/20/18 00:00 97.6 F 78 22 126/60 95 06/19/18 22:59 74 24 126/44 90 06/19/18 22:25 22 155/84 94 06/19/18 22:00 80 18 155/84 96 06/19/18 21:13 18 85 06/19/18 21:00 83 22 140/54 91 06/19/18 19:56 98.6 F 81 24 133/67 94 06/19/18 19:00 82 21 111/79 94 06/19/18 18:00 80 22 129/69 95 06/19/18 17:00 80 22 111/60 95 06/19/18 16:00 97.8 F 76 22 94/82 95 06/19/18 15:00 72 22 111/76 95 06/19/18 13:00 75 22 118/99 95 06/19/18 12:00 75 24 131/94 95 06/19/18 11:15 98.0 F 06/19/18 11:08 24 93 06/19/18 11:00 68 18 136/74 95 Intake and Output 06/19/18 06/20/18 06/20/18 23:59 07:59 15:59 Intake Total 200 / 200 100 / 100 Output Total 800 / 800 300 / 300 450 / 450 Balance -600 / -600 -200 / -200 -450 / -450 Intake: IV Fluids 100 / 100 100 / 100 Zosyn 3.375 GM In 0.9 % Sodium 100 / 100 100 / 100 Chloride (Mini-Bag +) 100 ML @ 25 mls/hr IVPB Q8H [facility] Rx#: [id number] Oral 100 / 100 Output: Catheter 800 / 800 300 / 300 450 / 450 Other: Weight 149.2 kg Patient Weight 06/20/18 23:59 Weight 149.2 kg - General Appearance General appearance: Present: well-developed, well-nourished, appears started age EENT: Present: mucous membranes moist Neck: Present: supple Respiratory: Present: wheezing (Bilateral), course breath sounds (Bilateral) Cardiology: Present: regular rate, regular rhythm, normal S1 Gastrointestinal: Present: normoactive bowel sounds, no tenderness, no guarding Integumentary: Present: no rash, warm and dry, erythema (Bilateral lower extremities) Neurologic: Present: CN 3-12 intact Musculoskeletal: Present: no deformities, no cyanosis Psychiatric: Present: mood/affect appropriate, cooperative - Lab 06/20/18 03:50 06/20/18 03:50 Most recent lab results ABG pH 7.23 pH Units (7.32-7.45) L 06/20/18 05:36 ABG pCO2 87 mmHg (35-45) H* 06/20/18 05:36 ABG pO2 56 mmHg (85-104) L 06/20/18 05:36 ABG HCO3 37 mEq/L (21-27) H 06/20/18 05:36 ABG O2 Saturation 80 % (95-98) L 06/20/18 05:36 Calcium 8.6 mg/dL (8.6-10.3) 06/20/18 03:50 Phosphorus 3.8 mg/dL (2.7-4.5) 06/20/18 03:50 Magnesium 1.9 mg/dL (1.6-2.6) 06/20/18 03:50 Consult Discharge Plan - Plan Referrals: NONE,PCP [Primary Care Provider] -
[2018-06-20] MEDS: Ipratropium/Albuterol Neb 3 ML IH SCH ×3 (11:09→20:19)
[2018-06-20 16:23] LABS: ABG Base Excess 8 mEq/L (-2 to 3); ABG HCO3 38 mEq/L (21-27); ABG Oxygen Saturation 91 % (95-98); ABG PCO2 88 mmHg (35-45); ABG PH 7.24 pH Units (7.32-7.45); ABG PO2 75 mmHg (85-104); ABG TCO2 40 mEq/L (20-26); Blood Gas PEEP 8 cm H2O; Blood Gas Respiration Rate 16; Blood Gas VT 550 cc
[2018-06-20] MEDS: MethylPREDNISolone 40 MG/ML VIAL IVP SCH ×2 (17:16→23:34)
[2018-06-21] MEDS: Piperacillin/Tazobactam 3.375 GM in 0.9 % Sodium Chloride Mini Bag 100 ML IVPB SCH ×3 (00:09→16:28)
[2018-06-21] MEDS: Ipratropium/Albuterol Neb 3 ML IH SCH ×7 (00:22→23:18)
[2018-06-21] MEDS: Dexmedetomidine HCl 400 MCG/100 ML MLS IVC SCH ×8 (00:28→15:54)
[2018-06-21] MEDS ORDERED: Haloperidol Lactate 5 MG/ML VIAL IVP ONE ×2 (02:07→13:04)
[2018-06-21 04:00] LABS: Basophils % 0.4 %; Eosinophils % 0.2 %; Hematocrit 28.7 % (35.3-44.9); Hemoglobin 9.2 g/dL (11.5-15.4); Immature Granulocytes % 1.3 % (0-4); Lymphocytes # 0.2 K/mcL (0.6-4.6); Lymphocytes % 3.9 %; Mean Corpuscular HGB Conc 32.1 g/dL (31.6-35.5); Mean Corpuscular Volume 93.5 fL (83.0-100.0); Mean Platelet Volume 10.3 fL (9.4-12.4); Monocytes # 0.1 K/mcL (0.0-1.3); Monocytes % 1.3 %; Platelet Count 157 K/mcL (140-400); Red Blood Count 3.07 M/mcL (3.82-4.97); Red Cell Distribution Width 16.4 % (11.5-14.5); Segmented Neutrophils % 92.9 %
[2018-06-21 04:21] LABS: Albumin/Globulin Ratio 1.1 (1.1-2.2); Bilirubin,Total 0.6 mg/dL (0.3-1.0); Calcium 8.7 mg/dL (8.6-10.3); Globulin 3.6 g/dL (2.4-3.5); Magnesium 1.7 mg/dL (1.6-2.6); Phosphorous 4.5 mg/dL (2.7-4.5); Potassium 4.9 mEq/L (3.5-5.1); Total Protein 7.6 g/dL (6.4-8.9)
[2018-06-21] MEDS: *HR* Heparin 5,000 UNIT/ML VIAL SQ SCH ×2 (05:10→16:28)
[2018-06-21] MEDS ORDERED: *HR* FentaNYL (PF) 100 MCG/2 ML VIAL IVP ONE (05:20)
--- NOTE | 2018-06-21 06:49 | Pulmonology Progress Note ---
<Layton Dinh S - Last Filed: 06/21/18 09:07> Objective PUL Vital signs: Last Vital Signs Temp 98.9 F 06/21/18 08:00 Pulse 51 06/21/18 08:00 Resp 16 06/21/18 08:00 BP 104/48 06/21/18 08:00 Pulse Ox 97 06/21/18 08:00 Results - Laboratory Findings CBC and BMP: 06/21/18 03:45 06/21/18 03:45 ABG ABG pH 7.32 pH Units (7.32-7.45) 06/21/18 07:31 ABG pCO2 64 mmHg (35-45) H 06/21/18 07:31 ABG pO2 95 mmHg (85-104) 06/21/18 07:31 ABG O2 Saturation 96 % (95-98) 06/21/18 07:31 Abnormal lab findings: Abnormal lab results RBC 3.07 M/mcL (3.82-4.97) L 06/21/18 03:45 Hgb 9.2 g/dL (11.5-15.4) L 06/21/18 03:45 Hct 28.7 % (35.3-44.9) L 06/21/18 03:45 RDW 16.4 % (11.5-14.5) H 06/21/18 03:45 Lymphocytes # 0.2 K/mcL (0.6-4.6) L 06/21/18 03:45 Nucleated RBCs/100 WBC 0.4 /100 WBC (0) H 06/20/18 03:50 ABG pCO2 64 mmHg (35-45) H 06/21/18 07:31 ABG HCO3 33 mEq/L (21-27) H 06/21/18 07:31 ABG Total CO2 35 mEq/L (20-26) H 06/21/18 07:31 ABG Base Excess 6 mEq/L (-2 to 3) H 06/21/18 07:31 Chloride 94 mEq/L (98-107) L 06/21/18 03:45 Carbon Dioxide 31 mEq/L (23-29) H 06/21/18 03:45 BUN 35 mg/dL (8-23) H 06/21/18 03:45 Creatinine 1.45 mg/dL (0.60-1.20) H 06/21/18 03:45 Est GFR ( Amer) 44 (> 60) L 06/21/18 03:45 Est GFR (Non-Af Amer) 36 (> 60) L 06/21/18 03:45 Glucose 177 mg/dL (70-105) H 06/21/18 03:45 POC Glucose 109 mg/dL (70-99) H 06/18/18 16:53 AST 11 Units/L (13-39) L 06/21/18 03:45 Alkaline Phosphatase 109 Units/L (34-104) H 06/21/18 03:45 B-Natriuretic Peptide 195 pg/mL (Less than 100) H 06/19/18 09:47 Globulin 3.6 g/dL (2.4-3.5) H 06/21/18 03:45 Urine Clarity Hazy (Clear) A 06/19/18 10:24 Urine Protein 100 mg/dL (Neg-Trace) H 06/19/18 10:24 Urine Blood Moderate (Negative) H 06/19/18 10:24 Ur Leukocyte Esterase Small (Negative) H 06/19/18 10:24 Urine Microscopic RBC 15-30 per hpf (0-3) H 06/19/18 10:24 Ur Squamous Epith Cells Many per lpf (None-Few) H 06/19/18 10:24 Ur Culture Indicated? NO. (NO) A 06/19/18 10:24 Nasal Screen MRSA (PCR) Positive (Negative) A 06/19/18 12:10 - Clinical Findings Intake & Output: Intake & Output 06/20/18 06/21/18 06/21/18 23:59 07:59 15:59 Intake Total 400 / 400 500 / 500 100 / 100 Output Total 2049 450 / 450 200 / 200 Balance -1650 / -1650 50 / 50 -100 / -100 Weight 148.3 kg Consult Discharge Plan - Plan Referrals: NONE,PCP [Primary Care Provider] - - Attending Attestation Attending Attestation I saw and evaluated this patient and my medical decision-making was reviewed with the Resident Physician. I agree with the documented findings, disposition and treatment plan as described except to the extent set forth below. We independently had [id number] contact with the patient I spent 35 minutes of Critical Care time with this patient. It involved decision making of high complexity to assess, manipulate, and support vital organ system failure and/or to prevent further life threatening deterioration of the patient's condition. The time involved in the performance of separately reportable procedures was not counted toward critical care time. Patient seen and examined at bedside Labs, radiology, chart personally reviewed. Management was reviewed during multidisciplinary critical care rounds. SENIOR CLERK: Patient is drowsy agitated overnight most likely due to metabolic encephalopathy but today morning when when I saw her she was conversing with me following commands. Pulm: Patient is acute on chronic hypoxic and hypercapnic respiratory failure complicated by V/Q mismatch bilateral basilar atelectasis complicated by pulmonary hypertension with cor pulmonale and acute on chronic diastolic dysfunction inspite of higher right sided pressures clinically she looks volume depleted reduced cardiac output contributing to this hypoxia. We will do volume resuscitation with close monitoring of VQ mismatch will get a blood gas analysis patient has acceptable oxygenation and ventilation pH improving.High threshold to intubate this patient as patient will prognosis if she gets intubated because of her previous complicated ICU course. 06/19 patient has acceptable oxygenation and ventilation has high risk for respiratory decline prior h/o difficult intubation most likely due to previous tracheostomy and subglottic stenosis she will need a backup smaller ET tube if we are preparing to intubate at the moment she stable to continue BiPAP/AVAPS. 06/20 patient has acceptable oxygenation and ventilation blood gas looked stable still she has severe VQ mismatch which is having this acute on chronic hypercapnic respiratory failure will start diuresing her with a new chest x-ray showing some right upper lobe infiltrates we will start her on broad-spectrum antibiotics will add vancomycin with Zosyn. We will start giving some gentle diuresis and see how she does 06/21 patient V/Q mismatch is lot better with ventilation also got better today with blood gas with improvement in pH and PaCO2. Mostly contributed by a hydros tatic pulmonary edema rather than pneumonia to continue diuresis if she continues to get better will de-escalate antibiotics over the weekend. Cards: Patient with cor pulmonale and pulmonary hypertension class II and class III.Presenting with hypovolemia will do volume resuscitation . Will get ECHO look at LV function and RV function give us an idea about volume status is very difficult to ascertain because of the body habitus and also due to cor pulmonale. 06/20 echocardiogram showed normal LV function since the limited echo there was no comment on RV function and LA size still suspect diastolic heart failure will do gentle diuresis 06/21 to continue diuresis patient has cor pulmonale with diastolic dysfunction since we did any limited echo this time we can ascertain and RV function. FEN-GI: Nil By mouth for now GI prophylaxis. Patient has morbid obesity due to excess calories. If she continues to get better we will get her breaks in the BiPAP give some clear liquid diet. Renal: Labs and output reviewed urine output picked up renal function getting better most likely recovering ATN with some cardiorenal component ID: Patient had this new right-sided infiltrate concerning for developing pneumonia as patient had previous MRSA pneumonia we will add vancomycin to Zosyn. 06/[address] scan shows bilateral groundglass opacities with bilateral pleural effusion more favoring a pulmonary edema rather than pneumonia since patient started to get better today will give a few more days of broad-spectrum antibiotic and I will de-escalate over the weekend. Heme/Onc thromboprophylaxis. Endo: Glucose Monitored Integ/MSK: Skin Care per routine ICU Nursing Protocol to prevent ulcers. Lines: All lines examined without evidence of infection : Dispo: Critically ill high chance of respiratory and circulatory failure CODE: Full Code <Darryl Tristanin R - Last Filed: 06/21/18 16:32> Date of Encounter: 06/21/18 Time of Encounter: 06:49 Assessment and Plan (1) Acute on chronic respiratory failure with hypoxia and hypercapnia Current Visit: Yes Status: Acute Likely secondary to COPD exacerbation and fluid overload from CHF with class 2-3 pulm HTN Echo showed LVEF 70-75% CXR 06/19 shows stable mod-severe pulmonary vascular congestion and cardiomegaly with an increased focal opacity involving the RUL personal banking representative of pulmonary edema vs pneumonia Chest CT showed likely pulm edema with B/L pleural effusions Zosyn day #4, vanc restarted day 2 - stop date for vanc will be sunday, for zosyn will be sunday. Pt tolerating BiPAP at 60% FiO2 Continued BiPAP with RR16, PEEP 8 ABG 06/21 pH 7.32, pCO2 64, pO2 95, HCO3 33 Duonebs q4H scheduled Solu-medrol 40mg q8H started Giving Lasix for additional diuresis now that kidney fxn is improving Son who is POA was called to confirm code status. He agrees with her being full code but states that she is adamant about never having a tracheostomy. IR has been consulted for therapeutic thoracentesis of right lung - pt refused (2) Pulmonary hypertension due to COPD Current Visit: Yes Status: Acute Plan same as #1 (3) NADIA (acute kidney injury) Current Visit: Yes Status: Acute Nephro consulted, fluids held due to 3L input with oliguria, drugs to be renally dosed, avoid nephrotoxins Total fluid balance now at -1310mL Cre decreased from 3.04 --> 1.65 --> 1.45 Will continue Lasix for additional diuresis NADIA likely due to prerenal cause vs ATN vs cardiorenal syndrome UA showed high protein, moderate blood and many squamous epi cells w/o bacteria or casts Retroperitoneal US did not demonstrate hydronephrosis or signs of obstruction (4) Pneumonia Current Visit: Yes Status: Suspected CXR demonstrates increased opacification of RUL indicative of edema vs pneumonia Zosyn day #4, vanc day 2 Lasix given for additional diuresis Qualifiers: Pneumonia type: due to unspecified organism Laterality: right Lung location: upper lobe of lung Qualified Code(s): J18.1 - Lobar pneumonia, unspecified organism (5) Cellulitis Current Visit: Yes Status: Acute Warm and erythematous area on B/L LE above ankles One time dose of Vanc 48 hours ago, renally dosed - restarted and day 2 Day #4 Zosyn q8H MRSA swab positive yesterday Pt has been afebrile since admission Qualifiers: Site of cellulitis: extremity Site of cellulitis of extremity: lower extremity Laterality: right Qualified Code(s): L03.115 - Cellulitis of right lower limb (6) Anemia Current Visit: Yes Status: Acute Hgb 8.2 on admission Hgb 9.2 today Previous H&H do not show significant chronic anemia No obvious signs of blood loss Continue to monitor Qualifiers: Anemia type: unspecified type Qualified Code(s): D64.9 - Anemia, unspecified (7) DVT prophylaxis Current Visit: Yes Status: Acute SQ Heparin Subjective Principal diagnosis: Acute on chronic respiratory failure Interval history: Pt has had cumulative negative balance of 1310mL since admission. She is tolerating BiPAP and has been stable overnight. She is now awake but confused. She does not know where she is or why, and is trying to remove the BiPAP to drink water. She initially refused CXR and ABG this morning - but ABG was able to be done later. Chest CT yesterday showed pulmonary edema and bilateral pleural effusions. Son has consented for thoracentesis but pt refusing. Objective PUL Vital signs: Last Vital Signs Temp 99.0 F 06/21/18 03:47 Pulse 70 06/21/18 06:00 Resp 24 06/21/18 06:00 BP 143/73 06/21/18 06:00 Pulse Ox 95 06/21/18 06:00 General appearance: asleep, agitated (initially) Eyes: nonicteric ENT: oropharynx dry Effort: mildly labored Auscultation: bilateral: wheezes Cardiovascular: regular rate and rhythm (sometimes becomes bradycardic while sleeping) Gastrointestinal: normoactive bowel sounds, soft, non-tender, non-distended Integumentary: other (lower extremity cellulitis vs venous stasis skin changes) Extremities: no cyanosis, no clubbing, pulses normal, edema (B/L LE to tibial tuberosity) Musculoskeletal: no deformities other (confused while awake) Results - Laboratory Findings CBC and BMP: 06/21/18 03:45 06/21/18 03:45 ABG ABG pH 7.24 pH Units (7.32-7.45) L 06/20/18 16:18 ABG pCO2 88 mmHg (35-45) H* 06/20/18 16:18 ABG pO2 75 mmHg (85-104) L 06/20/18 16:18 ABG O2 Saturation 91 % (95-98) L 06/20/18 16:18 Abnormal lab findings: Abnormal lab results RBC 3.07 M/mcL (3.82-4.97) L 06/21/18 03:45 Hgb 9.2 g/dL (11.5-15.4) L 06/21/18 03:45 Hct 28.7 % (35.3-44.9) L 06/21/18 03:45 RDW 16.4 % (11.5-14.5) H 06/21/18 03:45 Lymphocytes # 0.2 K/mcL (0.6-4.6) L 06/21/18 03:45 Nucleated RBCs/100 WBC 0.4 /100 WBC (0) H 06/20/18 03:50 ABG pH 7.24 pH Units (7.32-7.45) L 06/20/18 16:18 ABG pCO2 88 mmHg (35-45) H* 06/20/18 16:18 ABG pO2 75 mmHg (85-104) L 06/20/18 16:18 ABG HCO3 38 mEq/L (21-27) H 06/20/18 16:18 ABG Total CO2 40 mEq/L (20-26) H 06/20/18 16:18 ABG O2 Saturation 91 % (95-98) L 06/20/18 16:18 ABG Base Excess 8 mEq/L (-2 to 3) H 06/20/18 16:18 Chloride 94 mEq/L (98-107) L 06/21/18 03:45 Carbon Dioxide 31 mEq/L (23-29) H 06/21/18 03:45 BUN 35 mg/dL (8-23) H 06/21/18 03:45 Creatinine 1.45 mg/dL (0.60-1.20) H 06/21/18 03:45 Est GFR ( Amer) 44 (> 60) L 06/21/18 03:45 Est GFR (Non-Af Amer) 36 (> 60) L 06/21/18 03:45 Glucose 177 mg/dL (70-105) H 06/21/18 03:45 POC Glucose 109 mg/dL (70-99) H 06/18/18 16:53 AST 11 Units/L (13-39) L 06/21/18 03:45 Alkaline Phosphatase 109 Units/L (34-104) H 06/21/18 03:45 B-Natriuretic Peptide 195 pg/mL (Less than 100) H 06/19/18 09:47 Globulin 3.6 g/dL (2.4-3.5) H 06/21/18 03:45 Urine Clarity Hazy (Clear) A 06/19/18 10:24 Urine Protein 100 mg/dL (Neg-Trace) H 06/19/18 10:24 Urine Blood Moderate (Negative) H 06/19/18 10:24 Ur Leukocyte Esterase Small (Negative) H 06/19/18 10:24 Urine Microscopic RBC 15-30 per hpf (0-3) H 06/19/18 10:24 Ur Squamous Epith Cells Many per lpf (None-Few) H 06/19/18 10:24 Ur Culture Indicated? NO. (NO) A 06/19/18 10:24 Nasal Screen MRSA (PCR) Positive (Negative) A 06/19/18 12:10 - Clinical Findings Intake & Output: Intake & Output 06/20/18 06/20/18 06/21/18 15:59 23:59 07:59 Intake Total 700 / 700 400 / 400 500 / 500 Output Total 1150 / 1150 2049 / 2049 450 / 450 Balance -450 / -450 -1650 / -1650 50 / 50 Weight 148.3 kg
--- NOTE | 2018-06-21 07:19 | Event Note ---
Date of Encounter: 06/21/18 Time of Encounter: 07:19 Nephrology Chart Review With relatively stable if not actually improved renal function, I will sign-off at this point. Thank you for having consulted the [facility] group. Please feel free to call if questions and/or re-consult if indicated.
[2018-06-21 07:36] LABS: ABG Base Excess 6 mEq/L (-2 to 3); ABG HCO3 33 mEq/L (21-27); ABG Oxygen Saturation 96 % (95-98); ABG PCO2 64 mmHg (35-45); ABG PH 7.32 pH Units (7.32-7.45); ABG PO2 95 mmHg (85-104); ABG TCO2 35 mEq/L (20-26); Blood Gas PEEP 6 cm H2O; Blood Gas Respiration Rate 10
[2018-06-21] MEDS: Aspirin Enteric Coated 81 MG Tablet PO SCH (07:39)
[2018-06-21] MEDS: Budesonide/Formoterol 160/4.5 1 PUFF INH IH SCH ×2 (08:12→20:47)
[2018-06-21] MEDS: MethylPREDNISolone 40 MG/ML VIAL IVP SCH ×2 (08:30→16:28)
[2018-06-21] MEDS: Nystatin POWDER 30 GM BOTTLE TP SCH ×3 (08:32→21:44)
[2018-06-21] MEDS ORDERED: Haloperidol Lactate 5 MG/ML VIAL ONE (13:02)
[2018-06-21] MEDS ORDERED: Furosemide 20 MG/2 ML VIAL IVP ONE (15:21)
[2018-06-22] MEDS: MethylPREDNISolone 40 MG/ML VIAL IVP SCH ×4 (00:50→23:05)
[2018-06-22] MEDS: Piperacillin/Tazobactam 3.375 GM in 0.9 % Sodium Chloride Mini Bag 100 ML IVPB SCH ×3 (01:06→15:46)
[2018-06-22] MEDS: Haloperidol Lactate 5 MG/ML VIAL IVP PRN ×4 (01:07→21:26)
[2018-06-22] MEDS: Ipratropium/Albuterol Neb 3 ML IH SCH ×5 (04:08→20:09)
[2018-06-22 04:14] LABS: Basophils % 0.4 %; Eosinophils % 0.1 %; Hematocrit 29.2 % (35.3-44.9); Hemoglobin 9.3 g/dL (11.5-15.4); Immature Granulocytes % 1.4 % (0-4); Lymphocytes # 0.3 K/mcL (0.6-4.6); Lymphocytes % 3.5 %; Mean Corpuscular HGB Conc 31.8 g/dL (31.6-35.5); Mean Corpuscular Hemoglobin 29.8 pg (28.0-33.3); Mean Corpuscular Volume 93.6 fL (83.0-100.0); Mean Platelet Volume 11.4 fL (9.4-12.4); Monocytes # 0.3 K/mcL (0.0-1.3); Platelet Count 131 K/mcL (140-400); Red Blood Count 3.12 M/mcL (3.82-4.97); Red Cell Distribution Width 17.1 % (11.5-14.5); Segmented Neutrophils % 90.6 %
[2018-06-22 04:35] LABS: Albumin 4.2 g/dL (3.5-5.7); Albumin/Globulin Ratio 1.2 (1.1-2.2); Bilirubin,Total 0.5 mg/dL (0.3-1.0); Calcium 9.2 mg/dL (8.6-10.3); Globulin 3.4 g/dL (2.4-3.5); Magnesium 1.7 mg/dL (1.6-2.6); Potassium 4.7 mEq/L (3.5-5.1); Total Protein 7.6 g/dL (6.4-8.9)
[2018-06-22] MEDS: *HR* Heparin 5,000 UNIT/ML VIAL SQ SCH ×2 (06:06→18:10)
--- NOTE | 2018-06-22 06:28 | Pulmonology Progress Note ---
<Chai Faulkner - Last Filed: 06/22/18 15:30> Date of Encounter: 06/22/18 Time of Encounter: 09:30 Assessment and Plan (1) Acute on chronic respiratory failure with hypoxia and hypercapnia Current Visit: Yes Status: Acute Likely 2/2 COPD exacerbation and fluid overload from CHF with class 2-3 pulm HTN Echo showed LVEF 70-75% CXR 06/19 shows stable mod-severe pulmonary vascular congestion and cardiomegaly with an increased focal opacity involving the RUL district representative of pulmonary edema vs pneumonia Chest CT showed likely pulm edema with B/L pleural effusions Zosyn day #5, vanc restarted day 3 - stop date for vanc will be sunday, for zosyn will be sunday. Pt tolerating BiPAP at 60% FiO2 Continued BiPAP with RR16, PEEP 8 ABG 06/22 pH 7.34, pCO2 69, pO2 75, HCO3 37 Duonebs q4H scheduled Solu-medrol 40mg q8H Son who is POA was called to confirm code status. He agrees with her being full code but states that she is adamant about not wanting a tracheostomy IR was consulted for therapeutic thoracentesis of right lung on 06/21 but pt refused (2) Pulmonary hypertension due to COPD Current Visit: Yes Status: Acute Plan as above (3) NADIA (acute kidney injury) Current Visit: Yes Status: Acute Nephro consulted - fluids held due to 3L input with oliguria, drugs to be renally dosed, avoid nephrotoxins Total fluid balance now at -2385mL Cre decreased from 3.04 --> 1.65 --> 1.21 NADIA likely due to prerenal cause vs ATN vs cardiorenal syndrome UA showed high protein, moderate blood and many squamous epi cells w/o bacteria or casts Retroperitoneal US did not demonstrate hydronephrosis or signs of obstruction (4) Cellulitis Current Visit: Yes Status: Acute Warm and erythematous areas on bilateral LE above the ankles One time dose of Vanc renally dosed on admission with hx of MRSA PNA Afebrile since admission Day #5 of Zosyn q8hr MRSA swab was positive Vanc was added, Day 3 Qualifiers: Site of cellulitis: extremity Site of cellulitis of extremity: lower extremity Laterality: right Qualified Code(s): L03.115 - Cellulitis of right lower limb (5) Anemia Current Visit: Yes Status: Acute Hbg 8.2 on admission Stable at 9.3 today H&H from previous visits do not indicate significant chronic anemia Unable to obtain full medical hx from pt due to mentation No obvious signs of bleeding at this time Continue to monitor Qualifiers: Anemia type: unspecified type Qualified Code(s): D64.9 - Anemia, unspecified (6) DVT prophylaxis Current Visit: Yes Status: Acute SQ Heparin Subjective Principal diagnosis: Acute on chronic respiratory failure Interval history: Pt seen and examined at bedside. Comfortably on BiPap, alert and asking questions. States her shortness of breath remains unchanged, and she is nervous about trying to remove the BiPAP. Denies any fever, chills, or chest pain. No new or acute complaints. Objective PUL Vital signs: Last Vital Signs Temp 98.2 F 06/22/18 03:37 Pulse 100 06/22/18 04:00 Resp 27 06/22/18 04:09 BP 159/104 06/22/18 04:09 Pulse Ox 91 06/22/18 04:09 General appearance: no acute distress, alert Eyes: nonicteric ENT: oropharynx moist Neck: supple Effort: normal Auscultation: bilateral: diminished breath sounds, wheezes (fine ) Percussion: bilateral: not dull Tactile fremitus: bilateral: normal Cardiovascular: regular rate and rhythm Gastrointestinal: soft, non-tender, non-distended Integumentary: normal Extremities: no cyanosis, no clubbing, pink and warm, pulses normal, edema Musculoskeletal: no deformities Gait: normal posture normal mental status, non-focal exam mood appropriate, affect normal Results - Laboratory Findings CBC and BMP: 06/22/18 04:01 06/22/18 04:01 ABG ABG pH 7.32 pH Units (7.32-7.45) 06/21/18 07:31 ABG pCO2 64 mmHg (35-45) H 06/21/18 07:31 ABG pO2 95 mmHg (85-104) 06/21/18 07:31 ABG O2 Saturation 96 % (95-98) 06/21/18 07:31 Abnormal lab findings: Abnormal lab results RBC 3.12 M/mcL (3.82-4.97) L 06/22/18 04:01 Hgb 9.3 g/dL (11.5-15.4) L 06/22/18 04:01 Hct 29.2 % (35.3-44.9) L 06/22/18 04:01 RDW 17.1 % (11.5-14.5) H 06/22/18 04:01 Plt Count 131 K/mcL (140-400) L 06/22/18 04:01 Lymphocytes # 0.3 K/mcL (0.6-4.6) L 06/22/18 04:01 Nucleated RBCs/100 WBC 0.4 /100 WBC (0) H 06/20/18 03:50 ABG pCO2 64 mmHg (35-45) H 06/21/18 07:31 ABG HCO3 33 mEq/L (21-27) H 06/21/18 07:31 ABG Total CO2 35 mEq/L (20-26) H 06/21/18 07:31 ABG Base Excess 6 mEq/L (-2 to 3) H 06/21/18 07:31 Carbon Dioxide 32 mEq/L (23-29) H 06/22/18 04:01 BUN 34 mg/dL (8-23) H 06/22/18 04:01 Creatinine 1.21 mg/dL (0.60-1.20) H 06/22/18 04:01 Est GFR ( Amer) 54 (> 60) L 06/22/18 04:01 Est GFR (Non-Af Amer) 44 (> 60) L 06/22/18 04:01 BUN/Creatinine Ratio 28 (6-26) H 06/22/18 04:01 Glucose 121 mg/dL (70-105) H 06/22/18 04:01 POC Glucose 108 mg/dL (70-99) H 06/20/18 12:39 Calculated Osmolality 301 (280-300) H 06/22/18 04:01 B-Natriuretic Peptide 195 pg/mL (Less than 100) H 06/19/18 09:47 Urine Clarity Hazy (Clear) A 06/19/18 10:24 Urine Protein 100 mg/dL (Neg-Trace) H 06/19/18 10:24 Urine Blood Moderate (Negative) H 06/19/18 10:24 Ur Leukocyte Esterase Small (Negative) H 06/19/18 10:24 Urine Microscopic RBC 15-30 per hpf (0-3) H 06/19/18 10:24 Ur Squamous Epith Cells Many per lpf (None-Few) H 06/19/18 10:24 Ur Culture Indicated? NO. (NO) A 06/19/18 10:24 Nasal Screen MRSA (PCR) Positive (Negative) A 06/19/18 12:10 - Clinical Findings Intake & Output: Intake & Output 06/21/18 06/21/18 06/22/18 15:59 23:59 07:59 Intake Total 1000 / 1000 25 / 25 100 / 100 Output Total 300 / 300 1000 / 1000 700 / 700 Balance 700 / 700 -975 / -975 -600 / -600 Weight 148.3 kg Consult Discharge Plan - Plan Referrals: NONE,PCP [Primary Care Provider] - <Layton Dinh - Last Filed: 06/23/18 00:29> Objective PUL Vital signs: Last Vital Signs Temp 98.4 F 06/22/18 20:05 Pulse 98 06/22/18 22:00 Resp 30 06/23/18 00:17 BP 124/51 06/23/18 00:17 Pulse Ox 92 06/23/18 00:17 Results - Laboratory Findings CBC and BMP: 06/22/18 04:01 06/22/18 04:01 ABG ABG pH 7.34 pH Units (7.32-7.45) 06/22/18 08:24 ABG pCO2 69 mmHg (35-45) H 06/22/18 08:24 ABG pO2 75 mmHg (85-104) L 06/22/18 08:24 ABG O2 Saturation 93 % (95-98) L 06/22/18 08:24 Abnormal lab findings: Abnormal lab results RBC 3.12 M/mcL (3.82-4.97) L 06/22/18 04:01 Hgb 9.3 g/dL (11.5-15.4) L 06/22/18 04:01 Hct 29.2 % (35.3-44.9) L 06/22/18 04:01 RDW 17.1 % (11.5-14.5) H 06/22/18 04:01 Plt Count 131 K/mcL (140-400) L 06/22/18 04:01 Lymphocytes # 0.3 K/mcL (0.6-4.6) L 06/22/18 04:01 Nucleated RBCs/100 WBC 0.4 /100 WBC (0) H 06/20/18 03:50 ABG pCO2 69 mmHg (35-45) H 06/22/18 08:24 ABG pO2 75 mmHg (85-104) L 06/22/18 08:24 ABG HCO3 37 mEq/L (21-27) H 06/22/18 08:24 ABG Total CO2 39 mEq/L (20-26) H 06/22/18 08:24 ABG O2 Saturation 93 % (95-98) L 06/22/18 08:24 ABG Base Excess 9 mEq/L (-2 to 3) H 06/22/18 08:24 Carbon Dioxide 32 mEq/L (23-29) H 06/22/18 04:01 BUN 34 mg/dL (8-23) H 06/22/18 04:01 Creatinine 1.21 mg/dL (0.60-1.20) H 06/22/18 04:01 Est GFR ( Amer) 54 (> 60) L 06/22/18 04:01 Est GFR (Non-Af Amer) 44 (> 60) L 06/22/18 04:01 BUN/Creatinine Ratio 28 (6-26) H 06/22/18 04:01 Glucose 121 mg/dL (70-105) H 06/22/18 04:01 POC Glucose 111 mg/dL (70-99) H 06/21/18 23:36 Calculated Osmolality 301 (280-300) H 06/22/18 04:01 B-Natriuretic Peptide 195 pg/mL (Less than 100) H 06/19/18 09:47 Urine Clarity Hazy (Clear) A 06/19/18 10:24 Urine Protein 100 mg/dL (Neg-Trace) H 06/19/18 10:24 Urine Blood Moderate (Negative) H 06/19/18 10:24 Ur Leukocyte Esterase Small (Negative) H 06/19/18 10:24 Urine Microscopic RBC 15-30 per hpf (0-3) H 06/19/18 10:24 Ur Squamous Epith Cells Many per lpf (None-Few) H 06/19/18 10:24 Ur Culture Indicated? NO. (NO) A 06/19/18 10:24 Nasal Screen MRSA (PCR) Positive (Negative) A 06/19/18 12:10 Vancomycin Trough 24 mcg/mL (5-10) H 06/22/18 09:15 - Clinical Findings Intake & Output: Intake & Output 06/22/18 06/22/18 06/23/18 15:59 23:59 07:59 Intake Total 100 / 100 168 / 168 Output Total 600 / 600 150 / 150 Balance -500 / -500 - Attending Attestation Attending Attestation I saw and evaluated this patient and my medical decision-making was reviewed with the Resident Physician. I agree with the documented findings, disposition and treatment plan as described except to the extent set forth below. We independently had [id number] contact with the patient Patient seen and examined at bedside Labs, radiology, chart personally reviewed. Management was reviewed during multidisciplinary critical care rounds. TRAIN GATE ATTENDANT: Patient is conscious oriented 3 having good conversation her metabolic encephalopathy is getting better no active TRAIN GATE ATTENDANT issues. Pulm: Patient is acute on chronic hypoxic and hypercapnic respiratory failure complicated by V/Q mismatch bilateral basilar atelectasis complicated by pulmonary hypertension with cor pulmonale and acute on chronic diastolic dysfunction inspite of higher right sided pressures clinically she looks volume depleted reduced cardiac output contributing to this hypoxia. We will do volume resuscitation with close monitoring of VQ mismatch will get a blood gas analysis patient has acceptable oxygenation and ventilation pH improving.High threshold to intubate this patient as patient will prognosis if she gets intubated because of her previous complicated ICU course. 06/19 patient has acceptable oxygenation and ventilation has high risk for respiratory decline prior h/o difficult intubation most likely due to previous tracheostomy and subglottic stenosis she will need a backup smaller ET tube if we are preparing to intubate at the moment she stable to continue BiPAP/AVAPS. 06/20 patient has acceptable oxygenation and ventilation blood gas looked stable still she has severe VQ mismatch which is having this acute on chronic hypercapnic respiratory failure will start diuresing her with a new chest x-ray showing some right upper lobe infiltrates we will start her on broad-spectrum antibiotics will add vancomycin with Zosyn. We will start giving some gentle diuresis and see how she does 06/21 patient V/Q mismatch is lot better with ventilation also got better today with blood gas with improvement in pH and PaCO2. Mostly contributed by a hydrostatic pulmonary edema rather than pneumonia to continue diuresis if she continues to get better will de-escalate antibiotics over the weekend. 06/22 patient will latest arterial blood gas analysis as acceptable oxygenation and ventilation to continue noninvasive ventilation, to continue diuresis to de-escalate antibiotics. Cards: Patient with cor pulmonale and pulmonary hypertension class II and class III.Presenting with hypovolemia will do volume resuscitation . Will get ECHO look at LV function and RV function give us an idea about volume status is very difficult to ascertain because of the body habitus and also due to cor pulmonale. 06/20 echocardiogram showed normal LV function since the limited echo there was no comment on RV function and LA size still suspect diastolic heart failure will do gentle diuresis 06/21 to continue diuresis patient has cor pulmonale with diastolic dysfunction since we did any limited echo this time we can ascertain and RV function. 06/22 patient is hemodynamically stable to continue diuresis.. FEN-GI: Patient has morbid obesity due to excess calories. If she continues to get better we will get her breaks in the BiPAP give some clear liquid diet. Renal: Labs and output reviewed urine output picked up renal function getting better most likely recovering ATN with some cardiorenal component ID: Patient had this new right-sided infiltrate concerning for developing pneumonia as patient had previous MRSA pneumonia we will add vancomycin to Zosyn. 06/[address] scan shows bilateral groundglass opacities with bilateral pleural effusion more favoring a pulmonary edema rather than pneumonia since p atient started to get better today will give a few more days of broad-spectrum antibiotic and I will de-escalate over the weekend. 06/22 to de-escalate antibiotics. Heme/Onc thromboprophylaxis. Endo: Glucose Monitored Integ/MSK: Skin Care per routine ICU Nursing Protocol to prevent ulcers. Lines: All lines examined without evidence of infection : Dispo: Critically ill high chance of respiratory and circulatory failure CODE: Full Code
[2018-06-22] MEDS: Budesonide/Formoterol 160/4.5 1 PUFF INH IH SCH ×2 (08:11→20:08)
[2018-06-22 08:29] LABS: ABG Base Excess 9 mEq/L (-2 to 3); ABG HCO3 37 mEq/L (21-27); ABG Oxygen Saturation 93 % (95-98); ABG PCO2 69 mmHg (35-45); ABG PH 7.34 pH Units (7.32-7.45); ABG PO2 75 mmHg (85-104); ABG TCO2 39 mEq/L (20-26); Blood Gas PEEP 6 cm H2O; Blood Gas Pressure Support 8 cm H2O; Blood Gas Respiration Rate 8
[2018-06-22] MEDS: Aspirin Enteric Coated 81 MG Tablet PO SCH (09:03)
[2018-06-22] MEDS: Nystatin POWDER 30 GM BOTTLE TP SCH ×3 (09:05→20:32)
[2018-06-23] MEDS: Ipratropium/Albuterol Neb 3 ML IH SCH ×7 (00:16→23:26)
[2018-06-23] MEDS: Piperacillin/Tazobactam 3.375 GM in 0.9 % Sodium Chloride Mini Bag 100 ML IVPB SCH ×3 (00:53→18:32)
[2018-06-23] MEDS: Dexmedetomidine HCl 400 MCG/100 ML MLS IVC SCH (00:56)
[2018-06-23 04:20] LABS: Basophils % 0.5 %; Hematocrit 30.4 % (35.3-44.9); Hemoglobin 9.3 g/dL (11.5-15.4); Immature Granulocytes % 1.9 % (0-4); Lymphocytes # 0.2 K/mcL (0.6-4.6); Lymphocytes % 3.8 %; Mean Corpuscular HGB Conc 30.6 g/dL (31.6-35.5); Mean Corpuscular Hemoglobin 29.6 pg (28.0-33.3); Mean Corpuscular Volume 96.8 fL (83.0-100.0); Monocytes # 0.3 K/mcL (0.0-1.3); Monocytes % 4.5 %; Neutrophils # 5.2 K/mcL (1.6-8.9); Platelet Count 184 K/mcL (140-400); Red Blood Count 3.14 M/mcL (3.82-4.97); Red Cell Distribution Width 17.7 % (11.5-14.5); Segmented Neutrophils % 89.3 %
[2018-06-23 04:32] LABS: Alanine Aminotransferase 10 Units/L (7-52); Albumin/Globulin Ratio 1.1 (1.1-2.2); Alkaline Phosphatase 89 Units/L (34-104); Aspartate Amino Transferase 15 Units/L (13-39); BUN/Creatinine Ratio 30 (6-26); Bilirubin,Total 0.5 mg/dL (0.3-1.0); Blood Urea Nitrogen 32 mg/dL (8-23); Calcium 9.3 mg/dL (8.6-10.3); Carbon Dioxide 36 mEq/L (23-29); Chloride 100 mEq/L (98-107); Globulin 3.5 g/dL (2.4-3.5); Glucose 124 mg/dL (70-105); Magnesium 1.9 mg/dL (1.6-2.6); Osmolality,Calculated 300 (280-300); Phosphorous 3.4 mg/dL (2.7-4.5); Potassium 4.8 mEq/L (3.5-5.1); Sodium 141 mEq/L (136-145); Total Protein 7.5 g/dL (6.4-8.9); eGFR For Non-African Americans 51 (> 60)
[2018-06-23 05:11] LABS: ABG Base Excess 9 mEq/L (-2 to 3); ABG HCO3 37 mEq/L (21-27); ABG Oxygen Saturation 95 % (95-98); ABG PCO2 68 mmHg (35-45); ABG PH 7.34 pH Units (7.32-7.45); ABG PO2 85 mmHg (85-104); ABG TCO2 39 mEq/L (20-26); Blood Gas PEEP 6 cm H2O
[2018-06-23] MEDS: *HR* Heparin 5,000 UNIT/ML VIAL SQ SCH ×2 (06:43→18:32)
--- NOTE | 2018-06-23 07:33 | Internal Med Progress Note ---
<Ector Domingo - Last Filed: 06/23/18 14:49> Hospitalist Progress Note - Exam Vitals: Temp Pulse Resp BP Pulse Ox 97.9 F 79 28 140/74 96 06/23/18 07:37 06/23/18 07:37 06/23/18 11:42 06/23/18 07:37 06/23/18 11:42 - Assessment and Plan (1) Cellulitis Current Visit: Yes Status: Acute (2) Acute on chronic diastolic CHF (congestive heart failure) Current Visit: No Status: Acute (3) Anemia Current Visit: Yes Status: Acute (4) Acute on chronic respiratory failure with hypoxia and hypercapnia Current Visit: Yes Status: Acute (5) Pulmonary hypertension due to COPD Current Visit: Yes Status: Acute (6) NADIA (acute kidney injury) Current Visit: Yes Status: Resolved (7) Hypertension Current Visit: No Status: Chronic - Time Spent with Patient Total time spent is greater than 50% in coordination of care (as documented) at patient's floor/unit and/or counseling patient: Internal Medicine: Result - Labs CBC & Chem 7: 06/23/18 04:00 06/23/18 04:00 Labs: Short CBC 06/23/18 Range/Units 04:00 WBC 5.8 (4.3-11.1) K/mcL Hgb 9.3 L (11.5-15.4) g/dL Hct 30.4 L (35.3-44.9) % Plt Count 184 (140-400) K/mcL Neutrophils # 5.2 (1.6-8.9) K/mcL BMP 06/23/18 04:00 Sodium 141 Potassium 4.8 Chloride 100 Carbon Dioxide 36 H BUN 32 H Creatinine 1.07 Glucose 124 H Calcium 9.3 Liver Function 06/23/18 Range/Units 04:00 Total Bilirubin 0.5 (0.3-1.0) mg/dL AST 15 (13-39) Units/L ALT 10 (7-52) Units/L Alkaline Phosphatase 89 (34-104) Units/L Albumin 4.0 (3.5-5.7) g/dL - ABG Interpretation ABG results: ABG ABG pH 7.34 pH Units (7.32-7.45) 06/23/18 05:08 ABG pCO2 68 mmHg (35-45) H 06/23/18 05:08 ABG pO2 85 mmHg (85-104) 06/23/18 05:08 ABG O2 Saturation 95 % (95-98) 06/23/18 05:08 Consult Discharge Plan - Plan Referrals: NONE,PCP [Primary Care Provider] - - Attending Attestation I examined this patient and my medical decision-making was reviewed with the Resident Physician on 06/23/18. I agree with the documented findings, disposition and treatment plan as described except to the extent set forth below. Ms Luciano is currently admitted for resp failure due to CHF. She remains moderate to high risk due to potential for worsening clinical status. Ms Luciano was transferred from ICU yesterday. She remains on bipap today. No fever or chills. No CP at this time. Very anxious at times - doesn't want to remove bipap. Exam alert Comfortable on bipap Mucus membranes dry Heart not tachy No wheeze at this time Abd soft I/P 1. Resp failure 2. CHF Further diagnoses and plan as above. <Fransisco Tanner - Last Filed: 06/23/18 15:03> Hospitalist Progress Note - Encounter Date of Encounter: 06/23/18 Time of Encounter: 08:34 - Subjective Interval History: Patient transferred out of ICU last night. Patient seen and examined resting c omfortably in bed wearing BiPAP. Patient appears slightly anxious and reports her mouth is dry. Case discussed with baggage agent supervisor. Will attempt weaning from BiPAP as tolerated and start high flow oxygen. Patient was started on Lasix today. Will monitor renal function. Nursing is at bedside reports no new complaints. Patient remains on MRSA precautions. - Exam Vitals: Temp Pulse Resp BP Pulse Ox 98.4 F 77 20 145/85 100 06/23/18 04:00 06/23/18 05:00 06/23/18 05:00 06/23/18 05:00 06/23/18 05:00 Exam: General appearance: Present: cooperative, A&O X 3, no acute distress, awake, pleasant, resting comfortably in bed wearing BiPAP, morbidly obese Head exam: Present: atraumatic, normocephalic Eye exam: Present: EOMI, conjuntiva pink, sclera anicteric ENT exam: Present: mucous membranes dry Neck exam: Present: supple, trachea midline. Absent: lymphadenopathy Respiratory exam: Decreased breath sounds bilaterally, mild expiratory wheezing. Absent: accessory muscle use, rhonchi Cardiovascular exam: Present: RRR, +S1, +S2. Absent: diastolic murmur, gallop, rubs, systolic murmur GI/Abdominal exam: Present: normal bowel sounds, soft, no peritoneal signs. Absent: distended, tenderness Extremities exam: Present: 2+ pedal edema right lower extremity, 1+ left lower extremities, warm, radial pulses palpable and symmetrical. Absent: calf tenderness, cyanotic Neurological exam: Present: CN II-XII intact, oriented X3, no focal deficits. Absent: facial droop, speech deficit Psychiatric exam: Present: normal affect, normal mood Skin exam: Present: dry, warm, no rash - Assessment and Plan (1) Acute on chronic respiratory failure with hypoxia and hypercapnia Current Visit: Yes Status: Acute Assessment and Plan: Likely due to COPD exacerbation and fluid overload from CHF with class 2-3 pulm HTN Echo showed LVEF 70-75% CXR 06/19 shows stable mod-severe pulmonary vascular congestion and cardiomegaly with an increased focal opacity involving the RUL veterans contact representative of pulmonary edema vs pneumonia Chest CT showed likely pulm edema with B/L pleural effusions Zosyn day #6, vanc restarted day 4 - stop date for vanc will be 06/23/18, for zosyn will be 06/24/18. Pt tolerating BiPAP at 60% FiO2 Duonebs q4H scheduled Solu-medrol 40mg q8H Son who is POA was called to confirm code status. He agrees with her being full code but states that she is adamant about not wanting a tracheostomy IR was consulted for therapeutic thoracentesis of right lung on 06/21 but pt refused Case discussed with baggage agent supervisor. Will attempt weaning from BiPAP as tolerated and start high flow oxygen. Patient was started on Lasix today. (2) Acute on chronic diastolic CHF (congestive heart failure) Current Visit: No Status: Acute Assessment and Plan: Echo revealed LVEF 70-75%, mild concentric left ventricular hypertrophy Suspected cardio-renal syndrome, improving Continue gentle diuresis as tolerated Monitor renal function (3) NADIA (acute kidney injury) Current Visit: Yes Status: Resolved Assessment and Plan: Resolved Fluids previously held due to 3L input with oliguria, medications to be renally dosed, avoid nephrotoxins NADIA likely due to prerenal cause vs ATN vs cardiorenal syndrome UA showed high protein, moderate blood and many squamous epi cells w/o bacteria or casts Retroperitoneal US did not demonstrate hydronephrosis or signs of obstruction Nephro signed off - Total fluid balance now at -2730mL Cr decreased from 3.04 --> 1.07 Continue close monitoring (4) Pulmonary hypertension due to COPD Current Visit: Yes Status: Acute Assessment and Plan: Continue current management (5) Anemia Current Visit: Yes Status: Acute Assessment and Plan: Hbg 8.2 on admission Stable hemoglobin today No obvious signs of bleeding at this time Continue to monitor (6) Cellulitis Current Visit: Yes Status: Acute Assessment and Plan: Warm and erythematous areas on bilateral LE above the ankles on arrival Vanc renally dosed on admission with hx of MRSA PNA MRSA swab was positive Discontinue Vanc today Continue Zosyn q8hr (Day 6 of 7) DVT Prophylaxis: Heparin subcutaneous TID - Time Spent with Patient Total time spent is greater than 50% in coordination of care (as documented) at patient's floor/unit and/or counseling patient: Internal Medicine: Result - Labs CBC & Chem 7: 06/23/18 04:00 06/23/18 04:00 Labs: Short CBC 06/23/18 Range/Units 04:00 WBC 5.8 (4.3-11.1) K/mcL Hgb 9.3 L (11.5-15.4) g/dL Hct 30.4 L (35.3-44.9) % Plt Count 184 (140-400) K/mcL Neutrophils # 5.2 (1.6-8.9) K/mcL BMP 06/23/18 04:00 Sodium 141 Potassium 4.8 Chloride 100 Carbon Dioxide 36 H BUN 32 H Creatinine 1.07 Glucose 124 H Calcium 9.3 Liver Function 06/23/18 Range/Units 04:00 Total Bilirubin 0.5 (0.3-1.0) mg/dL AST 15 (13-39) Units/L ALT 10 (7-52) Units/L Alkaline Phosphatase 89 (34-104) Units/L Albumin 4.0 (3.5-5.7) g/dL - ABG Interpretation ABG results: ABG ABG pH 7.34 pH Units (7.32-7.45) 06/23/18 05:08 ABG pCO2 68 mmHg (35-45) H 06/23/18 05:08 ABG pO2 85 mmHg (85-104) 06/23/18 05:08 ABG O2 Saturation 95 % (95-98) 06/23/18 05:08 <Ector Domingo - Last Filed: 06/23/18 14:49> (1) Cellulitis Qualifiers: Site of cellulitis: extremity Site of cellulitis of extremity: lower extremity Laterality: right Qualified Code(s): L03.115 - Cellulitis of right lower limb (3) Anemia Qualifiers: Anemia type: unspecified type Qualified Code(s): D64.9 - Anemia, unspecified (7) Hypertension Qualifiers: Hypertension type: essential hypertension Qualified Code(s): I10 - Essential (primary) hypertension <Fransisco Tanner - Last Filed: 06/23/18 15:03> (5) Anemia Qualifiers: Anemia type: unspecified type Qualified Code(s): D64.9 - Anemia, unspecified (6) Cellulitis Qualifiers: Site of cellulitis: extremity Site of cellulitis of extremity: lower extremity Laterality: right Qualified Code(s): L03.115 - Cellulitis of right lower limb
[2018-06-23] MEDS ORDERED: Furosemide 40 MG/4 ML VIAL IVP ONE (07:53)
[2018-06-23] MEDS: Budesonide/Formoterol 160/4.5 1 PUFF INH IH SCH ×2 (07:58→19:40)
[2018-06-23] MEDS: Nystatin POWDER 30 GM BOTTLE TP SCH ×3 (08:45→20:27)
[2018-06-23] MEDS: MethylPREDNISolone 40 MG/ML VIAL IVP SCH ×3 (08:47→23:53)
[2018-06-23] MEDS ORDERED: Aminoglycoside Consult 1 EACH MC ONE (08:54)
[2018-06-23] MEDS: Aspirin Enteric Coated 81 MG Tablet PO SCH (14:29)
[2018-06-23] MEDS: Furosemide 20 MG/2 ML VIAL IVP SCH (18:32)
[2018-06-24] MEDS: Piperacillin/Tazobactam 3.375 GM in 0.9 % Sodium Chloride Mini Bag 100 ML IVPB SCH ×3 (01:18→17:09)
[2018-06-24] MEDS: Ipratropium/Albuterol Neb 3 ML IH SCH ×5 (03:44→19:41)
[2018-06-24] MEDS: *HR* Heparin 5,000 UNIT/ML VIAL SQ SCH ×2 (04:47→17:06)
[2018-06-24 05:04] LABS: Hematocrit 31.2 % (35.3-44.9); Hemoglobin 9.4 g/dL (11.5-15.4); Mean Corpuscular HGB Conc 30.1 g/dL (31.6-35.5); Mean Corpuscular Hemoglobin 29.5 pg (28.0-33.3); Mean Corpuscular Volume 97.8 fL (83.0-100.0); Mean Platelet Volume 10.3 fL (9.4-12.4); Platelet Count 180 K/mcL (140-400); Red Blood Count 3.19 M/mcL (3.82-4.97); Red Cell Distribution Width 17.6 % (11.5-14.5)
[2018-06-24 05:15] LABS: INR 1.2
[2018-06-24 05:27] LABS: Calcium 9.4 mg/dL (8.6-10.3); Potassium 4.1 mEq/L (3.5-5.1)
[2018-06-24] MEDS ORDERED: Albuterol 2.5 MG/3 ML NEBULIZER IH PRN (07:18)
[2018-06-24] MEDS: Budesonide/Formoterol 160/4.5 1 PUFF INH IH SCH ×2 (07:33→19:41)
[2018-06-24] MEDS: MethylPREDNISolone 40 MG/ML VIAL IVP SCH ×3 (08:29→23:41)
[2018-06-24] MEDS: Furosemide 20 MG/2 ML VIAL IVP SCH ×2 (08:29→17:09)
[2018-06-24] MEDS: Nystatin POWDER 30 GM BOTTLE TP SCH ×3 (08:30→20:17)
--- NOTE | 2018-06-24 09:43 | Internal Med Progress Note ---
<Ector Domingo - Last Filed: 06/24/18 12:14> Hospitalist Progress Note - Exam Vitals: Temp Pulse Resp BP Pulse Ox 99.7 F H 99 27 183/75 93 06/24/18 10:36 06/24/18 10:36 06/24/18 11:40 06/24/18 10:36 06/24/18 11:40 - Assessment and Plan (1) Cellulitis Current Visit: Yes Status: Acute (2) Acute on chronic diastolic CHF (congestive heart failure) Current Visit: No Status: Acute (3) Anemia Current Visit: Yes Status: Acute (4) Acute on chronic respiratory failure with hypoxia and hypercapnia Current Visit: Yes Status: Acute (5) Pulmonary hypertension due to COPD Current Visit: Yes Status: Acute (6) NADIA (acute kidney injury) Current Visit: Yes Status: Resolved (7) Hypertension Current Visit: No Status: Chronic (8) Venous stasis dermatitis of both lower extremities Current Visit: No Status: Chronic (9) Morbid obesity with BMI of 60.0-69.9, adult Current Visit: Yes Status: Chronic - Time Spent with Patient Total time spent is greater than 50% in coordination of care (as documented) at patient's floor/unit and/or counseling patient: Internal Medicine: Result - Labs CBC & Chem 7: 06/24/18 04:57 06/24/18 04:57 Labs: Short CBC 06/24/18 Range/Units 04:57 WBC 6.0 (4.3-11.1) K/mcL Hgb 9.4 L (11.5-15.4) g/dL Hct 31.2 L (35.3-44.9) % Plt Count 180 (140-400) K/mcL BMP 06/24/18 04:57 Sodium 145 Potassium 4.1 Chloride 100 Carbon Dioxide 36 H BUN 33 H Creatinine 1.18 Glucose 117 H Calcium 9.4 - ABG Interpretation ABG results: ABG ABG pH 7.34 pH Units (7.32-7.45) 06/23/18 05:08 ABG pCO2 68 mmHg (35-45) H 06/23/18 05:08 ABG pO2 85 mmHg (85-104) 06/23/18 05:08 ABG O2 Saturation 95 % (95-98) 06/23/18 05:08 PT/INR, D-dimer PT 13.0 Seconds (9.4-12.1) H 06/24/18 04:57 Consult Discharge Plan - Plan Referrals: Brad Minor MD [Partnered Physician] - - Attending Attestation I examined this patient and my medical decision-making was reviewed with the Resident Physician on 06/24/18. I agree with the documented findings, disposition and treatment plan as described except to the extent set forth below. Ms Luciano is currently admitted for acute respiratory failure and cellulitis. She remains moderate to high risk due to potential for worsening clinical status. Ms Luciano is more dyspneic today. She remains on bipap continuous. She is now agreeable to have a thoracentesis. No fever or chills. No cough. Exam Alert Mod resp distress at rest Mucus membranes dry Heart distant Lungs with wheeze and rhonchi Abd soft I/P 1. Resp failure - continue bipap for now. 2. Pleural effusion - plan thoracentesis. 3. Morbid obesity Further diagnoses and plan as above. <Emery Loomis - Last Filed: 06/24/18 15:13> Hospitalist Progress Note - Encounter Date of Encounter: 06/24/18 Time of Encounter: 10:00 - Subjective Interval History: Sitting up in bed, mildly anxious on BiPAP. Says her breathing is worse today than yesterday. She does not think the lasix that was started yesterday has helped at all yet. She denies chest pain, cough, N/V, abdominal pain, worsening edema. - Exam Vitals: Temp Pulse Resp BP Pulse Ox 99.2 F 87 24 172/81 95 06/24/18 07:20 06/24/18 07:20 06/24/18 07:29 06/24/18 07:20 06/24/18 07:29 Exam: General: Awake, alert, appears stated age, anxious on BiPAP, no signs of toxicity HEENT: EOMi, pupils equal/round, mucus membranes moist. Cardiac: RRR, S1/S2+ but distant, no murmurs, heaves, thrills appreciated, radial pulse 2+ bilaterally, normal capillary refill, 2+ edema Chest: Symmetric chest rise, non tender Pulmonary: Decreased air movement, increased resp effort, diminished breath sounds, scattered rhonchi, no wheeze, rales appreciated Abdominal: Soft, non-tender, no distention, guarding, rebound tenderness, or rigidity Neuro: AOx3, CN grossly intact Psych: Normal affect Integumentary: [place], warm, dry, intact - Assessment and Plan (1) Acute on chronic respiratory failure with hypoxia and hypercapnia Current Visit: Yes Status: Acute Assessment and Plan: Likely due to COPD exacerbation and fluid overload from CHF with class 2-3 pulm HTN Echo showed LVEF 70-75% CXR 06/19 shows stable mod-severe pulmonary vascular congestion and cardiomegaly with an increased focal opacity involving the RUL public relations representative of pulmonary edema vs pneumonia Chest CT showed likely pulm edema with B/L pleural effusions Zosyn day 03/02, vanc completed - stop date for vanc will be 06/23/18, for zosyn will be 06/24/18. Blood cultures x2 neg Pt tolerating BiPAP at 60% FiO2, breathing worse today Duonebs q4H scheduled Solu-medrol 40mg q8H Son who is POA was called to confirm code status. He agrees with her being full code but states that she is adamant about not wanting a tracheostomy IR was consulted for therapeutic thoracentesis of right lung on 06/21 but pt refused Case discussed with filter worker. Lasix started 06/24/18 Agreeable to thoracentesis today Will attempt weaning from BiPAP as tolerated and start high flow oxygen after thoracentesis. (2) Acute on chronic diastolic CHF (congestive heart failure) Current Visit: No Status: Acute Assessment and Plan: Echo revealed LVEF 70-75%, mild concentric left ventricular hypertrophy Suspected cardio-renal syndrome, improving Continue gentle diuresis as tolerated Monitor renal function Thoracentesis today (3) Cellulitis Current Visit: Yes Status: Acute Assessment and Plan: Warm and erythematous areas on bilateral LE above the ankles on arrival Vanc renally dosed on admission with hx of MRSA PNA MRSA swab was positive Continue Zosyn q8hr (Day ) (4) Anemia Current Visit: Yes Status: Acute Assessment and Plan: Hbg 8.2 on admission Stable hemoglobin today at 8.3 No obvious signs of bleeding at this time Continue to monitor (5) Pulmonary hypertension due to COPD Current Visit: Yes Status: Acute Assessment and Plan: Continue current management (6) NADIA (acute kidney injury) Current Visit: Yes Status: Resolved Assessment and Plan: Resolved Fluids previously held due to 3L input with oliguria, medications to be renally dosed, avoid nephrotoxins NADIA likely due to prerenal cause vs ATN vs cardiorenal syndrome UA showed high protein, moderate blood and many squamous epi cells w/o bacteria or casts Retroperitoneal US did not demonstrate hydronephrosis or signs of obstruction Nephro signed off - Total fluid balance now at -3130mL Cr decreased from 3.04. 1.18 today Continue close monitoring DVT Prophylaxis: Heparin - Time Spent with Patient Total time spent is greater than 50% in coordination of care (as documented) at patient's floor/unit and/or counseling patient: less than 15 minutes Plan of Care Discussed with: patient Internal Medicine: Result - Labs CBC & Chem 7: 06/24/18 04:57 06/24/18 04:57 Labs: Short CBC 06/24/18 Range/Units 04:57 WBC 6.0 (4.3-11.1) K/mcL Hgb 9.4 L (11.5-15.4) g/dL Hct 31.2 L (35.3-44.9) % Plt Count 180 (140-400) K/mcL BMP 06/24/18 04:57 Sodium 145 Potassium 4.1 Chloride 100 Carbon Dioxide 36 H BUN 33 H Creatinine 1.18 Glucose 117 H Calcium 9.4 - ABG Interpretation ABG results: ABG ABG pH 7.34 pH Units (7.32-7.45) 06/23/18 05:08 ABG pCO2 68 mmHg (35-45) H 06/23/18 05:08 ABG pO2 85 mmHg (85-104) 06/23/18 05:08 ABG O2 Saturation 95 % (95-98) 06/23/18 05:08 PT/INR, D-dimer PT 13.0 Seconds (9.4-12.1) H 06/24/18 04:57 <Ector Domingo - Last Filed: 06/24/18 12:14> (1) Cellulitis Qualifiers: Site of cellulitis: extremity Site of cellulitis of extremity: lower extremity Laterality: right Qualified Code(s): L03.115 - Cellulitis of right lower limb (3) Anemia Qualifiers: Anemia type: unspecified type Qualified Code(s): D64.9 - Anemia, unspecified (7) Hypertension Qualifiers: Hypertension type: essential hypertension Qualified Code(s): I10 - Essential (primary) hypertension <Emery Loomis - Last Filed: 06/24/18 15:13> (3) Cellulitis Qualifiers: Site of cellulitis: extremity Site of cellulitis of extremity: lower extremity Laterality: right Qualified Code(s): L03.115 - Cellulitis of right lower limb (4) Anemia Qualifiers: Anemia type: unspecified type Qualified Code(s): D64.9 - Anemia, unspecified
--- NOTE | 2018-06-24 16:30 | Procedure Note ---
Date of procedure: 06/24/18 Pre-op diagnosis: Pleural effusion Post-op diagnosis: same Procedure: A time-out was completed verifying correct patient, procedure, site, positioning, and special equipment if applicable. The patients right side was prepped and draped in a sterile manner after the appropriate infiltration level was confirmed by ultrasound. 1% lidocaine was used anesthetize the surrounding skin. A finder needle was then used to locate fluid and clear yellow fluid was obtained. A 10-blade scalpel used to make the incision. The thoracentesis catheter was then threaded without difficulty. The patient had 2 mL of clear yellow fluid removed. Dr. Tanner was present for the entire procedure. A post- procedure chest x-ray was ordered and the fluid will be sent for several studies. Estimated Blood Loss: 1 ml The patient tolerated the procedure well and there were no complications. Anesthesia: local Surgeon: Emery Loomis Was there an business services assistant present: Yes Brakes Inspector: Fransisco Tanner Estimated blood loss (cc): 1 Specimen: Pleural fluid Condition: stable Disposition: floor
[2018-06-24] MEDS: Aspirin Enteric Coated 81 MG Tablet PO SCH (17:05)
--- NOTE | 2018-06-24 22:51 | Event Note ---
Date of Encounter: 06/24/18 Time of Encounter: 21:33 Alerted by pts. nurse SALU Powell that the nurse had been alerted by quality assurance monitor tech that the pt. had converted to Afib and HR went up to 200s. HR was now bouncing between 95 and 140's. Went to see pt. who was resting comfortably in bed on BiPAP. Pt. had received IVP hydralazine @ 20:20. BP was now 144/74. Pts. HR was over 200 again. EKG ordered stat which showed atrial fibrillation w/RVR and non-specific ST and T-wave abnormality. Pt. denied any symptoms and continued on BiPAP. Pt. denied hx of Afib and is not currently on anticoagulation. Order for 15 mg IVP Cardizem placed. Pts. tele box changed to reduce chance of misread. Cardiology consult ordered and discussed w/Dr. Cueto and I appreciate the consult and recommendations. 15 minutes post- Cardizem, pts. HR in low 100s. Nurse instructed to monitor pt. closely and notify me immediately of any adverse changes. Pt. has hx of intubation which we are trying to avoid.
[2018-06-24] MEDS: levETIRAcetam 250 MG TABLET PO SCH (23:41)
[2018-06-25] MEDS: Levalbuterol Neb 1.25 MG/3 ML IH SCH ×5 (03:48→21:06)
[2018-06-25] MEDS: *HR* Heparin 5,000 UNIT/ML VIAL SQ SCH (04:48)
[2018-06-25 05:24] LABS: Basophils % 0.3 %; Hematocrit 32.4 % (35.3-44.9); Hemoglobin 9.9 g/dL (11.5-15.4); Immature Granulocytes % 2.6 % (0-4); Lymphocytes # 0.3 K/mcL (0.6-4.6); Lymphocytes % 3.6 %; Mean Corpuscular HGB Conc 30.6 g/dL (31.6-35.5); Mean Corpuscular Hemoglobin 30.1 pg (28.0-33.3); Mean Corpuscular Volume 98.5 fL (83.0-100.0); Mean Platelet Volume 10.9 fL (9.4-12.4); Monocytes # 0.4 K/mcL (0.0-1.3); Monocytes % 5.1 %; Neutrophils # 6.2 K/mcL (1.6-8.9); Platelet Count 195 K/mcL (140-400); Red Blood Count 3.29 M/mcL (3.82-4.97); Red Cell Distribution Width 17.9 % (11.5-14.5); Segmented Neutrophils % 88.4 %
[2018-06-25 05:29] LABS: Potassium 4.1 mEq/L (3.5-5.1)
[2018-06-25 05:30] LABS: Calcium 9.3 mg/dL (8.6-10.3)
--- NOTE | 2018-06-25 07:24 | Internal Med Progress Note ---
<Emery Loomis - Last Filed: 06/25/18 11:50> Hospitalist Progress Note - Encounter Date of Encounter: 06/25/18 Time of Encounter: 07:25 - Subjective Interval History: Sleeping in bed on BiPAP, easily arousable. Says her breathing is better than yesterday. Willing to deescalate to hiflow this morning and wean from BiPAP. She had episode of Afib RVR last night with HRs in 200's and was given 15mg IV diltiazem which improved HR. She had no symptoms at the time, only on tele and confirmed with ECG. She denies chest pain, cough, N/V, abdominal pain, worsening edema. - Exam Vitals: Temp Pulse Resp BP Pulse Ox 98.3 F 87 21 142/84 97 06/25/18 07:12 06/25/18 07:12 06/25/18 07:12 06/25/18 07:12 06/25/18 07:12 Exam: General: Sleeping but easily arousable, alert, appears stated age, on BiPAP, no signs of toxicity HEENT: EOMi, pupils equal/round, mucus membranes moist. Cardiac: RRR, S1/S2+ but distant, no murmurs, heaves, thrills appreciated, radial pulse 2+ bilaterally, normal capillary refill, 2+ edema Chest: Symmetric chest rise, non tender Pulmonary: Decreased air movement, increased resp effort, diminished breath sounds, scattered rhonchi and exp wheezes, no rales appreciated Abdominal: Soft, non-tender, no distention, guarding, rebound tenderness, or rigidity Neuro: AOx3, CN grossly intact Psych: Normal affect Integumentary: [place], warm, dry, intact - Assessment and Plan (1) Acute on chronic respiratory failure with hypoxia and hypercapnia Current Visit: Yes Status: Acute Assessment and Plan: Likely due to COPD exacerbation and fluid overload from CHF with class 2-3 pulm HTN Echo showed LVEF 70-75% CXR 06/19 shows stable mod-severe pulmonary vascular congestion and cardiomegaly with an increased focal opacity involving the RUL instruments sales representative of pulmonary edema vs pneumonia Chest CT showed likely pulm edema with B/L pleural effusions Zosyn day 03/02, vanc completed - stop date for vanc will be 06/23/18, for zosyn will be 06/24/18. Blood cultures x2 neg Pt tolerating BiPAP, breathing improved today Duonebs q4H scheduled Solu-medrol 40mg q8H Son who is POA was called to confirm code status. He agrees with her being full code but states that she is adamant about not wanting a tracheostomy IR was consulted for therapeutic thoracentesis of right lung on 06/21 but pt refused Case discussed with shop service technician. Lasix started 06/23/18 and being held today given worsened renal function, Cr 1.23 Thoracentesis (R lung) 06/24/18 with minimal fluid evacuation, improved R lung aeration on post thora CXR Will attempt weaning from BiPAP as tolerated and start high flow oxygen with eventual wean to 4L nc that she uses at home 24hrs/day. (2) Acute on chronic diastolic CHF (congestive heart failure) Current Visit: No Status: Acute Assessment and Plan: Echo revealed LVEF 70-75%, mild concentric left ventricular hypertrophy Suspected cardio-renal syndrome, improving Holding lasix today given worsened renal function Monitor renal function Thoracentesis yesterday Wean from BiPAP to hiflow today (3) A-fib Current Visit: Yes Status: Acute Assessment and Plan: No hx of Afib Had episode of Afib RVR last night with HR in 200's initially seen on tele. Non symptomatic during episode Afib RVR confirmed on ECG Given 1 dose 15mg IV diltiazem and HR improved to low 100's. Cards consulted given new onset afib (4) Cellulitis Current Visit: Yes Status: Acute Assessment and Plan: Warm and erythematous areas on bilateral LE above the ankles on arrival Vanc renally dosed on admission with hx of MRSA PNA MRSA swab was positive Completed Zosyn q8hr (Day 7 of 7) (5) Anemia Current Visit: Yes Status: Acute Assessment and Plan: Hbg 8.2 on admission Stable hemoglobin today at 9.9 No obvious signs of bleeding at this time Continue to monitor (6) Pulmonary hypertension due to COPD Current Visit: Yes Status: Acute Assessment and Plan: Continue current management Uses 4L O2 at home round the clock (7) NADIA (acute kidney injury) Current Visit: Yes Status: Resolved Assessment and Plan: Resolved previously Fluids previously held due to 3L input with oliguria, medications to be renally dosed, avoid nephrotoxins NADIA likely due to prerenal cause vs ATN vs cardiorenal syndrome UA showed high protein, moderate blood and many squamous epi cells w/o bacteria or casts Retroperitoneal US did not demonstrate hydronephrosis or signs of obstruction Nephro signed off - Total fluid balance now at -3805mL Cr decreased from 3.04. 1.18 06/24/18 Renal function mildly decreased today, Cr 1.23 Will hold lasix today Continue close monitoring DVT Prophylaxis: Heparin - Time Spent with Patient Total time spent is greater than 50% in coordination of care (as documented) at patient's floor/unit and/or counseling patient: less than 15 minutes Plan of Care Discussed with: patient Internal Medicine: Result - Labs CBC & Chem 7: 06/25/18 04:55 06/25/18 04:55 Labs: Short CBC 06/25/18 Range/Units 04:55 WBC 7.0 (4.3-11.1) K/mcL Hgb 9.9 L (11.5-15.4) g/dL Hct 32.4 L (35.3-44.9) % Plt Count 195 (140-400) K/mcL Neutrophils # 6.2 (1.6-8.9) K/mcL BMP 06/25/18 04:55 Sodium 144 Potassium 4.1 Chloride 97 L Carbon Dioxide 38 H BUN 34 H Creatinine 1.23 H Glucose 122 H Calcium 9.3 - ABG Interpretation ABG results: ABG ABG pH 7.34 pH Units (7.32-7.45) 06/23/18 05:08 ABG pCO2 68 mmHg (35-45) H 06/23/18 05:08 ABG pO2 85 mmHg (85-104) 06/23/18 05:08 ABG O2 Saturation 95 % (95-98) 06/23/18 05:08 PT/INR, D-dimer PT 13.0 Seconds (9.4-12.1) H 06/24/18 04:57 - Impressions Impressions Chest X-Ray 06/24/18 16:25 IMPRESSION: Improved aeration of the right lung with stable moderate pulmonary vascular congestion and probable trace bilateral pleural effusions. D/ / Phill Summers / Phill Summers Interpreting Provider: Phill Summers Consult Discharge Plan - Plan Referrals: Brad Minor MD [Partnered Physician] - Prescriptions: Apixaban [Eliquis] 5 mg PO BID #60 tablet <Genna Simon - Last Filed: 06/25/18 12:00> Hospitalist Progress Note - Exam Vitals: Temp Pulse Resp BP Pulse Ox 98.3 F 87 21 142/84 97 06/25/18 07:12 06/25/18 07:12 06/25/18 07:12 06/25/18 07:12 06/25/18 07:12 - Assessment and Plan (1) Cellulitis Current Visit: Yes Status: Acute (2) Acute on chronic diastolic CHF (congestive heart failure) Current Visit: No Status: Acute (3) Anemia Current Visit: Yes Status: Acute (4) Acute on chronic respiratory failure with hypoxia and hypercapnia Current Visit: Yes Status: Acute (5) Pulmonary hypertension due to COPD Current Visit: Yes Status: Acute (6) NADIA (acute kidney injury) Current Visit: Yes Status: Resolved (7) A-fib Current Visit: Yes Status: Acute - Time Spent with Patient Total time spent is greater than 50% in coordination of care (as documented) at patient's floor/unit and/or counseling patient: Internal Medicine: Result - Labs CBC & Chem 7: 06/25/18 04:55 06/25/18 04:55 Labs: Short CBC 06/25/18 Range/Units 04:55 WBC 7.0 (4.3-11.1) K/mcL Hgb 9.9 L (11.5-15.4) g/dL Hct 32.4 L (35.3-44.9) % Plt Count 195 (140-400) K/mcL Neutrophils # 6.2 (1.6-8.9) K/mcL BMP 06/25/18 04:55 Sodium 144 Potassium 4.1 Chloride 97 L Carbon Dioxide 38 H BUN 34 H Creatinine 1.23 H Glucose 122 H Calcium 9.3 - ABG Interpretation ABG results: ABG ABG pH 7.34 pH Units (7.32-7.45) 06/23/18 05:08 ABG pCO2 68 mmHg (35-45) H 06/23/18 05:08 ABG pO2 85 mmHg (85-104) 06/23/18 05:08 ABG O2 Saturation 95 % (95-98) 06/23/18 05:08 PT/INR, D-dimer PT 13.0 Seconds (9.4-12.1) H 06/24/18 04:57 - Impressions Impressions Chest X-Ray 06/24/18 16:25 IMPRESSION: Improved aeration of the right lung with stable moderate pulmonary vascular congestion and probable trace bilateral pleural effusions. D/ / Phill Summers / Phill Summers Interpreting Provider: Phill Summers Chest X-Ray 06/25/18 04:00 IMPRESSION: No significant interval change pulmonary edema. D/ / Jamilah Schreiber MD / Jamilah Schreiber MD Interpreting Provider: Jamilah Schreiber MD - Attending Attestation I examined this patient and my medical decision-making was reviewed with the Resident Physician Dr Loomis. I agree with the documented findings, disposition and treatment plan as described except to the extent set forth below. Ms Luciano is currently admitted for acute respiratory failure and cellulitis. She remains moderate to high risk due to potential for worsening clinical status. She has developed afib with RVR. Awake, resting in bed on high flow nasal canula. Denies sob on high flow, denies cp, palpitations, chest pressure. She could not appreciate any symptoms with afib rvr. gen- alert, awake,appears stated age, obese eyes- pupils equal round cv- reg rate and irreg/irreg rhythm, normal s1,s2, no murmurs appreciated lungs- diminished breath sounds throughout, greatest at bases, cannot appreciate rhonchi, crackles or wheezing, norm resp effort on high flow o2 nc abd- soft, non tender, non distended, + bs neuro- AAOx3 A/P Acute on Chronic Resp failure with hypoxia and hypercapnia Likely due to COPD exacerbation and fluid overload from CHF with class 2-3 pulm HTN- weaned to high flow O2, bipap as needed, IV diuresis Pleural effusion -attempt at thoracentesis but no large drainable amount of fluid present, cont iv diuresis Acute on Chronic Diastolic CHF - IV diuresis (AM dose held due to creat, will give night dose), net neg 3.8 L today, creat slight increase today, cont to monitor and diurese as permits New onset Afib with RVR, currently rate controlled afib, likely 2/2 resp failure as above and infection (cellulitis)- hep gtt, Eliquis being avila checked by cards, cards following, begin cardizem daily, dc hydralazine and albuterol nebs, change to prn lopressor and xopenex + ipratropium prn, monitor anemia with AC started, monitor lytes Morbid obesity, BMI 68.1- education, lifestyle modifications Cellulitis BL LE - completed abx treatment Liquid Diarrhea- multiple bouts overnight, send c diff given frequency and recent abx treatment Further diagnoses and plan as per resident. <Emery Loomis - Last Filed: 06/25/18 11:50> (4) Cellulitis Qualifiers: Site of cellulitis: extremity Site of cellulitis of extremity: lower extremity Laterality: right Qualified Code(s): L03.115 - Cellulitis of right lower limb (5) Anemia Qualifiers: Anemia type: unspecified type Qualified Code(s): D64.9 - Anemia, unspecified <Genna Simon - Last Filed: 06/25/18 12:00> (1) Cellulitis Qualifiers: Site of cellulitis: extremity Site of cellulitis of extremity: lower extremity Laterality: right Qualified Code(s): L03.115 - Cellulitis of right lower limb (3) Anemia Qualifiers: Anemia type: unspecified type Qualified Code(s): D64.9 - Anemia, unspecified
[2018-06-25] MEDS ORDERED: *HR* Metoprolol 5 MG/5 ML VIAL IVP PRN (07:54)
[2018-06-25] MEDS: MethylPREDNISolone 40 MG/ML VIAL IVP SCH ×2 (08:23→19:04)
[2018-06-25] MEDS: Aspirin Enteric Coated 81 MG Tablet PO SCH (08:23)
[2018-06-25] MEDS: Nystatin POWDER 30 GM BOTTLE TP SCH ×3 (08:30→22:20)
[2018-06-25] MEDS: levETIRAcetam 250 MG TABLET PO SCH ×2 (08:36→22:18)
[2018-06-25] MEDS ORDERED: *HR* Heparin 5,000 UNIT/ML VIAL IVP PRN ×2 (09:30)
[2018-06-25] MEDS ORDERED: *HR* Heparin 5,000 UNIT/ML VIAL IVP ONE (09:30)
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
[2018-06-25] MEDS ORDERED: Diltiazem CD (24hr) 120 MG CAPSULE PO SCH (09:45)
[2018-06-25] MEDS: Budesonide/Formoterol 160/4.5 1 PUFF INH IH SCH ×2 (10:44→21:05)
[2018-06-25] MEDS: Heparin 25,000 UNIT/500 ML D5W 25,000 UNIT/500 ML BAG IVC SCH (11:46)
[2018-06-25] MEDS: Ipratropium Neb 0.5 MG NEBULIZER IH SCH ×2 (15:31→21:06)
[2018-06-25 15:40] LABS: Adenovirus F 40/41 PCR Not detected (Not detect); Astrovirus PCR Not detected (Not detect); C.difficile Toxin A/B by PCR Not detected (Not detect); Campylobacter by PCR Not detected (Not detect); Cryptosporidium by PCR Not detected (Not detect); Cyclospora cayetanensis PCR Not detected (Not detect); E. coli O157 by PCR Not detected (Not detect); Entamoeba histolytica PCR Not detected (Not detect); Enteroaggregative E.coli(EAEC) Not detected (Not detect); Enteropathogenic E.coli(EPEC) Not detected (Not detect); Enterotoxigenic E.coli (ETEC) Not detected (Not detect); Giardia lamblia PCR Not detected (Not detect); Norovirus GI/GII PCR Not detected (Not detect); Plesiomonas shigelloides PCR Not detected (Not detect); Rotavirus A PCR Not detected (Not detect); Salmonella PCR Not detected (Not detect); Sapovirus PCR Not detected (Not detect); Shig/EnteroinvasiveE coli EIEC Not detected (Not detect); Shigalike tox-prod E coli STEC Not detected (Not detect); Vibrio PCR Not detected (Not detect); Vibrio cholerae PCR Not detected (Not detect); Yersinia enterocolitica PCR Not detected (Not detect)
[2018-06-26 02:46] LABS: Basophils % 0.2 %; Eosinophils % 0.2 %; Hematocrit 30.1 % (35.3-44.9); Hemoglobin 9.2 g/dL (11.5-15.4); Immature Granulocytes % 1.5 % (0-4); Lymphocytes # 0.2 K/mcL (0.6-4.6); Lymphocytes % 4.2 %; Mean Corpuscular HGB Conc 30.6 g/dL (31.6-35.5); Mean Corpuscular Hemoglobin 30.1 pg (28.0-33.3); Mean Corpuscular Volume 98.4 fL (83.0-100.0); Mean Platelet Volume 11.2 fL (9.4-12.4); Monocytes # 0.3 K/mcL (0.0-1.3); Monocytes % 4.8 %; Neutrophils # 4.9 K/mcL (1.6-8.9); Platelet Count 152 K/mcL (140-400); Red Blood Count 3.06 M/mcL (3.82-4.97); Red Cell Distribution Width 17.2 % (11.5-14.5); Segmented Neutrophils % 89.1 %
[2018-06-26 03:13] LABS: Calcium 8.5 mg/dL (8.6-10.3); Magnesium 1.6 mg/dL (1.6-2.6); Phosphorous 3.6 mg/dL (2.7-4.5); Potassium 3.8 mEq/L (3.5-5.1)
[2018-06-26] MEDS: Ipratropium Neb 0.5 MG NEBULIZER IH SCH ×4 (03:19→23:15)
[2018-06-26] MEDS: Levalbuterol Neb 1.25 MG/3 ML IH SCH ×4 (03:19→23:15)
[2018-06-26] MEDS: Heparin 25,000 UNIT/500 ML D5W 25,000 UNIT/500 ML BAG IVC SCH ×3 (03:33→22:20)
[2018-06-26] MEDS: MethylPREDNISolone 40 MG/ML VIAL IVP SCH ×4 (04:47→23:38)
--- NOTE | 2018-06-26 06:01 | Internal Med Progress Note ---
<LoomisEmery Russel - Last Filed: 06/26/18 11:00> Hospitalist Progress Note - Encounter Date of Encounter: 06/26/18 Time of Encounter: 07:00 - Subjective Interval History: Sleeping in bed on BiPAP, arousable. Additional episode Afib RVR today. Says her breathing is better than yesterday. Had no trouble yesterday on hiflow. She denies chest pain, cough, N/V, abdominal pain, worsening edema. - Exam Vitals: Temp Pulse Resp BP Pulse Ox 98.3 F 91 20 166/83 98 06/26/18 03:49 06/26/18 03:49 06/26/18 03:49 06/26/18 03:49 06/26/18 03:49 Exam: General: Sleeping but arousable, alert, appears stated age, on BiPAP, no signs of toxicity HEENT: EOMi, pupils equal/round, mucus membranes moist. Cardiac: RRR, S1/S2+ but distant, no murmurs, heaves, thrills appreciated, radial pulse 2+ bilaterally, normal capillary refill, 2+ edema Chest: Symmetric chest rise, non tender Pulmonary: Decreased air movement, increased resp effort, diminished breath sounds, scattered exp wheezes, no rhonchi or rales appreciated Abdominal: Soft, non-tender, no distention, guarding, rebound tenderness, or rigidity Neuro: AOx3, CN grossly intact Psych: Normal affect Integumentary: [place], warm, dry, intact - Assessment and Plan (1) Acute on chronic respiratory failure with hypoxia and hypercapnia Current Visit: Yes Status: Acute Assessment and Plan: Likely due to COPD exacerbation and fluid overload from CHF with class 2-3 pulm HTN Echo showed LVEF 70-75% CXR 06/19 shows stable mod-severe pulmonary vascular congestion and cardiomegaly with an increased focal opacity involving the RUL advertising sales representative of pulmonary edema vs pneumonia Chest CT showed likely pulm edema with B/L pleural effusions Zosyn completed 7 days , vanc completed - stop date for vanc will be 06/23/18, for zosyn will be 06/24/18. No further abx Blood cultures x2 neg Pt tolerating hiflow during day and BiPAP at night, breathing improved today Duonebs switched to ipratropium and levalbuterol 06/25/18 Solu-medrol 40mg q8H Son who is POA was called to confirm code status. He agrees with her being full code but states that she is adamant about not wanting a tracheostomy IR was consulted for therapeutic thoracentesis of right lung on 06/21 but pt refused Case discussed with evs manager. Lasix started 06/23/18, increased today and renal function stable, Cr 1.1 Thoracentesis (R lung) 06/24/18 with minimal fluid evacuation, improved R lung aeration on post thora CXR Continue weaning from BiPAP as tolerated and start high flow oxygen with eventual wean to 4L nc that she uses at home 24hrs/day. Hypercapnic resp acidosis this morning. VBG pH 7.3, pCO2 88, pO2 199, HCO3 43 Will keep BiPAP on this morning and repeat VBG in few hours. If improved consider transition to hiflow with BiPAP at night. (2) Acute on chronic diastolic CHF (congestive heart failure) Current Visit: No Status: Acute Assessment and Plan: Echo revealed LVEF 70-75%, mild concentric left ventricular hypertrophy Suspected cardio-renal syndrome, improving Lasix resumed as renal function improved Monitor renal function Thoracentesis 06/24/18, minimal fluid evacuated during thoracentesis Keep BiPAP on today and recheck VBG in afternoon. Possible transition to hiflow if improved. (3) A-fib Current Visit: Yes Status: Acute Assessment and Plan: No hx of Afib Had episode of Afib RVR 06/24/18 with HR in 200's initially seen on tele. Non symptomatic during episode Afib RVR confirmed on ECG Given 1 dose 15mg IV diltiazem and HR improved to low 100's. Cards started PO diltiazem for rate control [id number] 4 Heparin infusion started Will transition to apixaban at dc for anticoagulation Afib RVR today (4) Anemia Current Visit: Yes Status: Acute Assessment and Plan: Hbg 8.2 on admission Stable hemoglobin today at 9.2 No obvious signs of bleeding at this time Continue to monitor (5) Pulmonary hypertension due to COPD Current Visit: Yes Status: Acute Assessment and Plan: Continue current management Uses 4L O2 at home round the clock (6) Cellulitis Current Visit: Yes Status: Acute Assessment and Plan: Warm and erythematous areas on bilateral LE above the ankles on arrival Vanc renally dosed on admission with hx of MRSA PNA MRSA swab was positive Completed 7 days Zosyn, no further abx (7) NADIA (acute kidney injury) Current Visit: Yes Status: Resolved Assessment and Plan: Resolved previously Fluids previously held due to 3L input with oliguria, medications to be renally dosed, avoid nephrotoxins NADIA likely due to prerenal cause vs ATN vs cardiorenal syndrome UA showed high protein, moderate blood and many squamous epi cells w/o bacteria or casts Retroperitoneal US did not demonstrate hydronephrosis or signs of obstruction Nephro signed off - Total fluid balance now at -3905mL Cr decreased from 3.04. 1.18 06/24/18 Renal function improved today, Cr 1.1 Continue lasix as renal function stable Continue close monitoring (8) Diarrhea Current Visit: Yes Status: Acute Assessment and Plan: Likely 2/2 abx use Abx have been completed now GI PCR panel neg Rectal tube in place DVT Prophylaxis: Heparin - Time Spent with Patient Total time spent is greater than 50% in coordination of care (as documented) at patient's floor/unit and/or counseling patient: less than 15 minutes Plan of Care Discussed with: patient Internal Medicine: Result - Labs CBC & Chem 7: 06/26/18 02:20 06/26/18 02:20 Labs: Short CBC 06/26/18 Range/Units 02:20 WBC 5.5 (4.3-11.1) K/mcL Hgb 9.2 L (11.5-15.4) g/dL Hct 30.1 L (35.3-44.9) % Plt Count 152 (140-400) K/mcL Neutrophils # 4.9 (1.6-8.9) K/mcL BMP 06/26/18 02:20 Sodium 142 Potassium 3.8 Chloride 98 Carbon Dioxide 41 H* BUN 32 H Creatinine 1.10 Glucose 150 H Calcium 8.5 L - ABG Interpretation ABG results: ABG ABG pH 7.34 pH Units (7.32-7.45) 06/23/18 05:08 ABG pCO2 68 mmHg (35-45) H 06/23/18 05:08 ABG pO2 85 mmHg (85-104) 06/23/18 05:08 ABG O2 Saturation 95 % (95-98) 06/23/18 05:08 PT/INR, D-dimer PT 13.0 Seconds (9.4-12.1) H 06/24/18 04:57 - Impressions Impressions Chest X-Ray 06/25/18 04:00 IMPRESSION: No significant interval change pulmonary edema. D/ / Jamilah Schreiber MD / Jamilah Schreiber MD Interpreting Provider: Jamilah Schreiber MD Consult Discharge Plan - Plan Referrals: Brad Minor MD [Partnered Physician] - Prescriptions: Apixaban [Eliquis] 5 mg PO BID #60 tablet <Genna Simon - Last Filed: 06/26/18 12:40> Hospitalist Progress Note - Exam Vitals: Temp Pulse Resp BP Pulse Ox 98.2 F 124 21 147/93 97 06/26/18 11:16 06/26/18 11:16 06/26/18 11:16 06/26/18 11:16 06/26/18 11:16 - Assessment and Plan (1) Cellulitis Current Visit: Yes Status: Acute (2) Acute on chronic diastolic CHF (congestive heart failure) Current Visit: No Status: Acute (3) Anemia Current Visit: Yes Status: Acute (4) Acute on chronic respiratory failure with hypoxia and hypercapnia Current Visit: Yes Status: Acute (5) Pulmonary hypertension due to COPD Current Visit: Yes Status: Acute (6) NADIA (acute kidney injury) Current Visit: Yes Status: Resolved (7) A-fib Current Visit: Yes Status: Acute (8) Diarrhea Current Visit: Yes Status: Acute - Time Spent with Patient Total time spent is greater than 50% in coordination of care (as documented) at patient's floor/unit and/or counseling patient: Internal Medicine: Result - Labs CBC & Chem 7: 06/26/18 02:20 06/26/18 02:20 Labs: Short CBC 06/26/18 Range/Units 02:20 WBC 5.5 (4.3-11.1) K/mcL Hgb 9.2 L (11.5-15.4) g/dL Hct 30.1 L (35.3-44.9) % Plt Count 152 (140-400) K/mcL Neutrophils # 4.9 (1.6-8.9) K/mcL BMP 06/25/18 06/26/18 04:55 02:20 Sodium 144 142 Potassium 4.1 3.8 Chloride 97 L 98 Carbon Dioxide 38 H 41 H* BUN 34 H 32 H Creatinine 1.23 H 1.10 Glucose 122 H 150 H Calcium 9.3 8.5 L - ABG Interpretation ABG results: ABG ABG pH 7.38 pH Units (7.32-7.45) 06/26/18 12:17 ABG pCO2 73 mmHg (35-45) H* 06/26/18 12:17 ABG pO2 92 mmHg (85-104) 06/26/18 12:17 ABG O2 Saturation 96 % (95-98) 06/26/18 12:17 PT/INR, D-dimer PT 13.0 Seconds (9.4-12.1) H 06/24/18 04:57 - Attending Attestation I examined this patient and my medical decision-making was reviewed with the Resident Physician Dr Loomis. I agree with the documented findings, disposition and treatment plan as described except to the extent set forth below. Ms Luciano is currently admitted for acute respiratory failure and cellulitis. She remains moderate to high risk due to potential for worsening clinical status. She has developed afib with RVR. she has been dificult to maintain off bipap Awake, resting in bed on bipap. tired but not somnolent. denies sob on bipap, denies cp,palpitations iwth HR on tele 160s currently, afib rvr. no presyncope or syncope. BP elevatted this morning, no marie, vision changes or chest pain gen- alert, awake,appears stated age, obese eyes- pupils equal round cv- tachy rate and irreg/irreg rhythm, normal s1,s2, no murmurs appreciated, 1+ pitting edema bl le lungs- diminished breath sounds throughout, cannot appreciate rhonchi, crackles or wheezing, norm resp effort on bipap abd- soft, non tender, non distended, + bs neuro- AAOx3 A/P Acute on Chronic Resp failure with hypoxia and hypercapnia Likely due to COPD exacerbation and fluid overload from CHF with class 2-3 pulm HTN- weaned to high flow O2 during day yesterday, worsened pco2 today, on cont bipap currently, obtain abg later this morning and hopefullycan wean to high flow during day and bipap at night and while napping, if no improvement will have to reach back out to pulm, aggressive IV diuresis Pleural effusion -attempt at thoracentesis but no large drainable amount of fluid present, cont iv diuresis Acute on Chronic Diastolic CHF - Iincrease IV lasix, creat stable today, cont to monitor and diurese as permits New onset Afib with RVR, currently afib rvr, likely 2/2 resp failure as above and infection (cellulitis)- hep gtt, Eliquis on dc, cards following, increased cardizem and if no improvement will have to go back on cardizem gtt, repleting lytes Hypomagnesemia- replete IV today Diarrhea suspect med s/e vs gastroenteritis as stool panel negative for bacterial infectious diarrhea- monitor lytes, monitor for changes HTN, elevated BPs above goal- resume home losartan now that creat wnl, cardizem increased by cards, if requires addl antihypertenisve also takes norvasc at h ome, cont to monitor, will require outpt follow up on dc Further diagnoses and plan as per resident. <Emery Loomis - Last Filed: 06/26/18 11:00> (4) Anemia Qualifiers: Anemia type: unspecified type Qualified Code(s): D64.9 - Anemia, unspecified (6) Cellulitis Qualifiers: Site of cellulitis: extremity Site of cellulitis of extremity: lower extremity Laterality: right Qualified Code(s): L03.115 - Cellulitis of right lower limb (8) Diarrhea Qualifiers: Diarrhea type: unspecified type Qualified Code(s): R19.7 - Diarrhea, unsp ecified <Drabina-Carol,Genna M - Last Filed: 06/26/18 12:40> (1) Cellulitis Qualifiers: Site of cellulitis: extremity Site of cellulitis of extremity: lower extremity Laterality: right Qualified Code(s): L03.115 - Cellulitis of right lower limb (3) Anemia Qualifiers: Anemia type: unspecified type Qualified Code(s): D64.9 - Anemia, unspecified (8) Diarrhea Qualifiers: Diarrhea type: unspecified type Qualified Code(s): R19.7 - Diarrhea, unspecified
[2018-06-26 07:15] LABS: VBG HCO3 43 mEq/L (21-27); VBG PCO2 88 mmHg (41-51); VBG PO2 199 mmHg (25-50)
[2018-06-26] MEDS: Furosemide 20 MG/2 ML VIAL IVP SCH ×2 (08:49→18:29)
[2018-06-26] MEDS: levETIRAcetam 250 MG TABLET PO SCH ×2 (08:49→23:36)
[2018-06-26] MEDS: Diltiazem CD (24hr) 180 MG CAPSULE PO SCH ×2 (08:49→10:44)
[2018-06-26] MEDS: Aspirin Enteric Coated 81 MG Tablet PO SCH (08:50)
[2018-06-26] MEDS: Nystatin POWDER 30 GM BOTTLE TP SCH ×2 (08:50→16:13)
--- NOTE | 2018-06-26 09:26 | Cardiology Progress Note ---
Date of Encounter: 06/26/18 Time of Encounter: 09:26 Assessment and Plan (1) Atrial fibrillation with RVR Current Visit: Yes Status: Acute New onset atrial fibrillation with RVR in the setting of respiratory distress and cellulitis. HR up to 200 bpm (per record) last night improved with IV cardizem bolus. HR 95- 105 currently. EKG shows sinus tachycardia with frequent PAC although telemetry shows atrial fibrillation with RVR. Pt rate controlled yesterday and converted back to SR with PAC. Recurrent atrial fibrillation with RVR this morning. Oral cardizem increased. If HR does not improve we will start cardizem gtt. TTE- LVEF 70-75%. Mild concentric left ventricular hypertrophy. Normal LV chamber size and systolic function. TTE 01/2018- EF 60%, no significant valvular disease. No PAH. Check TSH. CHADS VASC= 4. Recommend anticoagulation if she can tolerate. NOAC vs Coumadin indication, use, and adverse effects reviewed. She agree with AC. Noted that she has anemia. Hgb stable since admit. tolerating heparin gtt. Eliquis RX sent and avila is 0$. Start prior to d/c. (2) Acute on chronic respiratory failure Current Visit: No Status: Resolved Likely secondary to COPD and pulmonary edema, DCHF. Primary team managing. On high flow oxygen. TTE 01/2018- EF 60%, only mild diastolic dysfunction. No PAH. CXR-No significant change, pulmonary edema. IV lasix given during stay. Net negative 3900 ml. Noted patient declined thoracentesis 06/21/18. Then she did proceed with thoracentesis 06/24/18 with minimal output. Qualifiers: Respiratory failure complication: hypoxia and hypercapnia Qualified Code(s): J96.21 - Acute and chronic respiratory failure with hypoxia; J96.22 - Acute and chronic respiratory failure with hypercapnia (3) Acute on chronic diastolic CHF (congestive heart failure) Current Visit: No Status: Acute Pulmonary edema on CXR. Minimal out-put on theracentesis. H/o CHFpEF. TTE showed EF 70-75%. On low dose IV lasix. Last 24 hours she had positive fluid intake. Scr stable. Recommend increasing lasix. Low sodium diet. Strict I&O. Replace electrolytes. Discussion w patient/family: The assessment and plan as outlined above was discussed with the patient and/or family members who expressed understanding and agreement. All questions were answered. Thank you for involving us in the care of your patient. Please call with any questions. Subjective Principal diagnosis: Acute on chronic respiratory failure Interval history: Ms. Luciano is sitting on the side of her bed with bipap on. Denies chest pain or palpitations. Recurrent afib with RVR this morning. Objective Vital Signs, Last 4 Hours Temp Pulse Resp BP Pulse Ox 06/26/18 08:07 17 155/102 97 06/26/18 07:33 97.7 F 107 21 155/102 97 General: Conversant, No Apparent Distress HEENT: Atraumatic, Normocephaly, Mucus Membranes Moist Neck: No JVD, Normal carotid pulses Cardiac: Other (Irregularly irregular) Lungs: Other (Respirations labored with pt sitting up in bed on bipap. Lung sounds diminished. ) Neuro: Alert and responsive, No focal deficits noted Abdomen: Soft, Non-Tender Skin: No rashes noted on visualized skin Musculoskeletal: No Chest Wall Tenderness Extremities: No Clubbing, No Cyanosis, Normal Pulses, Other (Non-pitting BLE edema) Results 06/26/18 02:20 06/26/18 02:20 Lab Results 06/26/18 06/26/18 02:20 02:20 WBC 5.5 Hgb 9.2 L Hct 30.1 L Plt Count 152 Sodium 142 Potassium 3.8 Chloride 98 Carbon Dioxide 41 H* BUN 32 H Creatinine 1.10 Glucose 150 H Calcium 8.5 L Magnesium 1.6 - Imaging and Cardiology Echo: report reviewed - EKG Interpretation EKG results cardiology: personally reviewed Consult Discharge Plan - Plan Referrals: Brad Minor MD [Partnered Physician] - Prescriptions: Apixaban [Eliquis] 5 mg PO BID #60 tablet
[2018-06-26] MEDS ORDERED: Furosemide 20 MG/2 ML VIAL IVP ONE (09:39)
[2018-06-26] MEDS: Budesonide/Formoterol 160/4.5 1 PUFF INH IH SCH ×2 (10:58→23:15)
[2018-06-26 11:37] LABS: Thyroid Stimulating Hormone 0.868 mcIU/mL (0.340-5.600)
[2018-06-26 12:25] LABS: ABG Base Excess 14 mEq/L (-2 to 3); ABG HCO3 43 mEq/L (21-27); ABG Oxygen Saturation 96 % (95-98); ABG PCO2 73 mmHg (35-45); ABG PH 7.38 pH Units (7.32-7.45); ABG PO2 92 mmHg (85-104); ABG TCO2 45 mEq/L (20-26)
[2018-06-26] MEDS: Valsartan 80 MG TABLET PO SCH ×2 (12:54→23:37)
--- NOTE | 2018-06-26 14:00 | Pulmonology Progress Note ---
<Sandhya Whitehead - Last Filed: 06/26/18 17:44> Date of Encounter: 06/26/18 Time of Encounter: 13:59 Assessment and Plan (1) Acute on chronic respiratory failure with hypoxia and hypercapnia Current Visit: Yes Status: Chronic Clinically improving Acute exacerbation COPD No previous pulmonary function testing found after review of records Patient is well known to pulmonology service--h/o poor compliance Most recent ABG shows her chronic hypercarbia is well compensated, improved oxygenation, component of metabolic alkalosis given her elevated bicarbonate Suspect elevated PCO2 on ABGs is chronic and most likely lives with PCO2 of 60s-70s--additional ABGs not necessary unless her clinical status suddenly declines BLE venous Doppler 06/22: Normal bilateral lower extremity deep and superficial venous exam Plan: - Overnight qualification for BiPAP - Repeat BLE venous doppler to r/o DVT - Acetazolamide 250 mg PO 1 to decrease bicarbonate - Recommend outpatient PFTs with follow up (2) Atrial fibrillation with RVR Current Visit: Yes Status: Acute Anticoagulated on heparin gtt Transition to Eliquis on discharge Diltiazem gtt started by cardiology Plan: 1. management per primary team (3) Acute on chronic diastolic CHF (congestive heart failure) Current Visit: Yes Status: Acute Limited echo 06/19: LVEF 70-75%, normal LV size and systolic function, mild concentric LVH CXR 06/25: No significant change in pulmonary edema Cardiology is following Plan: 1. Management per primary team Subjective Principal diagnosis: Acute on chronic respiratory failure Interval history: Patient seen and examined this afternoon at bedside. Primary team was concerned for failure to improve respiratory status based on recent ABGs. On my arrival the patient is sitting up in bed wearing BiPAP. Patient states she is feeling well today and denies any respiratory complaints. She reports breathing better now than she ever has in the past. Her chronic cough is at baseline. To her knowledge, she has never had pulmonary function testing--she had a PFT scheduled but was unable to get it done because she was in the hospital. She uses 4L nasal cannula at home. She doesn't have a BiPAP machine at home. Objective PUL Vital signs: Last Vital Signs Temp 98.2 F 06/26/18 11:16 Pulse 124 06/26/18 11:16 Resp 21 06/26/18 11:16 BP 147/93 06/26/18 11:16 Pulse Ox 97 06/26/18 11:16 General appearance: no acute distress, alert Eyes: nonicteric Neck: supple Effort: normal Auscultation: bilateral: clear, diminished breath sounds Cardiovascular: other (distant heart sounds masked by airflow from BiPAP) Extremities: no cyanosis, no clubbing, edema (BLE non-pitting) Musculoskeletal: no deformities normal mental status, non-focal exam, pupils equal and round, CN II-XII normal mood appropriate, affect normal Results - Laboratory Findings CBC and BMP: 06/26/18 02:20 06/26/18 02:20 ABG ABG pH 7.38 pH Units (7.32-7.45) 06/26/18 12:17 ABG pCO2 73 mmHg (35-45) H* 06/26/18 12:17 ABG pO2 92 mmHg (85-104) 06/26/18 12:17 ABG O2 Saturation 96 % (95-98) 06/26/18 12:17 PT/INR, D-dimer PT 13.0 Seconds (9.4-12.1) H 06/24/18 04:57 Abnormal lab findings: Abnormal lab results RBC 3.06 M/mcL (3.82-4.97) L 06/26/18 02:20 Hgb 9.2 g/dL (11.5-15.4) L 06/26/18 02:20 Hct 30.1 % (35.3-44.9) L 06/26/18 02:20 MCHC 30.6 g/dL (31.6-35.5) L 06/26/18 02:20 RDW 17.2 % (11.5-14.5) H 06/26/18 02:20 Lymphocytes # 0.2 K/mcL (0.6-4.6) L 06/26/18 02:20 Nucleated RBCs/100 WBC 0.4 /100 WBC (0) H 06/20/18 03:50 PT 13.0 Seconds (9.4-12.1) H 06/24/18 04:57 ABG pCO2 73 mmHg (35-45) H* 06/26/18 12:17 ABG HCO3 43 mEq/L (21-27) H 06/26/18 12:17 ABG Total CO2 45 mEq/L (20-26) H 06/26/18 12:17 ABG Base Excess 14 mEq/L (-2 to 3) H 06/26/18 12:17 VBG pH 7.30 pH Units (7.32-7.42) L 06/26/18 07:08 VBG pCO2 88 mmHg (41-51) H* 06/26/18 07:08 VBG pO2 199 mmHg (25-50) H 06/26/18 07:08 VBG HCO3 43 mEq/L (21-27) H 06/26/18 07:08 Carbon Dioxide 41 mEq/L (23-29) H* 06/26/18 02:20 BUN 32 mg/dL (8-23) H 06/26/18 02:20 Est GFR (Non-Af Amer) 49 (> 60) L 06/26/18 02:20 BUN/Creatinine Ratio 29 (6-26) H 06/26/18 02:20 Glucose 150 mg/dL (70-105) H 06/26/18 02:20 POC Glucose 124 mg/dL (70-99) H 06/26/18 07:30 Calculated Osmolality 304 (280-300) H 06/26/18 02:20 Calcium 8.5 mg/dL (8.6-10.3) L 06/26/18 02:20 B-Natriuretic Peptide 195 pg/mL (Less than 100) H 06/19/18 09:47 Urine Clarity Hazy (Clear) A 06/19/18 10:24 Urine Protein 100 mg/dL (Neg-Trace) H 06/19/18 10:24 Urine Blood Moderate (Negative) H 06/19/18 10:24 Ur Leukocyte Esterase Small (Negative) H 06/19/18 10:24 Urine Microscopic RBC 15-30 per hpf (0-3) H 06/19/18 10:24 Ur Squamous Epith Cells Many per lpf (None-Few) H 06/19/18 10:24 Ur Culture Indicated? NO. (NO) A 06/19/18 10:24 Nasal Screen MRSA (PCR) Positive (Negative) A 06/19/18 12:10 Vancomycin Trough 24 mcg/mL (5-10) H 06/22/18 09:15 - Clinical Findings Intake & Output: Intake & Output 06/25/18 06/26/18 06/26/18 23:59 07:59 15:59 Intake Total 282 / 282 218 / 218 221 / 221 Output Total 600 / 600 250 / 250 Balance 282 / 282 -382 / -382 - Consult Discharge Plan - Plan Referrals: Brad Minor MD [Partnered Physician] - Prescriptions: Apixaban [Eliquis] 5 mg PO BID #60 tablet <Joelle Melton M - Last Filed: 06/27/18 07:59> Objective PUL Vital signs: Last Vital Signs Temp 98.2 F 06/26/18 11:16 Pulse 124 06/26/18 11:16 Resp 21 06/26/18 11:16 BP 147/93 06/26/18 11:16 Pulse Ox 97 06/26/18 11:16 Results - Laboratory Findings CBC and BMP: 06/27/18 06:10 06/27/18 06:10 ABG ABG pH 7.38 pH Units (7.32-7.45) 06/26/18 12:17 ABG pCO2 73 mmHg (35-45) H* 06/26/18 12:17 ABG pO2 92 mmHg (85-104) 06/26/18 12:17 ABG O2 Saturation 96 % (95-98) 06/26/18 12:17 PT/INR, D-dimer PT 13.0 Seconds (9.4-12.1) H 06/24/18 04:57 Abnormal lab findings: Abnormal lab results RBC 3.06 M/mcL (3.82-4.97) L 06/26/18 02:20 Hgb 9.2 g/dL (11.5-15.4) L 06/26/18 02:20 Hct 30.1 % (35.3-44.9) L 06/26/18 02:20 MCHC 30.6 g/dL (31.6-35.5) L 06/26/18 02:20 RDW 17.2 % (11.5-14.5) H 06/26/18 02:20 Lymphocytes # 0.2 K/mcL (0.6-4.6) L 06/26/18 02:20 Nucleated RBCs/100 WBC 0.4 /100 WBC (0) H 06/20/18 03:50 PT 13.0 Seconds (9.4-12.1) H 06/24/18 04:57 ABG pCO2 73 mmHg (35-45) H* 06/26/18 12:17 ABG HCO3 43 mEq/L (21-27) H 06/26/18 12:17 ABG Total CO2 45 mEq/L (20-26) H 06/26/18 12:17 ABG Base Excess 14 mEq/L (-2 to 3) H 06/26/18 12:17 VBG pH 7.30 pH Units (7.32-7.42) L 06/26/18 07:08 VBG pCO2 88 mmHg (41-51) H* 06/26/18 07:08 VBG pO2 199 mmHg (25-50) H 06/26/18 07:08 VBG HCO3 43 mEq/L (21-27) H 06/26/18 07:08 Carbon Dioxide 41 mEq/L (23-29) H* 06/26/18 02:20 BUN 32 mg/dL (8-23) H 06/26/18 02:20 Est GFR (Non-Af Amer) 49 (> 60) L 06/26/18 02:20 BUN/Creatinine Ratio 29 (6-26) H 06/26/18 02:20 Glucose 150 mg/dL (70-105) H 06/26/18 02:20 POC Glucose 124 mg/dL (70-99) H 06/26/18 07:30 Calculated Osmolality 304 (280-300) H 06/26/18 02:20 Calcium 8.5 mg/dL (8.6-10.3) L 06/26/18 02:20 B-Natriuretic Peptide 195 pg/mL (Less than 100) H 06/19/18 09:47 Urine Clarity Hazy (Clear) A 06/19/18 10:24 Urine Protein 100 mg/dL (Neg-Trace) H 06/19/18 10:24 Urine Blood Moderate (Negative) H 06/19/18 10:24 Ur Leukocyte Esterase Small (Negative) H 06/19/18 10:24 Urine Microscopic RBC 15-30 per hpf (0-3) H 06/19/18 10:24 Ur Squamous Epith Cells Many per lpf (None-Few) H 06/19/18 10:24 Ur Culture Indicated? NO. (NO) A 06/19/18 10:24 Nasal Screen MRSA (PCR) Positive (Negative) A 06/19/18 12:10 Vancomycin Trough 24 mcg/mL (5-10) H 06/22/18 09:15 - Clinical Findings Intake & Output: Intake & Output 06/25/18 06/26/18 06/26/18 23:59 07:59 15:59 Intake Total 282 / 282 218 / 218 221 / 221 Output Total 600 / 600 250 / 250 Balance 282 / 282 -382 / -382 -29 / -29 - Attending Attestation I examined this patient and my medical decision-making was reviewed with the Resident Physician. I agree with the documented findings, disposition and treatment plan as described except to the extent set forth below. Patient seen and examined. Labs, radiology, chart personally reviewed. Agree with resident's history and physical, assessment, plan with following co mments: COMPLIANCE REVIEW OFFICER: Patient follows commands, Pulmonary: Acceptable oxygenation and ventilation on noninvasive ventilation. In fact patient stated that she is feeling and breathing better at this time. P atient with significant underlying pulmonary disease which is chronic in nature and she had previous tracheostomy for the chronic respiratory failure. I would recommend not to treat ABG and in fact I suspect her PCO2 could be higher. With diuresis serum bicarbonate will be increased and PCO2 for a compensation will be elevated for that reason a acetazolamide can be given just 1 dose and as long this patient awake and not in any acute distress, she can be monitored. Patient has been on anticoagulation and venous Doppler has been negative for venous thrombus embolism. Overall prognosis is poor.
[2018-06-26] MEDS ORDERED: acetaZOLAMIDE 250 MG TABLET PO ONE (14:56)
[2018-06-27] MEDS: Levalbuterol Neb 1.25 MG/3 ML IH SCH ×4 (04:38→21:22)
[2018-06-27] MEDS: Ipratropium Neb 0.5 MG NEBULIZER IH SCH ×4 (04:38→21:22)
[2018-06-27 06:24] LABS: Basophils % 0.2 %; Hematocrit 31.6 % (35.3-44.9); Hemoglobin 9.6 g/dL (11.5-15.4); Immature Granulocytes % 1.2 % (0-4); Lymphocytes # 0.1 K/mcL (0.6-4.6); Lymphocytes % 2.4 %; Mean Corpuscular HGB Conc 30.4 g/dL (31.6-35.5); Mean Corpuscular Hemoglobin 29.3 pg (28.0-33.3); Mean Corpuscular Volume 96.3 fL (83.0-100.0); Mean Platelet Volume 11.9 fL (9.4-12.4); Monocytes # 0.1 K/mcL (0.0-1.3); Monocytes % 1.3 %; Neutrophils # 5.6 K/mcL (1.6-8.9); Platelet Count 141 K/mcL (140-400); Red Blood Count 3.28 M/mcL (3.82-4.97); Red Cell Distribution Width 16.8 % (11.5-14.5); Segmented Neutrophils % 94.9 %
--- NOTE | 2018-06-27 06:36 | Internal Med Progress Note ---
<EbonieEmery Russel - Last Filed: 06/27/18 12:33> Hospitalist Progress Note - Encounter Date of Encounter: 06/27/18 Time of Encounter: 07:00 - Subjective Interval History: Sleeping in bed on BiPAP, easily arousable. Says her breathing is much better than yesterday and feels like different person. Requesting to go home now. She denies chest pain, cough, N/V, abdominal pain, worsening edema. - Exam Vitals: Temp Pulse Resp BP Pulse Ox 97.7 F 101 16 122/57 90 06/27/18 03:34 06/27/18 03:34 06/27/18 04:38 06/27/18 03:34 06/27/18 04:38 Exam: General: Sleeping but easily arousable, alert, appears stated age, on BiPAP, no signs of toxicity HEENT: EOMi, pupils equal/round, mucus membranes moist. Cardiac: RRR, S1/S2+ but distant, no murmurs, heaves, thrills appreciated, radial pulse 2+ bilaterally, normal capillary refill, 2+ edema Chest: Symmetric chest rise, non tender Pulmonary: Decreased air movement, increased resp effort, diminished breath sounds, scattered exp wheezes, no rhonchi or rales appreciated Abdominal: Soft, non-tender, no distention, guarding, rebound tenderness, or rigidity Neuro: AOx3, CN grossly intact Psych: Normal affect Integumentary: [place], warm, dry, intact - Assessment and Plan (1) Acute on chronic respiratory failure with hypoxia and hypercapnia Current Visit: Yes Status: Chronic Assessment and Plan: Likely due to COPD exacerbation and fluid overload from CHF with class 2-3 pulm HTN Echo showed LVEF 70-75% CXR 06/19 shows stable mod-severe pulmonary vascular congestion and cardiomegaly with an increased focal opacity involving the RUL underwriting service representative of pulmonary edema vs pneumonia Chest CT showed likely pulm edema with B/L pleural effusions Zosyn completed 7 days , vanc completed - stop date for vanc will be 06/23/18, for zosyn will be 06/24/18. No further abx Blood cultures x2 neg Pt tolerating hiflow during day and BiPAP at night, breathing improved today Duonebs switched to ipratropium and levalbuterol 06/25/18 Solu-medrol 40mg q8H Son who is POA was called to confirm code status. He agrees with her being full code but states that she is adamant about not wanting a tracheostomy IR was consulted for therapeutic thoracentesis of right lung on 06/21 but pt refused Case discussed with target worker. Lasix started 06/23/18, increased today and renal function stable, Cr 1.1 Thoracentesis (R lung) 06/24/18 with minimal fluid evacuation, improved R lung aeration on post thora CXR Continue weaning from BiPAP as tolerated and start high flow oxygen with eventual wean to 4L nc that she uses at home 24hrs/day. Hypercapnic thats likely chronic with co metabolic alkalosis yst. VBG pH 7.3, pCO2 88, pO2 199, HCO3 43 Breathing much improved today, will continue BiPAP at night and continue to wean down O2 during day. (2) Acute on chronic diastolic CHF (congestive heart failure) Current Visit: Yes Status: Acute Assessment and Plan: Echo revealed LVEF 70-75%, mild concentric left ventricular hypertrophy Suspected cardio-renal syndrome, improving Lasix resumed as renal function improved Monitor renal function Thoracentesis 06/24/18, minimal fluid evacuated during thoracentesis Continue BiPAP at night and wean O2 during day. (3) A-fib Current Visit: Yes Status: Acute Assessment and Plan: No hx of Afib Had episode of Afib RVR 06/24/18 with HR in 200's initially seen on tele. Non symptomatic during episode Afib RVR confirmed on ECG Given 1 dose 15mg IV diltiazem and HR improved to low 100's. Cards started PO diltiazem for rate control [id number] 4 Transitioned from heparin to apixaban for anticoagulation Diltiazem infusion continued and 25mg metoprolol added BID as remains tachycardic (4) Anemia Current Visit: Yes Status: Acute Assessment and Plan: Hbg 8.2 on admission Stable hemoglobin today at 9.6 No obvious signs of bleeding at this time Continue to monitor (5) Pulmonary hypertension due to COPD Current Visit: Yes Status: Acute Assessment and Plan: Continue current management Uses 4L O2 at home round the clock (6) Cellulitis Current Visit: Yes Status: Acute Assessment and Plan: Warm and erythematous areas on bilateral LE above the ankles on arrival Vanc renally dosed on admission with hx of MRSA PNA MRSA swab was positive Completed 7 days Zosyn, no further abx (7) NADIA (acute kidney injury) Current Visit: Yes Status: Resolved Assessment and Plan: Resolved Fluids previously held due to 3L input with oliguria, medications to be renally dosed, avoid nephrotoxins NADIA likely due to prerenal cause vs ATN vs cardiorenal syndrome UA showed high protein, moderate blood and many squamous epi cells w/o bacteria or casts Retroperitoneal US did not demonstrate hydronephrosis or signs of obstruction Nephro signed off - Total fluid balance now at -8405mL Cr decreased from 3.04. 1.18 06/24/18 Renal function improved today, Cr 1.25 Continue lasix as renal function stable Continue close monitoring (8) Diarrhea Current Visit: Yes Status: Acute Assessment and Plan: Likely 2/2 abx use Abx have been completed now GI PCR panel neg Rectal tube in place DVT Prophylaxis: Apixaban - Time Spent with Patient Total time spent is greater than 50% in coordination of care (as documented) at patient's floor/unit and/or counseling patient: less than 15 minutes Plan of Care Discussed with: patient Internal Medicine: Result - Labs CBC & Chem 7: 06/27/18 06:10 06/27/18 06:10 Labs: Short CBC 06/27/18 Range/Units 06:10 WBC 5.9 (4.3-11.1) K/mcL Hgb 9.6 L (11.5-15.4) g/dL Hct 31.6 L (35.3-44.9) % Plt Count 141 (140-400) K/mcL BMP 06/25/18 04:55 Sodium 144 Potassium 4.1 Chloride 97 L Carbon Dioxide 38 H BUN 34 H Creatinine 1.23 H Glucose 122 H Calcium 9.3 - ABG Interpretation ABG results: ABG ABG pH 7.38 pH Units (7.32-7.45) 06/26/18 12:17 ABG pCO2 73 mmHg (35-45) H* 06/26/18 12:17 ABG pO2 92 mmHg (85-104) 06/26/18 12:17 ABG O2 Saturation 96 % (95-98) 06/26/18 12:17 PT/INR, D-dimer PT 13.0 Seconds (9.4-12.1) H 06/24/18 04:57 Consult Discharge Plan - Plan Referrals: Brad Minor MD [Partnered Physician] - (web request sent on 06/27/18) Prescriptions: Apixaban [Eliquis] 5 mg PO BID #60 tablet <AuroraGenna - Last Filed: 06/27/18 17:18> Hospitalist Progress Note - Encounter Date of Encounter: 06/27/18 - Exam Vitals: Temp Pulse Resp BP Pulse Ox 98.6 F 103 18 146/83 94 06/27/18 12:35 06/27/18 12:35 06/27/18 15:32 06/27/18 12:35 06/27/18 15:32 - Assessment and Plan (1) Cellulitis Current Visit: Yes Status: Acute (2) Acute on chronic diastolic CHF (congestive heart failure) Current Visit: Yes Status: Acute (3) Anemia Current Visit: Yes Status: Acute (4) Acute on chronic respiratory failure with hypoxia and hypercapnia Current Visit: Yes Status: Chronic (5) Pulmonary hypertension due to COPD Current Visit: Yes Status: Acute (6) NADIA (acute kidney injury) Current Visit: Yes Status: Resolved (7) A-fib Current Visit: Yes Status: Acute (8) Diarrhea Current Visit: Yes Status: Acute - Time Spent with Patient Total time spent is greater than 50% in coordination of care (as documented) at patient's floor/unit and/or counseling patient: Internal Medicine: Result - Labs CBC & Chem 7: 06/27/18 06:10 06/27/18 06:10 Labs: Short CBC 06/27/18 Range/Units 06:10 WBC 5.9 (4.3-11.1) K/mcL Hgb 9.6 L (11.5-15.4) g/dL Hct 31.6 L (35.3-44.9) % Plt Count 141 (140-400) K/mcL Neutrophils # 5.6 (1.6-8.9) K/mcL BMP 06/27/18 06:10 Sodium 139 Potassium 3.9 Chloride 96 L Carbon Dioxide 35 H BUN 30 H Creatinine 1.25 H Glucose 200 H Calcium 8.2 L - ABG Interpretation ABG results: ABG ABG pH 7.38 pH Units (7.32-7.45) 06/26/18 12:17 ABG pCO2 73 mmHg (35-45) H* 06/26/18 12:17 ABG pO2 92 mmHg (85-104) 06/26/18 12:17 ABG O2 Saturation 96 % (95-98) 06/26/18 12:17 PT/INR, D-dimer PT 13.0 Seconds (9.4-12.1) H 06/24/18 04:57 - Attending Attestation I examined this patient and my medical decision-making was reviewed with the Resident Physician Dr Loomis. I agree with the documented findings, disposition and treatment plan as described except to the extent set forth below. Ms Luciano is currently admitted for acute respiratory failure and cellulitis. She remains moderate to high risk due to potential for worsening clinical status. She has developed afib with RVR. she has been dificult to maintain off bipap Awake, resting in bed on on high flow nc. feelong better today inthat she does not have such fatigue or sob. + cough, no sputum, + wheezing. denies cp, palpitations, presyncope gen- alert, awake,appears stated age, obese cv- tachy rate and irreg/irreg rhythm, normal s1,s2, no murmurs appreciated, 1+ pitting edema bl le lungs- diminished breath sounds throughout, cannot appreciate rhonchi, crackles or wheezing, norm resp effort on bipap abd- soft, non tender, non distended, + bs neuro- AAOx3 A/P Acute on Chronic Resp failure with hypoxia and hypercapnia Likely due to COPD exacerbation and fluid overload from CHF with class 2-3 pulm HTN- intermittently has been requiring bipap, HS bipap, high flow nc during day and attempt to wean, clinically improved today, cont diuresis and HR control, IV steroids, pulm following -overnight bipap study, rec to repeat bl le us with results pending, received acetazolamide x1 with good effect on their reveiw of abgs and component of metabolic alkalosis with diuresis, outpt pfts on dc -overall poor prognosis given her comorbidities and progressive disease Acute on Chronic Diastolic CHF - IV lasix, monitor creat, cont to monitor and diurese as permits, cards following -asa statin, bb, arb New onset Afib with RVR, currently afib rvr intermittently, likely 2/2 resp failure as above and infection (cellulitis), now controlled with cardizem gtt- now on NOAC, cards following, BB added, trying to wean gtt, monitoring lytes Diarrhea suspect med s/e vs gastroenteritis as stool panel negative for ba cterial infectious diarrhea- monitor lytes, monitor for changes, improved HTN, bps improving to goal- losartan, new bb, on cardizem gtt, if requires addl antihypertenisve also takes norvasc at home, cont to monitor, will require outpt follow up on dc Further diagnoses and plan as per resident. <Emery Loomis T - Last Filed: 06/27/18 12:33> (4) Anemia Qualifiers: Anemia type: unspecified type Qualified Code(s): D64.9 - Anemia, unspecified (6) Cellulitis Qualifiers: Site of cellulitis: extremity Site of cellulitis of extremity: lower extremity Laterality: right Qualified Code(s): L03.115 - Cellulitis of right lower limb (8) Diarrhea Qualifiers: Diarrhea type: unspecified type Qualified Code(s): R19.7 - Diarrhea, unspecif ied <Genna Simon M - Last Filed: 06/27/18 17:18> (1) Cellulitis Qualifiers: Site of cellulitis: extremity Site of cellulitis of extremity: lower extremity Laterality: right Qualified Code(s): L03.115 - Cellulitis of right lower limb (3) Anemia Qualifiers: Anemia type: unspecified type Qualified Code(s): D64.9 - Anemia, unspecified (8) Diarrhea Qualifiers: Diarrhea type: unspecified type Qualified Code(s): R19.7 - Diarrhea, unspecified
[2018-06-27 06:47] LABS: Calcium 8.2 mg/dL (8.6-10.3); Potassium 3.9 mEq/L (3.5-5.1)
[2018-06-27 06:53] LABS: Platelet Estimate Normal (Normal)
[2018-06-27 06:54] LABS: Anisocytosis 1+ (Not Present)
[2018-06-27] MEDS: Nystatin POWDER 30 GM BOTTLE TP SCH ×4 (09:12→21:51)
[2018-06-27] MEDS: MethylPREDNISolone 40 MG/ML VIAL IVP SCH ×2 (09:15→16:15)
[2018-06-27] MEDS: Aspirin Enteric Coated 81 MG Tablet PO SCH (09:16)
[2018-06-27] MEDS: Valsartan 80 MG TABLET PO SCH ×2 (09:16→21:48)
[2018-06-27] MEDS: levETIRAcetam 250 MG TABLET PO SCH ×2 (09:16→21:49)
[2018-06-27] MEDS: Furosemide 20 MG/2 ML VIAL IVP SCH ×2 (09:16→16:15)
[2018-06-27] MEDS: Apixaban 5 MG TABLET PO SCH ×2 (09:32→21:49)
[2018-06-27] MEDS: Budesonide/Formoterol 160/4.5 1 PUFF INH IH SCH ×2 (10:36→21:22)
--- NOTE | 2018-06-27 11:19 | Cardiology Progress Note ---
Date of Encounter: 06/27/18 Time of Encounter: 10:40 Assessment and Plan (1) Atrial fibrillation with RVR Current Visit: Yes Status: Acute New onset atrial fibrillation with RVR in the setting of respiratory distress and cellulitis. HR past 12 hours few=860. HR 95-105 currently. Since admission, PAF noted. Cardizem gtt started 06/26 due to RVR, 160 BPM. HR control improving, however remains tachycardiac with HR >100 on Cardizem gtt at 10. Will add low dose BB to improve rate control. Monitor closely in COPD pt. Goal HR less than 100. TTE- LVEF 70-75%. Mild concentric left ventricular hypertrophy. Normal LV chamber size and systolic function. TTE 01/2018- EF 60%, no significant valvular disease. No PAH. TSH normal CHADS VASC= 4. H/H stable, tolerating Eliquis. (2) Acute on chronic respiratory failure Current Visit: No Status: Resolved Likely secondary to COPD and pulmonary edema, DCHF. Primary team managing. On high flow oxygen. TTE 01/2018- EF 60%, only mild diastolic dysfunction. No PAH. CXR-No significant change, pulmonary edema. IV lasix given during stay. Net negative 3900 ml. Noted patient declined thoracentesis 06/21/18. Then she did proceed with th oracentesis 06/24/18 with minimal output. Qualifiers: Respiratory failure complication: hypoxia and hypercapnia Qualified Code(s): J96.21 - Acute and chronic respiratory failure with hypoxia; J96.22 - Acute and chronic respiratory failure with hypercapnia (3) Acute on chronic diastolic CHF (congestive heart failure) Current Visit: Yes Status: Acute Pulmonary edema on CXR. Minimal out-put on thoracentesis. H/o CHFpEF. TTE showed EF 70-75%. Cumulative I&0: -8405 mL. Continue IV diuresis, still with significant volume overload upon exam. Low sodium diet. Strict I&O. Replace electrolytes. Discussion w patient/family: The assessment and plan as outlined above was discussed with the patient and/or family members who expressed understanding and agreement. All questions were answered. Thank you for involving us in the care of your patient. Please call with any questions. Subjective Principal diagnosis: Acute on chronic respiratory failure Interval history: Seen and examined. Patient is anxious for discharge. Reports dyspnea improving, states edema is at baseline. No chest pain/palpitations reported. Objective Vital Signs, Last 4 Hours Temp Pulse Resp BP Pulse Ox 06/27/18 09:15 97 06/27/18 08:25 99.4 F 111 20 148/86 82 General: Conversant, Other (morbidly obese) HEENT: Atraumatic, Normocephaly Cardiac: Other (irregularly irregular) Lungs: Other (diminished throughout) Neuro: Alert and responsive Abdomen: Soft (poor skin condition) Extremities: Other (significant LE edema present, pt. states is chronic) Results 06/27/18 06:10 06/27/18 06:10 Lab Results 06/25/18 06/27/18 06/27/18 04:55 06:10 06:10 WBC 5.9 Hgb 9.6 L Hct 31.6 L Plt Count 141 Sodium 139 Potassium 3.9 Chloride 96 L Carbon Dioxide 35 H BUN 30 H Creatinine 1.25 H Glucose 200 H Calcium 8.2 L TSH 0.868 - Imaging and Cardiology Other Results: 12 hour tele: avg HG=342 afib. - EKG Interpretation EKG results cardiology: personally reviewed Consult Discharge Plan - Plan Referrals: Brad Minor MD [Partnered Physician] - (web request sent on 06/27/18) Prescriptions: Apixaban [Eliquis] 5 mg PO BID #60 tablet
[2018-06-27] MEDS: Diltiazem CD (24hr) 240 MG CAPSULE PO SCH (16:15)
--- NOTE | 2018-06-27 21:35 | Electrocardiograph Report ---
[address] [address] Test Date: 2018-06-24 Pat Name: Christal Luciano Department: 109 Room: 2A11 Gender: F Guardian Ad Litem: FLOWER : 1950 Requested By: [id number] Order Number: [id number] Reading MD: Angelina Brock Measurements Intervals [place] Rate: 111 P: MS: 0 QRS: 64 QRSD: 73 T: 14 QT: 277 QTc: 343 Interpretive Statements ATRIAL FIBRILLATION WITH RAPID VENTRICULAR RESPONSE LOW QRS VOLTAGE IN PRECORDIAL LEADS NONSPECIFIC ST & T-WAVE ABNORMALITY ABNORMAL RHYTHM ECG Electronically Signed On 06-27-2018 21:34:25 EDT by Angelina Brock
[2018-06-28] MEDS: MethylPREDNISolone 40 MG/ML VIAL IVP SCH ×3 (00:13→16:58)
[2018-06-28] MEDS: Levalbuterol Neb 1.25 MG/3 ML IH SCH ×4 (04:25→22:39)
[2018-06-28] MEDS: Ipratropium Neb 0.5 MG NEBULIZER IH SCH ×4 (04:25→22:39)
[2018-06-28 05:42] LABS: Hematocrit 31.8 % (35.3-44.9); Hemoglobin 9.6 g/dL (11.5-15.4); Mean Corpuscular HGB Conc 30.2 g/dL (31.6-35.5); Mean Corpuscular Hemoglobin 28.8 pg (28.0-33.3); Mean Corpuscular Volume 95.5 fL (83.0-100.0); Mean Platelet Volume 12.4 fL (9.4-12.4); Platelet Count 144 K/mcL (140-400); Red Blood Count 3.33 M/mcL (3.82-4.97); Red Cell Distribution Width 16.8 % (11.5-14.5)
[2018-06-28 06:00] LABS: Calcium 8.2 mg/dL (8.6-10.3); Potassium 3.6 mEq/L (3.5-5.1)
--- NOTE | 2018-06-28 06:24 | Internal Med Progress Note ---
<EbonieEmery Russel - Last Filed: 06/28/18 11:52> Hospitalist Progress Note - Encounter Date of Encounter: 06/28/18 Time of Encounter: 07:00 - Subjective Interval History: Awake, sitting on edge of bed on fl. Says her breathing continues to improve. Requesting to go home again. She denies chest pain, cough, N/V, abdominal pain, worsening edema. - Exam Vitals: Temp Pulse Resp BP Pulse Ox 98.9 F 110 17 135/77 100 06/28/18 04:27 06/28/18 04:27 06/28/18 04:27 06/28/18 04:27 06/28/18 04:27 Exam: General: Awake, alert, sitting on edge of bed on fl, appears stated age, no signs of toxicity HEENT: EOMi, pupils equal/round, mucus membranes moist. Cardiac: RRR, S1/S2+ but distant, no murmurs, heaves, thrills appreciated, radial pulse 2+ bilaterally, normal capillary refill, 2+ edema Chest: Symmetric chest rise, non tender Pulmonary: Decreased air movement, normal resp effort, diminished breath sounds, scattered exp wheezes, no rhonchi or rales appreciated Abdominal: Soft, non-tender, no distention, guarding, rebound tenderness, or ri gidity Neuro: AOx3, CN grossly intact Psych: Normal affect Integumentary: [place], warm, dry, intact - Assessment and Plan (1) Acute on chronic respiratory failure with hypoxia and hypercapnia Current Visit: Yes Status: Chronic Assessment and Plan: Likely due to COPD exacerbation and fluid overload from CHF with class 2-3 pulm HTN Echo showed LVEF 70-75% CXR 06/19 shows stable mod-severe pulmonary vascular congestion and cardiomegaly with an increased focal opacity 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 No further abx Blood cultures x2 neg Pt tolerating hiflow during day and BiPAP at night, breathing improved today Duonebs switched to ipratropium and levalbuterol 06/25/18 Son who is POA was called to confirm code status. He agrees with her being full code but states that she is adamant about not wanting a tracheostomy IR was consulted for therapeutic thoracentesis of right lung on 06/21 but pt refused Case discussed with director of instructional technology. Lasix started 06/23/18, increased 06/26/18 and renal function stable, Cr 1.2 Thoracentesis (R lung) 06/24/18 with minimal fluid evacuation, improved R lung aeration on post thora CXR Continue weaning from BiPAP as tolerated and start high flow oxygen with eventual wean to 4L nc that she uses at home 24hrs/day. Hypercapnic thats likely chronic with co metabolic alkalosis yst. VBG 06/26/18 pH 7.3, pCO2 88, pO2 199, HCO3 43 Breathing much improved today, will continue BiPAP at night and continue to be at home O2 rate 4L nc during day. Tapering off steroids from q8h to q12h today (2) Acute on chronic diastolic CHF (congestive heart failure) Current Visit: Yes Status: Acute Assessment and Plan: Echo revealed LVEF 70-75%, mild concentric left ventricular hypertrophy Suspected cardio-renal syndrome, improving Lasix resumed as renal function improved Monitor renal function Thoracentesis 06/24/18, minimal fluid evacuated during thoracentesis Continue BiPAP at night and wean O2 during day. (3) A-fib Current Visit: Yes Status: Acute Assessment and Plan: No hx of Afib Had episode of Afib RVR 06/24/18 with HR in 200's initially seen on tele. Non symptomatic during episode Afib RVR confirmed on ECG Given 1 dose 15mg IV diltiazem and HR improved to low 100's. Cards started PO diltiazem for rate control [id number] 4 Transitioned from heparin to apixaban for anticoagulation Diltiazem infusion transitioned to PO and 50mg metoprolol added BID as remains tachycardic (4) Anemia Current Visit: Yes Status: Acute Assessment and Plan: Hbg 8.2 on admission Stable hemoglobin today at 9.6 No obvious signs of bleeding at this time Continue to monitor (5) Pulmonary hypertension due to COPD Current Visit: Yes Status: Acute Assessment and Plan: Continue current management Uses 4L O2 at home round the clock (6) Cellulitis Current Visit: Yes Status: Acute Assessment and Plan: Warm and erythematous areas on bilateral LE above the ankles on arrival Vanc renally dosed on admission with hx of MRSA PNA MRSA swab was positive Completed 7 days Zosyn, no further abx (7) NADIA (acute kidney injury) Current Visit: Yes Status: Resolved Assessment and Plan: Resolved Fluids previously held due to 3L input with oliguria, medications to be renally dosed, avoid nephrotoxins NADIA likely due to prerenal cause vs ATN vs cardiorenal syndrome UA showed high protein, moderate blood and many squamous epi cells w/o bacteria or casts Retroperitoneal US did not demonstrate hydronephrosis or signs of obstruction Nephro signed off - Total fluid balance now at -10,030mL Cr decreased from 3.04. 1.18 06/24/18 Renal function improved today, Cr 1.2 Continue lasix as renal function stable Continue close monitoring (8) Diarrhea Current Visit: Yes Status: Resolved Assessment and Plan: Likely 2/2 abx use Abx have been completed now GI PCR panel neg Rectal tube out 06/27/18 DVT Prophylaxis: Apixaban - Time Spent with Patient Total time spent is greater than 50% in coordination of care (as documented) at patient's floor/unit and/or counseling patient: less than 15 minutes Plan of Care Discussed with: patient Internal Medicine: Result - Labs CBC & Chem 7: 06/28/18 04:00 06/28/18 04:00 Labs: Short CBC 06/27/18 06/28/18 Range/Units 06:10 04:00 WBC 5.9 7.5 (4.3-11.1) K/mcL Hgb 9.6 L 9.6 L (11.5-15.4) g/dL Hct 31.6 L 31.8 L (35.3-44.9) % Plt Count 141 144 (140-400) K/mcL Neutrophils # 5.6 (1.6-8.9) K/mcL BMP 06/27/18 06/28/18 06:10 04:00 Sodium 139 138 Potassium 3.9 3.6 Chloride 96 L 94 L Carbon Dioxide 35 H 36 H BUN 30 H 33 H Creatinine 1.25 H 1.20 Glucose 200 H 161 H Calcium 8.2 L 8.2 L - ABG Interpretation ABG results: ABG ABG pH 7.38 pH Units (7.32-7.45) 06/26/18 12:17 ABG pCO2 73 mmHg (35-45) H* 06/26/18 12:17 ABG pO2 92 mmHg (85-104) 06/26/18 12:17 ABG O2 Saturation 96 % (95-98) 06/26/18 12:17 PT/INR, D-dimer PT 13.0 Seconds (9.4-12.1) H 06/24/18 04:57 Consult Discharge Plan - Plan Referrals: Brad Minor MD [Partnered Physician] - (web request sent on 06/27/18) Prescriptions: Apixaban [Eliquis] 5 mg PO BID #60 tablet <Genna Simon - Last Filed: 06/28/18 14:29> Hospitalist Progress Note - Encounter Date of Encounter: 06/28/18 - Exam Vitals: Temp Pulse Resp BP Pulse Ox 98.3 F 101 20 144/82 96 06/28/18 11:50 06/28/18 11:50 06/28/18 11:50 06/28/18 11:50 06/28/18 11:50 - Assessment and Plan (1) Cellulitis Current Visit: Yes Status: Acute (2) Acute on chronic diastolic CHF (congestive heart failure) Current Visit: Yes Status: Acute (3) Anemia Current Visit: Yes Status: Acute (4) Acute on chronic respiratory failure with hypoxia and hypercapnia Current Visit: Yes Status: Chronic (5) Pulmonary hypertension due to COPD Current Visit: Yes Status: Acute (6) NADIA (acute kidney injury) Current Visit: Yes Status: Resolved (7) A-fib Current Visit: Yes Status: Acute (8) Diarrhea Current Visit: Yes Status: Resolved - Time Spent with Patient Total time spent is greater than 50% in coordination of care (as documented) at patient's floor/unit and/or counseling patient: Internal Medicine: Result - Labs CBC & Chem 7: 06/28/18 04:00 06/28/18 04:00 Labs: Short CBC 06/28/18 Range/Units 04:00 WBC 7.5 (4.3-11.1) K/mcL Hgb 9.6 L (11.5-15.4) g/dL Hct 31.8 L (35.3-44.9) % Plt Count 144 (140-400) K/mcL BMP 06/28/18 04:00 Sodium 138 Potassium 3.6 Chloride 94 L Carbon Dioxide 36 H BUN 33 H Creatinine 1.20 Glucose 161 H Calcium 8.2 L - ABG Interpretation ABG results: ABG ABG pH 7.38 pH Units (7.32-7.45) 06/26/18 12:17 ABG pCO2 73 mmHg (35-45) H* 06/26/18 12:17 ABG pO2 92 mmHg (85-104) 06/26/18 12:17 ABG O2 Saturation 96 % (95-98) 06/26/18 12:17 PT/INR, D-dimer PT 13.0 Seconds (9.4-12.1) H 06/24/18 04:57 - Attending Attestation I examined this patient and my medical decision-making was reviewed with the Resident Physician Dr Loomis. I agree with the documented findings, disposition and treatment plan as described except to the extent set forth below/addl details below Ms Luciano is currently admitted for acute respiratory failure, acute on chronic chf and cellulitis. She has developed afib with RVR with very difficult to control heart rate and multiple medication adjustments this admission. weaned to bipap nightly and o2 nc. NOTE home o2 is NOT 4l, it is actually confirmed to be 2L awake, eating lunch. breathing cont to improve. able to be on o2 nc 4l today. + cough, no wheezing, no fever or chills. HR low 100s at rest currently. no cp, palpitations or presyncope. no further diarrhea gen- alert, awake,appears stated age, obese cv- tachy rate and irreg/irreg rhythm, normal s1,s2, no murmurs appreciated, 1+ pitting edema bl le lungs- diminished breath sounds throughout, cannot appreciate rhonchi, crackles or wheezing, norm resp effort on bipap abd- soft, non tender, non distended, + bs neuro- AAOx3 A/P Acute on Chronic Resp failure with hypoxia and hypercapnia Likely due to COPD exacerbation and fluid overload from CHF with class 2-3 pulm HTN- HS bipap, NC during day and attempt to wean to home O2 NC, cont diuresis and HR control, weaning IV steroids -overnight bipap study pending -bl le us neg dvt -when does dc will fu with pulm and outpt pfts -overall poor prognosis given her comorbidities and progressive disease, but clinically improved in last 24 hrs Acute on Chronic Diastolic CHF - IV lasix for at least 24 more hrs per cards, monitor creat, cards now signed off fu outpt -asa statin, bb, arb New onset Afib with RVR, better HR control today, likely 2/2 resp failure as above and infection (cellulitis),off cardizem gtt, cont NOAC, cardizem CD BB and up titrate as needed, monitoring lytes HTN, bps improving to goal- losartan, bb, if requires addl antihypertenisve also takes norvasc at home, cont to monitor, will require outpt follow up on dc Further diagnoses and plan as per resident. dispo- will be to home and will need home bipap set up and eval for increased home o2 requirement, already in process of being obtained, and [facility] cpap considered and ruled out due to severity of copd, will require nocturnal bipap upon dc <Genna Simon - Last Filed: 06/28/18 14:29> (1) Cellulitis Qualifiers: Site of cellulitis: extremity Site of cellulitis of extremity: lower extremity Laterality: right Qualified Code(s): L03.115 - Cellulitis of right lower limb (3) Anemia Qualifiers: Anemia type: unspecified type Qualified Code(s): D64.9 - Anemia, unspecified (8) Diarrhea Qualifiers: Diarrhea type: unspecified type Qualified Code(s): R19.7 - Diarrhea, unspecified
[2018-06-28] MEDS: Valsartan 80 MG TABLET PO SCH ×2 (08:17→21:18)
[2018-06-28] MEDS: Apixaban 5 MG TABLET PO SCH ×2 (08:17→21:18)
[2018-06-28] MEDS: Diltiazem CD (24hr) 240 MG CAPSULE PO SCH (08:17)
[2018-06-28] MEDS: Aspirin Enteric Coated 81 MG Tablet PO SCH (08:17)
[2018-06-28] MEDS: levETIRAcetam 250 MG TABLET PO SCH ×2 (08:17→21:19)
[2018-06-28] MEDS: Nystatin POWDER 30 GM BOTTLE TP SCH ×3 (08:18→21:20)
[2018-06-28] MEDS: Furosemide 20 MG/2 ML VIAL IVP SCH ×2 (08:18→16:57)
[2018-06-28] MEDS: Budesonide/Formoterol 160/4.5 1 PUFF INH IH SCH ×2 (10:32→22:39)
--- NOTE | 2018-06-28 11:53 | Cardiology Progress Note ---
Date of Encounter: 06/28/18 Time of Encounter: 11:50 Assessment and Plan (1) Atrial fibrillation with RVR Current Visit: Yes Status: Acute New onset atrial fibrillation with RVR in the setting of respiratory distress and cellulitis. HR past 12 hours ylc=013 bpm. HR 95-105 currently. Since admission, PAF noted. Cardizem gtt started 06/26 due to RVR, 160 BPM. Converted to oral cardizem and oral metoprolol 06/27/18. Goal HR less than 100. Metoprolol increased this morning. Near goal. TTE- LVEF 70-75%. Mild concentric left ventricular hypertrophy. Normal LV chamber size and systolic function. TTE 01/2018- EF 60%, no significant valvular disease. No PAH. TSH normal CHADS VASC= 4. H/H stable, tolerating Eliquis. Continue to increase metoprolol as needed. Cardiology will sign off. Out-pt f/u will be scheduled. (2) Acute on chronic respiratory failure Current Visit: No Status: Resolved Likely secondary to COPD and pulmonary edema, DCHF. Primary team managing. On high flow oxygen. TTE 01/2018- EF 60%, only mild diastolic dysfunction. No PAH. CXR-No significant change, pulmonary edema. IV lasix given during stay. Noted patient declined thoracentesis 06/21/18. Then she did proceed with thoracentesis 06/24/18 with minimal output. Qualifiers: Respiratory failure complication: hypoxia and hypercapnia Qualified Code(s) : J96.21 - Acute and chronic respiratory failure with hypoxia; J96.22 - Acute and chronic respiratory failure with hypercapnia (3) Acute on chronic diastolic CHF (congestive heart failure) Current Visit: Yes Status: Acute Pulmonary edema on CXR. Minimal out-put on thoracentesis. H/o CHFpEF. TTE showed EF 70-75%. Cumulative I&0: -9926 mL. Continue IV diuresis, still with significant volume overload upon exam. Patient would like to be discharged home. Recommend at least 24 hours more diuresis as she continues to have significant BLE edema. Breathing has improved. Low sodium diet. Strict I&O. Replace electrolytes. Call with questions. Discussion w patient/family: The assessment and plan as outlined above was discussed with the patient and/or family members who expressed understanding and agreement. All questions were answered. Thank you for involving us in the care of your patient. Please call with any questions. Subjective Principal diagnosis: Acute on chronic respiratory failure Interval history: Ms. Luciano is sitting on the side of her bed breathing much better. Continues to have BLE edema she says she had for over 10 years. She is requesting to go home. Objective Vital Signs, Last 4 Hours Resp Pulse Ox 06/28/18 10:33 14 98 General: Conversant, No Apparent Distress HEENT: Atraumatic, Normocephaly, Mucus Membranes Moist Neck: No JVD, Normal carotid pulses Cardiac: Other (Irregularly irregular) Lungs: Other (Air movement significantly improved, faint wheezes noted on right posterior lobe. ) Neuro: Alert and responsive, No focal deficits noted Abdomen: Soft, Non-Tender Musculoskeletal: No Chest Wall Tenderness Extremities: No Clubbing, No Cyanosis, Normal Pulses, Other (BLE pitting edema with right greater than left, redness noted BLE. ) Results 06/28/18 04:00 06/28/18 04:00 Lab Results 06/28/18 06/28/18 06/28/18 04:00 04:00 04:00 WBC 7.5 Hgb 9.6 L Hct 31.8 L Plt Count 144 Sodium 138 Potassium 3.6 Chloride 94 L Carbon Dioxide 36 H BUN 33 H Creatinine 1.20 Glucose 161 H Calcium 8.2 L Magnesium 1.5 L - Imaging and Cardiology Echo: report reviewed - EKG Interpretation EKG results cardiology: personally reviewed Consult Discharge Plan - Plan Referrals: Brad Minor MD [Partnered Physician] - (web request sent on 06/27/18) Prescriptions: Apixaban [Eliquis] 5 mg PO BID #60 tablet
[2018-06-29] MEDS: Levalbuterol Neb 1.25 MG/3 ML IH SCH ×4 (04:08→21:59)
[2018-06-29] MEDS: Ipratropium Neb 0.5 MG NEBULIZER IH SCH ×4 (04:08→22:00)
[2018-06-29] MEDS: MethylPREDNISolone 40 MG/ML VIAL IVP SCH ×2 (05:30→17:13)
[2018-06-29 05:44] LABS: Hematocrit 32.8 % (35.3-44.9); Hemoglobin 10.3 g/dL (11.5-15.4); Immature Platelets 10.4 % (1.1-6.1); Mean Corpuscular HGB Conc 31.4 g/dL (31.6-35.5); Mean Corpuscular Hemoglobin 29.8 pg (28.0-33.3); Mean Corpuscular Volume 94.8 fL (83.0-100.0); Mean Platelet Volume 12.4 fL (9.4-12.4); Red Blood Count 3.46 M/mcL (3.82-4.97); Red Cell Distribution Width 16.6 % (11.5-14.5)
[2018-06-29 05:58] LABS: Calcium 7.6 mg/dL (8.6-10.3)
--- NOTE | 2018-06-29 06:39 | Internal Med Progress Note ---
<LoomisEmery Russel - Last Filed: 06/29/18 07:11> Hospitalist Progress Note - Encounter Date of Encounter: 06/29/18 Time of Encounter: 07:00 - Subjective Interval History: Awake, sitting on edge of bed on de. Says her breathing continues to improve. Requesting to go home again and has help at home. Documented O2 sat early am of 85% on room air when sleeping. She denies chest pain, cough, N/V, abdominal pain, worsening edema. - Exam Vitals: Temp Pulse Resp BP Pulse Ox 98.1 F 99 16 95/61 85 06/29/18 03:10 06/29/18 03:10 06/29/18 04:14 06/29/18 03:10 06/29/18 04:14 Exam: General: Awake, alert, sitting on edge of bed on de, appears stated age, no signs of toxicity HEENT: EOMi, pupils equal/round, mucus membranes moist. Cardiac: Tachycardic, irregularly irregular rhythm, S1/S2+ but distant, no murmurs, heaves, thrills appreciated, radial pulse 2+ bilaterally, normal capillary refill, 1+ edema Chest: Symmetric chest rise, non tender Pulmonary: Decreased air movement, normal resp effort, diminished breath sounds, scattered exp wheezes, no rhonchi or rales appreciated Abdominal: Soft, non-tender, no distention, guarding, rebound tenderness, or rigidity Neuro: AOx3, CN grossly intact Psych: Normal affect Integumentary: [place], warm, dry, intact - Assessment and Plan (1) Acute on chronic respiratory failure with hypoxia and hypercapnia Current Visit: Yes Status: Chronic Assessment and Plan: Likely due to COPD exacerbation and fluid overload from CHF with class 2-3 pulm HTN Echo showed LVEF 70-75% CXR 06/19 shows stable mod-severe pulmonary vascular congestion and cardiomegaly with an increased focal opacity involving the RUL employer relations representative of pulmonary edema vs pneumonia Chest CT showed likely pulm edema with B/L pleural effusions Zosyn completed 7 days , vanc completed - stop date for vanc will be 06/23/18, f or zosyn will be 06/24/18. No further abx Blood cultures x2 neg Pt tolerating hiflow during day and BiPAP at night, breathing improved today Duonebs switched to ipratropium and levalbuterol 10/30/18 Son who is POA was called to confirm code status. He agrees with her being full code but states that she is adamant about not wanting a tracheostomy IR was consulted for therapeutic thoracentesis of right lung on 06/21 but pt refused Case discussed with spot cleaner. Lasix started 06/23/18, increased 06/26/18 and renal function stable, Cr 1.22 Thoracentesis (R lung) 06/24/18 with minimal fluid evacuation, improved R lung aeration on post thora CXR Hypercapnic thats likely chronic with co metabolic alkalosis yst. VBG 06/26/18 pH 7.3, pCO2 88, pO2 199, HCO3 43 Breathing continues to be improved today, will continue BiPAP at night and continue to be at home O2 rate 4L nc during day. Tapering off steroids from q8h to q12h yst and continue tapering down. Total days 10 so far O2 sat early am on rmair 85% while sleeping, likely TIKA related. Home BiPAP paperwork ready for time of dc. (2) Acute on chronic diastolic CHF (congestive heart failure) Current Visit: Yes Status: Acute Assessment and Plan: Echo revealed LVEF 70-75%, mild concentric left ventricular hypertrophy Suspected cardio-renal syndrome, improving Lasix resumed as renal function improved Monitor renal function Thoracentesis 06/24/18, minimal fluid evacuated during thoracentesis Continue BiPAP at night and wean O2 during day. (3) A-fib Current Visit: Yes Status: Acute Assessment and Plan: No hx of Afib Had episode of Afib RVR 06/24/18 with HR in 200's initially seen on tele. Non symptomatic during episode Afib RVR confirmed on ECG Given 1 dose 15mg IV diltiazem and HR improved to low 100's. Cards started PO diltiazem for rate control [id number] 4 Transitioned from heparin to apixaban for anticoagulation Diltiazem infusion transitioned to PO and 50mg metoprolol added BID as remains tachycardic HR goal <100, cards signed off and will schedule outpt followup with them. Dc likely tomorrow after monitoring HR today on current afib rate control med dosing (4) Anemia Current Visit: Yes Status: Acute Assessment and Plan: Hbg 8.2 on admission Stable hemoglobin today at 10.3 No obvious signs of bleeding at this time Continue to monitor (5) Pulmonary hypertension due to COPD Current Visit: Yes Status: Acute Assessment and Plan: Continue current management Uses 4L O2 at home round the clock (6) Cellulitis Current Visit: Yes Status: Acute Assessment and Plan: Warm and erythematous areas on bilateral LE above the ankles on arrival Vanc renally dosed on admission with hx of MRSA PNA MRSA swab was positive Completed 7 days Zosyn, no further abx (7) NADIA (acute kidney injury) Current Visit: Yes Status: Resolved Assessment and Plan: Resolved Fluids previously held due to 3L input with oliguria, medications to be renally dosed, avoid nephrotoxins NADIA likely due to prerenal cause vs ATN vs cardiorenal syndrome UA showed high protein, moderate blood and many squamous epi cells w/o bacteria or casts Retroperitoneal US did not demonstrate hydronephrosis or signs of obstruction Nephro signed off - Total fluid balance now at -10,030mL Cr decreased from 3.04. 1.18 06/24/18 Renal function improved today, Cr 1.22 Continue lasix as renal function stable Continue close monitoring (8) Diarrhea Current Visit: Yes Status: Resolved Assessment and Plan: Likely 2/2 abx use Abx have been completed now GI PCR panel neg Rectal tube out 06/27/18 DVT Prophylaxis: Apixaban - Time Spent with Patient Total time spent is greater than 50% in coordination of care (as documented) at patient's floor/unit and/or counseling patient: less than 15 minutes Plan of Care Discussed with: patient Internal Medicine: Result - Labs CBC & Chem 7: 06/29/18 04:00 06/29/18 04:00 Labs: Short CBC 06/29/18 Range/Units 04:00 WBC 9.3 (4.3-11.1) K/mcL Hgb 10.3 L (11.5-15.4) g/dL Hct 32.8 L (35.3-44.9) % Plt Count 149 (140-400) K/mcL BMP 06/29/18 04:00 Sodium 138 Potassium 4.0 Chloride 95 L Carbon Dioxide 36 H BUN 41 H Creatinine 1.22 H Glucose 177 H Calcium 7.6 L - ABG Interpretation ABG results: ABG ABG pH 7.38 pH Units (7.32-7.45) 06/26/18 12:17 ABG pCO2 73 mmHg (35-45) H* 06/26/18 12:17 ABG pO2 92 mmHg (85-104) 06/26/18 12:17 ABG O2 Saturation 96 % (95-98) 06/26/18 12:17 PT/INR, D-dimer PT 13.0 Seconds (9.4-12.1) H 06/24/18 04:57 Consult Discharge Plan - Plan Referrals: Brad Minor MD [Partnered Physician] - (web request sent on 06/27/18) Prescriptions: Apixaban [Eliquis] 5 mg PO BID #60 tablet <Genna Simon - Last Filed: 06/29/18 13:06> Hospitalist Progress Note - Encounter Date of Encounter: 06/29/18 - Exam Vitals: Temp Pulse Resp BP Pulse Ox 98.1 F 104 15 118/72 92 06/29/18 11:38 06/29/18 11:38 06/29/18 11:38 06/29/18 11:38 06/29/18 11:38 - Assessment and Plan (1) Cellulitis Current Visit: Yes Status: Acute (2) Acute on chronic diastolic CHF (congestive heart failure) Current Visit: Yes Status: Acute (3) Anemia Current Visit: Yes Status: Acute (4) Acute on chronic respiratory failure with hypoxia and hypercapnia Current Visit: Yes Status: Chronic (5) Pulmonary hypertension due to COPD Current Visit: Yes Status: Acute (6) NADIA (acute kidney injury) Current Visit: Yes Status: Resolved (7) A-fib Current Visit: Yes Status: Acute (8) Diarrhea Current Visit: Yes Status: Resolved - Time Spent with Patient Total time spent is greater than 50% in coordination of care (as documented) at patient's floor/unit and/or counseling patient: Internal Medicine: Result - Labs CBC & Chem 7: 06/29/18 04:00 06/29/18 04:00 Labs: Short CBC 06/29/18 Range/Units 04:00 WBC 9.3 (4.3-11.1) K/mcL Hgb 10.3 L (11.5-15.4) g/dL Hct 32.8 L (35.3-44.9) % Plt Count 149 (140-400) K/mcL BMP 11/03/18 04:00 Sodium 138 Potassium 4.0 Chloride 95 L Carbon Dioxide 36 H BUN 41 H Creatinine 1.22 H Glucose 177 H Calcium 7.6 L - ABG Interpretation ABG results: ABG ABG pH 7.38 pH Units (7.32-7.45) 06/26/18 12:17 ABG pCO2 73 mmHg (35-45) H* 06/26/18 12:17 ABG pO2 92 mmHg (85-104) 06/26/18 12:17 ABG O2 Saturation 96 % (95-98) 06/26/18 12:17 PT/INR, D-dimer PT 13.0 Seconds (9.4-12.1) H 06/24/18 04:57 - Attending Attestation I examined this patient and my medical decision-making was reviewed with the Resident Physician Dr Loomis. I agree with the documented findings, disposition and treatment plan as described except to the extent set forth below/addl details below Ms Luciano is currently admitted for acute respiratory failure, acute on chronic chf and cellulitis. She has developed afib with RVR with very difficult to control heart rate and multiple medication adjustments this admission. weaned to bipap nightly and o2 nc. Continuin gto monitor resp status and improve hr. awake, sob is improving regularly now. no cough, wheezing. no palpitations or chest pain. edema le improved o2 sat 85% this morning, but was momentarily on room air at that time. gen- alert, awake,appears stated age, obese cv- tachy rate low 100s currently and irreg/irreg rhythm, normal s1,s2, no murmurs appreciated, trace+ pitting edema bl le lungs- diminished breath sounds bases, improved aeration posteriorly in upper verma cannot appreciate rhonchi, crackles or wheezing, norm resp effort on O2 nc neuro- AAOx3 A/P Acute on Chronic Resp failure with hypoxia and hypercapnia Likely due to COPD exacerbation and fluid overload from CHF with class 2-3 pulm HTN- HS bipap, NC during day and attempt to wean to home O2 NC -cont diuresis and HR control, weaning steroids -bipap set up for dc -when does dc will fu with pulm and outpt pfts -overall poor prognosis given her comorbidities and progressive disease, but clinically improved in last 48 hrs Acute on Chronic Diastolic CHF - IV lasix may now be transitioned to PO, changed to 40 mg PO BID monitor creat, cards now signed off fu outpt -asa statin, bb, arb New onset Afib with RVR, better HR control today but not at goal, likely 2/2 resp failure as above and infection (cellulitis),off cardizem gtt, cont NOAC, cardizem CD BB and up titrate BB today as bp permits this afternoon, monitoring lytes HTN, bps improved to goal- losartan, bb, if requires addl antihypertenisve also takes norvasc at home, cont to monitor, will require outpt follow up on dc Further diagnoses and plan as per resident. dispo- will be to home and will need home bipap set up and eval for increased home o2 requirement, already in process of being obtained, and [facility] cpap considered and ruled out due to severity of copd, will require nocturnal bipap upon dc <Emery Loomis - Last Filed: 06/29/18 07:11> (4) Anemia Qualifiers: Anemia type: unspecified type Qualified Code(s): D64.9 - Anemia, unspecified (6) Cellulitis Qualifiers: Site of cellulitis: extremity Site of cellulitis of extremity: lower extremity Laterality: right Qualified Code(s): L03.115 - Cellulitis of right lower limb (8) Diarrhea Qualifiers: Diarrhea type: unspecified type Qualified Code(s): R19.7 - Diarrhea, unspecified <Genna Simon - Last Filed: 06/29/18 13:06> (1) Cellulitis Qualifiers: Site of cellulitis: extremity Site of cellulitis of extremity: lower extremity Laterality: right Qualified Code(s): L03.115 - Cellulitis of right lower limb (3) Anemia Qualifiers: Anemia type: unspecified type Qualified Code(s): D64.9 - Anemia, unspecified (8) Diarrhea Qualifiers: Diarrhea type: unspecified type Qualified Code(s): R19.7 - Diarrhea, unspecified
[2018-06-29] MEDS: Furosemide 20 MG/2 ML VIAL IVP SCH (08:02)
[2018-06-29] MEDS: Diltiazem CD (24hr) 240 MG CAPSULE PO SCH (08:03)
[2018-06-29] MEDS: Nystatin POWDER 30 GM BOTTLE TP SCH ×3 (08:03→20:36)
[2018-06-29] MEDS: Valsartan 80 MG TABLET PO SCH ×2 (08:03→20:31)
[2018-06-29] MEDS: Apixaban 5 MG TABLET PO SCH ×2 (08:03→20:31)
[2018-06-29] MEDS: Aspirin Enteric Coated 81 MG Tablet PO SCH (08:03)
[2018-06-29] MEDS: levETIRAcetam 250 MG TABLET PO SCH ×2 (08:03→20:32)
[2018-06-29] MEDS: Budesonide/Formoterol 160/4.5 1 PUFF INH IH SCH ×2 (10:25→21:58)
[2018-06-29] MEDS: Furosemide 40 MG TABLET PO SCH (17:13)
[2018-06-30] MEDS ORDERED: Gabapentin 400 MG CAPSULE PO ONE (00:24)
[2018-06-30] MEDS: Levalbuterol Neb 1.25 MG/3 ML IH SCH ×2 (04:20→11:01)
[2018-06-30] MEDS: Ipratropium Neb 0.5 MG NEBULIZER IH SCH ×2 (04:20→11:00)
[2018-06-30 05:51] LABS: Calcium 7.2 mg/dL (8.6-10.3); Magnesium 1.5 mg/dL (1.6-2.6); Potassium 4.1 mEq/L (3.5-5.1)
[2018-06-30] MEDS: Diltiazem CD (24hr) 240 MG CAPSULE PO SCH (07:37)
[2018-06-30] MEDS: Furosemide 40 MG TABLET PO SCH (07:37)
[2018-06-30] MEDS: levETIRAcetam 250 MG TABLET PO SCH (07:38)
[2018-06-30] MEDS: Valsartan 80 MG TABLET PO SCH (07:39)
[2018-06-30] MEDS: Aspirin Enteric Coated 81 MG Tablet PO SCH (07:39)
[2018-06-30] MEDS: Nystatin POWDER 30 GM BOTTLE TP SCH (07:39)
[2018-06-30] MEDS: Apixaban 5 MG TABLET PO SCH (07:39)
--- NOTE | 2018-06-30 08:26 | Discharge Summary ---
<Genna Simon - Last Filed: 06/30/18 13:26> Orders not resulted at time of discharge: Pending orders 06/21/18 07:44 IR thoracentesis RIGHT [IR] Stat Date of Encounter: 06/30/18 - Discharge Diagnosis (1) Cellulitis Status: Acute Qualifiers: Site of cellulitis: extremity Site of cellulitis of extremity: lower extremity Laterality: right Qualified Code(s): L03.115 - Cellulitis of right lower limb (2) Acute on chronic diastolic CHF (congestive heart failure) Status: Acute (3) Anemia Status: Acute Qualifiers: Anemia type: unspecified type Qualified Code(s): D64.9 - Anemia, unspecified (4) Acute on chronic respiratory failure with hypoxia and hypercapnia Status: Chronic (5) Pulmonary hypertension due to COPD Status: Acute (6) NADIA (acute kidney injury) Status: Resolved (7) A-fib Status: Acute Qualifiers: Atrial fibrillation type: persistent Qualified Code(s): I48.1 - Persistent atrial fibrillation (8) Diarrhea Status: Resolved Qualifiers: Diarrhea type: unspecified type Qualified Code(s): R19.7 - Diarrhea, unspecified Hospital course: Ms. Luciano is a 68 year old female - Time Spent with Patient Total time spent providing and/or coordinating discharge services: - Discharge Medications Prescriptions: Levalbuterol Neb [Xopenex Neb] 1.25 mg IH [id number] 30 Days #120 vial.neb Apixaban [Eliquis] 5 mg PO BID #60 tablet Diltiazem CD (24hr) [Cardizem CD] 240 mg PO DAILY 30 Days #30 cap.er.24h Metoprolol [Lopressor] 50 mg PO HS 30 Days #30 tablet Metoprolol [Lopressor] 75 mg PO DAILY 30 Days #30 tablet PredniSONE [Robinson] 5 mg PO TAPER 5 Days #21 tablet.dr Home Medications: Atorvastatin [Lipitor] 10 mg PO HS #30 tablet 08/13/16 [Rx] Furosemide [Lasix] 40 mg PO DAILY #30 tablet 08/13/16 [Rx] Buspirone HCl [Buspar] 10 mg PO BID 02/11/18 [History] Omeprazole 40 mg PO QAM 02/11/18 [History] Albuterol Sulfate [Albuterol Inhaler] 2 puff IH Q6HR PRN 02/12/18 [History] Budesonide/Formoterol 160/4.5 [Symbicort 160/4.5] 2 puff IH BIDR 02/12/18 [History] Duloxetine HCl [Cymbalta] 60 mg PO BID 02/12/18 [History] Valsartan [Diovan] 40 mg PO BID 02/12/18 [History] levETIRAcetam [Levetiracetam] 1,000 mg PO BID 02/12/18 [History] Mag Hydrox/Al Hydrox/Simeth [Maalox] 15 ml PO Q6HR PRN udc 02/25/18 [Rx] Nystatin POWDER [Nystop] 1 appl TP TID bottle 02/25/18 [Rx] Gabapentin [Neurontin] 800 mg PO TID 03/19/18 [History] Aspirin [Lo-Dose Aspirin EC] 81 mg PO DAILY 06/18/18 [History] Apixaban [Eliquis] 5 mg PO BID #60 tablet 06/25/18 [Rx] Diltiazem CD (24hr) [Cardizem CD] 240 mg PO DAILY 30 Days #30 cap.er.24h 06/30/18 [Rx] Levalbuterol Neb [Xopenex Neb] 1.25 mg IH [id number] 30 Days #120 vial.neb 06/30/18 [Rx] Metoprolol [Lopressor] 50 mg PO HS 30 Days #30 tablet 06/30/18 [Rx] Metoprolol [Lopressor] 75 mg PO DAILY 30 Days #30 tablet 06/30/18 [Rx] PredniSONE [Robinson] 5 mg PO TAPER 5 Days #21 tablet. 06/30/18 [Rx] Allergies/Adverse Reactions: Allergy/AdvReac Type Severity Reaction Status Date / Time acetaminophen Allergy Hives Verified 07/28/15 14:58 [From Darvocet-N] Iodinated Contrast- Oral and Allergy Difficulty Verified 07/28/15 14:58 IV Dye Breathing [Iodinated Contrast Media - IV Dye] propoxyphene Allergy Hives Verified 07/28/15 14:58 [From Darvocet-N] Date of admission: 06/18/18 16:44 Primary care physician: PCP NONE Consults: 06/18/18 17:02 Consult to Nutrition [CONS] Routine Comment: Consulting Provider: NUTRITION Reason for Dietary Consult: MST Score 06/19/18 07:02 Consult to Nephrology [CONS] Routine Consulting Provider: Kidney Micheline/KATYA/LESVIA/THEO Reason for Consult: NADIA with oliguria Call Completed: No 06/20/18 07:27 Consult to Invasive Line Access Team [CONS] Routine Reason for Consult: EPIV placement Line Type: EPIV PICC line indications: Limited vascular access 06/21/18 07:37 Consult to Interventional Radiology [CONS] Stat Consulting Provider: Radiology Interventional Cols Reason for Consult: therapeutic thoracentesis on right side Call Completed: No 06/24/18 00:01 Consult to Physical Therapy [CONS] Routine Comment: Evaluate, develop and implement POC Reason for Consult: weakness Does patient have active BEDREST order?: No Is patient medically & hemodynamically stable?: Yes Patient assessed for mobility or mobilized this visit?: No Consult to Respiratory Therapy [CONS] Routine Reason for Consult: High flow oxygen starting 06/24/18 Time Notified: 08:37 Call Completed: Yes OT [Consult to Occupational Therapy] [CONS] Routine Comment: Evaluate, develop and implement POC Reason for Consult: weakness Does patient have active BEDREST order?: No Is patient medically & hemodynamically stable?: Yes Patient assessed for mobility or mobilized this visit?: No 06/24/18 22:29 Consult to Cardiology [CONS] Routine Comment: Consulting Provider: Cardiology Micheline Reason for Consult: Patient began having new onset of Afib w/RVR this evening w/HR going as high as 200. Current health problems on admission: Cellulitis, Acute on chronic CHF, hypoxia w/hypercapnia, pulmonary HTN d/t COPD. Pt. has no hx of Afib and is not anticoagulated. Call Completed: Yes 06/26/18 07:04 Consult to Credit Rating Inspector [CONS] Routine Reason for SW Consult: needs ecf 06/26/18 13:33 Consult to Pulmonology [CONS] Routine Consulting Provider: Pulm Crit Care & Sleep Micheline Reason for Consult: Acute COPD, worsening hypercapnia Time Notified: 13:34 Call Completed: Yes - Constitutional Vitals: Temp Pulse Resp BP Pulse Ox 98.3 F 76 18 114/73 95 06/30/18 11:35 06/30/18 11:35 06/30/18 11:35 11/04/18 11:35 06/30/18 11:35 - Patient Status Disposition: Home Health Service Condition: Fair - Discharge Instructions Instructions: Apixaban (By mouth), Acute Kidney Injury (DC), Acute Kidney Injury (GEN), Dyspnea (GEN), BiPAP, Pharm Spec (GEN), BiPAP (GEN) Follow Up With: Brad Minor MD [Partnered Physician] - (Please follow up with PCP in 5- 7days.) Marco Lopez MD [Non-Partnered Physician] - - Attending Attestation I examined this patient and my medical decision-making was reviewed with the Resident Physician Dr Loomis. I agree with the documented findings, disposition and treatment plan as described except to the extent set forth below/addl details below Ms Luciano is currently admitted for acute respiratory failure, acute on chronic chf and cellulitis. She developed afib with RVR with very difficult to control heart rate and multiple medication adjustments this admission. She weaned slowly from bipap to high flow to bipap nightly and o2 nc. She was followed by cardiology. She is discharged to home in stable condition with [facility]. awake, eating, pleasant. She is feeling back to baseline. no sob on home o2. no wheezing, coughing. She denies cp, palpitations, presyncope. she is very eager to dc to home today. discussed in detail oupt plan and she verbalized good understanding. gen- alert, awake,appears stated age, obese cv- reg rate and irreg/irreg rhythm, normal s1,s2, no murmurs appreciated, no pitting edema bl le, no jvd lungs- dctabl, cannot appreciate rhonchi, crackles or wheezing, norm resp effort on O2 nc neuro- AAOx3 A/P Acute on Chronic Resp failure with hypoxia and hypercapnia Likely due to COPD exacerbation and fluid overload from CHF with class 2-3 pulm HTN- HS bipap, NC weaned to home 2L -bipap set up for dc - fu with pulm and outpt pfts Acute on Chronic Diastolic CHF - PO lasix, with creat this am she will hold further dosing today, resume tomorrow and outpt bmp within the week cards now signed off fu outpt -asa statin, bb, arb New onset Afib with RVR, likely 2/2 resp failure as above and infection (cellulitis) -HR consistenly improved control, uptitrated morning dose this am with good effect and bp tolerated cont NOAC, cardizem CD BB on dc outpt cards follow up HTN, bps improved to goal- losartan, bb, will require outpt follow up on dc Hypomagnesemia- repleted prior to dc Further diagnoses and plan as per resident. <EbonieEmery Russel - Last Filed: 06/30/18 14:43> - NOTES TO OUTPATIENT PROVIDER Notes to Outpatient Provider: Admitted to the ICU 06/18/18 with acute resp failure, NADIA, and bilateral LE cellulitis. Received broad spectrum abx, BiPAP, and initial IVF followed later in stay with aggressive diuresis. New onset AFIB RVR on 06/24/18 and rate control titrated up to diltiazem 240mg CD daily, 75mg metoprolol daily and 50mg metoprolol HS. Anticoagulated with apixaban. Most recent HR 100, BP 114/73 on the rate control regimen. Pulm recommends outpt PFT's. Cards f/u will be set up by them. Will need PCP followup in 1 week for BMP and check of renal function as Cr 1.43 day of dc. She was instructed to hold lasix day of dc and resume next day which she understood. Orders not resulted at time of discharge: Pending orders 06/21/18 07:44 IR thoracentesis RIGHT [IR] Stat Date of Encounter: 06/30/18 Time of Encounter: 07:30 - Discharge Diagnosis (1) Acute on chronic respiratory failure with hypoxia and hypercapnia Priority: Primary Status: Chronic Assessment and Plan: Likely due to COPD exacerbation and fluid overload from CHF with class 2-3 pulm HTN Echo showed LVEF 70-75% CXR 06/19 shows stable mod-severe pulmonary vascular congestion and cardiomegaly with an increased focal opacity involving the RUL representative government relations of pulmonary edema vs pneumonia Chest CT showed likely pulm edema with B/L pleural effusions Zosyn completed 7 days , vanc completed - stop date for vanc will be 06/23/18, for zosyn will be 06/24/18. No further abx Blood cultures x2 neg Pt tolerating hiflow during day and BiPAP at night, breathing improved today Duonebs switched to ipratropium and levalbuterol 06/25/18 Son who is POA was called to confirm code status. He agrees with her being full code but states that she is adamant about not wanting a tracheostomy IR was consulted for therapeutic thoracentesis of right lung on 06/21 but pt refused Case discussed with motor transport inspector. Lasix started 06/23/18, increased 06/26/18 and renal function stable, Cr 1.43, pm lasix dose being held Thoracentesis (R lung) 06/24/18 with minimal fluid evacuation, improved R lung aeration on post thora CXR Hypercapnic thats likely chronic with co metabolic alkalosis yst. VBG 06/26/18 pH 7.3, pCO2 88, pO2 199, HCO3 43 Breathing continues to be improved today, will continue BiPAP at night and continue to be at home O2 rate 4L nc during day. Tapering off steroids from q8h to q12h yst and continue tapering down. Total days 11 so far, taper at dc O2 sat early am on rmair 85% while sleeping, likely TIKA related. Home BiPAP paperwork ready for time of dc. (2) Acute on chronic diastolic CHF (congestive heart failure) Priority: Secondary Status: Acute Assessment and Plan: Echo revealed LVEF 70-75%, mild concentric left ventricular hypertrophy Suspected cardio-renal syndrome, improving Lasix resumed as renal function improved Monitor renal function Thoracentesis 06/24/18, minimal fluid evacuated during thoracentesis Continue BiPAP at night and wean O2 during day. (3) A-fib Priority: Secondary Status: Acute Assessment and Plan: No hx of Afib Had episode of Afib RVR 06/24/18 with HR in 200's initially seen on tele. Non symptomatic during episode Afib RVR confirmed on ECG Given 1 dose 15mg IV diltiazem and HR improved to low 100's. Cards started PO diltiazem for rate control [id number] 4 Transitioned from heparin to apixaban for anticoagulation Diltiazem infusion transitioned to PO and 50mg metoprolol added BID as remains tachycardic HR goal <100, cards signed off and will schedule outpt followup with them. Metoprolol increased to 75mg daily and 50mg hs dosing. Most recent HR 100, BP 114/73 Will dc today Qualifiers: Atrial fibrillation type: persistent Qualified Code(s): I48.1 - Persistent atrial fibrillation (4) Diarrhea Priority: Secondary Status: Resolved Assessment and Plan: Likely 2/2 abx use Abx have been completed now GI PCR panel neg Rectal tube out 06/27/18 Qualifiers: Diarrhea type: unspecified type Qualified Code(s): R19.7 - Diarrhea, unspecified (5) Anemia Priority: Secondary Status: Acute Assessment and Plan: Hbg 8.2 on admission Stable hemoglobin yst at 10.3 No obvious signs of bleeding at this time Continue to monitor Qualifiers: Anemia type: unspecified type Qualified Code(s): D64.9 - Anemia, unspecified (6) Pulmonary hypertension due to COPD Priority: Secondary Status: Acute Assessment and Plan: Continue current management Uses 4L O2 at home round the clock but rx is for 2L Been on 2L nc today, sats 90-95% (7) Cellulitis Priority: Secondary Status: Acute Assessment and Plan: Warm and erythematous areas on bilateral LE above the ankles on arrival Vanc renally dosed on admission with hx of MRSA PNA MRSA swab was positive Completed 7 days Zosyn, no further abx Qualifiers: Site of cellulitis: extremity Site of cellulitis of extremity: lower extremity Laterality: right Qualified Code(s): L03.115 - Cellulitis of right lower limb (8) NADIA (acute kidney injury) Priority: Secondary Status: Resolved Assessment and Plan: Resolved Fluids previously held due to 3L input with oliguria, medications to be renally dosed, avoid nephrotoxins NADIA likely due to prerenal cause vs ATN vs cardiorenal syndrome UA showed high protein, moderate blood and many squamous epi cells w/o bacteria or casts Retroperitoneal US did not demonstrate hydronephrosis or signs of obstruction Nephro signed off - Total fluid balance now at -15,256mL Cr decreased from 3.04. 1.18 06/24/18 Renal function improved today, Cr 1.43 Continue lasix as renal function stable Continue close monitoring HS lasix held today Hospital course: Ms. Luciano is a 68 year old female who was transferred from the [facility] 06/18/18. EMS Squad reported to [facility] that they were called because the O2 saturations were low at home. Is unclear who called the squad. EMS transported the patient noting that her O2 sats were in the low 80s on the normal 4L that she uses at home. She was subsequently put on a non-rebreather. It was reported that she was able to converse somewhat at [facility] ED, provider stating she seems slow to respond and even seems confused. Medical staff at [facility] who are very familiar with the patient note that her level of consciousness is significantly decreased from baseline and that she normally is coherent and very conversational. Pt was placed on BiPAP and transferred to [facility] for further care of acute on chronic respiratory failure with hypercapnia and hypoxia. CXR from [facility] ED reviewed which showed cardiomegaly with vascular congestion. BNP at [facility] was 269. Cr was elevated at 2.92 from a reportedly normal baseline from hospital records. Was admitted the the ICU and remained on BiPAP throughout ICU stay. She was treated with broadspectrum abx vanc x3 days, zosyn x6 days for bilat LE cellulitis. NADIA likely prerenal from fluid deficit that improved with IVF within ICU. Resp status improved and transferred out of ICU on 06/22/18. Remained on BiPAP and was slowly weaned from BiPAP to high flow to eventual nc while continuing BiPAP at night over the next 5 days. Received 11 days steroids and have been tapering which will continue at ia. Had R side thoracentesis on 06/24/18 with minimal fluid evacuation but breathing improved since. Echo revealed LVEF 70-75%, mild concentric left ventricular hypertrophy and diuresis continued with clinical improvement. Had episode of Afib RVR 06/24/18 with HR in 200's initially seen on tele. Non symptomatic during episode. Afib RVR confirmed on ECG. Given 1 dose 15mg IV diltiazem and HR improved to low 100's. [id number] 4, transitioned from heparin to apixaban for anticoagulation. Diltiazem infusion transitioned to PO and 75 mg am and 50mg pm dosing of metoprolol added as remains tachycardic. BP stable at this dosing. Cards will see as outpt followup. She has been aggressively diuresed since arrival and net neg 14.6L as of dc. Renal function declined day of dc to cr 1.43. Will hold home lasix for day, resume tomorrow and see PCP in 1 week for repeat BMP, cards fu will be scheduled by them. Pulm recommends outpt PFT. Paperwork complete and home BiPAP at night will continue with 2L O2 nc during day. Discharge discussed with: patient - Time Spent with Patient Total time spent providing and/or coordinating discharge services: Less than 30 minutes Date of admission: 06/18/18 16:44 Primary care physician: PCP NONE Consults: 06/18/18 17:02 Consult to Nutrition [CONS] Routine Comment: Consulting Provider: NUTRITION Reason for Dietary Consult: MST Score 06/19/18 07:02 Consult to Nephrology [CONS] Routine Consulting Provider: Kidney Micheline/KATYA/LESVIA/THEO Reason for Consult: NADIA with oliguria Call Completed: No 06/20/18 07:27 Consult to Invasive Line Access Team [CONS] Routine Reason for Consult: EPIV placement Line Type: EPIV PICC line indications: Limited vascular access 06/21/18 07:37 Consult to Interventional Radiology [CONS] Stat Consulting Provider: Radiology Interventional Cols Reason for Consult: therapeutic thoracentesis on right side Call Completed: No 06/24/18 00:01 Consult to Physical Therapy [CONS] Routine Comment: Evaluate, develop and implement POC Reason for Consult: weakness Does patient have active BEDREST order?: No Is patient medically & hemodynamically stable?: Yes Patient assessed for mobility or mobilized this visit?: No Consult to Respiratory Therapy [CONS] Routine Reason for Consult: High flow oxygen starting 06/24/18 Time Notified: 08:37 Call Completed: Yes OT [Consult to Occupational Therapy] [CONS] Routine Comment: Evaluate, develop and implement POC Reason for Consult: weakness Does patient have active BEDREST order?: No Is patient medically & hemodynamically stable?: Yes Patient assessed for mobility or mobilized this visit?: No 06/24/18 22:29 Consult to Cardiology [CONS] Routine Comment: Consulting Provider: Cardiology Micheline Reason for Consult: Patient began having new onset of Afib w/RVR this evening w/HR going as high as 200. Current health problems on admission: Cellulitis, Acute on chronic CHF, hypoxia w/hypercapnia, pulmonary HTN d/t COPD. Pt. has no hx of Afib and is not anticoagulated. Call Completed: Yes 06/26/18 07:04 Consult to Credit Rating Inspector [CONS] Routine Reason for SW Consult: needs ecf 06/26/18 13:33 Consult to Pulmonology [CONS] Routine Consulting Provider: Pulm Crit Care & Sleep Micheline Reason for Consult: Acute COPD, worsening hypercapnia Time Notified: 13:34 Call Completed: Yes Discharging clinician: Emery Loomis Anticipated date of discharge: 06/30/18 - Constitutional Vitals: Temp Pulse Resp BP Pulse Ox 98.9 F 110 15 117/81 92 06/30/18 07:00 06/30/18 07:00 06/30/18 07:00 06/30/18 07:00 06/30/18 07:00 Exam: General: Awake, alert, sitting on edge of bed on nc, appears stated age, no signs of toxicity HEENT: EOMi, pupils equal/round, mucus membranes moist. Cardiac: Tachycardic, irregularly irregular rhythm, S1/S2+ but distant, no murmurs, heaves, thrills appreciated, radial pulse 2+ bilaterally, normal capil jenn refill, 1+ edema Chest: Symmetric chest rise, non tender Pulmonary: Decreased air movement, normal resp effort, diminished breath sounds, scattered exp wheezes, no rhonchi or rales appreciated Abdominal: Soft, non-tender, no distention, guarding, rebound tenderness, or rigidity Neuro: AOx3, CN grossly intact Psych: Normal affect Integumentary: Brush, warm, dry, intact - Patient Status Functional capacity at discharge: wheelchair bound Overall status at discharge: patient is progressing back to baseline - Diet and Activity Activity: as per physical therapy, increase activity as tolerated, resume usual activities as tolerated, wear oxygen at all times, other (BiPAP at night) Diet: other (cardiac)
[2018-06-30] MEDS ORDERED: MethylPREDNISolone 40 MG/ML VIAL IVP SCH (09:00)
[2018-06-30] MEDS: Budesonide/Formoterol 160/4.5 1 PUFF INH IH SCH (11:01)
[2018-06-30 11:36] VITALS: BP 114/73
--- NOTE | 2018-06-30 13:25 | Physician Discharge Referral ---
<Emery Loomis - Last Filed: 06/30/18 13:23> Home Health/Hosp Referral Info Transfer to: Home Health Attending Provider: Dr Medina Provider in Charge Post Discharge: PCP - Diagnosis (1) Acute on chronic respiratory failure with hypoxia and hypercapnia Priority: Primary Status: Chronic (2) Acute on chronic diastolic CHF (congestive heart failure) Priority: Secondary Status: Acute (3) A-fib Priority: Secondary Status: Acute (4) Diarrhea Priority: Secondary Status: Resolved (5) Anemia Priority: Secondary Status: Acute (6) Pulmonary hypertension due to COPD Priority: Secondary Status: Acute (7) Cellulitis Priority: Secondary Status: Acute (8) NADIA (acute kidney injury) Priority: Secondary Status: Resolved - Respiratory Orders Oxygen / L per min (2L continuous), Other (BiPAP at night) Smoking Cessation: Smoking cessation has been advised. For more information, call the [employer] Tobacco Quit Line at 6-634-FPIV-NOW. - Diet/Nutrition Diet/Nutrition Orders: Cardiac - Activity Activity Orders: Chair (Wheelchair) - Services Needed Following services are medically necessary services: Nursing, Home Health Aide, Physical Therapy, Occupational Therapy - Transfer Medications Prescriptions: Levalbuterol Neb [Xopenex Neb] 1.25 mg IH [id number] 30 Days #120 vial.neb Apixaban [Eliquis] 5 mg PO BID #60 tablet Diltiazem CD (24hr) [Cardizem CD] 240 mg PO DAILY 30 Days #30 cap.er.24h Metoprolol [Lopressor] 50 mg PO HS 30 Days #30 tablet Metoprolol [Lopressor] 75 mg PO DAILY 30 Days #30 tablet PredniSONE [Robinson] 5 mg PO TAPER 5 Days #21 tablet. Home Medications: Atorvastatin [Lipitor] 10 mg PO HS #30 tablet 08/13/16 [Rx] Furosemide [Lasix] 40 mg PO DAILY #30 tablet 08/13/16 [Rx] Buspirone HCl [Buspar] 10 mg PO BID 02/11/18 [History] Omeprazole 40 mg PO QAM 02/11/18 [History] Albuterol Sulfate [Albuterol Inhaler] 2 puff IH Q6HR PRN 02/12/18 [History] Budesonide/Formoterol 160/4.5 [Symbicort 160/4.5] 2 puff IH BIDR 02/12/18 [History] Duloxetine HCl [Cymbalta] 60 mg PO BID 02/12/18 [History] Valsartan [Diovan] 40 mg PO BID 02/12/18 [History] levETIRAcetam [Levetiracetam] 1,000 mg PO BID 02/12/18 [History] Mag Hydrox/Al Hydrox/Simeth [Maalox] 15 ml PO Q6HR PRN udc 02/25/18 [Rx] Nystatin POWDER [Nystop] 1 appl TP TID bottle 02/25/18 [Rx] Gabapentin [Neurontin] 800 mg PO TID 03/19/18 [History] Aspirin [Lo-Dose Aspirin EC] 81 mg PO DAILY 06/18/18 [History] Apixaban [Eliquis] 5 mg PO BID #60 tablet 06/25/18 [Rx] Diltiazem CD (24hr) [Cardizem CD] 240 mg PO DAILY 30 Days #30 cap.er.24h 06/30/18 [Rx] Levalbuterol Neb [Xopenex Neb] 1.25 mg IH [id number] 30 Days #120 vial.neb 06/30/18 [Rx] Metoprolol [Lopressor] 50 mg PO HS 30 Days #30 tablet 06/30/18 [Rx] Metoprolol [Lopressor] 75 mg PO DAILY 30 Days #30 tablet 06/30/18 [Rx] PredniSONE [Robinson] 5 mg PO TAPER 5 Days #21 tablet. 06/30/18 [Rx] Allergies/Adverse Reactions: Allergy/AdvReac Type Severity Reaction Status Date / Time acetaminophen Allergy Hives Verified 07/28/15 14:58 [From Darvocet-N] Iodinated Contrast- Oral and Allergy Difficulty Verified 07/28/15 14:58 IV Dye Breathing [Iodinated Contrast Media - IV Dye] propoxyphene Allergy Hives Verified 07/28/15 14:58 [From Neymarcet-N] Certification: Further, I certify that my clinical findings support that this patient is homebound (i.e. absences from home require considerable and taxing effort and are for medical reasons or sikh services or infrequently or short duration when for other reasons) because: Homebound Reason: Patient requires assistance of a person or device to safely leave home, Leaving home requires considerable and taxing effort due to condition, Severity of cardiac or pulmonary status limits activity tolerance Attestation: My signature below is to certify that this patient is under my care and that I, or nurse practitioner, or a physician's staff assistant working with me, has a [id number] encounter with this patient. <Genna Simon - Last Filed: 06/30/18 13:35> - Diagnosis (1) Cellulitis Status: Acute (2) Acute on chronic diastolic CHF (congestive heart failure) Status: Acute (3) Anemia Status: Acute (4) Acute on chronic respiratory failure with hypoxia and hypercapnia Status: Chronic (5) Pulmonary hypertension due to COPD Status: Acute (6) NADIA (acute kidney injury) Status: Resolved (7) A-fib Status: Acute (8) Diarrhea Status: Resolved - Respiratory Orders Smoking Cessation: Smoking cessation has been advised. For more information, call the [employer] Tobacco Quit Line at 9-301-LSDINOW. - Diet/Nutrition Diet/Nutrition Orders: No Added Salt (CARMITA) Certification: Further, I certify that my clinical findings support that this patient is homebound (i.e. absences from home require considerable and taxing effort and are for medical reasons or sikh services or infrequently or short duration when for other reasons) because: Attestation: My signature below is to certify that this patient is under my care and that I, or nurse practitioner, or a physician's staff assistant working with me, has a [id number] encounter with this patient.
== END 2018-06-30 14:42 | disposition home health service (06) | DRG 190 ==
LOC: SUATTDRO 16:44 → ICNU 16:44 → 2ANU 06-23 05:33 → 3BNU 06-28 14:23
PROVIDERS: ADMIT Internal Medicine Pulmonary Disease; ATTEND Internal Medicine